=== PATIENT | male | born 1965 | race Caucasian/White ===

== ENCOUNTER → 2016-12-12 | Day surgery (SDC) | payer BC ==
[~2016-12-12] VITALS: Ht 182.9 cm; Wt 91.0 kg
[~2016-12-12] MED LIST: CYAN500T13 PO; FENTANYL CITRATE INJ 50 MCG/1 ML 2 ML VIAL ONE; LIDOCAINE HCL 2% 2 ML VIAL (20MG/ML) ONE; MIDAZOLAM HCL 1 MG/ML 2ML VIAL ONE; PANT40TA PO; PROPOFOL IV EMULSION 10 MG/ML 20 ML VIAL IV ONE; SODIUM CHLORIDE 0.9% 500ML 500 ML IV ONE; WARF5TAB90 PO; WARF7.5T PO
--- NOTE | 2016-12-12 14:27 | Endo History and Physical ---
History & Physical Date of Service: Dec 12, 2016. Chief Complaint: Referring Physician: History of Present Illness Follow up of Kohli's esophagus Past Medical History Pulmonary Emboli, Hypertension, COPD Past Surgical History Hx Cardiac Surgery: No Hx Internal Defibrillator: No Hx Pacemaker: No Hx Abdominal Surgery: Yes ([facility] [place] abdominal surgery- AAA repair) Hx Post-Op Nausea and Vomiting: No Hx Cancer Surgery: No Hx Thoracic Surgery: No Hx Orthopedic: No Hx Urinary Tract Surgery: No Social History Smoking Status: Current Every Day Smoker Hx Substance Use: No Hx Alcohol Use: Yes (BEER- 12 a day) Allergies Coded Allergies: No Known Allergies (Unverified , 04/21/16) Current Medications Reported Home Medications Medications Dose Route/Sig Max Daily Dose Days Date Category Vitamin B12 500MCG (Cyanocobalamin) 500 Mcg Tab 1,000 Mcg PO DAILY 05/29/16 Reported Protonix (Pantoprazole Sodium) 40 Mg Tab 40 Mg PO BID 04/24/16 Rx Physical Exam General Appearance: WD/WN, no apparent distress Respiratory/Chest: Auscultation: breath sounds normal, CTA except as noted Cardiovascular: Apical Impulse: not displaced Heart Auscultation: RRR, normal S1, normal S2 Abdomen: Inspection & Palpation: soft, non-distended Assessment and Plan 50 yo presenting for egd for Kohli's esophagus f/u
[2016-12-12 14:33] VITALS: Ht 182.9 cm; Wt 91.0 kg
--- NOTE | 2016-12-12 15:16 | GI REPORT ---
Procedure Date: 12/12/2016 2:46 PM Procedure: Upper GI endoscopy Indications: Follow-up of Kohli's esophagus Medicines: General Anesthesia Complications: No immediate complications. Estimated blood loss: None. Estimated Blood Loss: Estimated blood loss: none. Procedure: Pre-Anesthesia Assessment: - Pre-Anesthesia Assessment: - Prior to the procedure, a History and Physical was performed, and patient medications, allergies and sensitivities were reviewed. The patient's tolerance of previous anesthesia was reviewed. Please see Ektron for complete details. - The risks and benefits of the procedure and the sedation options and risks were discussed with the patient. All questions were answered and informed consent was obtained. - Patient identification and proposed procedure were verified prior to the procedure by the physician and the nurse. The procedure was verified in the pre-procedure area in the procedure room. After obtaining informed consent, the endoscope was passed carefully and meticuously under direct vision and only advanced when the lumen was clearly identified, C02 insuflation was utilized throughout the entirity of the procedure. Throughout the procedure, the patient's blood pressure, pulse, and oxygen saturations were monitored continuously. After obtaining informed consent, the endoscope was passed under direct vision. Throughout the procedure, the patient's blood pressure, pulse, and oxygen saturations were monitored continuously. The scope was introduced through the mouth, and advanced to the second part of duodenum. The upper GI endoscopy was accomplished without difficulty. The patient tolerated the procedure well. Findings: The esophagus and gastroesophageal junction were examined with white light and narrow band imaging (NBI) from a forward view and retroflexed position. There were esophageal mucosal changes classified as Kohli's stage C3-M3 per Woodbine criteria. These changes involved the mucosa at the upper extent of the gastric folds (40 cm from the incisors) extending to the Z-line (37 cm from the incisors). The maximum longitudinal extent of these esophageal mucosal changes was 3 cm in length. Mucosa was biopsied with a cold forceps for histology in 4 quadrants at intervals of 1 cm at 37, 38, 39 and 40 cm from the incisors. A total of 4 specimen bottles were sent to pathology. A hiatus hernia was present. The entire examined stomach was normal. The examined duodenum was normal. Impression: - Esophageal mucosal changes classified as Kohli's stage C3-M3 per Woodbine criteria. Biopsied. - Normal stomach. - Normal examined duodenum. Recommendation: - Await pathology results. - Discharge patient to home (with escort). - Return to referring physician as previously scheduled. - Continue present medications. Samy Sahu MD 12/12/2016 3:16:21 PM This report has been signed electronically. Note Initiated On: 12/12/2016 2:46 PM
--- NOTE | 2016-12-12 15:33 | Discharge Instructions ---
Endoscopy Patient Instructions Date / Procedure(s) Performed Dec 12, 2016. EGD Allergy Information Coded Allergies: No Known Allergies (Verified , 12/12/16) Discharge Date / Findings Dec 12, 2016. Stable appearing Barretts esophagus Provider Instructions Activity Restrictions - No exercising or heavy lifting for 24 hours. - Do not drink alcohol the day of the procedure. - Do not drive a car or operate machinery until the day after the procedure. - Do not make any important decisions or sign important papers in 24 hours after the procedure. Following Day: - Return to full activity which may include returning to work/school. Diet Start your diet with liquids and light foods (jello, soup, juice, toast). Then eat your usual diet if not nauseated. Treatment For Common After Affects For mild abdominal pain, bloating, or excessive gas: - Rest - Eat lightly - Lie on right side Follow-Up Information Follow-up with DR YUNG GAVIRIA as scheduled Anesthesia Information What You Should Know You have had a procedure that required some medicine to reduce anxiety and discomfort. This treatment is called moderate sedation. After receiving the treatment, you may be sleepy, but you will be able to breathe on your own. The effects of the treatment may last for several hours. Follow these instructions along with Activity/Diet recommendations noted above: * Do NOT do anything where dizziness or clumsiness would be dangerous. * Rest quietly at home today, then you can be up and about tomorrow. * Have a responsible person stay with you the rest of today. * You may have had an I.V. today. If so, you may take the dressing off later today. Recommendations Call your doctor if: * Trouble breathing * Continuous vomiting for more than 24 hours * Temperature above 101 degrees * Severe abdominal pain or bloating * Pain not relieved by pain medicine ordered * There is increased drainage or redness from any incision * A large amount of rectal bleeding greater than 2-3 tablespoons. (If you had a polyp/s removed or have hemorrhoids, a small amount of blood - from the rectum is to be expected.) * You have any unanswered questions or concerns. IN THE EVENT OF A SERIOUS EMERGENCY, GO TO THE NEAREST EMERGENCY ROOM Your discharge instructions were prepared by provider Samy Sahu. Patient Instructions Signature Page Tam Fritz Patient (or Guardian) Signature/Date: I have read and understand the instructions given to me by my caregivers. Caregiver/RN/Doctor Signature/Date: The above-named patient and/or guardian has received patient instructions on this date. + Original Patient Signature Page (only) stays with chart. Please make copy for patient.
--- NOTE | 2016-12-12 15:36 | Anesthesiology Progress Note ---
Anesthesia Post Op Note Date & Time Dec 12, 2016 at 15:36 Vital Signs Pain Intensity: 0 Vital Signs Past 12 Hours Date Time Temp Pulse Resp B/P Pulse Ox O2 Delivery O2 Flow Rate FiO2 12/12/16 15:20 108 16 117/84 95 Room Air 12/12/16 14:32 37.0 88 22 162/98 97 Room Air Notes Mental Status: alert / awake / arousable, participated in evaluation Pt Amnestic to Procedure: Yes Nausea / Vomiting: adequately controlled Pain: adequately controlled Airway Patency, RR, SpO2: stable & adequate BP & HR: stable & adequate Hydration State: stable & adequate Anesthetic Complications: no major complications apparent
[2016-12-12 15:50] VITALS: BP 130/84; PULSE 96; O2SAT 95
== END | disposition home or self-care (01) ==
LOC: C.GI 14:19
PROVIDERS: ATTEND Internal Medicine
DX: K22.70 Barrett's esophagus without dysplasia (principal); K44.9 Diaphragmatic hernia without obstruction or gangrene; I10 Essential (primary) hypertension; J44.9 Chronic obstructive pulmonary disease, unspecified; I26.99 Other pulmonary embolism without acute cor pulmonale; F17.210 Nicotine dependence, cigarettes, uncomplicated; Z98.890 Other specified postprocedural states

== ENCOUNTER → 2018-03-19 | Outpatient (CLI) | payer OTHER ==
[~2018-03-19] MED LIST changes: -FENTANYL CITRATE INJ 50 MCG/1 ML 2 ML VIAL ONE; -LIDOCAINE HCL 2% 2 ML VIAL (20MG/ML) ONE; -MIDAZOLAM HCL 1 MG/ML 2ML VIAL ONE; -PANT40TA PO; -PROPOFOL IV EMULSION 10 MG/ML 20 ML VIAL IV ONE; -SODIUM CHLORIDE 0.9% 500ML 500 ML IV ONE; -WARF7.5T PO
--- NOTE | 2018-03-19 16:49 | DIAGNOSTIC IMAGING REPORT ---
CHEST 2 VIEWS ROUTINE CLINICAL HISTORY: J42, R06.2, Z72.0 CHRONIC BRONCHITIS, WHEEZING, COUGH, SHORTNESS OF BREATH. COMPARISON STUDY: 08/06/2015 FINDINGS: There is radiographic evidence of pulmonary emphysema. The patient is hyperinflated. There are scattered postinflammatory calcifications present. There is no acute parenchymal consolidation. There is no failure. There are no pleural effusions.[ There is an old left-sided rib deformity. IMPRESSION: Emphysema and postinflammatory changes. No acute findings. Electronically signed by: Sammy Kiser M.D. 03/19/2018 4:48 PM Dictated Date/Time: 03/19/2018 4:47 PM
== END | disposition home or self-care (01) ==
LOC: C.RAD1850 16:22
PROVIDERS: ATTEND Physician Assistant
DX: J44.9 Chronic obstructive pulmonary disease, unspecified (principal); Z72.0 Tobacco use

== ENCOUNTER 2019-01-20 22:38 | Inpatient (IN) ==
[2019-01-20] MEDS ORDERED: ALBUT/IPRATROP 3MG/0.5MG NEB 3 ML VIAL ONE (22:44)
[2019-01-20] MEDS ORDERED: ALBUT/IPRATROP 3MG/0.5MG NEB 3 ML VIAL INH STA (23:17)
[2019-01-20] MEDS ORDERED: methylPREDNISolone 125 MG/2 ML VIAL IV STA (23:17)
[2019-01-20 23:43] LABS: Eosinophils # (auto) 0.01 K/uL (0-0.5); Eosinophils % (auto) 0.1 %; Hematocrit (blood only) 41.3 % (42-52); Hemoglobin 13.9 g/dL (14.0-18.0); Immature Granulocytes # (auto) 0.05 K/uL (0.00-0.02); Immature Granulocytes % (auto) 0.7 %; Lymphocytes % (auto) 10.4 %; Mean Corpuscular Hgb Conc 33.7 g/dL (32-36); Mean Corpuscular Volume 92.4 fL (80-100); Mean Platelet Volume 9.2 fL (7.4-10.4); Monocytes # (auto) 0.68 K/uL (0.11-0.59); Monocytes % (auto) 10.1 %; Neutrophils # (auto) 5.27 K/uL (1.4-6.5); Neutrophils % (auto) 78.7 %; Platelet Count 265 K/uL (130-400); RDW Coefficient of Variation 14.7 % (11.5-14.5); Red Blood Count 4.47 M/uL (4.7-6.1); White Blood Count 6.71 K/uL (4.8-10.8)
[2019-01-21 00:12] LABS: Alanine Aminotransferase 44 U/L (12-78); Albumin Level 3.4 gm/dl (3.4-5.0); Aspartate Aminotransferase 33 U/L (15-37); BUN Creatinine Ratio 13.4 (10-20); Blood Urea Nitrogen 8 mg/dl (7-18); Calcium 7.9 mg/dl (8.5-10.1); Carbon Dioxide 31 mmol/L (21-32); Chloride 86 mmol/L (98-107); Creatinine Clr Calc Pharmacy 151.9 ml/min; Est GFR (African American) 131.2; Est GFR (Non-African American) 113.2; Glucose 113 mg/dl (70-99); Potassium 3.1 mmol/L (3.5-5.1); Sodium 125 mmol/L (136-145)
[2019-01-21 00:16] LABS: Alkaline Phosphatase 100 U/L (45-117); Bilirubin,Total 0.6 mg/dl (0.2-1); Globulin 3.3 gm/dl (2.5-4.0); Total Protein 6.7 gm/dl (6.4-8.2); Troponin I < 0.015 ng/ml (0-0.045)
[2019-01-21] MEDS ORDERED: POTASSIUM CHLORIDE / WTR 10 MEQ/100 ML PLCT IV ONE (01:36)
[2019-01-21] MEDS ORDERED: SODIUM CHLORIDE 0.9% 1000ML 1,000 ML IV ONE (01:36)
--- NOTE | 2019-01-21 03:05 | History & Physical Report ---
Date of Service January 21, 2019 Assessment & Plan (1) Acute metabolic encephalopathy: Patient with possible hallucinations reported earlier today. He is unable to provide history at this time. Minimal records from prior visits. Broad differential to include metabolic abnormalities/electrolyte derangement, low Na/K/Ca, intoxication, withdrawal, infectious, hypoxia/CO2 retention. -Admit to PCU -Continuous cardiac monitoring and pulse oximetry -Supplemental O2 as needed to maintain sats of 94% -Avoid sedating medications -Check PO4, Mg, TSH with T4, Utox, Salicylates/Acetaminophen levels, ABG, B12 -Provide high dose Thiamine, banana bag -Frequent orientation -Neuro checks q 4 hours (2) Hyponatremia: Kw=888. Unclear of baseline. No seizures. Patient with multiple electrolyte derangements. Was given NSS in ER. Possible cause of AMS/delirium -Obtain urine Na, serum and urine osmolality -Repeat BMP when patient arrives to the floor -Seizure precautions (3) Hypocalcemia: Ca=7.9, Albumin within normal limits -Check ionized calcium level x 1 -Calcium gluconate 1gm IV -Continue to monitor (4) Hypokalemia: K=3.1. he was given 10mEq in ER. -Will administer Magnesium x 2gm -Check PO4 -K repletion -Continue to monitor (5) COPD with exacerbation: Patient hypoxic on arrival. Presently with no respiratory distress, adequate oxygenation on OxyMask. No wheezing noted on exam. Was given 125mg of Solumedrol in ER. -Check ABG, concern for CO2 retention contributing to patient's AMS -Supplemental O2 as needed, continuous pulse oximetry, goal saturation of 94% -DuoNebs q 4 hours -Albuterol q 2 hours PRN (6) GERD (gastroesophageal reflux disease): Chronic -Continue Protonix PO (7) History of DVT (deep vein thrombosis): Per records, patient with DVT x 3. On Xarelto -Check INR -Check d-dimer, unknown adherence to medication regimen. Moderate risk by Wells (for HR and prior DVT) -Conitnue Xarelto F/E/N- Banana bag x 1. Electrolyte correction as above, continue to monitor BMP, NPO for now. Patient with documented history of EtOH abuse in a 2013 note - reportedly 12 beers/day. He is unable to provide history at this tiime. EtOH level=0. Monitor Ppx - Xarelto. Protonix Code - Full Dispo - PCU History of Present Illness Chief Complaint: Altered mental status Primary Care Provider: Naima Tyson MD History obtained through chart review and discussion with ER attending due to patient's AMS. Mr. Fritz is a 53yo C male with history of GERD, prior DVT on anticoagulation therapy, COPD and EtOH abuse presenting with acute onset confusion and hallucinations. Per report, patient was at work when he began to see dogs and cats on the wall. He was brought in by EMS. Was mildly hypoxic en route. On arrival to the ER he was found to be tachycardic, tachypneic, saturating 89% on room air. He was placed on NC then Oxymask due to mouth breathing with appropriate increase in saturation. Patient is somnolent, arousable to verbal and tactile stimuli. Able to answer some questions and follow some commands. He denies pain. Denies breathing di fficulty. ER Course: Albuterol, Solumedrol 125mg, KCl 10mEq, NSS x 1 L Allergies Allergy/AdvReac Type Severity Reaction Status Date / Time No Known Allergies Allergy Mild Verified 01/21/19 00:05 Home Medications Home Medications Medication Instructions Recorded Confirmed Type Cordysept 1 tab PO QPM 01/15/19 01/21/19 History cyanocobalamin (vitamin B-12) 1,000 mcg PO QPM 01/15/19 01/21/19 History fluticasone-vilanterol [Breo 1 inh INHALATION QPM 01/15/19 01/21/19 History Ellipta] pantoprazole 40 mg PO QPM 01/15/19 01/21/19 History ipratropium-albuterol [Combivent 1 puff INHALATION QID 01/20/19 01/21/19 History Respimat] rivaroxaban [Xarelto] 20 mg PO DAILY 01/20/19 01/21/19 History Past Med/Surg History Medical History Alcohol use Chronic obstructive pulmonary disease DVT (deep venous thrombosis) X 3-PLACED ON THINNER GERD (gastroesophageal reflux disease) On home oxygen therapy PRN SOB (shortness of breath) on exertion Tremor Surgical History H/O vascular surgery X 3-VASCULAR BLOCKAGES LOWER LEGS History of esophagogastroduodenoscopy (EGD) Family History Mother Family history of diabetes mellitus Social History Preferred Language: Occitan Communication Ability: Effective Beliefs That Will Affect Care: None Current Living Situation: Alone Feels Safe at Home: Yes Smoking Status: Current every day smoker Hx Alcohol Use: Yes Hx Substance Use: No Review of Systems Unobtainable due to reduced consciousness Physical Exam Vital Signs (Past 24 Hours): Last Vital Signs Temp 37.0 C 01/20/19 22:48 Pulse 113 H 01/21/19 02:26 Resp 20 01/21/19 02:26 BP 178/96 H 01/21/19 02:26 Pulse Ox 98 01/21/19 02:26 Physical Exam: General: patient somnolent, arousable to verbal and tactile stimuli but then falls back asleep, oriented to self only Skin: warm, dry, intact, no rashes/lesions HEENT: NC/AT, pupils small, reactive bilaterally, anicteric sclera, conjunctiva without injection, external ear normal to inspection, nares patent, MMM, poor dentition, neck supple, trachea midline, no cervical LAD, no thyromegaly, no JVD Heart: +S1/S2, regular, tachycardic, no m/r/g Lungs: equal air entry bilaterally, shallow breaths, no rales/rhonchi/wheezes Abd: +BS, soft, NT/ND, no masses/organomegaly/ascites Ext: warm, 2+ pulses, trace pitting edema of bilateral LEs Neuro: somnolent, minimally arousable, answering some questions and following some commands, protecting airway at present, oriented to self only, moves all extremities spontaneously with equal strength Results & Data Laboratory Results Lab Results 01/20/19 01/20/19 01/20/19 Range/Units 23:30 23:30 23:30 WBC 6.71 (4.8-10.8) K/uL RBC 4.47 L (4.7-6.1) M/uL Hgb 13.9 L (14.0-18.0) g/dL Hct 41.3 L (42-52) % MCV 92.4 (80-100) fL MCH 31.1 (25-34) pg MCHC 33.7 (32-36) g/dL RDW Std Deviation 50.0 H (36.4-46.3) fL RDW Coeff of Aggie 14.7 H (11.5-14.5) % Plt Count 265 (130-400) K/uL MPV 9.2 (7.4-10.4) fL Immature Gran % (Auto) 0.7 % Neut % (Auto) 78.7 % Lymph % (Auto) 10.4 % Dixon % (Auto) 10.1 % Eos % (Auto) 0.1 % Baso % (Auto) 0.0 % Immature Gran # (Auto) 0.05 H (0.00-0.02) K/uL Neut # (Auto) 5.27 (1.4-6.5) K/uL Lymph # (Auto) 0.70 L (1.2-3.4) K/uL Dixon # (Auto) 0.68 H (0.11-0.59) K/uL Eos # (Auto) 0.01 (0-0.5) K/uL Baso # (Auto) 0.00 (0-0.2) K/uL Sodium 125 L (136-145) mmol/L Potassium 3.1 L (3.5-5.1) mmol/L Chloride 86 L (98-107) mmol/L Carbon Dioxide 31 (21-32) mmol/L Anion Gap 8.0 (3-11) BUN 8 (7-18) mg/dl Creatinine 0.61 (0.6-1.4) mg/dl Est Cr Clr Drug Dosing 151.9 ml/min Est GFR ( Amer) 131.2 Est GFR (Non-Af Amer) 113.2 BUN/Creatinine Ratio 13.4 (10-20) Glucose 113 H (70-99) mg/dl Calcium 7.9 L (8.5-10.1) mg/dl Total Bilirubin 0.6 (0.2-1) mg/dl AST 33 (15-37) U/L ALT 44 (12-78) U/L Alkaline Phosphatase 100 (45-117) U/L Troponin I < 0.015 (0-0.045) ng/ml Total Protein 6.7 (6.4-8.2) gm/dl Albumin 3.4 (3.4-5.0) gm/dl Globulin 3.3 (2.5-4.0) gm/dl Albumin/Globulin Ratio 1.0 (0.9-2) Ethyl Alcohol mg/dL < 3.0 (0-3) mg/dl Diagnostic Findings CT head without contrast: No acute findings CXR - appears to be mildly hyperinflated, calcified aortic knob, flattening of diaphragms, no PTX, no PNA ECG Additional Comments: Sinus tachycardia, no acute ischemic changes Code Status & VTE Plan Code Status FULL VTE Prophylaxis Plan VTE Prophylaxis will be ordered: Yes Critical Care Time Critical Care Time: No (1) GERD (gastroesophageal reflux disease) Esophagitis presence: esophagitis presence not specified Qualified Code(s): K21.9 - Gastro-esophageal reflux disease without esophagitis
[2019-01-21] MEDS ORDERED: ALBUTEROL 0.5% NEB SOLN 2.5 MG/0.5 ML VIAL NEB PRN (04:21)
[2019-01-21] MEDS ORDERED: LORazepam 1 MG TAB PO PRN (04:21)
[2019-01-21] MEDS ORDERED: ACETAMINOPHEN 325 MG TAB PO PRN (04:21)
[2019-01-21] MEDS ORDERED: CALCIUM GLUCONATE 10% 1,000 MG in SODIUM CHLORIDE 0.9% 50 ML IV ONE (04:45)
[2019-01-21] MEDS ORDERED: MULTI-VITAMIN INFUSION 10 ML, THIAMINE HCL 100 MG, FOLIC ACID 1 MG in SODIUM CHLORIDE 0... IV SCH ×2 (04:45→22:30)
[2019-01-21 04:51] LABS: Appearance Urine Clear (Clear); Bilirubin Urine Negative (Negative); Blood Urine Negative (Negative); Color Urine Yellow; Glucose Urine UA Negative (Negative); Ketones Urine 1+ (Negative); Leukocyte Esterase Urine Negative (Negative); Nitrite Urine Negative (Negative); Protein Urine Negative (Negative); Specific Gravity Urine 1.009 (1.000-1.030); Urobilinogen Urine Negative (Negative); pH Urine 6.5 (4.5-7.5)
[2019-01-21] MEDS: MAGNESIUM SULFATE / D5W 1 GM/100 ML BAG IV SCH ×2 (04:54→06:02)
[2019-01-21 05:05] LABS: HCO3 ABG 33 mmol/L (19-24); Oxygen Saturation ABG 90.1 % (90-95); PCO2 ABG 76 mmHg (35-46); PO2 ABG 67 mm/Hg (80-95); pH ABG 7.26 (7.35-7.45)
[2019-01-21 05:06] LABS: Allen Test Pos (Pos)
[2019-01-21 05:21] LABS: Acetaminophen < 2 ug/ml (10-30); Salicylate 2.1 mg/dl (2.8-20)
[2019-01-21 05:28] LABS: D Dimer 430 ug/L FEU (0-500); Prothrombin Time 9.8 Seconds (9.0-12.0)
[2019-01-21 05:30] LABS: Amphetamines+Metham, Urine Neg (Neg); Barbiturates, Urine Neg (Neg); Benzodiazepine, Urine Neg (Neg); Cocaine, Urine Neg (Neg); MDMA (Ecstacy), Urine Neg (Neg); Methadone, Urine Neg (Neg); Opiate, Urine Neg (Neg); Phencyclidine, Urine Neg (Neg)
[2019-01-21 05:33] LABS: BUN Creatinine Ratio 9.9 (10-20); Calcium 7.8 mg/dl (8.5-10.1); Creatinine Clr Calc Pharmacy 157.1 ml/min; Est GFR (Non-African American) 114.8
[2019-01-21 05:47] LABS: Phosphorus 4.9 mg/dl (2.5-4.9)
--- NOTE | 2019-01-21 05:57 | Emergency Department Note ---
Entered by Maddy Pennington acting as a scribe for History of Present Illness General Chief complaint: Shortness of Breath/Dyspnea Stated complaint: SOB Time Seen by Provider: 01/20/19 23:00 Source: patient Mode of arrival: ambulatory History of Present Illness Onset (ago): minute(s) ([employer]) Location: chest Pain Consistency: + other (worsening) Quality: + other (SOB) The patient is a 53 year old male who presents to the Emergency Room with complaints of worsening SOB that began [employer]. The patient notes that he has been experiencing intermittent episodes of SOB and a cough for the past 2-3 weeks. 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 Per EMS, the patient had an oxygen saturation in the 80s upon being picked up. The patient complains of two episodes of a sore throat in the past three months. Per EMS, the patient's coworkers reported that the patient was seeing cats and dogs at works that weren't actually there. He complains of mild abdominal pain. The patient states that he has been on oxygen before while in the hospital. He states that he uses an inhaler at home, and he uses steroids to wash his mouth out. The patient notes that he drinks Yuengling Lager daily, and he lives alone. He reports that he smokes daily. The patient notes a history of a DVT and a lower aorta block. He states that he takes a blood thinner daily which was recently changed from Coumadin. Home Medications Home Medications Medication Instructions Recorded Confirmed Type Cordysept 1 tab PO QPM 01/15/19 01/21/19 History cyanocobalamin (vitamin B-12) 1,000 mcg PO QPM 01/15/19 01/21/19 History fluticasone-vilanterol [Breo 1 inh INHALATION QPM 01/15/19 01/21/19 History Ellipta] pantoprazole 40 mg PO QPM 01/15/19 01/21/19 History ipratropium-albuterol [Combivent 1 puff INHALATION QID 01/20/19 01/21/19 History Respimat] rivaroxaban [Xarelto] 20 mg PO DAILY 01/20/19 01/21/19 History Allergies Allergy/AdvReac Type Severity Reaction Status Date / Time No Known Allergies Allergy Mild Verified 01/21/19 00:05 Past Med/Surg History Medical History Alcohol use Chronic obstructive pulmonary disease DVT (deep venous thrombosis) X 3-PLACED ON THINNER GERD (gastroesophageal reflux disease) On home oxygen therapy PRN SOB (shortness of breath) on exertion Tremor Surgical History H/O vascular surgery X 3-VASCULAR BLOCKAGES LOWER LEGS History of esophagogastroduodenoscopy (EGD) Family History Mother Family history of diabetes mellitus Social History Preferred Language: Italian Communication Ability: Impaired Division Field Inspector Required: No Beliefs That Will Affect Care: None Current Living Situation: Alone Other Information That Helps Us Care for You: No Feels Safe at Home: Declines to Answer Smoking Status: Unknown if ever smoked Hx Alcohol Use: Yes Hx Substance Use: No (labs ordered) Review of Systems See HPI for pertinent positives & negatives. and A total of 10 systems reviewed and were otherwise negative Physical Exam Vital Signs Vital Signs - 24 hr 01/20/19 22:48 01/20/19 23:17 01/20/19 23:35 Temperature 37.0 C Temperature Source Oral Sepsis Recent Fever Within 48 Hours No Sepsis Action Taken by Nursing No Action Required Pulse Rate 107 H Pulse Rate [Apical] 107 H Pulse Rhythm [Apical] Pulse Strength [Apical] Respiratory Rate 26 H 24 Respiratory Effort / Characteristics Non-Labored Spontaneous Short of Breath Respiratory Depth Normal Respiratory Pattern Regular Blood Pressure 142/92 H Blood Pressure [Right Arm] Blood Pressure Mean 108 Blood Pressure Mean [Right Arm] Blood Pressure Position Lying Blood Pressure Position [Right Arm] Pulse Oximetry 90 89 L 95 Pulse Oximetry [Right Index Finger] Oxygen Delivery Method Room Air Nasal Cannula Nasal Cannula Oxygen Delivery Method [Right Index Finger] Oxygen Flow Rate 3 3 Oxygen Flow Rate [Right Index Finger] Fraction of Inspired Oxygen SaO2/FiO2 Ratio 01/20/19 23:49 01/20/19 23:50 01/21/19 00:18 Temperature Temperature Source Sepsis Recent Fever Within 48 Hours Sepsis Action Taken by Nursing Pulse Rate 109 H Pulse Rate [Apical] 107 H 107 H Pulse Rhythm [Apical] Regular Regular Pulse Strength [Apical] Normal Normal Respiratory Rate 22 17 16 Respiratory Effort / Characteristics Non-Labored Non-Labored Respiratory Depth Normal Normal Respiratory Pattern Regular Regular Blood Pressure Blood Pressure [Right Arm] 142/92 H 142/92 H Blood Pressure Mean Blood Pressure Mean [Right Arm] 108 108 Blood Pressure Position Blood Pressure Position [Right Arm] Lying Lying Pulse Oximetry 97 98 97 Pulse Oximetry [Right Index Finger] Oxygen Delivery Method Nebulizer Nebulizer Non-rebreather Oxygen Delivery Method [Right Index Finger] Oxygen Flow Rate 6 6 Oxygen Flow Rate [Right Index Finger] Fraction of Inspired Oxygen SaO2/FiO2 Ratio 01/21/19 01:56 01/21/19 02:26 01/21/19 03:20 Temperature Temperature Source Sepsis Recent Fever Within 48 Hours Sepsis Action Taken by Nursing Pulse Rate Pulse Rate [Apical] 105 H 113 H 105 H Pulse Rhythm [Apical] Regular Regular Regular Pulse Strength [Apical] Normal Normal Normal Respiratory Rate 19 20 15 Respiratory Effort / Characteristics Non-Labored Non-Labored Non-Labored Respiratory Depth Normal Normal Normal Respiratory Pattern Regular Regular Regular Blood Pressure Blood Pressure [Right Arm] 148/87 H 178/96 H 150/93 H Blood Pressure Mean Blood Pressure Mean [Right Arm] 107 123 112 Blood Pressure Position Blood Pressure Position [Right Arm] Lying Lying Lying Pulse Oximetry 95 98 100 Pulse Oximetry [Right Index Finger] Oxygen Delivery Method Nasal Cannula Oxymask Oxymask Oxygen Delivery Method [Right Index Finger] Oxygen Flow Rate 4 4 6 Oxygen Flow Rate [Right Index Finger] Fraction of Inspired Oxygen SaO2/FiO2 Ratio 01/21/19 03:59 01/21/19 04:15 01/21/19 04:21 Temperature Temperature Source Sepsis Recent Fever Within 48 Hours Sepsis Action Taken by Nursing Pulse Rate 104 H Pulse Rate [Apical] Pulse Rhythm [Apical] Pulse Strength [Apical] Respiratory Rate 18 Respiratory Effort / Characteristics Spontaneous Short of Breath SOB on Exertion Respiratory Depth Normal Respiratory Pattern Regular Blood Pressure 168/89 H Blood Pressure [Right Arm] Blood Pressure Mean Blood Pressure Mean [Right Arm] Blood Pressure Position Blood Pressure Position [Right Arm] Pulse Oximetry 99 Pulse Oximetry [Right Index Finger] 96 Oxygen Delivery Method Oxymask Oxymask Oxygen Delivery Method [Right Index Finger] Oxymask Oxygen Flow Rate 5 5 Oxygen Flow Rate [Right Index Finger] 7 Fraction of Inspired Oxygen SaO2/FiO2 Ratio 01/21/19 05:14 01/21/19 05:27 01/21/19 05:42 Temperature 36.8 C 36.7 C Temperature Source Oral Oral Sepsis Recent Fever Within 48 Hours Sepsis Action Taken by Nursing Pulse Rate 107 H Pulse Rate [Apical] 112 H 107 H Pulse Rhythm [Apical] Pulse Strength [Apical] Respiratory Rate 28 H 20 Respiratory Effort / Characteristics Accessory Muscle Use Short of Breath SOB on Exertion Non-Labored Spontaneous Respiratory Depth Respiratory Pattern Tachypnea Blood Pressure Blood Pressure [Right Arm] 206/101 H 166/103 H Blood Pressure Mean Blood Pressure Mean [Right Arm] 136 124 Blood Pressure Position Blood Pressure Position [Right Arm] Sitting Pulse Oximetry 97 96 Pulse Oximetry [Right Index Finger] Oxygen Delivery Method Oxymask Oxymask Oxygen Delivery Method [Right Index Finger] Oxygen Flow Rate 10 Oxygen Flow Rate [Right Index Finger] Fraction of Inspired Oxygen 7 SaO2/FiO2 Ratio 1371 General: Tremulous on exam and mumbling. HEENT: Head - normocephalic and atraumatic Pupils are equal, round, and reactive to light. Extraocular eye muscles are intact, and sclera are anicteric. Nose - moist nasal mucosa without discharge. Mouth - moist buccal mucosa. Erythema and thrush in the posterior oropharynx. Neck: Supple; no JVD, nuchal rigidity, cervical lymphadenopathy, or auscultated bruits. Heart: Tachycardic rate and regular rhythm. There is a normal S1 and S2 with no murmurs, clicks, or gallops appreciated. Lungs: Diffuse inspiratory and expiratory wheezing. Rhonchi in all lung nuñez. Abdomen: Soft, completely nontender, nondistended, with good bowel sounds. There are no palpable pulsatile masses or hepatosplenomegaly. There is no guarding, rigidity, or rebound noted. Extremities: No evidence of cyanosis or clubbing. There are easily palpable peripheral pulses. 1+ edema in the lower extremities. Skin: warm and dry with good turgor and no rashes. Neuro:The patient is awake and alert but confused. He thought it was 2015. Muscle strength is 5/5 in all 4 extremities. The patient has equal dowel maker strength and equal pedal push and pull. There are no cerebellar signs. Course 230: Past medical records reviewed. The patient was evaluated in room C05, and a complete history and physical examination were performed. Laboratory studies were drawn as above. An EKG and chest x-ray were obtained. 2333: Duoneb 12 ml INH 2349: Solumedrol 125 mg IV 0147: I spoke with Padma Thacker [facility] hospitalist, about the patient's case. She will further evaluate him. 0156: K Tino/Wtr 10 meq in 100 mls @ 100 mls/hr IV, NSS 1000 ml @ 999 mls/hr IV 0205: I discussed the laboratory findings and plans with the patient at the bedside. Consultations Consultation #1: I spoke with Padma Thacker [facility] hospitalist, about the patient's case. She will further evaluate him. Time: 01:47 Administered Medications Magnesium Sulfate/Dextrose (Magnesium Sulfate / D5w) 1 gm in 100 mls @ 100 mls/hr IV Q1H SURJIT Stop: 01/21/19 06:44 Last Admin: 01/21/19 04:54 Dose: 100 mls/hr Documented by: [id number] Multivitamins 10 ml/ Thiamine HCl 100 mg/ Folic Acid 1 mg/Sodium Chloride 1,011.2 mls @ 500 mls/hr IV .Q2H2M SURJIT Stop: 01/21/19 06:46 Last Admin: 01/21/19 04:51 Dose: 500 mls/hr Documented by: [id number] Discontinued Medications Albuterol (Duoneb) 12 ml INH ONE STA Stop: 01/20/19 23:18 Last Admin: 01/20/19 23:33 Dose: 12 ml Documented by: [id number] Potassium Chloride (K Tino / Wtr) 10 meq in 100 mls @ 100 mls/hr IV ONE ONE Stop: 01/21/19 02:35 Last Infusion: 01/21/19 03:37 Dose: 0 mls/hr Documented by: [id number] Admin: 01/21/19 01:56 Dose: 100 mls/hr Documented by: [id number] Sodium Chloride (Nss 1000ml) 1,000 mls @ 999 mls/hr IV .Q1H1M ONE Stop: 01/21/19 02:36 Last Infusion: 01/21/19 04:47 Dose: 0 mls/hr Documented by: [id number] Admin: 01/21/19 01:56 Dose: 999 mls/hr Documented by: [id number] Calcium Gluconate 1,000 mg/ (Sodium Chloride) 60 mls @ 240 mls/hr IV ONE ONE Stop: 01/21/19 04:59 Last Infusion: 01/21/19 05:15 Dose: 0 mls/hr Documented by: [id number] Admin: 01/21/19 04:52 Dose: 240 mls/hr Documented by: [id number] Methylprednisolone (Solumedrol) 125 mg IV NOW STA Stop: 01/20/19 23:18 Last Admin: 01/20/19 23:49 Dose: 125 mg Documented by: [id number] Medical Decision Making Differential Diagnosis The differential diagnosis includes: pneumonia, bronchitis, COPD exacerbation, electrolyte abnormality, alcoholic encephalopathy, alcohol intoxication, and alcohol withdrawal. Medical Records Attestation: I reviewed the patient's medical records. Home Medications Current Medication List: was personally reviewed by me Laboratory Data Attestation: I reviewed the patient's lab results. Result diagrams: 01/20/19 23:30 01/21/19 04:47 Lab Results 01/20/19 01/20/19 01/20/19 Range/Units 23:30 23:30 23:30 WBC 6.71 (4.8-10.8) K/uL RBC 4.47 L (4.7-6.1) M/uL Hgb 13.9 L (14.0-18.0) g/dL Hct 41.3 L (42-52) % MCV 92.4 (80-100) fL MCH 31.1 (25-34) pg MCHC 33.7 (32-36) g/dL RDW Std Deviation 50.0 H (36.4-46.3) fL RDW Coeff of Aggie 14.7 H (11.5-14.5) % Plt Count 265 (130-400) K/uL MPV 9.2 (7.4-10.4) fL Immature Gran % (Auto) 0.7 % Neut % (Auto) 78.7 % Lymph % (Auto) 10.4 % Mcnairy % (Auto) 10.1 % Eos % (Auto) 0.1 % Baso % (Auto) 0.0 % Immature Gran # (Auto) 0.05 H (0.00-0.02) K/uL Neut # (Auto) 5.27 (1.4-6.5) K/uL Lymph # (Auto) 0.70 L (1.2-3.4) K/uL Mcnairy # (Auto) 0.68 H (0.11-0.59) K/uL Eos # (Auto) 0.01 (0-0.5) K/uL Baso # (Auto) 0.00 (0-0.2) K/uL PT (9.0-12.0) Seconds INR (0.9-1.1) D-Dimer (0-500) ug/L FEU ABG pH (7.35-7.45) ABG pCO2 (35-46) mmHg ABG pO2 (80-95) mm/Hg ABG HCO3 (19-24) mmol/L ABG O2 Saturation (90-95) % ABG Base Excess (-9-1.8) mEq/L Tramaine Test (Pos) Barometric Pressure mm/Hg Oxygen Given Sodium 125 L (136-145) mmol/L Potassium 3.1 L (3.5-5.1) mmol/L Chloride 86 L (98-107) mmol/L Carbon Dioxide 31 (21-32) mmol/L Anion Gap 8.0 (3-11) BUN 8 (7-18) mg/dl Creatinine 0.61 (0.6-1.4) mg/dl Est Cr Clr Drug Dosing 151.9 ml/min Est GFR ( Amer) 131.2 Est GFR (Non-Af Amer) 113.2 BUN/Creatinine Ratio 13.4 (10-20) Glucose 113 H (70-99) mg/dl Calcium 7.9 L (8.5-10.1) mg/dl Ionized Calcium (1.12-1.32) mmol/L Phosphorus (2.5-4.9) mg/dl Magnesium (1.8-2.4) mg/dl Total Bilirubin 0.6 (0.2-1) mg/dl AST 33 (15-37) U/L ALT 44 (12-78) U/L Alkaline Phosphatase 100 (45-117) U/L Total Creatine Kinase (39-308) U/L Troponin I < 0.015 (0-0.045) ng/ml Total Protein 6.7 (6.4-8.2) gm/dl Albumin 3.4 (3.4-5.0) gm/dl Globulin 3.3 (2.5-4.0) gm/dl Albumin/Globulin Ratio 1.0 (0.9-2) TSH (0.300-4.500) uIu/ml Specimen Hemolysis Urine Color Urine Appearance (Clear) Urine pH (4.5-7.5) Ur Specific [place] (1.000-1.030) Urine Protein (Negative) Urine Glucose (UA) (Negative) Urine Ketones (Negative) Urine Blood (Negative) Urine Nitrite (Negative) Urine Bilirubin (Negative) Urine Urobilinogen (Negative) Ur Leukocyte Esterase (Negative) Ur Random Sodium mmol/L Urine Creatinine 2 Salicylates (2.8-20) mg/dl Urine Opiates Screen Ur Opiates Confirm Ur Oxycodone Screen Ur Methadone, Qual Ur Methadone Acetaminophen (10-30) ug/ml Urine Barbiturates Ur Barbiturate Confirm Ur Phencyclidine Scrn Ur Phencyclidine (PCP) (Neg) Urine PCP Confirm Ur Amphetamines Screen U Amphetamines Confirm U Amphetamin/Meth Scrn (Neg) MDMA (Ecstasy) Screen (Neg) U Benzodiazepines Scrn U Benzodiazepine Confm Urine Cocaine Ur Cocaine Metabolite (Neg) U Cocaine Metab Confirm U Marijuana (THC) Screen U Marijuana (THC) Confirm U THC/Creatinine Ratio Ur Drug Screen Comment Ethyl Alcohol mg/dL < 3.0 (0-3) mg/dl 01/21/19 01/21/19 01/21/19 Range/Units 04:39 04:46 04:46 WBC (4.8-10.8) K/uL RBC (4.7-6.1) M/uL Hgb (14.0-18.0) g/dL Hct (42-52) % MCV (80-100) fL MCH (25-34) pg MCHC (32-36) g/dL RDW Std Deviation (36.4-46.3) fL RDW Coeff of Aggie (11.5-14.5) % Plt Count (130-400) K/uL MPV (7.4-10.4) fL Immature Gran % (Auto) % Neut % (Auto) % Lymph % (Auto) % Mcnairy % (Auto) % Eos % (Auto) % Baso % (Auto) % Immature Gran # (Auto) (0.00-0.02) K/uL Neut # (Auto) (1.4-6.5) K/uL Lymph # (Auto) (1.2-3.4) K/uL Mcnairy # (Auto) (0.11-0.59) K/uL Eos # (Auto) (0-0.5) K/uL Baso # (Auto) (0-0.2) K/uL PT (9.0-12.0) Seconds INR (0.9-1.1) D-Dimer (0-500) ug/L FEU ABG pH (7.35-7.45) ABG pCO2 (35-46) mmHg ABG pO2 (80-95) mm/Hg ABG HCO3 (19-24) mmol/L ABG O2 Saturation (90-95) % ABG Base Excess (-9-1.8) mEq/L Tramaine Test (Pos) Barometric Pressure mm/Hg Oxygen Given Sodium (136-145) mmol/L Potassium (3.5-5.1) mmol/L Chloride (98-107) mmol/L Carbon Dioxide (21-32) mmol/L Anion Gap (3-11) BUN (7-18) mg/dl Creatinine (0.6-1.4) mg/dl Est Cr Clr Drug Dosing ml/min Est GFR ( Amer) Est GFR (Non-Af Amer) BUN/Creatinine Ratio (10-20) Glucose (70-99) mg/dl Calcium (8.5-10.1) mg/dl Ionized Calcium (1.12-1.32) mmol/L Phosphorus (2.5-4.9) mg/dl Magnesium (1.8-2.4) mg/dl Total Bilirubin (0.2-1) mg/dl AST (15-37) U/L ALT (12-78) U/L Alkaline Phosphatase (45-117) U/L Total Creatine Kinase (39-308) U/L Troponin I (0-0.045) ng/ml Total Protein (6.4-8.2) gm/dl Albumin (3.4-5.0) gm/dl Globulin (2.5-4.0) gm/dl Albumin/Globulin Ratio (0.9-2) TSH (0.300-4.500) uIu/ml Specimen Hemolysis Urine Color Yellow Urine Appearance Clear (Clear) Urine pH 6.5 (4.5-7.5) Ur Specific Bethel 1.009 (1.000-1.030) Urine Protein Negative (Negative) Urine Glucose (UA) Negative (Negative) Urine Ketones 1+ H (Negative) Urine Blood Negative (Negative) Urine Nitrite Negative (Negative) Urine Bilirubin Negative (Negative) Urine Urobilinogen Negative (Negative) Ur Leukocyte Esterase Negative (Negative) Ur Random Sodium 13 mmol/L Urine Creatinine 2 Cancelled Salicylates (2.8-20) mg/dl Urine Opiates Screen Cancelled Ur Opiates Confirm Cancelled Ur Oxycodone Screen Cancelled Ur Methadone, Qual Cancelled Ur Methadone Cancelled Acetaminophen (10-30) ug/ml Urine Barbiturates Cancelled Ur Barbiturate Confirm Cancelled Ur Phencyclidine Scrn Cancelled Ur Phencyclidine (PCP) (Neg) Urine PCP Confirm Cancelled Ur Amphetamines Screen Cancelled U Amphetamines Confirm Cancelled U Amphetamin/Meth Scrn (Neg) MDMA (Ecstasy) Screen (Neg) U Benzodiazepines Scrn Cancelled U Benzodiazepine Confm Cancelled Urine Cocaine Cancelled Ur Cocaine Metabolite (Neg) U Cocaine Metab Confirm Cancelled U Marijuana (THC) Screen Cancelled U Marijuana (THC) Confirm Cancelled U THC/Creatinine Ratio Cancelled Ur Drug Screen Comment Cancelled Ethyl Alcohol mg/dL (0-3) mg/dl 01/21/19 01/21/19 01/21/19 Range/Units 04:47 04:47 04:47 WBC (4.8-10.8) K/uL RBC (4.7-6.1) M/uL Hgb (14.0-18.0) g/dL Hct (42-52) % MCV (80-100) fL MCH (25-34) pg MCHC (32-36) g/dL RDW Std Deviation (36.4-46.3) fL RDW Coeff of Aggie (11.5-14.5) % Plt Count (130-400) K/uL MPV (7.4-10.4) fL Immature Gran % (Auto) % Neut % (Auto) % Lymph % (Auto) % Mcnairy % (Auto) % Eos % (Auto) % Baso % (Auto) % Immature Gran # (Auto) (0.00-0.02) K/uL Neut # (Auto) (1.4-6.5) K/uL Lymph # (Auto) (1.2-3.4) K/uL Mcnairy # (Auto) (0.11-0.59) K/uL Eos # (Auto) (0-0.5) K/uL Baso # (Auto) (0-0.2) K/uL PT 9.8 (9.0-12.0) Seconds INR 1.0 (0.9-1.1) D-Dimer 430 (0-500) ug/L FEU ABG pH 7.26 L (7.35-7.45) ABG pCO2 76 H (35-46) mmHg ABG pO2 67 L (80-95) mm/Hg ABG HCO3 33 H (19-24) mmol/L ABG O2 Saturation 90.1 (90-95) % ABG Base Excess 3.5 H (-9-1.8) mEq/L Tramaine Test Pos (Pos) Barometric Pressure 737.8 mm/Hg Oxygen Given 10L O2 Sodium (136-145) mmol/L Potassium (3.5-5.1) mmol/L Chloride (98-107) mmol/L Carbon Dioxide (21-32) mmol/L Anion Gap (3-11) BUN (7-18) mg/dl Creatinine (0.6-1.4) mg/dl Est Cr Clr Drug Dosing ml/min Est GFR ( Amer) Est GFR (Non-Af Amer) BUN/Creatinine Ratio (10-20) Glucose (70-99) mg/dl Calcium (8.5-10.1) mg/dl Ionized Calcium 1.04 L (1.12-1.32) mmol/L Phosphorus (2.5-4.9) mg/dl Magnesium (1.8-2.4) mg/dl Total Bilirubin (0.2-1) mg/dl AST (15-37) U/L ALT (12-78) U/L Alkaline Phosphatase (45-117) U/L Total Creatine Kinase (39-308) U/L Troponin I (0-0.045) ng/ml Total Protein (6.4-8.2) gm/dl Albumin (3.4-5.0) gm/dl Globulin (2.5-4.0) gm/dl Albumin/Globulin Ratio (0.9-2) TSH (0.300-4.500) uIu/ml Specimen Hemolysis Urine Color Urine Appearance (Clear) Urine pH (4.5-7.5) Ur Specific Bethel (1.000-1.030) Urine Protein (Negative) Urine Glucose (UA) (Negative) Urine Ketones (Negative) Urine Blood (Negative) Urine Nitrite (Negative) Urine Bilirubin (Negative) Urine Urobilinogen (Negative) Ur Leukocyte Esterase (Negative) Ur Random Sodium mmol/L Urine Creatinine 2 Salicylates (2.8-20) mg/dl Urine Opiates Screen Ur Opiates Confirm Ur Oxycodone Screen Ur Methadone, Qual Ur Methadone Acetaminophen (10-30) ug/ml Urine Barbiturates Ur Barbiturate Confirm Ur Phencyclidine Scrn Ur Phencyclidine (PCP) (Neg) Urine PCP Confirm Ur Amphetamines Screen U Amphetamines Confirm U Amphetamin/Meth Scrn (Neg) MDMA (Ecstasy) Screen (Neg) U Benzodiazepines Scrn U Benzodiazepine Confm Urine Cocaine Ur Cocaine Metabolite (Neg) U Cocaine Metab Confirm U Marijuana (THC) Screen U Marijuana (THC) Confirm U THC/Creatinine Ratio Ur Drug Screen Comment Ethyl Alcohol mg/dL (0-3) mg/dl 01/21/19 01/21/19 01/21/19 Range/Units 04:47 04:47 Unknown WBC (4.8-10.8) K/uL RBC (4.7-6.1) M/uL Hgb (14.0-18.0) g/dL Hct (42-52) % MCV (80-100) fL MCH (25-34) pg MCHC (32-36) g/dL RDW Std Deviation (36.4-46.3) fL RDW Coeff of Aggie (11.5-14.5) % Plt Count (130-400) K/uL MPV (7.4-10.4) fL Immature Gran % (Auto) % Neut % (Auto) % Lymph % (Auto) % Mcnairy % (Auto) % Eos % (Auto) % Baso % (Auto) % Immature Gran # (Auto) (0.00-0.02) K/uL Neut # (Auto) (1.4-6.5) K/uL Lymph # (Auto) (1.2-3.4) K/uL Mcnairy # (Auto) (0.11-0.59) K/uL Eos # (Auto) (0-0.5) K/uL Baso # (Auto) (0-0.2) K/uL PT (9.0-12.0) Seconds INR (0.9-1.1) D-Dimer (0-500) ug/L FEU ABG pH (7.35-7.45) ABG pCO2 (35-46) mmHg ABG pO2 (80-95) mm/Hg ABG HCO3 (19-24) mmol/L ABG O2 Saturation (90-95) % ABG Base Excess (-9-1.8) mEq/L Tramaine Test (Pos) Barometric Pressure mm/Hg Oxygen Given Sodium 128 L (136-145) mmol/L Potassium (3.5-5.1) mmol/L Chloride 90 L (98-107) mmol/L Carbon Dioxide 33 H (21-32) mmol/L Anion Gap 5.0 (3-11) BUN 6 L (7-18) mg/dl Creatinine 0.59 L (0.6-1.4) mg/dl Est Cr Clr Drug Dosing 157.1 ml/min Est GFR ( Amer) 133.0 Est GFR (Non-Af Amer) 114.8 BUN/Creatinine Ratio 9.9 L (10-20) Glucose 115 H (70-99) mg/dl Calcium 7.8 L (8.5-10.1) mg/dl Ionized Calcium (1.12-1.32) mmol/L Phosphorus 4.9 (2.5-4.9) mg/dl Magnesium 2.0 (1.8-2.4) mg/dl Total Bilirubin (0.2-1) mg/dl AST (15-37) U/L ALT (12-78) U/L Alkaline Phosphatase (45-117) U/L Total Creatine Kinase 52 (39-308) U/L Troponin I (0-0.045) ng/ml Total Protein (6.4-8.2) gm/dl Albumin (3.4-5.0) gm/dl Globulin (2.5-4.0) gm/dl Albumin/Globulin Ratio (0.9-2) TSH 0.066 L (0.300-4.500) uIu/ml Specimen Hemolysis Urine Color Urine Appearance (Clear) Urine pH (4.5-7.5) Ur Specific [place] (1.000-1.030) Urine Protein (Negative) Urine Glucose (UA) (Negative) Urine Ketones (Negative) Urine Blood (Negative) Urine Nitrite (Negative) Urine Bilirubin (Negative) Urine Urobilinogen (Negative) Ur Leukocyte Esterase (Negative) Ur Random Sodium mmol/L Urine Creatinine 2 Salicylates 2.1 L (2.8-20) mg/dl Urine Opiates Screen Neg Ur Opiates Confirm Ur Oxycodone Screen Ur Methadone, Qual Neg Ur Methadone Acetaminophen < 2 L (10-30) ug/ml Urine Barbiturates Neg Ur Barbiturate Confirm Ur Phencyclidine Scrn Ur Phencyclidine (PCP) Neg (Neg) Urine PCP Confirm Ur Amphetamines Screen U Amphetamines Confirm U Amphetamin/Meth Scrn Neg (Neg) MDMA (Ecstasy) Screen Neg (Neg) U Benzodiazepines Scrn Neg U Benzodiazepine Confm Urine Cocaine Ur Cocaine Metabolite Neg (Neg) U Cocaine Metab Confirm U Marijuana (THC) Screen Neg U Marijuana (THC) Confirm U THC/Creatinine Ratio Ur Drug Screen Comment Ethyl Alcohol mg/dL (0-3) mg/dl Imaging Data Attestation: I personally reviewed and interpreted this imaging study as follows: My Impression: XR CHEST 2V: Right sided pleural effusion. Multiple tiny nodular densities. Radiologist's Impression: Radiology results as stated below per my review and th e radiologist's interpretation: CT HEAD: No acute findings. Radiologist: Shadi Duarte MD Study ready at 00:41 and initial results transmitted at 00:57. ECG Data Attestation: I personally reviewed and interpreted this ECG as follows: Indication: SOB/dyspnea Rate (beats per minute): 104 Rhythm: sinus tachycardia Findings: + other (no ischemia); no ectopy Blood Pressure Blood Pressure Findings: Elevated blood pressure Blood Pressure Disposition: further management by hospitalist [facility] Narrative The patient is a 53 year old male who presents to the Emergency Room with compl aints of worsening SOB and confusion that began [employer]. 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 The patient admits that he is a smoker and often times has difficulty breathing. He uses inhalers at home. The patient seems to be mumbling. He describes living alone. He has nobody with him. He has no previous visits to our emergency department in the computer system. He is oriented to person and place but not time. He believes that it is 2014. CT scan of the brain was unremarkable. Laboratory studies reveal a sodium level at 125. This certainly could account for the patient's confusion. I believe he is also suffering from an exacerbation of COPD secondary to smoking. I discussed the case with the [facility] Hospitalist and they will evaluate for further management. Impression & Plan Hyponatremia, Hypokalemia, Altered mental status Discharge Plan Visit Data *Final* Discharge Date/Time: 01/21/19 03:59 Chief Complaint: Shortness of Breath/Dyspnea Stated Complaint: SOB ED Provider: Steffi Loya Discharge Problem: Hyponatremia, Hypokalemia, Altered mental status Patient Disposition: Admitted As Inpatient Discharge Instructions Interventions: ED Discharge Assessment Last Done: 01/21/19 03:59 Discharge Problem: Altered mental status Qualifiers: Altered mental status type: unspecified Qualified Code(s): R41.82 - Altered mental status, unspecified The scribe's documentation has been prepared under my direction and personally reviewed by me in its entirety. I confirm that the note above accurately reflects all work, treatment, procedures, and medical decision making performed by me.
[2019-01-21 06:20] LABS: T4 Free Thyroxine 1.29 ng/dl (0.8-1.6)
--- NOTE | 2019-01-21 06:25 | XRay Report ---
XR chest 2V routine CLINICAL HISTORY: Dyspnea COMPARISON STUDY: No previous studies for comparison. FINDINGS: The heart is normal in size. There is radiographic evidence of emphysema. There are scatter ed calcified granulomas present. There is no failure. There is no lobar consolidation. There are no p leural effusions.[ IMPRESSION: Pulmonary emphysema. No acute findings. Electronically signed by: Sammy Kiser M.D. 01/21/2019 6:24 AM
[2019-01-21 06:29] LABS: Potassium 3.9 mmol/L (3.5-5.1)
--- NOTE | 2019-01-21 06:38 | CT Scan Report ---
CT OF THE HEAD WITHOUT CONTRAST CLINICAL HISTORY: Altered mental status. COMPARISON STUDY: Head CT May 16, 2010. CT DOSE: 1031.97 mGy.cm TECHNIQUE: Helical axial images of the head were obtained without IV contrast. Automated exposure con trol was utilized for the study. A dose lowering technique was utilized adhering to the principles o f ALARA. FINDINGS: No acute intracranial hemorrhage, midline shift or mass effect is present. Ventricular syst em is normal. The basilar cisterns are patent. There is a suspected juan cisterna magna. There are no findings to suggest acute dural sinus thrombosis or acute territorial infarct. Exam is mildly compro mised by artifact. There is right maxillary sinus mucosal thickening with secretions. IMPRESSION: 1. No acute intracranial findings. 2. Right maxillary sinus mucosal thickening with secretions. Electronically signed by: Jaren Orr M.D. 01/21/2019 6:36 AM
[2019-01-21 06:57] LABS: HCO3 ABG 34 mmol/L (19-24); Oxygen Saturation ABG 98.7 % (90-95); PCO2 ABG 80 mmHg (35-46); PO2 ABG 147 mm/Hg (80-95); pH ABG 7.25 (7.35-7.45)
[2019-01-21] MEDS: ALBUT/IPRATROP 3MG/0.5MG NEB 3 ML VIAL NEB SCH ×4 (07:00→19:08)
[2019-01-21 07:11] LABS: Allen Test Pos (Pos)
[2019-01-21] MEDS ORDERED: SODIUM CHLORIDE 0.9% 1000ML 1,000 ML IV SCH (07:15)
[2019-01-21] MEDS: RIVAROXABAN 20 MG TAB PO SCH (09:45)
[2019-01-21] MEDS: THIAMINE HCL 500 MG in SODIUM CHLORIDE 0.9% 50 ML IV SCH ×2 (09:57→15:17)
--- NOTE | 2019-01-21 11:48 | Family Medicine Progress Note ---
Date of Service January 21, 2019 Assessment & Plan (1) Acute metabolic encephalopathy: 53 yr old with AMS and hallucinations. Could be due to metabolic abnormalities/electrolyte derangement, low Na/K/Ca, intoxication, withdrawal, infectious, hypoxia/CO2 retention. Metabolic encephalopathy - likely from respiratory failure/possible DT -CT head-unremarkable except for possible sinusitis -Negative Tox screen -cont to avoid sedating meds. -Placed on bipap Acute respiratory failure - Hypercapneic/hypoxic - sec to copd exacerbation -ABG with respiratory acidosis -bipap support. - follow COPD Exacerbation -IV steroids -IV ceftrixone, doxycycline -DuoNebs q 4 hours -Albuterol q 2 hours PRN Concern of DT - in setting of Hx of alcohol abuse -Patient with documented history of EtOH abuse in a 2013 note. -Tox showed no Hx of recent alcohol use -MVI - banana bag given -On AWSS protocol Hyponatremia - sec to alc use -Na 125. FeNa calc pending serum and urine osm -seizure precaution Hypocalcemia -s/p 1gm IV Calc gluc -continue to monitor Hypokalemia -currently resolved -continue to monitor Abnormal thyroid function -TSH decreased but T4 normal: possible subclinical vs. sick thyroid? GERD -continue protonix Hx of DVT -Per records, patient with DVT x 3. On Xarelto. -Continue Xarelto -PT/INR and d-dimer- NORMAL Ppx - Xarelto. Protonix Code - Full Dispo - PCU (2) Hyponatremia: (3) Hypocalcemia: (4) Hypokalemia: (5) COPD with exacerbation: (6) GERD (gastroesophageal reflux disease): (7) History of DVT (deep vein thrombosis): Supervising Physician Co-Signing Physician Notes Resident Physician Supervision Note: I independently interviewed and examined the patient and verified the aviles history and physical, reviewed labs and image studies, discussed the case with the resident Dr. Barth, made edits to above note and agree with the findings and care plan. Patient stayed persistently acidotic on repeat ABG - transferred to ICU for further care. Subjective Pt was attempting to talk but incomprehensible due to mask on face. Was able to follow directions. Drowsy but arousable with verbal stimulation. Review of Systems Unobtainable due to cognitive status Physical Exam Vital Signs (Past 24 Hours): Last Vital Signs Temp 36.7 C 01/21/19 05:42 Pulse 114 H 01/21/19 11:01 Resp 22 01/21/19 11:01 BP 166/99 H 01/21/19 07:51 Pulse Ox 96 01/21/19 11:01 General: Drwosy but easily arousable. HEENT: NC/AT, mask on face. Chest: Nontender to palpation. CV: RRR, Normal s1, s2. No murmurs appreciated Resp: Breath sounds decreased but clear bilaterally with some increased effort of breathing. Abdomen: BS+. Soft, nontender, nondistended. No guarding. No organomegaly appreciated. Extremities: No edema. Results & Data Laboratory Results Laboratory Results - last 24 hr 01/20/19 01/20/19 01/20/19 23:30 23:30 23:30 WBC 6.71 RBC 4.47 L Hgb 13.9 L Hct 41.3 L MCV 92.4 MCH 31.1 MCHC 33.7 RDW Std Deviation 50.0 H RDW Coeff of Aggie 14.7 H Plt Count 265 MPV 9.2 Immature Gran % (Auto) 0.7 Neut % (Auto) 78.7 Lymph % (Auto) 10.4 [place] % (Auto) 10.1 Eos % (Auto) 0.1 Baso % (Auto) 0.0 Immature Gran # (Auto) 0.05 H Neut # (Auto) 5.27 Lymph # (Auto) 0.70 L [place] # (Auto) 0.68 H Eos # (Auto) 0.01 Baso # (Auto) 0.00 PT INR D-Dimer ABG pH ABG pCO2 ABG pO2 ABG HCO3 ABG O2 Saturation ABG Base Excess Tramaine Test Barometric Pressure Oxygen Given Sodium 125 L Potassium 3.1 L Chloride 86 L Carbon Dioxide 31 Anion Gap 8.0 BUN 8 Creatinine 0.61 Est Cr Clr Drug Dosing 151.9 Est GFR ( Amer) 131.2 Est GFR (Non-Af Amer) 113.2 BUN/Creatinine Ratio 13.4 Glucose 113 H Calcium 7.9 L Ionized Calcium Phosphorus Magnesium Total Bilirubin 0.6 AST 33 ALT 44 Alkaline Phosphatase 100 Total Creatine Kinase Troponin I < 0.015 Total Protein 6.7 Albumin 3.4 Globulin 3.3 Albumin/Globulin Ratio 1.0 Vitamin B12 TSH Free T4 Specimen Hemolysis Urine Color Urine Appearance Urine pH Ur Specific [place] Urine Protein Urine Glucose (UA) Urine Ketones Urine Blood Urine Nitrite Urine Bilirubin Urine Urobilinogen Ur Leukocyte Esterase Ur Random Sodium Urine Creatinine 2 Salicylates Urine Opiates Screen Ur Opiates Confirm Ur Oxycodone Screen Ur Methadone, Qual Ur Methadone Acetaminophen Urine Barbiturates Ur Barbiturate Confirm Ur Phencyclidine Scrn Ur Phencyclidine (PCP) Urine PCP Confirm Ur Amphetamines Screen U Amphetamines Confirm U Amphetamin/Meth Scrn MDMA (Ecstasy) Screen U Benzodiazepines Scrn U Benzodiazepine Confm Urine Cocaine Ur Cocaine Metabolite U Cocaine Metab Confirm U Marijuana (THC) Screen U Marijuana (THC) Confirm U THC/Creatinine Ratio Ur Drug Screen Comment Ethyl Alcohol mg/dL < 3.0 Hepatitis C Ab Screen 01/21/19 01/21/19 01/21/19 04:39 04:46 04:46 WBC RBC Hgb Hct MCV MCH MCHC RDW Std Deviation RDW Coeff of Aggie Plt Count MPV Immature Gran % (Auto) Neut % (Auto) Lymph % (Auto) [place] % (Auto) Eos % (Auto) Baso % (Auto) Immature Gran # (Auto) Neut # (Auto) Lymph # (Auto) [place] # (Auto) Eos # (Auto) Baso # (Auto) PT INR D-Dimer ABG pH ABG pCO2 ABG pO2 ABG HCO3 ABG O2 Saturation ABG Base Excess Tramaine Test Barometric Pressure Oxygen Given Sodium Potassium Chloride Carbon Dioxide Anion Gap BUN Creatinine Est Cr Clr Drug Dosing Est GFR ( Amer) Est GFR (Non-Af Amer) BUN/Creatinine Ratio Glucose Calcium Ionized Calcium Phosphorus Magnesium Total Bilirubin AST ALT Alkaline Phosphatase Total Creatine Kinase Troponin I Total Protein Albumin Globulin Albumin/Globulin Ratio Vitamin B12 TSH Free T4 Specimen Hemolysis Urine Color Yellow Urine Appearance Clear Urine pH 6.5 Ur Specific [place] 1.009 Urine Protein Negative Urine Glucose (UA) Negative Urine Ketones 1+ H Urine Blood Negative Urine Nitrite Negative Urine Bilirubin Negative Urine Urobilinogen Negative Ur Leukocyte Esterase Negative Ur Random Sodium 13 Urine Creatinine 2 Cancelled Salicylates Urine Opiates Screen Cancelled Ur Opiates Confirm Cancelled Ur Oxycodone Screen Cancelled Ur Methadone, Qual Cancelled Ur Methadone Cancelled Acetaminophen Urine Barbiturates Cancelled Ur Barbiturate Confirm Cancelled Ur Phencyclidine Scrn Cancelled Ur Phencyclidine (PCP) Urine PCP Confirm Cancelled Ur Amphetamines Screen Cancelled U Amphetamines Confirm Cancelled U Amphetamin/Meth Scrn MDMA (Ecstasy) Screen U Benzodiazepines Scrn Cancelled U Benzodiazepine Confm Cancelled Urine Cocaine Cancelled Ur Cocaine Metabolite U Cocaine Metab Confirm Cancelled U Marijuana (THC) Screen Cancelled U Marijuana (THC) Confirm Cancelled U THC/Creatinine Ratio Cancelled Ur Drug Screen Comment Cancelled Ethyl Alcohol mg/dL Hepatitis C Ab Screen 01/21/19 01/21/19 01/21/19 04:47 04:47 04:47 WBC RBC Hgb Hct MCV MCH MCHC RDW Std Deviation RDW Coeff of Aggie Plt Count MPV Immature Gran % (Auto) Neut % (Auto) Lymph % (Auto) [place] % (Auto) Eos % (Auto) Baso % (Auto) Immature Gran # (Auto) Neut # (Auto) Lymph # (Auto) [place] # (Auto) Eos # (Auto) Baso # (Auto) PT 9.8 INR 1.0 D-Dimer 430 ABG pH 7.26 L ABG pCO2 76 H ABG pO2 67 L ABG HCO3 33 H ABG O2 Saturation 90.1 ABG Base Excess 3.5 H Tramaine Test Pos Barometric Pressure 737.8 Oxygen Given 10L O2 Sodium Potassium Chloride Carbon Dioxide Anion Gap BUN Creatinine Est Cr Clr Drug Dosing Est GFR ( Amer) Est GFR (Non-Af Amer) BUN/Creatinine Ratio Glucose Calcium Ionized Calcium 1.04 L Phosphorus Magnesium Total Bilirubin AST ALT Alkaline Phosphatase Total Creatine Kinase Troponin I Total Protein Albumin Globulin Albumin/Globulin Ratio Vitamin B12 TSH Free T4 Specimen Hemolysis Urine Color Urine Appearance Urine pH Ur Specific [place] Urine Protein Urine Glucose (UA) Urine Ketones Urine Blood Urine Nitrite Urine Bilirubin Urine Urobilinogen Ur Leukocyte Esterase Ur Random Sodium Urine Creatinine 2 Salicylates Urine Opiates Screen Ur Opiates Confirm Ur Oxycodone Screen Ur Methadone, Qual Ur Methadone Acetaminophen Urine Barbiturates Ur Barbiturate Confirm Ur Phencyclidine Scrn Ur Phencyclidine (PCP) Urine PCP Confirm Ur Amphetamines Screen U Amphetamines Confirm U Amphetamin/Meth Scrn MDMA (Ecstasy) Screen U Benzodiazepines Scrn U Benzodiazepine Confm Urine Cocaine Ur Cocaine Metabolite U Cocaine Metab Confirm U Marijuana (THC) Screen U Marijuana (THC) Confirm U THC/Creatinine Ratio Ur Drug Screen Comment Ethyl Alcohol mg/dL Hepatitis C Ab Screen 01/21/19 01/21/19 01/21/19 04:47 04:47 04:47 WBC RBC Hgb Hct MCV MCH MCHC RDW Std Deviation RDW Coeff of Aggie Plt Count MPV Immature Gran % (Auto) Neut % (Auto) Lymph % (Auto) [place] % (Auto) Eos % (Auto) Baso % (Auto) Immature Gran # (Auto) Neut # (Auto) Lymph # (Auto) [place] # (Auto) Eos # (Auto) Baso # (Auto) PT INR D-Dimer ABG pH ABG pCO2 ABG pO2 ABG HCO3 ABG O2 Saturation ABG Base Excess Tramaine Test Barometric Pressure Oxygen Given Sodium 128 L Potassium 3.9 D Chloride 90 L Carbon Dioxide 33 H Anion Gap 5.0 BUN 6 L Creatinine 0.59 L Est Cr Clr Drug Dosing 157.1 Est GFR ( Amer) 133.0 Est GFR (Non-Af Amer) 114.8 BUN/Creatinine Ratio 9.9 L Glucose 115 H Calcium 7.8 L Ionized Calcium Phosphorus 4.9 Magnesium 2.0 Total Bilirubin AST ALT Alkaline Phosphatase Total Creatine Kinase 52 Troponin I Total Protein Albumin Globulin Albumin/Globulin Ratio Vitamin B12 Cancelled TSH 0.066 L Free T4 1.29 Specimen Hemolysis Urine Color Urine Appearance Urine pH Ur Specific [place] Urine Protein Urine Glucose (UA) Urine Ketones Urine Blood Urine Nitrite Urine Bilirubin Urine Urobilinogen Ur Leukocyte Esterase Ur Random Sodium Urine Creatinine 2 Salicylates 2.1 L Urine Opiates Screen Ur Opiates Confirm Ur Oxycodone Screen Ur Methadone, Qual Ur Methadone Acetaminophen < 2 L Urine Barbiturates Ur Barbiturate Confirm Ur Phencyclidine Scrn Ur Phencyclidine (PCP) Urine PCP Confirm Ur Amphetamines Screen U Amphetamines Confirm U Amphetamin/Meth Scrn MDMA (Ecstasy) Screen U Benzodiazepines Scrn U Benzodiazepine Confm Urine Cocaine Ur Cocaine Metabolite U Cocaine Metab Confirm U Marijuana (THC) Screen U Marijuana (THC) Confirm U THC/Creatinine Ratio Ur Drug Screen Comment Ethyl Alcohol mg/dL Hepatitis C Ab Screen 01/21/19 01/21/19 01/21/19 06:40 06:42 08:11 WBC RBC Hgb Hct MCV MCH MCHC RDW Std Deviation RDW Coeff of Aggie Plt Count MPV Immature Gran % (Auto) Neut % (Auto) Lymph % (Auto) [place] % (Auto) Eos % (Auto) Baso % (Auto) Immature Gran # (Auto) Neut # (Auto) Lymph # (Auto) [place] # (Auto) Eos # (Auto) Baso # (Auto) PT INR D-Dimer ABG pH 7.25 L ABG pCO2 80 H ABG pO2 147 H ABG HCO3 34 H ABG O2 Saturation 98.7 H ABG Base Excess 4.2 H Tramaine Test Pos Barometric Pressure 738.2 Oxygen Given 7.5L Sodium Potassium Chloride Carbon Dioxide Anion Gap BUN Creatinine Est Cr Clr Drug Dosing Est GFR ( Amer) Est GFR (Non-Af Amer) BUN/Creatinine Ratio Glucose Calcium Ionized Calcium Phosphorus Magnesium Total Bilirubin AST ALT Alkaline Phosphatase Total Creatine Kinase Troponin I Total Protein Albumin Globulin Albumin/Globulin Ratio Vitamin B12 > 2000 H TSH Free T4 Specimen Hemolysis Urine Color Urine Appearance Urine pH Ur Specific [place] Urine Protein Urine Glucose (UA) Urine Ketones Urine Blood Urine Nitrite Urine Bilirubin Urine Urobilinogen Ur Leukocyte Esterase Ur Random Sodium Urine Creatinine 2 Salicylates Urine Opiates Screen Ur Opiates Confirm Ur Oxycodone Screen Ur Methadone, Qual Ur Methadone Acetaminophen Urine Barbiturates Ur Barbiturate Confirm Ur Phencyclidine Scrn Ur Phencyclidine (PCP) Urine PCP Confirm Ur Amphetamines Screen U Amphetamines Confirm U Amphetamin/Meth Scrn MDMA (Ecstasy) Screen U Benzodiazepines Scrn U Benzodiazepine Confm Urine Cocaine Ur Cocaine Metabolite U Cocaine Metab Confirm U Marijuana (THC) Screen U Marijuana (THC) Confirm U THC/Creatinine Ratio Ur Drug Screen Comment Ethyl Alcohol mg/dL Hepatitis C Ab Screen Neg 01/21/19 Unknown WBC RBC Hgb Hct MCV MCH MCHC RDW Std Deviation RDW Coeff of Aggie Plt Count MPV Immature Gran % (Auto) Neut % (Auto) Lymph % (Auto) [place] % (Auto) Eos % (Auto) Baso % (Auto) Immature Gran # (Auto) Neut # (Auto) Lymph # (Auto) [place] # (Auto) Eos # (Auto) Baso # (Auto) PT INR D-Dimer ABG pH ABG pCO2 ABG pO2 ABG HCO3 ABG O2 Saturation ABG Base Excess Tramaine Test Barometric Pressure Oxygen Given Sodium Potassium Chloride Carbon Dioxide Anion Gap BUN Creatinine Est Cr Clr Drug Dosing Est GFR ( Amer) Est GFR (Non-Af Amer) BUN/Creatinine Ratio Glucose Calcium Ionized Calcium Phosphorus Magnesium Total Bilirubin AST ALT Alkaline Phosphatase Total Creatine Kinase Troponin I Total Protein Albumin Globulin Albumin/Globulin Ratio Vitamin B12 TSH Free T4 Specimen Hemolysis Urine Color Urine Appearance Urine pH Ur Specific [place] Urine Protein Urine Glucose (UA) Urine Ketones Urine Blood Urine Nitrite Urine Bilirubin Urine Urobilinogen Ur Leukocyte Esterase Ur Random Sodium Urine Creatinine 2 Salicylates Urine Opiates Screen Neg Ur Opiates Confirm Ur Oxycodone Screen Ur Methadone, Qual Neg Ur Methadone Acetaminophen Urine Barbiturates Neg Ur Barbiturate Confirm Ur Phencyclidine Scrn Ur Phencyclidine (PCP) Neg Urine PCP Confirm Ur Amphetamines Screen U Amphetamines Confirm U Amphetamin/Meth Scrn Neg MDMA (Ecstasy) Screen Neg U Benzodiazepines Scrn Neg U Benzodiazepine Confm Urine Cocaine Ur Cocaine Metabolite Neg U Cocaine Metab Confirm U Marijuana (THC) Screen Neg U Marijuana (THC) Confirm U THC/Creatinine Ratio Ur Drug Screen Comment Ethyl Alcohol mg/dL Hepatitis C Ab Screen Medications Administered Home Medications [place] 1 tab PO QPM 01/15/19 [History Confirmed 01/21/19] cyanocobalamin (vitamin B-12) 1,000 mcg PO QPM 01/15/19 [History Confirmed 01/21/19] fluticasone-vilanterol [Breo Ellipta] 1 inh INHALATION QPM 01/15/19 [History Confirmed 01/21/19] pantoprazole 40 mg PO QPM 01/15/19 [History Confirmed 01/21/19] ipratropium-albuterol [Combivent Respimat] 1 puff INHALATION QID 01/20/19 [History Confirmed 01/21/19] rivaroxaban [Xarelto] 20 mg PO DAILY 01/20/19 [History Confirmed 01/21/19] Active Medications Acetaminophen (Tylenol) 650 mg PO Q4H PRN PRN Reason: Pain or Fever Stop: 02/20/19 04:20 Albuterol (Duoneb) 3 ml NEB Q4R SURJIT Stop: 02/20/19 07:59 Last Admin: 01/21/19 11:00 Dose: 3 ml Documented by: Albuterol (Ventolin 0.5% 2.5mg/0.5ml) 2.5 mg NEB Q2H PRN PRN Reason: SOB/Wheeze Stop: 02/20/19 04:20 Thiamine HCl 500 mg/ Sodium (Chloride) 55 mls @ 208 mls/hr IV TID SURJIT Stop: 02/20/19 08:59 Last Infusion: 01/21/19 10:37 Dose: Infused Documented by: Sodium Chloride (Nss 1000ml) 1,000 mls @ 80 mls/hr IV .[id number] SURJIT Stop: 01/21/19 19:44 Last Admin: 01/21/19 07:32 Dose: 80 mls/hr Documented by: Lorazepam (Ativan) 1 mg PO ONE PRN; Protocol PRN Reason: EtoH Withdrawal AWSS 6-10 Pantoprazole Sodium (Protonix) 40 mg PO QPM SURJIT Stop: 02/20/19 20:59 Rivaroxaban (Xarelto) 20 mg PO DAILY SURJIT Stop: 02/20/19 08:59 Last Admin: 01/21/19 09:45 Dose: 20 mg Documented by: Resident Activity Tracking Resident Involvement: Resident Care Provided Care Provided: Adult Hospital Medicine (1) GERD (gastroesophageal reflux disease) Esophagitis presence: esophagitis presence not specified Qualified Code(s): K21.9 - Gastro-esophageal reflux disease without esophagitis
[2019-01-21 15:58] LABS: Allen Test Pos (Pos); HCO3 ABG 36 mmol/L (19-24); Oxygen Saturation ABG 93.8 % (90-95); PCO2 ABG 84 mmHg (35-46); PO2 ABG 77 mm/Hg (80-95); pH ABG 7.26 (7.35-7.45)
[2019-01-21 17:31] LABS: Influenza A virus by PCR Neg for Influ A (Neg); Influenza B virus by PCR Neg for Influ B (Neg)
[2019-01-21 19:12] LABS: Basophils # (auto) 0.01 K/uL (0-0.2); Basophils % (auto) 0.1 %; Eosinophils # (auto) 0.01 K/uL (0-0.5); Eosinophils % (auto) 0.1 %; Hematocrit (blood only) 41.5 % (42-52); Hemoglobin 13.3 g/dL (14.0-18.0); Immature Granulocytes # (auto) 0.06 K/uL (0.00-0.02); Immature Granulocytes % (auto) 0.8 %; Lymphocytes # (auto) 1.74 K/uL (1.2-3.4); Lymphocytes % (auto) 22.3 %; Mean Platelet Volume 9.5 fL (7.4-10.4); Monocytes # (auto) 1.01 K/uL (0.11-0.59); Neutrophils # (auto) 4.96 K/uL (1.4-6.5); Neutrophils % (auto) 63.7 %; Platelet Count 243 K/uL (130-400); Red Blood Count 4.28 M/uL (4.7-6.1); White Blood Count 7.79 K/uL (4.8-10.8)
--- NOTE | 2019-01-21 19:52 | Critical Care Consultation ---
Date of Consultation January 21, 2019 Assessment & Plan (1) Admitted to intensive care unit: Reason Critically Ill: 53-year-old male with acute respiratory failure with hypercapnia in the setting of COPD exacerbation and left lower lobe pneumonia. Acute metabolic encephalopathy of uncertain etiology. NEURO - * CAM ICU: POSITIVE * Acute Encephalopathy: * While this is presumed to be related to acute hypercapnia in the setting of respiratory failure, patient is likely with elevated CO2 at baseline with his long-standing smoking history and history of emphysema. Possible contributing infectious sources to be addressed. See ID. * Additionally, we will proceed with MRI of the brain as well as checking ammonia levels. * With history of thromboembolic disease, certainly cannot exclude CVA for underlying ideology. * History of alcohol abuse: * Patient reportedly drinks approximately a 12 pack of beer per night. * CIWA protocol in place. * Patient already receiving high dose Thiamine. * Will add daily Folate and Banana bags. * Vital signs not as consistent with withdrawal s/s at this point. CARDIAC/VASCULAR - * h/o DVT of the lower extremities x3: * Initially on coumadin w/ transition to current Xarelto dosing. * No reported h/o cardiac disease. * Initial trops negative. * EKG: Sinus tach@104 bpm w/o ST/T-wave changes. QTc 483ms. * Monitor on telemetry. RESPIRATORY - * Acute respiratory failure with hypercapnia: * Failed aggressive BiPAP efforts --> requiring endotracheal intubation. * ABG prior to intubation: 7.26/84/77/36 * Settings: AC/20/550/5/40% * Likely 2/2 acute COPD exacerbation w/ superimposed Bronchitis. * Suspect developing pneumonia. * Will cover for CAP. * Agree with CTA if not for evaluation of lung parenchyma alone. * May benefit from therapeutic/diagnostic bronch while intubated pending CT results. * Will add scheduled Steroids/Nebs. * Address smoking cessation when appropriate. GI/NUTRITION - * NPO * OG in place. * Prophylaxis: Protonix * With c/o abdominal pain in the ED, will add CT Abd/Pelvis while obtaining CT PE study to avoid need for excessive IV contrast. RENAL/LYTES - * Hyponatremia: * Sodium 125 on presentation. * Likely related to EtOH abuse. * Monitor closely for rate of rise. * Monitor Lytes - replace appropriately. * IVF: - * Lewis in place - Strict I&Os. ENDO - * No h/o DM or Thyroid Dz. * BSGs per unit protocol. ISS --> gtt per unit policy. HEME - * Stable H&H. * h/o DVT x3 on Xarelto. * Will assess need for anticoagulation/DVT prophylaxis pending CTA results. ID - * Developing LLL PNA: * Presumed CAP * Will add Rocephin/Doxy * Not likely requiring Vanc at this time. MRSA swab pending. * Blood Cultures. * Check ProCal. LINES/IV ACCESS - * PIVs x3 * ET Tube * Lewis * LEFT Rad A-line * LUE Endurance Catheter DVT PROPHYLAXIS - * Previously on Xarelto. Will add pending CTA results. * Hold on SCDs 2/2 DVT Hx. I have personally spent 85 minutes of critical care time in the direct management of this patient. This is a life/limb threatening event. This includes time spent evaluating patient, direct bedside care, chart review, placing orders, interpretation of diagnostic studies, discussion with consultants, patient, and family members, as well as other required patient management activities. This time is exclusive of all separately billable procedures, and teaching time and separate from and in addition to any other critical care service time. Thank you for allowing us to participate in the care of this patient. Please refer to my attending physician's documentation for any further recommendations. (2) Acute respiratory failure with hypercapnia: (3) Pneumonia: (4) Bronchitis: (5) Acute metabolic encephalopathy: (6) Altered mental status: (7) History of DVT (deep vein thrombosis): (8) GERD (gastroesophageal reflux disease): (9) Hypokalemia: (10) Hypocalcemia: (11) Hyponatremia: (12) Alcohol abuse: Supervising Physician Co-Signing Physician Notes I have reviewed Renee Delgado's documentation and agree with the assessment and plan. I discussed the case with Renee Delgado via telephone. History of Present Illness Attending Physician: Yajaira Kimball MD History of present illness is limited secondary to patient's current altered mental status. Patient is a 53-year-old male with a significant past medical history of DVT x3 to the lower extremities status post vascular surgery intervention to the bilateral lower extremities. The patient was previously on Coumadin, however has been transitioned to Xarelto. In addition, patient has history of COPD with recent exacerbation. Apparently, per records, the patient has been short of breath for the last couple of weeks. He was seen in the outpatient setting by his primary care provider's office and placed on steroids and Augmentin. It is uncertain if he took these medications. The patient apparently was having increasing shortness of breath as well as some visual hallucinations last evening while at work. He called an ambulance at work. In the emergency department, he received IV steroids as well as nebulizers with improvement of symptoms. He was admitted to the hospital where he had refused utilization of BiPAP throughout the night. Patient became more somnolent throughout the day. He was placed on BiPAP with minimal improvement. At that point, the patient was transitioned to the ICU for further evaluation and management. On evaluation, the patient is somnolent. He will awake with aggressive stimulation. He can state his name. He is unaware of the year. He is vague on location. He goes immediately back to sleep. Allergies Allergy/AdvReac Type Severity Reaction Status Date / Time No Known Allergies Allergy Mild Verified 01/21/19 00:05 Home Medications Home Medications Medication Instructions Recorded Confirmed Type Cordysept 1 tab PO QPM 01/15/19 01/21/19 History cyanocobalamin (vitamin B-12) 1,000 mcg PO QPM 01/15/19 01/21/19 History fluticasone-vilanterol [Breo 1 inh INHALATION QPM 01/15/19 01/21/19 History Ellipta] pantoprazole 40 mg PO QPM 01/15/19 01/21/19 History ipratropium-albuterol [Combivent 1 puff INHALATION QID 01/20/19 01/21/19 History Respimat] rivaroxaban [Xarelto] 20 mg PO DAILY 01/20/19 01/21/19 History Patient History Medical History Alcohol use Chronic obstructive pulmonary disease DVT (deep venous thrombosis) X 3-PLACED ON THINNER GERD (gastroesophageal reflux disease) On home oxygen therapy PRN SOB (shortness of breath) on exertion Tremor Surgical History H/O vascular surgery X 3-VASCULAR BLOCKAGES LOWER LEGS History of esophagogastroduodenoscopy (EGD) Family History Mother Family history of diabetes mellitus Social History Communication Ability: Unable Beliefs That Will Affect Care: None Current Living Situation: Alone Other Information That Helps Us Care for You: No Feels Safe at Home: Declines to Answer Smoking Status: Unknown if ever smoked Hx Alcohol Use: Yes Hx Substance Use: No (labs ordered) Review of Systems Unable to obtain secondary to patient's current mental status. Physical Exam 2 Vital Signs (Past 24 Hours): Last Vital Signs Temp 36.5 C 01/21/19 16:18 Pulse 86 01/21/19 19:12 Resp 12 01/21/19 19:12 BP 130/73 01/21/19 16:18 Pulse Ox 97 01/21/19 19:12 Physical Exam: VITAL SIGNS - Vital signs and nursing notes were reviewed. GENERAL - 53-year-old male appearing older than his stated age who is in no acute distress. Somnolent. SKIN - Without rashes. HEAD - NC/AT. EYES - PERRL with EOMI bilaterally. Sclera anicteric. Palpebral conjunctiva pink and moist with no injection noted. EARS - No deformities of external structures noted on gross examination bilaterally. No pain elicited with palpation of the tragus bilaterally. External auditory canals without discharge or otorrhea. Tympanic membranes pearly morelos without retraction or bulging. No fluid or purulent material visualized behind the TM. Handle of malleus, umbo, cone of light, pars tensa/flaccid all easily visualized. NOSE - Midline and without cyanosis. No epistaxis or purulent drainage noted. Septum midline without deviation. MOUTH/OROPHARYNX - Without perioral cyanosis. Buccal mucosa pink and moist and without leukoplakia. NECK - Neck with FROM. Supple to palpation. No nuchal rigidity. LUNGS - Chest wall symmetric without accessory muscle use, intercostals retractions, or central cyanosis. Decreased breath sounds on the LEFT. Basilar wheezes noted to the RIGHT. CARDIAC - RRR with S1/S2. No murmur, rubs, or gallops appreciated. ABDOMEN - Abdominal contour protuberant without pulsations or visible masses. BS normoactive all four quadrants. No tenderness, palpable masses, hepatosplenomegaly, or ascites noted. EXTREMITIES - No clubbing or peripheral cyanosis. Scars from previous vascular surgeries noted to the bilateral lower extremities. No pretibial edema present. +3/5 radial and dorsalis pedis pulses palpated throughout. +5/5 strength noted in UE/LE bilaterally. NEUROLOGIC - Cranial nerves II through XII grossly intact. PSYCH - Somnolent. Awakes to aggressive verbal and painful stimuli. Is able to state name. Provides birthdate. Uncertain of year. Uncertain of location. Falls immediately back to sleep. (1) Altered mental status Altered mental status type: unspecified Qualified Code(s): R41.82 - Altered mental status, unspecified (2) GERD (gastroesophageal reflux disease) Esophagitis presence: esophagitis presence not specified Qualified Code(s): K21.9 - Gastro-esophageal reflux disease without esophagitis
[2019-01-21 20:11] LABS: Albumin Level 3.1 gm/dl (3.4-5.0); BUN Creatinine Ratio 9.3 (10-20); Calcium 7.5 mg/dl (8.5-10.1); Creatinine Clr Calc Pharmacy 151.9 ml/min; Est GFR (African American) 131.2; Est GFR (Non-African American) 113.2; Potassium 3.6 mmol/L (3.5-5.1)
[2019-01-21 20:13] LABS: Bilirubin,Total 0.3 mg/dl (0.2-1); Globulin 3.1 gm/dl (2.5-4.0); Total Protein 6.2 gm/dl (6.4-8.2)
[2019-01-21 20:21] LABS: iSTAT Allen Test Pass; iSTAT Arterial Blood Gas HCO3 34 meg/L (19-24); iSTAT Arterial Blood Gas pCO2 70 mmHg (35-46); iSTAT Carbon Dioxide 37 mEq/l (24-31); iSTAT FiO2 30 %; iSTAT Site R Radial
[2019-01-21] MEDS ORDERED: ICU PROTOCOL FOR HYPERGLYCEMIA PRN (20:50)
[2019-01-21] MEDS ORDERED: PANTOprazole 40 MG TAB PO SCH (21:00)
[2019-01-21 21:08] LABS: Procalcitonin < 0.05 ng/ml (0-0.5)
[2019-01-21 21:16] LABS: Lyme Ab IgG w/WB Rflx Negative (Negative); Lyme Ab IgM w/WB Rflx Negative (Negative)
[2019-01-21 21:30] LABS: iSTAT Allen Test Pass; iSTAT Arterial Blood Gas HCO3 35 meg/L (19-24); iSTAT Arterial Blood Gas pCO2 70 mmHg (35-46); iSTAT Carbon Dioxide 37 mEq/l (24-31); iSTAT FiO2 30 %; iSTAT Site R Radial
[2019-01-21] MEDS ORDERED: RAPID SEQUENCE INDUCTION BAG ONE (21:34)
--- NOTE | 2019-01-21 21:58 | Emergency Department Note ---
ED Visit Note Procedural Sedation Indication respiratory distress. Total time: 15 minutes. Written consent was obtained after the risks and benefits were explained to the patient, including, but not limited to aspiration, allergic reaction, breathing difficulties, cardiac complications, vomiting, pain, event recall, bleeding, and/or infection. The patient was very altered because of respiratory distress and CO2 retention. The patient was on 100% oxygen via NRB prior to the procedure. Continous end tidal CO2 monitoring, pulse oximetry, and cardiac monitoring were utilized. Suction, airway equipment, medications, respiratory equipment, and appropriate personnel were prepared prior to the initiation of the procedure. A time out was taken. Sedation was achieved Versed 2.5 mg, fentanyl 50 mcg, etomidate 20 mg, and rocuronium 100 mg, after I observed the patient had reached the appropriate level of sedation the main procedure was performed without complication. The patient was intubated in the ICU. The patient tolerated the procedure well. Chest x-ray still pending. The patient is to be continued on sedation as per the compliance attorney team. . : Altered mental status Qualifiers: Altered mental status type: unspecified Qualified Code(s): R41.82 - Altered mental status, unspecified
[2019-01-21] MEDS ORDERED: NORMOSOL-R 250 ML IV ONE (21:59)
--- NOTE | 2019-01-21 22:00 | Procedure Note ---
Procedure Note Date of Service January 21, 2019 APC: Connor Delgado PA-C. Attending: Dr. Johnston A time-out was completed verifying correct patient, procedure, site, positioning. Patient was evaluated and required intubation for Acute Respiratory Failure with Hypercapnia. Sedative agent used: Fentanyl, Versed, Etomidate Paralysis agent used: Rocuronium Emergent consent was implied given patients rapidly declining clinical status and need for airway protection. The patient was prepared in the appropriate fashion. Sedation was achieved utilizing Fentanyl, Versed, and Etomidate per Dr. Fermin (Emergency Medicine) administration. The patient was easily ventilated using [id number] to achieve adequate oxygenation. A 7.5 Congolese endotracheal tube was placed under Glidescope visualization to 24 cm at the lip. The stylette was removed and balloon was inflated with 10mL of air. Appropriate Colorimetric change was appreciated. Bilateral breath sounds were heard without air sounds in the abdomen. Patient received rocuronium status post intubation. Dr. Fermin was present for the entire procedure. Post Intubation Chest X-ray confirms placement without pneumothorax. Patient tolerated the procedure well and there were no immediate complications.
--- NOTE | 2019-01-21 22:33 | XRay Report ---
XR orbits for MRI CLINICAL HISTORY: 53 years-old Male presenting with h/o possible metallic fb. TECHNIQUE: 3 views of the orbits were obtained. COMPARISON: CT head from 01/21/2019. FINDINGS: No radiopaque intraorbital foreign body. Bony orbits grossly intact. Paranasal sinuses grossly clear. Visualized portion of the calvarium intact. IMPRESSION: No intraorbital metallic foreign body to preclude MRI exam. Electronically signed by: Ervin Callejas M.D. 01/21/2019 10:32 PM
[2019-01-21] MEDS: MIDAZOLAM HCL 125 MG/250 ML BAG IV SCH (22:34)
[2019-01-21] MEDS: methylPREDNISolone 40 MG in SYRINGE 0 ML IV SCH (22:35)
[2019-01-21] MEDS: NORMOSOL-R 1,000 ML IV SCH (22:36)
--- NOTE | 2019-01-21 22:36 | XRay Report ---
XR chest 1V portable CLINICAL HISTORY: 53 years-old Male presenting with s/p intubation. TECHNIQUE: Portable upright AP view of the chest was obtained. COMPARISON: 01/21/2019 at 12:40 AM. FINDINGS: Interval intubation with the endotracheal tube positioned approximate 5 cm from the james. Nasogastr ic tube terminates in the gastric lumen with sidehole also contained within the gastric lumen. Severa l overlying external leads degrade image quality. Atherosclerosis of the aortic arch. Cardiac silhouette normal in size. Numerous bilateral calcified g ranulomata. Lungs are hyperinflated. Heterogeneous radiolucency of the upper lobes. Bronchial wall th ickening is suggested. No focal opacity. No large effusion or pneumothorax. Osseous structures normal . IMPRESSION: 1. Appropriately positioned endotracheal and nasogastric tubes. 2. Findings suggest emphysema. No focal infiltrate to suggest pneumonia. 3. Bronchial wall thickening suggest bronchitis, which may relate to an infectious etiology or more likely inflammation in the setting of smoking related lung injury. Electronically signed by: Ervin Callejas M.D. 01/21/2019 10:35 PM
[2019-01-21] MEDS: fentaNYL citrate 100 MCG/2 ML VIAL IV PRN (23:45)
[2019-01-21 23:58] LABS: Rapid Plasma Reagin Nonreactive (Nonreactive)
[2019-01-22] MEDS ORDERED: OPTIRAY 320 125ml IV PRN (00:28)
[2019-01-22] MEDS: fentaNYL citrate 100 MCG/2 ML VIAL IV PRN (02:34)
[2019-01-22] MEDS: DOXYCYCLINE HYCLATE 100 MG in DEXTROSE 5% 100 ML IV SCH ×2 (02:35→12:01)
[2019-01-22] MEDS: cefTRIAXone SODIUM 1,000 MG in DEXTROSE 5% 50 ML IV SCH ×2 (02:35→23:31)
[2019-01-22] MEDS: ALBUT/IPRATROP 3MG/0.5MG NEB 3 ML VIAL NEB SCH ×7 (03:46→23:24)
--- NOTE | 2019-01-22 04:14 | Procedure Note ---
Procedure Note Date of Service January 22, 2019 Procedure: Arterial Line Placement Attending: Dr. Johnston APC: Connor Delgado PA-C Indication: Monitoring on Pressors Anesthesia: Lidocaine 1% Emergent consent implied given patient's deteriorating status and need for frequent lab draws, ABGs, etc. A time-out was completed verifying correct patient, procedure, site, positioning, and implant(s) or special equipment if applicable. Allens test was performed to ensure adequate perfusion. Patients LEFT wrist was prepped and draped in the usual sterile fashion. Ultrasound guidance was used to aid needle placement. A 20g Arrow arterial line was introduced into the LEFT Radial artery. Catheter was threaded, and the needle was removed with appropriate blood return. Good waveform was observed. The patient tolerated the procedure well. Confirmation of placement with ultrasound. Blood Loss: Minimal Complications: None Procedural Ultrasound Guidance: Procedure Date: 01/22/2019 Indication: ABGs, Labs Attending: Dr. Johnston APC: Connor Delgado PA-C Artery Identified: YES Line confirmed in Artery with ultrasound: YES Complications: NONE Patient tolerated procedure: WELL
--- NOTE | 2019-01-22 04:22 | Procedure Note ---
Procedure Note Date of Service January 22, 2019 Procedure: [employer] Data Analyst Indwelling Peripherally Inserted IV Catheter Placement Attending: Dr. Johnston APC: Connor Delgado PA-C Indication: Need for IV Access, Poor Vascular Access Anesthesia: None A time-out was completed verifying correct patient, procedure, site, positioning, and implant(s) or special equipment if applicable. Utilizing bedside ultrasound, vascularity of the LEFT upper extremity was assessed. Vessel size was noted for appropriate catheter selection and skin was marked with gentle pressure. Patients LEFT upper extremity was prepped and draped in the usual sterile fashion utilizing chlorhexidine. Ultrasound guidance was used to aid needle placement. An 18 g Endurance Catheter was introduced into the LEFT cephalic vein under direct ultrasound guidance. Guide wire was easily deployed without resistance. Catheter was threaded over the guide wire without resistance and the entire apparatus was removed intact. Good venous blood return was noted in the catheter. The IV catheter was easily flushed with sterile saline flush. Sterile clave was attached to the end of the catheter and good blood return was again noted. Tourniquet was released. StatLock device and sterile dressing were applied. The patient tolerated the procedure well. Blood Loss: Minimal Complications: None Procedural Ultrasound Guidance: Procedure Date: 01/22/2019 Indication: Poor Vascular Access Attending: Dr. Johnston APC: Connor Delgado PA-C Artery/Veins Identified: YES Access confirmed in Vein with ultrasound: YES Complications: NONE Patient tolerated procedure: WELL
[2019-01-22 04:23] LABS: Hematocrit (blood only) 37.9 % (42-52); Immature Granulocytes # (auto) 0.01 K/uL (0.00-0.02); Immature Granulocytes % (auto) 0.1 %; Lymphocytes # (auto) 0.63 K/uL (1.2-3.4); Lymphocytes % (auto) 6.9 %; Mean Corpuscular Hgb Conc 31.7 g/dL (32-36); Mean Corpuscular Volume 97.2 fL (80-100); Mean Platelet Volume 8.8 fL (7.4-10.4); Monocytes # (auto) 0.88 K/uL (0.11-0.59); Monocytes % (auto) 9.6 %; Neutrophils # (auto) 7.64 K/uL (1.4-6.5); Neutrophils % (auto) 83.4 %; Platelet Count 224 K/uL (130-400); RDW Coefficient of Variation 14.9 % (11.5-14.5); RDW Standard Deviation 53.1 fL (36.4-46.3); White Blood Count 9.16 K/uL (4.8-10.8)
[2019-01-22] MEDS: THIAMINE HCL 500 MG in SODIUM CHLORIDE 0.9% 50 ML IV SCH ×5 (04:26→20:53)
[2019-01-22 04:41] LABS: Alanine Aminotransferase 44 U/L (12-78); Albumin Level 2.5 gm/dl (3.4-5.0); Aspartate Aminotransferase 32 U/L (15-37); BUN Creatinine Ratio 17.4 (10-20); Bilirubin Direct 0.1 mg/dl (0-0.2); Blood Urea Nitrogen 7 mg/dl (7-18); Carbon Dioxide 34 mmol/L (21-32); Chloride 97 mmol/L (98-107); Creatinine Clr Calc Pharmacy 220.7 ml/min; Est GFR (African American) > 150.0; Glucose 110 mg/dl (70-99); Magnesium 2.3 mg/dl (1.8-2.4); Potassium 3.4 mmol/L (3.5-5.1); Sodium 134 mmol/L (136-145)
[2019-01-22 04:49] LABS: Alkaline Phosphatase 75 U/L (45-117); Bilirubin,Total 0.3 mg/dl (0.2-1); Phosphorus 1.8 mg/dl (2.5-4.9); Total Protein 5.3 gm/dl (6.4-8.2)
[2019-01-22 05:32] LABS: iSTAT Arterial Blood Gas HCO3 32 meg/L (19-24); iSTAT Arterial Blood Gas pCO2 57 mmHg (35-46); iSTAT Arterial Blood Gas pH 7.36 (7.35-7.45); iSTAT Carbon Dioxide 34 mEq/l (24-31); iSTAT FiO2 35 %; iSTAT Site Art Line
[2019-01-22] MEDS: methylPREDNISolone 40 MG in SYRINGE 0 ML IV SCH ×2 (06:25→17:30)
--- NOTE | 2019-01-22 06:35 | Magnetic Resonance Report ---
MRI OF THE BRAIN WITHOUT CONTRAST CLINICAL HISTORY: AMS COMPARISON STUDY: Noncontrast head CT dated 01/21/2019 FINDINGS: Sagittal T1, axial diffusion, proton density and T2 weighted axial, coronal FLAIR, and axial T1-weigh markie images were acquired. No intra or extra-axial mass lesions are visualized Axial diffusion-weighted images reveal no evidence of acute or subacute infarction. There is no evidence of ventricular dilatation. Proton density T2-weighted and FLAIR images reveal minimal foci of increased T2 signal within the whi te matter, likely on a small vessel basis. There are no abnormal flow voids. There is polypoid mucosal thickening within the right maxillary sinus. There is a trace left maxillar y sinus air-fluid level. There is increased T2 signal within the mastoids, likely on an inflammatory basis. The examination is somewhat compromised due to motion artifact IMPRESSION: 1. No acute intracranial findings 2. No evidence of acute or subacute infarction 3. No evidence of intracranial mass 4. Inflammatory changes within the sinuses. Electronically signed by: Sammy Kiser M.D. 01/22/2019 6:32 AM
--- NOTE | 2019-01-22 06:52 | CT Scan Report ---
CT ANGIOGRAPHY OF THE CHEST, PULMONARY EMBOLUS PROTOCOL CLINICAL HISTORY: Intubation. Respiratory failure. Evaluate for pulmonary embolus. COMPARISON STUDY: Chest CT August 09, 2015. Chest radiograph January 21, 2019. TECHNIQUE: Following IV administration of 119 mL of Optiray-320, helical axial images of the chest we re obtained utilizing the pulmonary embolus protocol. Maximal intensity projections and sagittal and coronal reformats were viewed on an independent 3D workstation. IV contrast was administered withou t complication. Automated exposure control was utilized for the study. A dose lowering technique wa s utilized adhering to the principles of ALARA. FINDINGS: Please note that the CT of the abdomen and pelvis will be reported separately. No pulmonar y emboli are identified. Endotracheal and nasogastric tubes are satisfactorily positioned. The heart is mildly enlarged. There is no pericardial effusion. There is severe emphysema. Mild airspace opacit ies within the left lower lobe are noted. There are extensive secretions within the left mainstem bro nchus which fill the left lower lobe bronchi. There is diffuse bronchial wall thickening. There are a lso secretions within the left upper lobe bronchi. There are minimal secretions within the right main stem bronchus and right lower lobe bronchi. There is no pneumothorax. No pneumomediastinum is present . There is trace left pleural effusion. IMPRESSION: 1. No pulmonary emboli identified. 2. Satisfactory positioning of the endotracheal and nasogastric tubes. 3. Severe emphysema. 4. Extensive secretions/debris within the left mainstem bronchus extending into the segmental bronchi of the upper and lower lobes. Aspiration cannot be excluded. Secretions within the right mainstem br onchus as well. Diffuse bronchial wall thickening. 5. Mild left lower lobe airspace opacity which may reflect mild pneumonia or aspiration pneumonitis. Electronically signed by: Jaren Orr M.D. 01/22/2019 6:51 AM
--- NOTE | 2019-01-22 06:58 | CT Scan Report ---
CT OF THE ABDOMEN AND PELVIS WITH CONTRAST CLINICAL HISTORY: Abdominal pain. COMPARISON STUDY: CT of the abdomen and pelvis April 21, 2016. TECHNIQUE: Following IV administration of 119 mL of Optiray-320, axial images of the abdomen and pelv is were obtained from the lung bases to the proximal femurs. Images were reviewed in the axial, sagit jay, and coronal planes. IV contrast was administered without complication. Automated exposure contr ol was utilized for the study. A dose lowering technique was utilized adhering to the principles of ALARA. CT DOSE: 1509.60 mGy.cm FINDINGS: Please note that the chest CT will be reported separately. There are multiple old left rib fractures. Tip of nasogastric tube is at the pylorus. There are calcified granulomas within the splee n. The liver, spleen, adrenal glands and pancreas are unremarkable. There is no peripancreatic or per icholecystic infiltration. There are are several bilateral renal cysts. There is no hydronephrosis. C olon is mildly fluid-filled. The appendix is normal. No bowel wall thickening is noted. There is no p neumatosis, free air or portal venous gas. No suspicious osseous lesion is noted. There is no lymphad enopathy. Lewis balloon and gas are present within the bladder. Bladder wall thickening is likely chr onic. A few fluid-filled small bowel loops are noted. IMPRESSION: 1. Normal appendix. No evidence for a bowel obstruction. No bowel wall thickening. 2. Fluid filled colon which may reflect a diarrheal state. Fluid-filled small bowel which may reflect enteritis. Electronically signed by: Jaren Orr M.D. 01/22/2019 6:56 AM
[2019-01-22] MEDS ORDERED: PERFLUTREN LIPID MICROSPHERE (DEFINITY) IV ONE (07:01)
--- NOTE | 2019-01-22 07:10 | XRay Report ---
XR chest 1V portable CLINICAL HISTORY: Respiratory failure COMPARISON STUDY: 01/21/2019 FINDINGS: There is a nasogastric tube present. The tip is difficult to visualize. There is an endotra cheal tube present which is positioned approximately 3.5 cm above the james. The cardiac and mediast inal contours remain stable. There are scattered granulomas. There is no failure. There is no focal p ulmonary consolidation.[ IMPRESSION: Emphysema. No evidence of focal pulmonary consolidation. Electronically signed by: Sammy Kiser M.D. 01/22/2019 7:08 AM
--- NOTE | 2019-01-22 07:19 | CT Scan Report ---
SINUS CT CT DOSE: 705.32 mGy.cm HISTORY: Altered mental status. Follow-up sinusitis. TECHNIQUE: Multiaxial CT images of the paranasal sinuses were performed and reformatted in the quintanilla l plane without the use of contrast. A dose lowering technique was utilized adhering to the principl es of ADAM. COMPARISON: Head CT 01/21/2019. FINDINGS: Mild mucosal thickening within the frontal sinuses with trace fluid levels. Partial opacifi cation of the ethmoid air cells with trace fluid levels. There is mild mucosal thickening within the frontal sinuses. Small fluid level and a small retention cyst within the left maxillary sinus. Near-c omplete opacification of the right maxillary sinus with mucosal thickening, a retention cyst, and a s mall fluid level. Overall, this has progressed compared to the prior study. Trace bilateral mastoid e ffusions. An endotracheal tube and nasogastric tube are partially visualized. The visualized brain pa renchyma is unremarkable. There are secretions within the posterior nasal cavity likely due to the in tubation. The orbits are unremarkable. IMPRESSION: Progressive acute on chronic paranasal sinusitis as described above. There are also secretions within the posterior nasal cavity which is likely due to the intubation. Electronically signed by: Jin Berumen M.D. 01/22/2019 7:17 AM
[2019-01-22] MEDS: NORMOSOL-R 1,000 ML IV SCH ×2 (07:45→21:10)
[2019-01-22] MEDS ORDERED: POTASSIUM PHOS 3 MMOL/1 ML INFUSION IV STA (07:48)
--- NOTE | 2019-01-22 07:56 | Critical Care Progress Note ---
Date of Service January 22, 2019 Assessment & Plan (1) Admitted to intensive care unit: Reason Critically Ill: 53-year-old male with acute respiratory failure with hypercapnia in the setting of COPD exacerbation and left lower lobe pneumonia requiring intubation. Acute metabolic encephalopathy of uncertain etiology. NEURO - * CAM ICU: Unable to assess * Acute Encephalopathy: * Likely secondary to hypercapnia due to severe emphysema versus EtOH withdrawal versus infectious process versus elevated ammonia. Likely mixed * MRI head negative for acute process. * History of alcohol abuse: * Patient reportedly drinks approximately a 12 pack of beer per night. * CIWA protocol in place. * Continue thiamine and folate * Continue Versed drip. CARDIAC/VASCULAR - * h/o DVT of the lower extremities x3: * Initially on coumadin w/ transition to current Xarelto dosing. * No reported h/o cardiac disease. * Initial trops negative. * EKG: Sinus tach@104 bpm w/o ST/T-wave changes. QTc 483ms. Repeat normal sinus rhythm, TC still prolonged will monitor * Monitor on telemetry. RESPIRATORY - * Acute respiratory failure with hypercapnia: * Failed aggressive BiPAP efforts --> requiring endotracheal intubation. * ABG prior to intubation: 7.26/84/77/36 * Settings: AC/20/550/5/40% * Likely 2/2 acute COPD exacerbation w/ superimposed Bronchitis. * CT chest: Evidence of left lower lobe pneumonia * bronched, BAL wash and cultures pending * Will cover for CAP.\ * Continue steroids/Nebs. * Address smoking cessation when appropriate. GI/NUTRITION - Elevated ammonia ammonia of 64, started on lactulose, LFTs within normal limits -Trend * NPO * OG in place. * Prophylaxis: Protonix * With c/o abdominal pain in the ED, will add CT Abd/Pelvis while obtaining CT PE study to avoid need for excessive IV contrast. RENAL/LYTES - * Hyponatremia: * Sodium 125 on presentation. * Likely related to EtOH abuse. * Monitor closely for rate of rise. * Monitor Lytes - replace appropriately. * IVF: Normosol at 80 mL/h - * Lewis in place - Strict I&Os. ENDO - * No h/o DM or Thyroid Dz. * BSGs per unit protocol. ISS --> gtt per unit policy. HEME - * Stable H&H. * h/o DVT x3 on Xarelto. * CTA negative for PE ID - * Developing LLL PNA: * Presumed CAP * Continue Rocephin/Doxy * MRSA negative * Blood Cultures pending. * Pro-calcitonin negative * Brnch wash and culture pending LINES/IV ACCESS - * PIVs x3 * ET Tube * Lewis * LEFT Rad A-line * LUE Endurance Catheter DVT PROPHYLAXIS - * Previously on Xarelto. * Hold on SCDs 2/2 DVT Hx. (2) Acute respiratory failure with hypercapnia: (3) Pneumonia: (4) Bronchitis: (5) Acute metabolic encephalopathy: (6) Altered mental status: (7) History of DVT (deep vein thrombosis): (8) GERD (gastroesophageal reflux disease): (9) Hypokalemia: (10) Hypocalcemia: (11) Hyponatremia: (12) Alcohol abuse: Supervising Physician Co-Signing Physician Notes I have personally evaluated and examined this patient. I agree with assessment and plan of Bailee TOM. I had a long discussion with the patient's sister, she reports the patient is rather reclusive he is never been and has no children. She is unaware if he has ever designated someone is a power of estate planning attorney, his work appears to be unaware of any sort of medical power of estate planning attorney. She reports that he has had previous episodes of alcohol withdrawal with hospital admissions. She knows he has had several incidents of blood clots. He has had long-standing beliefs that in event of cardiac arrest he would not want to undergo heroic measures therefore he will be made DO NOT RESUSCITATE in event of cardiac arrest. Patient has known long-standing history of tobacco use and abuse. We will treat the patient for a sinusitis and the antibiotic coverage will also cover pulmonary pathogens. Patient was discussed in multidisciplinary rounds. He underwent a bronchoscopy today for mucoid impaction. I have personally spent 45 minutes of critical care time in the direct management of this patient. This is a life/limb threatening event. This includes time spent evaluating patient, direct bedside care, chart review, placing orders, interpretation of diagnostic studies, discussion with consultants, patient, and/or family members regarding treatment decisions, as well as other required patient management activities. This time is exclusive of all separately billable procedures, and teaching time and separate from and in addition to any other critical care service time. Subjective Patient is a 53-year-old male with a significant past medical history of DVT x3 to the lower extremities status post vascular surgery intervention to the bilateral lower extremities. The patient was previously on Coumadin, however has been transitioned to Xarelto. In addition, patient has history of COPD with recent exacerbation. Apparently, per records, the patient has been short of breath for the last couple of weeks. He was seen in the outpatient setting by his primary care provider's office and placed on steroids and Augmentin. It is uncertain if he took these medications. The patient apparently was having increasing shortness of breath as well as some visual hallucinations last evening while at work. He called an ambulance at work. In the emergency department, he received IV steroids as well as nebulizers with improvement of symptoms. He was admitted to the hospital where he had refused utilization of BiPAP throughout the night. Patient became more somnolent throughout the day. He was placed on BiPAP with minimal improvement. At that point, the patient was transitioned to the ICU for further evaluation and management. Attempts at aggressive BiPAP failed and patient was intubated overnight. This morning patient is intubated and sedated on Versed drip. MRI negative for acute process. Ammonia elevated but LFTs within normal limits, started on lactulose. CTA negative for PE. CT did show left lower lobe infiltrate bronchoscopy performed. Cultures pending. Hemodynamically stable with ventilator support, will remain in ICU for ventilator management and weaning. Review of Systems Unobtainable due to endotracheal tube and Unobtainable due to reduced consciousness Physical Exam Vital Signs (Past 24 Hours): Last Vital Signs Temp 36.5 C 01/22/19 04:00 Pulse 78 01/22/19 06:30 Resp 20 01/22/19 05:43 BP 95/58 L 01/22/19 06:00 Pulse Ox 97 01/22/19 06:30 Constitutional: + altered mental status and + mechanically ventilated Sedated Eyes: PERRL, conjunctivae normal, anicteric sclerae Neck: trachea midline, no thyromegaly Respiratory: normal respiratory effort, lungs clear to auscultation symmetric chest movement Cardiovascular: RRR, no murmur, no edema Heart Sounds: normal S1 and normal S2 Gastrointestinal (Abdomen): normal bowel sounds, soft, nontender, no hepatosplenomegaly Neurologic: Intubated and sedated Genitourinary: Lewis, adequate urine output (1) Altered mental status Altered mental status type: unspecified Qualified Code(s): R41.82 - Altered mental status, unspecified (2) GERD (gastroesophageal reflux disease) Esophagitis presence: esophagitis presence not specified Qualified Code(s): K21.9 - Gastro-esophageal reflux disease without esophagitis
[2019-01-22] MEDS: FOLIC ACID 1 MG in SYRINGE 9.8 ML IV SCH (08:05)
[2019-01-22] MEDS: LACTULOSE SYRUP 30 GM/45 ML UDP PO PRN ×2 (08:06→21:26)
[2019-01-22] MEDS ORDERED: POTASSIUM PHOSPHATE 15 MMOL in SODIUM CHLORIDE 0.9% 250 ML IV ONE (08:15)
[2019-01-22] MEDS: RIVAROXABAN 20 MG TAB PO SCH (08:19)
[2019-01-22] MEDS: POTASSIUM CHLORIDE / WTR 10 MEQ/100 ML PLCT IV SCH ×3 (08:21→10:46)
[2019-01-22] MEDS: PANTOprazole 40 MG in SYRINGE 0 ML IV SCH (10:46)
[2019-01-22] MEDS ORDERED: IMPACT LIQD 1.0 CAL 1,000 ML BAG OG SCH (11:30)
[2019-01-22] MEDS: MIDAZOLAM HCL 125 MG/250 ML BAG IV SCH (12:17)
--- NOTE | 2019-01-22 13:33 | Procedure Note ---
Procedure Note: Bronchoscopy Procedure Procedure date: January 22, 2018 Procedure: fiberoptic bronchoscopy Pre-procedure indication: Mucoid impaction of left bronchus Post-procedure Diagnosis: same as above Prior to Procedure: Informed Consent: The risks, benefits, indications, potential complications, and alternatives were explained to the the patient's sister and informed consent obtained. Attending Staff: Asad Johnston DO Resident/APC: Bailee TOM Skin Prep: Not applicable Anesthesia: Continuous infusion Versed The identity of the patient was confirmed and a bedside time out was performed. Description of Procedure: Fiberoptic bronchoscopy was performed via endotracheal tube. Bronchioalveolar lavage of the left lower lobe was performed. Findings included: Small amount of mucoid impaction in the left lower lobes Complications: None Specimens: Bronchial washings sent for culture and Gram stain, cytology, fungal elements, and AFB stain and culture. Estimated blood loss: Zero
--- NOTE | 2019-01-22 13:37 | Family Medicine Progress Note ---
Date of Service January 22, 2019 Assessment & Plan (1) Acute metabolic encephalopathy: 53 yr old with AMS and hallucinations. Could be due to metabolic abnormalities/electrolyte derangement, low Na/K/Ca, intoxication, withdrawal, infectious, hypoxia/CO2 retention. Acute respiratory failure - Hypercapneic/hypoxic - sec to copd exacerbation/aspiration -Placed on bipap initially but required intubation. -ABG with respiratory acidosis -currently intubated with close monitoring in the ICU after being on bipap. -Thought currently is likely due to COPD exacerbation with superimposed bronchitis/developing pneumonia. -Being treated with Doxy and Rocephin for possible CAP. -Ruling out PE with CTA -Will continue to follow COPD Exacerbation/developing pneumonia -IV steroids -IV ceftrixone, doxycycline -DuoNebs q 4 hours -Albuterol q 2 hours PRN Metabolic encephalopathy - likely from respiratory failure/possible DT -Transferred to ICU for further workup and respiratory support (see below) -CT head-unremarkable except for possible sinusitis -Negative Tox screen -cont to avoid sedating meds. -In ICU and further workup includes MRI of the brain and ammonia levels (elevated). CVA also on differential. Concern of DT - in setting of Hx of alcohol abuse -Patient with documented history of EtOH abuse in a 2013 note. -Tox showed no Hx of recent alcohol use, however recent notes/chart history showed pt states alcohol use as recent as early December. -MVI - banana bag given, thaimine -On AWSS protocol -Not showing signs of withdrawal currently. Hyponatremia - sec to alc use -Na 134 up from 125. -seizure precaution Hypocalcemia -s/p 1gm IV Calc gluc -Corrected calcium currently 8.2 -continue to monitor Hypokalemia -currently resolved -continue to monitor Abnormal thyroid function -TSH decreased but T4 normal -Will continue to monitor GERD -continue protonix -currently NPO Hx of DVT -Per records, patient with DVT x 3. On Xarelto. -Continue Xarelto -PT/INR and d-dimer- NORMAL Ppx - Xarelto. Protonix Code - Full Dispo - ICU Supervising Physician Co-Signing Physician Notes Resident Physician Supervision Note: I independently interviewed and examined the patient and verified the aviles history and physical, reviewed labs and image studies, discussed the case with the resident Dr. Barth and agree with the findings and care plan. Subjective Pt was laying in bed intubated, nonresponsive to verbal stimuli. Review of Systems Unobtainable due to cognitive status and Unobtainable due to endotracheal tube Physical Exam Vital Signs (Past 24 Hours): Last Vital Signs Temp 36.5 C 01/22/19 04:00 Pulse 87 01/22/19 11:58 Resp 20 01/22/19 11:01 BP 131/78 01/22/19 11:58 Pulse Ox 100 01/22/19 11:58 General: Intubated laying in bed with eyes closed. HEENT: NC/AT CV: RRR, Normal s1, s2. No murmurs appreciated Resp: Breath sounds decreased bilaterally on front. Abdomen: Soft, nontender, nondistended. No guarding. No organomegaly appreciated. Extremities: No edema. Results & Data Laboratory Results Laboratory Results - last 24 hr 01/21/19 01/21/19 01/21/19 04:46 04:47 15:48 WBC RBC Hgb Hct MCV MCH MCHC RDW Std Deviation RDW Coeff of Aggie Plt Count MPV Immature Gran % (Auto) Neut % (Auto) Lymph % (Auto) [place] % (Auto) Eos % (Auto) Baso % (Auto) Immature Gran # (Auto) Neut # (Auto) Lymph # (Auto) [place] # (Auto) Eos # (Auto) Baso # (Auto) Sample Site POC pH POC pCO2 POC pO2 POC HCO3 POC Total CO2 POC Base Excess ABG pH 7.26 L ABG pCO2 84 H ABG pO2 77 L ABG HCO3 36 H POC ABG O2 Sat ABG O2 Saturation 93.8 ABG Base Excess 6.3 H Tramaine Test Pos Barometric Pressure 734.8 Oxygen Given O2 Delivery Device POC O2 Rate Minute Ventilation POC FiO2 Tidal Volume PEEP Sodium Potassium Chloride Carbon Dioxide Anion Gap BUN Creatinine Est Cr Clr Drug Dosing Est GFR ( Amer) Est GFR (Non-Af Amer) BUN/Creatinine Ratio Glucose Osmolality Calcium Phosphorus Magnesium Total Bilirubin Direct Bilirubin AST ALT Alkaline Phosphatase Ammonia Total Protein Albumin Globulin Albumin/Globulin Ratio Procalcitonin PTH Intact Urine Osmolality Nasal Screen MRSA (PCR) RPR Lyme Disease IgG Ab Lyme Disease IgM Ab HIV 1&2 Ab/P24 Ag 4thGn Influenza Type A (PCR) Influenza Type B (PCR) 01/21/19 01/21/19 01/21/19 18:37 19:26 19:26 WBC 7.79 RBC 4.28 L Hgb 13.3 L Hct 41.5 L MCV 97.0 MCH 31.1 MCHC 32.0 RDW Std Deviation 53.0 H RDW Coeff of Aggie 15.0 H Plt Count 243 MPV 9.5 Immature Gran % (Auto) 0.8 Neut % (Auto) 63.7 Lymph % (Auto) 22.3 [place] % (Auto) 13.0 Eos % (Auto) 0.1 Baso % (Auto) 0.1 Immature Gran # (Auto) 0.06 H Neut # (Auto) 4.96 Lymph # (Auto) 1.74 [place] # (Auto) 1.01 H Eos # (Auto) 0.01 Baso # (Auto) 0.01 Sample Site POC pH POC pCO2 POC pO2 POC HCO3 POC Total CO2 POC Base Excess ABG pH ABG pCO2 ABG pO2 ABG HCO3 POC ABG O2 Sat ABG O2 Saturation ABG Base Excess Tramaine Test Barometric Pressure Oxygen Given O2 Delivery Device POC O2 Rate Minute Ventilation POC FiO2 Tidal Volume PEEP Sodium Potassium Chloride Carbon Dioxide Anion Gap BUN Creatinine Est Cr Clr Drug Dosing Est GFR ( Amer) Est GFR (Non-Af Amer) BUN/Creatinine Ratio Glucose Osmolality Calcium Phosphorus Magnesium Total Bilirubin Direct Bilirubin AST ALT Alkaline Phosphatase Ammonia Total Protein Albumin Globulin Albumin/Globulin Ratio Procalcitonin < 0.05 PTH Intact Urine Osmolality Nasal Screen MRSA (PCR) RPR Nonreactive Lyme Disease IgG Ab Negative Lyme Disease IgM Ab Negative HIV 1&2 Ab/P24 Ag 4thGn Neg Influenza Type A (PCR) Influenza Type B (PCR) 01/21/19 01/21/19 01/21/19 19:26 19:26 20:08 WBC RBC Hgb Hct MCV MCH MCHC RDW Std Deviation RDW Coeff of Aggie Plt Count MPV Immature Gran % (Auto) Neut % (Auto) Lymph % (Auto) [place] % (Auto) Eos % (Auto) Baso % (Auto) Immature Gran # (Auto) Neut # (Auto) Lymph # (Auto) [place] # (Auto) Eos # (Auto) Baso # (Auto) Sample Site R Radial POC pH 7.30 L POC pCO2 70 H POC pO2 72 L POC HCO3 34 H POC Total CO2 37 H POC Base Excess 8.0 H ABG pH ABG pCO2 ABG pO2 ABG HCO3 POC ABG O2 Sat 92.0 ABG O2 Saturation ABG Base Excess Tramaine Test Pass Barometric Pressure Oxygen Given O2 Delivery Device Other POC O2 Rate Minute Ventilation POC FiO2 30 Tidal Volume PEEP Sodium 133 L Potassium 3.6 Chloride 94 L Carbon Dioxide 37 H Anion Gap 2.0 L BUN 6 L Creatinine 0.61 Est Cr Clr Drug Dosing 151.9 Est GFR ( Amer) 131.2 Est GFR (Non-Af Amer) 113.2 BUN/Creatinine Ratio 9.3 L Glucose 86 Osmolality Calcium 7.5 L Phosphorus Magnesium Total Bilirubin 0.3 Direct Bilirubin AST 30 ALT 43 Alkaline Phosphatase 90 Ammonia Total Protein 6.2 L Albumin 3.1 L Globulin 3.1 Albumin/Globulin Ratio 1.0 Procalcitonin PTH Intact 95.4 H Urine Osmolality Nasal Screen MRSA (PCR) RPR Lyme Disease IgG Ab Lyme Disease IgM Ab HIV 1&2 Ab/P24 Ag 4thGn Influenza Type A (PCR) Influenza Type B (PCR) 01/21/19 01/21/19 01/22/19 21:17 Unknown 01:40 WBC RBC Hgb Hct MCV MCH MCHC RDW Std Deviation RDW Coeff of Aggie Plt Count MPV Immature Gran % (Auto) Neut % (Auto) Lymph % (Auto) [place] % (Auto) Eos % (Auto) Baso % (Auto) Immature Gran # (Auto) Neut # (Auto) Lymph # (Auto) [place] # (Auto) Eos # (Auto) Baso # (Auto) Sample Site R Radial POC pH 7.30 L POC pCO2 70 H POC pO2 74 L POC HCO3 35 H POC Total CO2 37 H POC Base Excess 8.0 H ABG pH ABG pCO2 ABG pO2 ABG HCO3 POC ABG O2 Sat 93.0 ABG O2 Saturation ABG Base Excess Tramaine Test Pass Barometric Pressure Oxygen Given O2 Delivery Device Other POC O2 Rate Minute Ventilation POC FiO2 30 Tidal Volume PEEP Sodium Potassium Chloride Carbon Dioxide Anion Gap BUN Creatinine Est Cr Clr Drug Dosing Est GFR ( Amer) Est GFR (Non-Af Amer) BUN/Creatinine Ratio Glucose Osmolality Calcium Phosphorus Magnesium Total Bilirubin Direct Bilirubin AST ALT Alkaline Phosphatase Ammonia Total Protein Albumin Globulin Albumin/Globulin Ratio Procalcitonin PTH Intact Urine Osmolality Nasal Screen MRSA (PCR) Negative RPR Lyme Disease IgG Ab Lyme Disease IgM Ab HIV 1&2 Ab/P24 Ag 4thGn Influenza Type A (PCR) Neg for Influ A Influenza Type B (PCR) Neg for Influ B 01/22/19 01/22/19 01/22/19 04:09 04:09 04:09 WBC 9.16 RBC 3.90 L Hgb 12.0 L Hct 37.9 L MCV 97.2 MCH 30.8 MCHC 31.7 L RDW Std Deviation 53.1 H RDW Coeff of Aggie 14.9 H Plt Count 224 MPV 8.8 Immature Gran % (Auto) 0.1 Neut % (Auto) 83.4 Lymph % (Auto) 6.9 [place] % (Auto) 9.6 Eos % (Auto) 0.0 Baso % (Auto) 0.0 Immature Gran # (Auto) 0.01 Neut # (Auto) 7.64 H Lymph # (Auto) 0.63 L [place] # (Auto) 0.88 H Eos # (Auto) 0.00 Baso # (Auto) 0.00 Sample Site POC pH POC pCO2 POC pO2 POC HCO3 POC Total CO2 POC Base Excess ABG pH ABG pCO2 ABG pO2 ABG HCO3 POC ABG O2 Sat ABG O2 Saturation ABG Base Excess Tramaine Test Barometric Pressure Oxygen Given O2 Delivery Device POC O2 Rate Minute Ventilation POC FiO2 Tidal Volume PEEP Sodium 134 L Potassium 3.4 L Chloride 97 L Carbon Dioxide 34 H Anion Gap 3.0 BUN 7 Creatinine 0.42 L Est Cr Clr Drug Dosing 220.7 Est GFR ( Amer) > 150.0 Est GFR (Non-Af Amer) 132.0 BUN/Creatinine Ratio 17.4 Glucose 110 H Osmolality Calcium 7.0 L Phosphorus 1.8 L D Magnesium 2.3 Total Bilirubin 0.3 Direct Bilirubin 0.1 AST 32 ALT 44 Alkaline Phosphatase 75 Ammonia 64.0 H Total Protein 5.3 L Albumin 2.5 L Globulin Albumin/Globulin Ratio Procalcitonin PTH Intact Urine Osmolality Nasal Screen MRSA (PCR) RPR Lyme Disease IgG Ab Lyme Disease IgM Ab HIV 1&2 Ab/P24 Ag 4thGn Influenza Type A (PCR) Influenza Type B (PCR) 01/22/19 01/22/19 04:09 05:17 WBC RBC Hgb Hct MCV MCH MCHC RDW Std Deviation RDW Coeff of Aggie Plt Count MPV Immature Gran % (Auto) Neut % (Auto) Lymph % (Auto) [place] % (Auto) Eos % (Auto) Baso % (Auto) Immature Gran # (Auto) Neut # (Auto) Lymph # (Auto) [place] # (Auto) Eos # (Auto) Baso # (Auto) Sample Site Art Line POC pH 7.36 POC pCO2 57 H POC pO2 75 L POC HCO3 32 H POC Total CO2 34 H POC Base Excess 6.0 H ABG pH ABG pCO2 ABG pO2 ABG HCO3 POC ABG O2 Sat 94.0 ABG O2 Saturation ABG Base Excess Tramaine Test NA Barometric Pressure Oxygen Given O2 Delivery Device Ventilator POC O2 Rate 20 Minute Ventilation 9.7 POC FiO2 35 Tidal Volume 550 PEEP 5 Sodium Potassium Chloride Carbon Dioxide Anion Gap BUN Creatinine Est Cr Clr Drug Dosing Est GFR ( Amer) Est GFR (Non-Af Amer) BUN/Creatinine Ratio Glucose Osmolality Calcium Phosphorus Magnesium Total Bilirubin Direct Bilirubin AST ALT Alkaline Phosphatase Ammonia Total Protein Albumin Globulin Albumin/Globulin Ratio Procalcitonin < 0.05 PTH Intact Urine Osmolality Nasal Screen MRSA (PCR) RPR Lyme Disease IgG Ab Lyme Disease IgM Ab HIV 1&2 Ab/P24 Ag 4thGn Influenza Type A (PCR) Influenza Type B (PCR) Medications Administered Home Medications Cordysept 1 tab PO QPM 01/15/19 [History Confirmed 01/21/19] cyanocobalamin (vitamin B-12) 1,000 mcg PO QPM 01/15/19 [History Confirmed 01/21/19] fluticasone-vilanterol [Breo Ellipta] 1 inh INHALATION QPM 01/15/19 [History Confirmed 01/21/19] pantoprazole 40 mg PO QPM 01/15/19 [History Confirmed 01/21/19] ipratropium-albuterol [Combivent Respimat] 1 puff INHALATION QID 01/20/19 [History Confirmed 01/21/19] rivaroxaban [Xarelto] 20 mg PO DAILY 01/20/19 [History Confirmed 01/21/19] Active Medications Acetaminophen (Tylenol) 650 mg PO Q4H PRN PRN Reason: Pain or Fever Stop: 02/20/19 04:20 Albuterol (Duoneb) 3 ml NEB Q4R SURJIT Stop: 02/20/19 07:59 Last Admin: 01/22/19 11:03 Dose: 3 ml Documented by: Albuterol (Ventolin 0.5% 2.5mg/0.5ml) 2.5 mg NEB Q2H PRN PRN Reason: SOB/Wheeze Stop: 02/20/19 04:20 Enteral Nutritional Formula (Impact 1.0 Jason) 1,000 ml OG UD [facility]; Protocol Stop: 02/21/19 11:29 Last Admin: 01/22/19 12:49 Dose: 1,000 ml Documented by: Fentanyl Citrate (Fentanyl Citrate) 50 mcg IV Q2H PRN PRN Reason: Moderate Pain (4,5,6) Stop: 02/04/19 21:29 Last Admin: 01/22/19 02:34 Dose: 50 mcg Documented by: Thiamine HCl 500 mg/ Sodium (Chloride) 55 mls @ 208 mls/hr IV TID [facility] Stop: 01/23/19 08:59 Last Admin: 01/22/19 13:51 Dose: 208 mls/hr Documented by: Folic Acid 1 mg/ Syringe 10 mls @ 5 mls/min IV QAM [facility] Stop: 02/21/19 08:59 Last Admin: 01/22/19 08:05 Dose: 5 mls/min Documented by: Parenteral Electrolytes (Normosol-R) 1,000 mls @ 80 mls/hr IV .[id number] [facility] Stop: 02/20/19 22:14 Last Admin: 01/22/19 07:45 Dose: 80 mls/hr Documented by: Pantoprazole Sodium 40 mg/ (Syringe) 10 mls @ 5 mls/min IV DAILY@1100 [facility] Stop: 02/21/19 10:59 Last Admin: 01/22/19 10:46 Dose: 5 mls/min Documented by: Midazolam HCl (Versed) 125 mg in 250 mls @ 18 mls/hr IV .[id number] [facility]; Protocol Stop: 02/20/19 21:29 Last Admin: 01/22/19 12:17 Dose: 9 mg/hr, 18 mls/hr Documented by: Doxycycline Hyclate 100 mg/ (Dextrose) 110 mls @ 50 mls/hr IV Q12H [facility] Stop: 01/28/19 22:59 Last Admin: 01/22/19 12:01 Dose: 50 mls/hr Documented by: Ceftriaxone Sodium 1,000 mg/ (Dextrose) 50 mls @ 100 mls/hr IV Q24H [facility] Stop: 02/03/19 23:29 Last Infusion: 01/22/19 03:10 Dose: Infused Documented by: Methylprednisolone 40 mg/ (Syringe) 0.64 mls @ 1.5 mls/min IV Q12H [facility] Stop: 02/21/19 17:59 Ioversol (Optiray 320 125ml) 125 ml IV ONCE PRN PRN Reason: Interaction Checking Stop: 01/26/19 00:27 Last Admin: 01/22/19 00:28 Dose: 119 ml Documented by: Lactulose (Chronulac) 30 gm PO BID PRN PRN Reason: AMS Stop: 02/21/19 07:59 Last Admin: 01/22/19 08:06 Dose: 30 gm Documented by: Lorazepam (Ativan) 1 mg PO ONE PRN; Protocol PRN Reason: EtoH Withdrawal AWSS 6-10 Miscellaneous (Icu Protocol For Hyperglycemia) 1 ea N/A PRN PRN; Protocol PRN Reason: Hyperglycemia Protocol Stop: 01/23/19 20:49 Rivaroxaban (Xarelto) 20 mg PO DAILY SURJIT Stop: 02/20/19 08:59 Last Admin: 01/22/19 08:19 Dose: 20 mg Documented by: Thiamine HCl (Vitamin B-1) 100 mg PO QAM [facility] Stop: 02/22/19 08:59 Resident Activity Tracking Resident Involvement: Resident Care Provided Care Provided: Adult Hospital Medicine
[2019-01-22] MEDS ORDERED: ROCURONIUM BROMIDE 10 MG/ML 5 ML VIAL IV ONE (15:14)
[2019-01-22] MEDS ORDERED: fentaNYL citrate 100 MCG/2 ML CARP IV ONE (15:14)
[2019-01-22] MEDS ORDERED: MIDAZOLAM HCL 5 MG/ML VIAL IV ONE (15:14)
[2019-01-22] MEDS ORDERED: ETOMIDATE 2 MG/ML 20 ML VIAL IV ONE (15:14)
[2019-01-23] MEDS: DOXYCYCLINE HYCLATE 100 MG in DEXTROSE 5% 100 ML IV SCH (00:59)
[2019-01-23] MEDS: ALBUT/IPRATROP 3MG/0.5MG NEB 3 ML VIAL NEB SCH ×5 (03:15→23:05)
[2019-01-23] MEDS: MIDAZOLAM HCL 125 MG/250 ML BAG IV SCH (03:23)
[2019-01-23 04:59] LABS: Hematocrit (blood only) 40.7 % (42-52); Hemoglobin 12.9 g/dL (14.0-18.0); Immature Granulocytes # (auto) 0.04 K/uL (0.00-0.02); Immature Granulocytes % (auto) 0.4 %; Lymphocytes # (auto) 1.12 K/uL (1.2-3.4); Lymphocytes % (auto) 11.3 %; Mean Corpuscular Hgb Conc 31.7 g/dL (32-36); Mean Corpuscular Volume 96.9 fL (80-100); Monocytes % (auto) 9.1 %; Neutrophils # (auto) 7.83 K/uL (1.4-6.5); Neutrophils % (auto) 79.2 %; Platelet Count 261 K/uL (130-400); RDW Coefficient of Variation 14.9 % (11.5-14.5); White Blood Count 9.89 K/uL (4.8-10.8)
[2019-01-23 05:17] LABS: BUN Creatinine Ratio 16.8 (10-20); Blood Urea Nitrogen 7 mg/dl (7-18); Calcium 7.5 mg/dl (8.5-10.1); Carbon Dioxide 35 mmol/L (21-32); Chloride 97 mmol/L (98-107); Creatinine Clr Calc Pharmacy 215.6 ml/min; Est GFR (African American) > 150.0; Est GFR (Non-African American) 130.7; Glucose 151 mg/dl (70-99); Magnesium 2.5 mg/dl (1.8-2.4); Phosphorus 1.8 mg/dl (2.5-4.9); Potassium 3.7 mmol/L (3.5-5.1); Sodium 133 mmol/L (136-145)
[2019-01-23 05:42] LABS: HCO3 ABG 35 mmol/L (19-24); Oxygen Saturation ABG 95.7 % (90-95); PCO2 ABG 58 mmHg (35-46); PO2 ABG 80 mm/Hg (80-95)
[2019-01-23 05:47] LABS: Allen Test Pos (Pos)
[2019-01-23] MEDS: methylPREDNISolone 40 MG in SYRINGE 0 ML IV SCH (05:58)
--- NOTE | 2019-01-23 06:50 | Critical Care Progress Note ---
Date of Service January 23, 2019 Assessment & Plan (1) Admitted to intensive care unit: Reason Critically Ill: 53-year-old male with acute respiratory failure with hypercapnia in the setting of COPD exacerbation and left lower lobe pneumonia requiring intubation. Acute metabolic encephalopathy of uncertain etiology. NEURO - * CAM ICU: Unable to assess * Acute Encephalopathy: * Likely secondary to hypercapnia due to severe emphysema versus EtOH withdrawal versus infectious process versus elevated ammonia. Likely mixed * MRI head negative for acute process. * History of alcohol abuse: * We will start empiric phenobarbital protocol * 360 mg phenobarbital IV x1 followed by 270 mg IV every 3 hours x2 doses * 3/16 will be 64.8 twice daily followed by 32.4 every 12 hours for 3 doses CARDIAC/VASCULAR - * h/o DVT of the lower extremities x3: * Initially on coumadin w/ transition to current Xarelto dosing. * No reported h/o cardiac disease. * Initial trops negative. RESPIRATORY - * Acute respiratory failure with hypercapnia:Resolved * Long-standing history of tobacco abuse most likely COPD * Empiric treatment for sinusitis which will cover respiratory pathogens * Transition to oral steroids with rapid wean * Address smoking cessation when appropriate. GI/NUTRITION - * Restart regular diet Elevated ammonia ammonia of 64, Now 56started on lactulose, LFTs within normal limits -Trend * Continue lactulose * OG in place. RENAL/LYTES - * Hyponatremia:Improved * * Hypophosphatemia 18 mmol K-Phos * IVF: discontinued - * Lewis: Discontinued ENDO - * No h/o DM or Thyroid Dz. * BSGs per unit protocol. ISS --> gtt per unit policy. HEME - * Stable H&H. * h/o DVT x3 on Xarelto. * CTA negative for PE ID - Acute on chronic sinusitis: Frontal and ethmoid * empiric treatment with 7 days doxycycline for atypical pulmonary pathogens and 14-day treatment of Augmentin 875 twice daily * Afrin x2 today LINES/IV ACCESS - * PIVs x3 * LUE Endurance Catheter DVT PROPHYLAXIS - * Previously on Xarelto. * Hold on SCDs 2/2 DVT Hx. Liberated from ventilator this morning Patient was discussed in multidisciplinary rounds I have personally spent 35 minutes of critical care time in the direct management of this patient. This is a life/limb threatening event. This includes time spent evaluating patient, direct bedside care, chart review, placing orders, interpretation of diagnostic studies, discussion with consultants, patient, and/or family members regarding treatment decisions, as we ll as other required patient management activities. This time is exclusive of all separately billable procedures, and teaching time and separate from and in addition to any other critical care service time. (2) Acute respiratory failure with hypercapnia: (3) Pneumonia: (4) Bronchitis: (5) Acute metabolic encephalopathy: (6) Altered mental status: (7) History of DVT (deep vein thrombosis): (8) GERD (gastroesophageal reflux disease): (9) Hypokalemia: (10) Hypocalcemia: (11) Hyponatremia: (12) Alcohol abuse: Subjective Patient is a 53-year-old male with a significant past medical history of DVT x3 to the lower extremities status post vascular surgery intervention to the bilateral lower extremities. The patient was previously on Coumadin, however has been transitioned to Xarelto. In addition, patient has history of COPD with recent exacerbation. Apparently, per records, the patient has been short of breath for the last couple of weeks. He was seen in the outpatient setting by his primary care provider's office and placed on steroids and Augmentin. It is uncertain if he took these medications. The patient apparently was having increasing shortness of breath as well as some visual hallucinations while at work. He called an ambulance at work. In the emergency department, he received IV steroids as well as nebulizers with improvement of symptoms. He was admitted to the hospital where he had refused utilization of BiPAP throughout the night. Patient became more somnolent throughout the day. He was placed on BiPAP with minimal improvement. At that point, the patient was transitioned to the ICU for further evaluation and management. Attempts at aggressive BiPAP failed and patient was intubated. This morning patient is extubated to nasal cannula. He was bronched yesterday, cultures pending. Transitioning Versed drip to phenobarbital protocol for withdrawal. DC'd Lewis and A-line, regular diet ordered. We will continue to monitor for today in ICU for observation of first dose phenobarbital administration given patient's recent encephalopathy and respiratory failure. Review of Systems All systems reviewed & are unremarkable except as noted in HPI & below Physical Exam Vital Signs (Past 24 Hours): Last Vital Signs Temp 36.8 C 03/14/19 16:00 Pulse 65 01/23/19 05:29 Resp 20 01/23/19 05:29 BP 111/67 01/22/19 18:00 Pulse Ox 100 01/23/19 05:29 Constitutional: WD/WN, vitals as above comfortable Eyes: PERRL, conjunctivae normal, anicteric sclerae Neck: trachea midline, no thyromegaly Respiratory: normal respiratory effort, lungs clear to auscultation symmetric chest movement Cardiovascular: RRR, no murmur, no edema Heart Sounds: normal S1 and normal S2 Gastrointestinal (Abdomen): normal bowel sounds, soft, nontender, no hepatosplenomegaly Neurologic: PERRL, EOMI, accommodation nl, no face palsy, no dysarthria Psychiatric: Orientation: oriented to person and oriented to place (1) Altered mental status Altered mental status type: unspecified Qualified Code(s): R41.82 - Altered mental status, unspecified (2) GERD (gastroesophageal reflux disease) Esophagitis presence: esophagitis presence not specified Qualified Code(s): K21.9 - Gastro-esophageal reflux disease without esophagitis
[2019-01-23] MEDS: THIAMINE HCL 100 MG TAB PO SCH (07:10)
[2019-01-23] MEDS: RIVAROXABAN 20 MG TAB PO SCH (07:10)
[2019-01-23] MEDS: NORMOSOL-R 1,000 ML IV SCH ×2 (08:17→19:29)
[2019-01-23] MEDS: FOLIC ACID 1 MG in SYRINGE 9.8 ML IV SCH (08:17)
[2019-01-23] MEDS ORDERED: PHENOBARBITAL SODIUM IV SCH ×6 (10:00→16:00)
[2019-01-23] MEDS ORDERED: POTASSIUM PHOSPHATE 18 MMOL in SODIUM CHLORIDE 0.9% 500 ML IV ONE (10:00)
[2019-01-23] MEDS: PANTOprazole 40 MG in SYRINGE 0 ML IV SCH (10:15)
[2019-01-23] MEDS: AMOXICILLIN/CLAVULANATE 875 MG TAB PO SCH ×2 (10:30→16:36)
[2019-01-23] MEDS: predniSONE 20 MG TAB PO SCH (10:30)
[2019-01-23] MEDS: OXYMETAZOLINE 0.05% 30 ML BTL NAE SCH ×2 (10:30→20:57)
[2019-01-23] MEDS: DOXYCYCLINE HYCLATE 100 MG CAP PO SCH ×2 (11:13→20:56)
--- NOTE | 2019-01-23 18:12 | Family Medicine Progress Note ---
Date of Service January 23, 2019 Assessment & Plan (1) Acute metabolic encephalopathy: 53 yr old with AMS and hallucinations. Could be due to metabolic abnormalities/electrolyte derangement, low Na/K/Ca, intoxication, withdrawal, infectious, hypoxia/CO2 retention. Acute respiratory failure - Hypercapneic/hypoxic - sec to copd exacerbation/aspiration needing intubation for mechanical ventillation. - Now extubated. -Ruled out PE with CTA Possible CAP -Was treated with Doxy and Rocephin for possible CAP. -Now on Augmentin for sinusitis as well seen on imaging. COPD Exacerbation -IV steroids -DuoNebs q 4 hours -Albuterol q 2 hours PRN Metabolic encephalopathy - likely from respiratory failure/possible DT -CT head-unremarkable except for possible sinusitis -Negative Tox screen -Neg MRI and normal ammonia level. Concern of DT - in setting of Hx of alcohol abuse -Placed on phenobarbital protocol. -Patient with documented history of EtOH abuse in a 2013 note. -Tox showed no Hx of recent alcohol use. -MVI - banana bag given, thaimine Hyponatremia - sec to alc use -Na 133 up from 125. -seizure precaution Hypocalcemia -s/p 1gm IV Calc gluc -continue to monitor Hypokalemia -currently resolved -continue to monitor Abnormal thyroid function -TSH decreased but T4 normal -Will continue to monitor GERD -continue protonix -currently NPO Hx of DVT -Per records, patient with DVT x 3. On Xarelto. -Continue Xarelto -PT/INR and d-dimer- NORMAL Ppx - Xarelto. Protonix Code - Full Dispo - ICU Supervising Physician Co-Signing Physician Notes Resident Physician Supervision Note: I independently interviewed and examined the patient and verified the aviles history and physical, reviewed labs and image studies, discussed the case with the resident Dr. Barth and agree with the findings and care plan. Subjective Pt was extubated and alert and oriented to self this morning, knew he was in a bed in the hospital but did not know which hospital or the year. States he has no recollection of how he got there or what happened. Review of Systems Unobtainable due to cognitive status Physical Exam Vital Signs (Past 24 Hours): Last Vital Signs Temp 36.7 C 01/23/19 16:00 Pulse 139 H 01/23/19 17:00 Resp 18 01/23/19 17:00 BP 129/79 01/23/19 17:00 Pulse Ox 93 01/23/19 17:00 General: Extubated, sitting up in bed trying to wipe his nose. HEENT: NC/AT CV: RRR, Normal s1, s2. Resp: Breath sounds decreased bilaterally on front, coarse on back. Abdomen: Soft, nontender, nondistended. No guarding. No organomegaly appreciated. Extremities: No edema. Results & Data Laboratory Results Laboratory Results - last 24 hr 01/23/19 01/23/19 01/23/19 04:47 04:47 04:47 WBC 9.89 RBC 4.20 L Hgb 12.9 L Hct 40.7 L MCV 96.9 MCH 30.7 MCHC 31.7 L RDW Std Deviation 53.0 H RDW Coeff of Aggie 14.9 H Plt Count 261 MPV 9.0 Immature Gran % (Auto) 0.4 Neut % (Auto) 79.2 Lymph % (Auto) 11.3 Gray % (Auto) 9.1 Eos % (Auto) 0.0 Baso % (Auto) 0.0 Immature Gran # (Auto) 0.04 H Neut # (Auto) 7.83 H Lymph # (Auto) 1.12 L Gray # (Auto) 0.90 H Eos # (Auto) 0.00 Baso # (Auto) 0.00 ABG pH ABG pCO2 ABG pO2 ABG HCO3 ABG O2 Saturation ABG Base Excess Tramaine Test Barometric Pressure Oxygen Given Sodium 133 L Potassium 3.7 Chloride 97 L Carbon Dioxide 35 H Anion Gap 1.0 L BUN 7 Creatinine 0.43 L Est Cr Clr Drug Dosing 215.6 Est GFR ( Amer) > 150.0 Est GFR (Non-Af Amer) 130.7 BUN/Creatinine Ratio 16.8 Glucose 151 H POC Glucose Calcium 7.5 L Phosphorus 1.8 L Magnesium 2.5 H Ammonia 56.0 H 01/23/19 01/23/19 01/23/19 04:47 11:16 16:14 WBC RBC Hgb Hct MCV MCH MCHC RDW Std Deviation RDW Coeff of Aggie Plt Count MPV Immature Gran % (Auto) Neut % (Auto) Lymph % (Auto) Gray % (Auto) Eos % (Auto) Baso % (Auto) Immature Gran # (Auto) Neut # (Auto) Lymph # (Auto) Gray # (Auto) Eos # (Auto) Baso # (Auto) ABG pH 7.40 ABG pCO2 58 H ABG pO2 80 ABG HCO3 35 H ABG O2 Saturation 95.7 H ABG Base Excess 8.1 H Tramaine Test Pos Barometric Pressure 724.5 Oxygen Given 7L Sodium Potassium Chloride Carbon Dioxide Anion Gap BUN Creatinine Est Cr Clr Drug Dosing Est GFR ( Amer) Est GFR (Non-Af Amer) BUN/Creatinine Ratio Glucose POC Glucose 140 H 128 H Calcium Phosphorus Magnesium Ammonia Medications Administered Home Medications Cordysept 1 tab PO QPM 01/15/19 [History Confirmed 01/21/19] cyanocobalamin (vitamin B-12) 1,000 mcg PO QPM 01/15/19 [History Confirmed 01/21/19] fluticasone-vilanterol [Breo Ellipta] 1 inh INHALATION QPM 01/15/19 [History Confirmed 01/21/19] pantoprazole 40 mg PO QPM 01/15/19 [History Confirmed 01/21/19] ipratropium-albuterol [Combivent Respimat] 1 puff INHALATION QID 01/20/19 [History Confirmed 01/21/19] rivaroxaban [Xarelto] 20 mg PO DAILY 01/20/19 [History Confirmed 01/21/19] Active Medications Acetaminophen (Tylenol) 650 mg PO Q4H PRN PRN Reason: Pain or Fever Stop: 02/20/19 04:20 Albuterol (Duoneb) 3 ml NEB Q4R [facility] Stop: 02/20/19 07:59 Last Admin: 01/23/19 15:49 Dose: 3 ml Documented by: Albuterol (Ventolin 0.5% 2.5mg/0.5ml) 2.5 mg NEB Q2H PRN PRN Reason: SOB/Wheeze Stop: 02/20/19 04:20 Amoxicillin/Clavulanate Potassium (Augmentin 875mg) 1 tab PO BIDM [facility] Stop: 02/04/19 10:01 Last Admin: 01/23/19 16:36 Dose: 1 tab Documented by: Doxycycline Hyclate (Vibramycin) 100 mg PO BID [facility] Stop: 01/28/19 09:01 Last Admin: 01/23/19 11:13 Dose: 100 mg Documented by: Folic Acid (Folvite) 1 mg PO QAM [facility] Stop: 02/23/19 08:59 Parenteral Electrolytes (Normosol-R) 1,000 mls @ 80 mls/hr IV .[id number] [facility] Stop: 02/20/19 22:14 Last Admin: 01/23/19 08:17 Dose: 80 mls/hr Documented by: Ioversol (Optiray 320 125ml) 125 ml IV ONCE PRN PRN Reason: Interaction Checking Stop: 01/26/19 00:27 Last Admin: 01/22/19 00:28 Dose: 119 ml Documented by: Lactulose (Chronulac) 30 gm PO BID PRN PRN Reason: AMS Stop: 02/21/19 07:59 Last Admin: 01/22/19 21:26 Dose: 30 gm Documented by: Miscellaneous (Icu Protocol For Hyperglycemia) 1 ea N/A PRN PRN; Protocol PRN Reason: Hyperglycemia Protocol Stop: 01/23/19 20:49 Multivitamins (Multivitamin Tab) 1 tab PO [facility] Stop: 02/23/19 08:59 Oxymetazoline HCl (Afrin 0.05%) 1 sprays [place] BID [facility] Stop: 01/23/19 21:01 Last Admin: 01/23/19 10:30 Dose: 1 sprays Documented by: Pantoprazole Sodium (Protonix) 40 mg PO QAM [facility] Stop: 02/23/19 08:59 Phenobarbital (Phenobarbital) 64.8 mg PO BID [facility] Stop: 01/24/19 21:01 Phenobarbital (Phenobarbital) 32.4 mg PO Q12 [facility] Stop: 01/26/19 09:01 Prednisone (Prednisone) 40 mg PO DAILY [facility] Stop: 01/27/19 09:01 Last Admin: 01/23/19 10:30 Dose: 40 mg Documented by: Rivaroxaban (Xarelto) 20 mg PO DAILY [facility] Stop: 02/20/19 08:59 Last Admin: 01/23/19 07:10 Dose: 20 mg Documented by: Thiamine HCl (Vitamin B-1) 100 mg PO QAM [facility] Stop: 02/22/19 08:59 Last Admin: 01/23/19 07:10 Dose: 100 mg Documented by:
--- NOTE | 2019-01-24 00:03 | Critical Care Progress Note ---
Date of Service January 24, 2019 Assessment & Plan (1) Admitted to intensive care unit: Reason Critically Ill: 53-year-old male with acute respiratory failure with hypercapnia in the setting of COPD exacerbation and left lower lobe pneumonia requiring intubation. Acute metabolic encephalopathy of uncertain etiology. NEURO - * CAM ICU: Unable to assess * Acute Encephalopathy: * Likely secondary to hypercapnia due to severe emphysema versus EtOH withdrawal versus infectious process versus elevated ammonia. Likely mixed * MRI head negative for acute process. * History of alcohol abuse: * We will start empiric phenobarbital protocol * 01/24 will be 64.8 twice daily followed by 32.4 every 12 hours for 3 doses * Adding 10 mg propranolol 3 times daily CARDIAC/VASCULAR - * h/o DVT of the lower extremities x3: * Initially on coumadin w/ transition to current Xarelto dosing. * No reported h/o cardiac disease. * Initial trops negative. * Tachycardia * Propranolol 10 mg 3 times daily RESPIRATORY - * Acute respiratory failure with hypercapnia:Resolved * Long-standing history of tobacco abuse most likely COPD * Empiric treatment for sinusitis which will cover respiratory pathogens * Transition to oral steroids with rapid wean * Address smoking cessation when appropriate. GI/NUTRITION - * Regular diet Elevated ammoniaresolved within normal limits RENAL/LYTES - * Hyponatremia:Improved * Likely nutritional * Hypophosphatemia: Improved 18 mmol K-Phos * IVF: discontinued - * Lewis: Discontinued ENDO - * No h/o DM or Thyroid Dz. * BSGs per unit protocol. ISS --> gtt per unit policy. HEME - * Stable H&H. * h/o DVT x3 on Xarelto. * CTA negative for PE ID - Acute on chronic sinusitis: Frontal and ethmoid * empiric treatment with 7 days doxycycline for atypical pulmonary pathogens and 14-day treatment of Augmentin 875 twice daily LINES/IV ACCESS - * PIVs x3 * LUE Endurance Catheter DVT PROPHYLAXIS - * Previously on Xarelto. * Hold on SCDs 2/2 DVT Hx. Patient is stable for downgrade out of the ICU. I will continue with the phenobarbital treatment however adding alcohol withdrawal severity scale scoring (2) Acute respiratory failure with hypercapnia: (3) Pneumonia: (4) Bronchitis: (5) Acute metabolic encephalopathy: (6) Altered mental status: (7) History of DVT (deep vein thrombosis): (8) GERD (gastroesophageal reflux disease): (9) Hypokalemia: (10) Hypocalcemia: (11) Hyponatremia: (12) Alcohol abuse: Subjective No overnight events feels improved Physical Exam Vital Signs (Past 24 Hours): Last Vital Signs Temp 36.7 C 01/23/19 16:00 Pulse 118 H 01/23/19 23:08 Resp 24 01/23/19 23:08 BP 150/99 H 01/23/19 22:00 Pulse Ox 94 01/23/19 23:08 General: Alert. nontoxic. Skin: Warm, dry, Head: Atraumatic Ears, nose, mouth and throat: airway patent Cardiovascular: Normal peripheral perfusion Respiratory: no respiratory distress Gastrointestinal: Non distended Musculoskeletal: No deformity Results & Data Laboratory Results 01/24/19 01/24/19 01/24/19 Range/Units 05:03 05:03 05:03 WBC 10.78 (4.8-10.8) K/uL RBC 4.03 L (4.7-6.1) M/uL Hgb 12.2 L (14.0-18.0) g/dL Hct 39.9 L (42-52) % MCV 99.0 (80-100) fL MCH 30.3 (25-34) pg MCHC 30.6 L (32-36) g/dL RDW Std Deviation 54.7 H (36.4-46.3) fL RDW Coeff of Aggie 15.0 H (11.5-14.5) % Plt Count 249 (130-400) K/uL MPV 8.6 (7.4-10.4) fL Immature Gran % (Auto) 0.6 % Neut % (Auto) 72.6 % Lymph % (Auto) 13.5 % [place] % (Auto) 13.3 % Eos % (Auto) 0.0 % Baso % (Auto) 0.0 % Immature Gran # (Auto) 0.06 H (0.00-0.02) K/uL Neut # (Auto) 7.83 H (1.4-6.5) K/uL Lymph # (Auto) 1.46 (1.2-3.4) K/uL [place] # (Auto) 1.43 H (0.11-0.59) K/uL Eos # (Auto) 0.00 (0-0.5) K/uL Baso # (Auto) 0.00 (0-0.2) K/uL Sodium 135 L (136-145) mmol/L Potassium 3.9 (3.5-5.1) mmol/L Chloride 96 L (98-107) mmol/L Carbon Dioxide 38 H (21-32) mmol/L Anion Gap 1.0 L (3-11) BUN 9 (7-18) mg/dl Creatinine 0.51 L (0.6-1.4) mg/dl Est Cr Clr Drug Dosing 181.7 ml/min Est GFR ( Amer) 141.2 Est GFR (Non-Af Amer) 121.9 BUN/Creatinine Ratio 16.8 (10-20) Glucose 94 (70-99) mg/dl POC Glucose (70-99) Calcium 7.3 L (8.5-10.1) mg/dl Phosphorus 2.0 L (2.5-4.9) mg/dl Magnesium 2.3 (1.8-2.4) mg/dl Ammonia 14.0 (11-32) umol/L 01/23/19 01/23/19 Range/Units 21:01 16:14 WBC (4.8-10.8) K/uL RBC (4.7-6.1) M/uL Hgb (14.0-18.0) g/dL Hct (42-52) % MCV (80-100) fL MCH (25-34) pg MCHC (32-36) g/dL RDW Std Deviation (36.4-46.3) fL RDW Coeff of Aggie (11.5-14.5) % Plt Count (130-400) K/uL MPV (7.4-10.4) fL Immature Gran % (Auto) % Neut % (Auto) % Lymph % (Auto) % [place] % (Auto) % Eos % (Auto) % Baso % (Auto) % Immature Gran # (Auto) (0.00-0.02) K/uL Neut # (Auto) (1.4-6.5) K/uL Lymph # (Auto) (1.2-3.4) K/uL [place] # (Auto) (0.11-0.59) K/uL Eos # (Auto) (0-0.5) K/uL Baso # (Auto) (0-0.2) K/uL Sodium (136-145) mmol/L Potassium (3.5-5.1) mmol/L Chloride (98-107) mmol/L Carbon Dioxide (21-32) mmol/L Anion Gap (3-11) BUN (7-18) mg/dl Creatinine (0.6-1.4) mg/dl Est Cr Clr Drug Dosing ml/min Est GFR ( Amer) Est GFR (Non-Af Amer) BUN/Creatinine Ratio (10-20) Glucose (70-99) mg/dl POC Glucose 139 H 128 H (70-99) Calcium (8.5-10.1) mg/dl Phosphorus (2.5-4.9) mg/dl Magnesium (1.8-2.4) mg/dl Ammonia (11-32) umol/L (1) Altered mental status Altered mental status type: unspecified Qualified Code(s): R41.82 - Altered mental status, unspecified (2) GERD (gastroesophageal reflux disease) Esophagitis presence: esophagitis presence not specified Qualified Code(s): K21.9 - Gastro-esophageal reflux disease without esophagitis
[2019-01-24] MEDS: ALBUT/IPRATROP 3MG/0.5MG NEB 3 ML VIAL NEB SCH ×6 (03:11→23:06)
[2019-01-24 05:12] LABS: Hematocrit (blood only) 39.9 % (42-52); Hemoglobin 12.2 g/dL (14.0-18.0); Immature Granulocytes # (auto) 0.06 K/uL (0.00-0.02); Immature Granulocytes % (auto) 0.6 %; Lymphocytes # (auto) 1.46 K/uL (1.2-3.4); Lymphocytes % (auto) 13.5 %; Mean Corpuscular Hgb Conc 30.6 g/dL (32-36); Mean Platelet Volume 8.6 fL (7.4-10.4); Monocytes # (auto) 1.43 K/uL (0.11-0.59); Monocytes % (auto) 13.3 %; Neutrophils # (auto) 7.83 K/uL (1.4-6.5); Neutrophils % (auto) 72.6 %; Platelet Count 249 K/uL (130-400); RDW Standard Deviation 54.7 fL (36.4-46.3); Red Blood Count 4.03 M/uL (4.7-6.1); White Blood Count 10.78 K/uL (4.8-10.8)
[2019-01-24 05:29] LABS: BUN Creatinine Ratio 16.8 (10-20); Calcium 7.3 mg/dl (8.5-10.1); Creatinine Clr Calc Pharmacy 181.7 ml/min; Est GFR (African American) 141.2; Est GFR (Non-African American) 121.9; Magnesium 2.3 mg/dl (1.8-2.4); Potassium 3.9 mmol/L (3.5-5.1)
[2019-01-24] MEDS: PHENobarbital 32.4 MG TAB PO SCH ×2 (08:10→20:14)
[2019-01-24] MEDS: MULTIVITAMIN TAB PO SCH (08:10)
[2019-01-24] MEDS: THIAMINE HCL 100 MG TAB PO SCH (08:10)
[2019-01-24] MEDS: RIVAROXABAN 20 MG TAB PO SCH (08:10)
[2019-01-24] MEDS: FOLIC ACID 1 MG TAB PO SCH (08:10)
[2019-01-24] MEDS: predniSONE 20 MG TAB PO SCH (08:10)
[2019-01-24] MEDS: PANTOprazole 40 MG TAB PO SCH (08:10)
[2019-01-24] MEDS: DOXYCYCLINE HYCLATE 100 MG CAP PO SCH ×2 (08:10→20:09)
[2019-01-24] MEDS: NORMOSOL-R 1,000 ML IV SCH ×2 (08:11→21:32)
[2019-01-24] MEDS: AMOXICILLIN/CLAVULANATE 875 MG TAB PO SCH ×3 (08:11→20:09)
[2019-01-24] MEDS: PROPRANOLOL HCL 10 MG TAB PO SCH ×2 (13:55→20:12)
--- NOTE | 2019-01-24 16:33 | Family Medicine Progress Note ---
Date of Service January 24, 2019 Assessment & Plan (1) Acute metabolic encephalopathy: 53 yr old with Hx of alcoholism, COPD who was admitted with altered mental status and significant respiratory failure requiring intubation and placement in the ICU. Improved and downgraded today. Acute respiratory failure - Hypercapneic/hypoxic - sec to copd exacerbation/aspiration needing intubation for mechanical ventillation. - extubated 01/23. -Ruled out PE with CTA Possible CAP -empiric treatment previously with Augmentin and Doxycycline -Broncheolar lavage washing of the left lower lobe grew H. FLU BETA LACTAMASE NEGATIVE bacteria but likely concern of aspiration - continue augmentin and dox y. Fungal culture and Acid-fast results still PENDING.. -Blood Cultures no growth to date. COPD Exacerbation -Prednisone 40mgs daily -Albuterol q 2 hours PRN Metabolic encephalopathy - likely from respiratory failure/possible DT--MUCH IMPROVED -CT head-unremarkable except for possible sinusitis -Negative Tox screen -Neg MRI and normal ammonia level. Concern of DT - in setting of Hx of alcohol abuse -Placed on phenobarbital protocol. -Patient with documented history of EtOH abuse in a 2013 note. -Tox showed no Hx of recent alcohol use. -MVI, thaimine Hyponatremia - sec to alc use -Na 135 up from 125. -seizure precaution Hypocalcemia -s/p 1gm IV Calc gluc -continue to monitor Hypokalemia -currently resolved -continue to monitor Abnormal thyroid function -TSH decreased but T4 normal -Will continue to monitor GERD -continue protonix -currently NPO Hx of DVT -Per records, patient with DVT x 3. On Xarelto. -Continue Xarelto -PT/INR and d-dimer- NORMAL Ppx - Xarelto. Protonix Code - Full Supervising Physician Co-Signing Physician Notes Resident Physician Supervision Note: I independently interviewed and examined the patient and verified the aviles history and physical, reviewed labs and image studies, discussed the case with the resident Dr. Barth and agree with the findings and care plan. Subjective Pt was oriented to person and place. Denied headaches, SOB, N/V, chest pain, abd pain,diarrhea/constipation and leg pain. Review of Systems All systems reviewed & are unremarkable except as noted in HPI & below Physical Exam Vital Signs (Past 24 Hours): Last Vital Signs Temp 37.3 C 01/24/19 12:02 Pulse 84 01/24/19 15:43 Resp 18 01/24/19 15:43 BP 119/71 01/24/19 14:00 Pulse Ox 92 01/24/19 15:43 General: Sitting in bed with mask on face HEENT: NC/AT CV: RRR, Normal s1, s2. Resp: Breath sounds decreased bilaterally on front, coarse on back. Abdomen: Soft, nontender, nondistended. No guarding. No organomegaly appreciated. Extremities: No edema. Results & Data Laboratory Results Laboratory Results - last 24 hr 01/23/19 01/24/19 01/24/19 21:01 05:03 05:03 WBC 10.78 RBC 4.03 L Hgb 12.2 L Hct 39.9 L MCV 99.0 MCH 30.3 MCHC 30.6 L RDW Std Deviation 54.7 H RDW Coeff of Aggie 15.0 H Plt Count 249 MPV 8.6 Immature Gran % (Auto) 0.6 Neut % (Auto) 72.6 Lymph % (Auto) 13.5 [place] % (Auto) 13.3 Eos % (Auto) 0.0 Baso % (Auto) 0.0 Immature Gran # (Auto) 0.06 H Neut # (Auto) 7.83 H Lymph # (Auto) 1.46 [place] # (Auto) 1.43 H Eos # (Auto) 0.00 Baso # (Auto) 0.00 Sodium Potassium Chloride Carbon Dioxide Anion Gap BUN Creatinine Est Cr Clr Drug Dosing Est GFR ( Amer) Est GFR (Non-Af Amer) BUN/Creatinine Ratio Glucose POC Glucose 139 H Calcium Phosphorus Magnesium Ammonia 14.0 01/24/19 05:03 WBC RBC Hgb Hct MCV MCH MCHC RDW Std Deviation RDW Coeff of Aggie Plt Count MPV Immature Gran % (Auto) Neut % (Auto) Lymph % (Auto) [place] % (Auto) Eos % (Auto) Baso % (Auto) Immature Gran # (Auto) Neut # (Auto) Lymph # (Auto) [place] # (Auto) Eos # (Auto) Baso # (Auto) Sodium 135 L Potassium 3.9 Chloride 96 L Carbon Dioxide 38 H Anion Gap 1.0 L BUN 9 Creatinine 0.51 L Est Cr Clr Drug Dosing 181.7 Est GFR ( Amer) 141.2 Est GFR (Non-Af Amer) 121.9 BUN/Creatinine Ratio 16.8 Glucose 94 POC Glucose Calcium 7.3 L Phosphorus 2.0 L Magnesium 2.3 Ammonia Medications Administered Home Medications Cordysept 1 tab PO QPM 01/15/19 [History Confirmed 01/21/19] cyanocobalamin (vitamin B-12) 1,000 mcg PO QPM 01/15/19 [History Confirmed 01/21/19] fluticasone-vilanterol [Breo Ellipta] 1 inh INHALATION QPM 01/15/19 [History Confirmed 01/21/19] pantoprazole 40 mg PO QPM 01/15/19 [History Confirmed 01/21/19] ipratropium-albuterol [Combivent Respimat] 1 puff INHALATION QID 01/20/19 [History Confirmed 01/21/19] rivaroxaban [Xarelto] 20 mg PO DAILY 01/20/19 [History Confirmed 01/21/19] Active Medications Acetaminophen (Tylenol) 650 mg PO Q4H PRN PRN Reason: Pain or Fever Stop: 02/20/19 04:20 Albuterol (Duoneb) 3 ml NEB Q4R [facility] Stop: 02/20/19 07:59 Last Admin: 01/24/19 15:43 Dose: 3 ml Documented by: Albuterol (Ventolin 0.5% 2.5mg/0.5ml) 2.5 mg NEB Q2H PRN PRN Reason: SOB/Wheeze Stop: 02/20/19 04:20 Amoxicillin/Clavulanate Potassium (Augmentin 875mg) 1 tab PO BIDM [facility] Stop: 02/04/19 10:01 Last Admin: 01/24/19 16:32 Dose: 1 tab Documented by: Doxycycline Hyclate (Vibramycin) 100 mg PO BID [facility] Stop: 01/28/19 09:01 Last Admin: 01/24/19 08:10 Dose: 100 mg Documented by: Folic Acid (Folvite) 1 mg PO QAM [facility] Stop: 02/23/19 08:59 Last Admin: 01/24/19 08:10 Dose: 1 mg Documented by: Parenteral Electrolytes (Normosol-R) 1,000 mls @ 80 mls/hr IV .[id number] [facility] Stop: 02/20/19 22:14 Last Admin: 01/24/19 08:11 Dose: 80 mls/hr Documented by: Ceftriaxone Sodium 1,000 mg/ (Dextrose) 60 mls @ 100 mls/hr IV DAILY [facility] Stop: 01/31/19 17:59 Ioversol (Optiray 320 125ml) 125 ml IV ONCE PRN PRN Reason: Interaction Checking Stop: 01/26/19 00:27 Last Admin: 01/22/19 00:28 Dose: 119 ml Documented by: Lactobacillus Acidophilus (Floranex Granules/Powder Packet) 1 gm PO TIDM [facility] Stop: 02/24/19 07:59 Lactulose (Chronulac) 30 gm PO BID PRN PRN Reason: AMS Stop: 02/21/19 07:59 Last Admin: 01/22/19 21:26 Dose: 30 gm Documented by: Multivitamins (Multivitamin Tab) 1 tab PO QAM [facility] Stop: 02/23/19 08:59 Last Admin: 01/24/19 08:10 Dose: 1 tab Documented by: Pantoprazole Sodium (Protonix) 40 mg PO QAM [facility] Stop: 02/23/19 08:59 Last Admin: 01/24/19 08:10 Dose: 40 mg Documented by: Phenobarbital (Phenobarbital) 64.8 mg PO BID [facility] Stop: 01/24/19 21:01 Last Admin: 01/24/19 08:10 Dose: 64.8 mg Documented by: Phenobarbital (Phenobarbital) 32.4 mg PO Q12 [facility] Stop: 01/26/19 09:01 Prednisone (Prednisone) 40 mg PO DAILY [facility] Stop: 01/27/19 09:01 Last Admin: 01/24/19 08:10 Dose: 40 mg Documented by: Propranolol HCl (Inderal) 10 mg PO TID [facility] Stop: 02/23/19 13:59 Last Admin: 01/24/19 13:55 Dose: 10 mg Documented by: Rivaroxaban (Xarelto) 20 mg PO DAILY [facility] Stop: 02/20/19 08:59 Last Admin: 01/24/19 08:10 Dose: 20 mg Documented by: Thiamine HCl (Vitamin B-1) 100 mg PO QAM [facility] Stop: 02/22/19 08:59 Last Admin: 01/24/19 08:10 Dose: 100 mg Documented by: Resident Activity Tracking Resident Involvement: Resident Care Provided Care Provided: Adult [facility] Medicine
[2019-01-24] MEDS ORDERED: cefTRIAXone SODIUM 1,000 MG in DEXTROSE 5% 50 ML IV SCH ×2 (18:00→19:00)
[2019-01-25] MEDS: ALBUT/IPRATROP 3MG/0.5MG NEB 3 ML VIAL NEB SCH ×6 (03:12→23:18)
[2019-01-25 05:27] LABS: Eosinophils # (auto) 0.02 K/uL (0-0.5); Eosinophils % (auto) 0.2 %; Hematocrit (blood only) 40.6 % (42-52); Hemoglobin 12.5 g/dL (14.0-18.0); Immature Granulocytes # (auto) 0.03 K/uL (0.00-0.02); Immature Granulocytes % (auto) 0.3 %; Lymphocytes # (auto) 2.16 K/uL (1.2-3.4); Lymphocytes % (auto) 20.1 %; Mean Corpuscular Hgb Conc 30.8 g/dL (32-36); Mean Platelet Volume 8.7 fL (7.4-10.4); Monocytes # (auto) 1.31 K/uL (0.11-0.59); Monocytes % (auto) 12.2 %; Neutrophils # (auto) 7.21 K/uL (1.4-6.5); Neutrophils % (auto) 67.2 %; Platelet Count 241 K/uL (130-400); RDW Standard Deviation 55.3 fL (36.4-46.3); Red Blood Count 4.06 M/uL (4.7-6.1); White Blood Count 10.73 K/uL (4.8-10.8)
[2019-01-25 05:52] LABS: Magnesium 2.2 mg/dl (1.8-2.4); Phosphorus 2.1 mg/dl (2.5-4.9)
[2019-01-25 09:46] LABS: BUN Creatinine Ratio 13.4 (10-20); Calcium 7.6 mg/dl (8.5-10.1); Creatinine Clr Calc Pharmacy 142.6 ml/min; Est GFR (African American) 127.8; Est GFR (Non-African American) 110.3; Potassium 3.6 mmol/L (3.5-5.1)
[2019-01-25] MEDS: FOLIC ACID 1 MG TAB PO SCH (09:58)
[2019-01-25] MEDS: MULTIVITAMIN TAB PO SCH (09:58)
[2019-01-25] MEDS: LACTOBACILLUS ACIDOPHILUS 1 GM PACK PO SCH ×3 (09:58→16:25)
[2019-01-25] MEDS: PHENobarbital 32.4 MG TAB PO SCH ×2 (09:58→20:21)
[2019-01-25] MEDS: THIAMINE HCL 100 MG TAB PO SCH (09:58)
[2019-01-25] MEDS: PROPRANOLOL HCL 10 MG TAB PO SCH ×3 (09:58→20:22)
[2019-01-25] MEDS: DOXYCYCLINE HYCLATE 100 MG CAP PO SCH ×2 (09:58→20:18)
[2019-01-25] MEDS: RIVAROXABAN 20 MG TAB PO SCH (09:58)
[2019-01-25] MEDS: predniSONE 20 MG TAB PO SCH (09:59)
[2019-01-25] MEDS: PANTOprazole 40 MG TAB PO SCH (09:59)
[2019-01-25] MEDS: AMOXICILLIN/CLAVULANATE 875 MG TAB PO SCH ×2 (10:57→20:21)
--- NOTE | 2019-01-25 11:19 | Family Medicine Progress Note ---
Date of Service January 25, 2019 Assessment & Plan (1) Acute metabolic encephalopathy: 53 yr old with Hx of alcoholism, COPD who was admitted with altered mental status and significant respiratory failure requiring intubation and placement in the ICU. Continued improvement. Acute respiratory failure - Hypercapneic/hypoxic - sec to copd exacerbation/aspiration needing intubation for mechanical ventillation. - extubated 01/23. -Ruled out PE with CTA -Currently on nasal cannula 3L. -PT/OT- appreciate recs Possible CAP -empiric treatment previously with Augmentin and Doxycycline -Broncheolar lavage washing of the left lower lobe grew H. FLU BETA LACTAMASE NEGATIVE bacteria but likely concern of aspiration - continue augmentin and doxy. -Fungal and Acid fast bacilli SMEAR--NEGATIVE -Fungal and Acid fast bacilli CULTURE--PENDING. -Blood Cultures no growth to date. -PT/OT- appreciate recs COPD Exacerbation -Prednisone 40mgs daily -Albuterol q 2 hours PRN -PT/OT- appreciate recs Metabolic encephalopathy - likely from respiratory failure/possible DT--MUCH IMPROVED -CT head-unremarkable except for possible sinusitis -Negative Tox screen -Neg MRI and normal ammonia level. Concern of DT - in setting of Hx of alcohol abuse -Placed on phenobarbital protocol. -Patient with documented history of EtOH abuse in a 2013 note. -Tox showed no Hx of recent alcohol use. -MVI, thaimine Hyponatremia - sec to alc use-RESOLVED -Na normal levels currently. -seizure precaution Hypocalcemia -s/p 1gm IV Calc gluc -continue to monitor Hypokalemia -currently resolved -continue to monitor Abnormal thyroid function -TSH decreased but T4 normal -Will continue to monitor GERD -continue protonix -currently NPO Hx of DVT -Per records, patient with DVT x 3. On Xarelto. -Continue Xarelto -PT/INR and d-dimer- NORMAL Ppx - Xarelto. Protonix Code - Full Supervising Physician Co-Signing Physician Notes Resident Physician Supervision Note: I independently interviewed and examined the patient and verified the aviles history and physical, reviewed labs and image studies, discussed the case with the resident Dr. Barth and agree with the findings and care plan. Subjective Pt was AAOx3 this morning. Denies headaches, chest pain, SOB, N/V, abdominal pain, diarrhea, constipation, leg pain. Review of Systems All systems reviewed & are unremarkable except as noted in HPI & below Physical Exam Vital Signs (Past 24 Hours): Last Vital Signs Temp 37.1 C 01/25/19 02:50 Pulse 98 H 01/25/19 07:02 Resp 18 01/25/19 07:02 BP 152/101 H 01/25/19 02:50 Pulse Ox 88 L 01/25/19 07:02 General: Sitting in bed, with NC in nares. HEENT: NC/AT, sclerae anicteric CV: RRR, Normal s1, s2. Resp: Breath sounds decreased bilaterally on front, decreased with faint coarseness on back. Abdomen: Soft, nontender, nondistended. No guarding. No organomegaly appreciated. Extremities: No edema. Results & Data Laboratory Results Laboratory Results - last 24 hr 01/25/19 01/25/19 01/25/19 05:14 05:14 08:53 WBC 10.73 RBC 4.06 L Hgb 12.5 L Hct 40.6 L MCV 100.0 MCH 30.8 MCHC 30.8 L RDW Std Deviation 55.3 H RDW Coeff of Aggie 15.0 H Plt Count 241 MPV 8.7 Immature Gran % (Auto) 0.3 Neut % (Auto) 67.2 Lymph % (Auto) 20.1 [place] % (Auto) 12.2 Eos % (Auto) 0.2 Baso % (Auto) 0.0 Immature Gran # (Auto) 0.03 H Neut # (Auto) 7.21 H Lymph # (Auto) 2.16 [place] # (Auto) 1.31 H Eos # (Auto) 0.02 Baso # (Auto) 0.00 Sodium 138 Potassium 3.6 Chloride 94 L Carbon Dioxide 40 H Anion Gap 3.0 BUN 9 Creatinine 0.65 Est Cr Clr Drug Dosing 142.6 Est GFR ( Amer) 127.8 Est GFR (Non-Af Amer) 110.3 BUN/Creatinine Ratio 13.4 Glucose 124 H Calcium 7.6 L Phosphorus 2.1 L Magnesium 2.2 Medications Administered Home Medications Cordysept 1 tab PO QPM 01/15/19 [History Confirmed 01/21/19] cyanocobalamin (vitamin B-12) 1,000 mcg PO QPM 01/15/19 [History Confirmed 01/21/19] fluticasone-vilanterol [Breo Ellipta] 1 inh INHALATION QPM 01/15/19 [History Confirmed 01/21/19] pantoprazole 40 mg PO QPM 01/15/19 [History Confirmed 01/21/19] ipratropium-albuterol [Combivent Respimat] 1 puff INHALATION QID 01/20/19 [History Confirmed 01/21/19] rivaroxaban [Xarelto] 20 mg PO DAILY 01/20/19 [History Confirmed 01/21/19] Active Medications Acetaminophen (Tylenol) 650 mg PO Q4H PRN PRN Reason: Pain or Fever Stop: 02/20/19 04:20 Albuterol (Duoneb) 3 ml NEB Q4R [facility] Stop: 02/20/19 07:59 Last Admin: 01/25/19 11:07 Dose: 3 ml Documented by: Albuterol (Ventolin 0.5% 2.5mg/0.5ml) 2.5 mg NEB Q2H PRN PRN Reason: SOB/Wheeze Stop: 02/20/19 04:20 Amoxicillin/Clavulanate Potassium (Augmentin 875mg) 1 tab PO BID [facility] Stop: 01/31/19 20:59 Last Admin: 01/25/19 10:57 Dose: 1 tab Documented by: Doxycycline Hyclate (Vibramycin) 100 mg PO BID [facility] Stop: 01/28/19 09:01 Last Admin: 01/25/19 09:58 Dose: 100 mg Documented by: Folic Acid (Folvite) 1 mg PO QAM [facility] Stop: 02/23/19 08:59 Last Admin: 01/25/19 09:58 Dose: 1 mg Documented by: Parenteral Electrolytes (Normosol-R) 1,000 mls @ 80 mls/hr IV .[id number] [facility] Stop: 02/20/19 22:14 Last Infusion: 01/25/19 10:16 Dose: Infused Documented by: Lactobacillus Acidophilus (Floranex Granules/Powder Packet) 1 gm PO TIDM [facility] Stop: 02/24/19 07:59 Last Admin: 01/25/19 09:58 Dose: 1 gm Documented by: Lactulose (Chronulac) 30 gm PO BID PRN PRN Reason: AMS Stop: 02/21/19 07:59 Last Admin: 01/22/19 21:26 Dose: 30 gm Documented by: Multivitamins (Multivitamin Tab) 1 tab PO QAM [facility] Stop: 02/23/19 08:59 Last Admin: 01/25/19 09:58 Dose: 1 tab Documented by: Pantoprazole Sodium (Protonix) 40 mg PO QAM [facility] Stop: 02/23/19 08:59 Last Admin: 01/25/19 09:59 Dose: 40 mg Documented by: Phenobarbital (Phenobarbital) 32.4 mg PO Q12 [facility] Stop: 01/26/19 09:01 Last Admin: 01/25/19 09:58 Dose: 32.4 mg Documented by: Prednisone (Prednisone) 40 mg PO DAILY [facility] Stop: 01/27/19 09:01 Last Admin: 01/25/19 09:59 Dose: 40 mg Documented by: Propranolol HCl (Inderal) 10 mg PO TID [facility] Stop: 02/23/19 13:59 Last Admin: 01/25/19 09:58 Dose: 10 mg Documented by: Rivaroxaban (Xarelto) 20 mg PO DAILY [facility] Stop: 02/20/19 08:59 Last Admin: 01/25/19 09:58 Dose: 20 mg Documented by: Thiamine HCl (Vitamin B-1) 100 mg PO QAM [facility] Stop: 02/22/19 08:59 Last Admin: 01/25/19 09:58 Dose: 100 mg Documented by: Resident Activity Tracking Resident Involvement: Resident Care Provided Care Provided: Adult Hospital Medicine
[2019-01-26] MEDS: ALBUT/IPRATROP 3MG/0.5MG NEB 3 ML VIAL NEB SCH ×6 (03:39→23:26)
[2019-01-26 05:15] LABS: Basophils # (auto) 0.01 K/uL (0-0.2); Basophils % (auto) 0.1 %; Eosinophils # (auto) 0.05 K/uL (0-0.5); Eosinophils % (auto) 0.5 %; Hematocrit (blood only) 41.4 % (42-52); Hemoglobin 12.9 g/dL (14.0-18.0); Immature Granulocytes # (auto) 0.03 K/uL (0.00-0.02); Immature Granulocytes % (auto) 0.3 %; Lymphocytes # (auto) 2.07 K/uL (1.2-3.4); Mean Corpuscular Hgb Conc 31.2 g/dL (32-36); Mean Corpuscular Volume 98.1 fL (80-100); Mean Platelet Volume 8.9 fL (7.4-10.4); Monocytes # (auto) 1.19 K/uL (0.11-0.59); Monocytes % (auto) 10.9 %; Neutrophils # (auto) 7.55 K/uL (1.4-6.5); Neutrophils % (auto) 69.2 %; Platelet Count 252 K/uL (130-400); RDW Coefficient of Variation 14.9 % (11.5-14.5); RDW Standard Deviation 53.4 fL (36.4-46.3); Red Blood Count 4.22 M/uL (4.7-6.1)
[2019-01-26 05:38] LABS: Alanine Aminotransferase 40 U/L (12-78); Albumin Level 2.7 gm/dl (3.4-5.0); Aspartate Aminotransferase 20 U/L (15-37); BUN Creatinine Ratio 17.1 (10-20); Blood Urea Nitrogen 7 mg/dl (7-18); Calcium 7.8 mg/dl (8.5-10.1); Carbon Dioxide 39 mmol/L (21-32); Chloride 93 mmol/L (98-107); Creatinine Clr Calc Pharmacy 210.7 ml/min; Est GFR (African American) > 150.0; Est GFR (Non-African American) 129.5; Glucose 84 mg/dl (70-99); Sodium 135 mmol/L (136-145)
[2019-01-26 05:40] LABS: Albumin Globulin Ratio 0.9 (0.9-2); Alkaline Phosphatase 69 U/L (45-117); Bilirubin,Total 0.4 mg/dl (0.2-1); Total Protein 5.7 gm/dl (6.4-8.2)
[2019-01-26] MEDS: predniSONE 20 MG TAB PO SCH (08:49)
[2019-01-26] MEDS: DOXYCYCLINE HYCLATE 100 MG CAP PO SCH ×2 (08:49→21:00)
[2019-01-26] MEDS: THIAMINE HCL 100 MG TAB PO SCH (08:49)
[2019-01-26] MEDS: PANTOprazole 40 MG TAB PO SCH (08:49)
[2019-01-26] MEDS: MULTIVITAMIN TAB PO SCH (08:49)
[2019-01-26] MEDS: LACTOBACILLUS ACIDOPHILUS 1 GM PACK PO SCH ×3 (08:50→15:56)
[2019-01-26] MEDS: RIVAROXABAN 20 MG TAB PO SCH (08:50)
[2019-01-26] MEDS: AMOXICILLIN/CLAVULANATE 875 MG TAB PO SCH ×2 (08:50→20:59)
[2019-01-26] MEDS: FOLIC ACID 1 MG TAB PO SCH (08:50)
[2019-01-26] MEDS: PROPRANOLOL HCL 10 MG TAB PO SCH ×3 (08:50→20:59)
[2019-01-26] MEDS: PHENobarbital 32.4 MG TAB PO SCH (08:51)
--- NOTE | 2019-01-26 11:28 | Family Medicine Progress Note ---
Date of Service January 26, 2019 Assessment & Plan (1) Acute metabolic encephalopathy: 53 yr old with Hx of alcoholism, COPD who was admitted with altered mental status and significant respiratory failure requiring intubation and placement in the ICU. Continued improvement. Metabolic encephalopathy - likely from respiratory failure/possible DT--MUCH IMPROVED -CT head-unremarkable except for possible sinusitis -Negative Tox screen -Neg MRI and normal ammonia level. -On 01/26/2019 is alert oriented x3 Ppx - Xarelto. Protonix Code - Full (2) Acute respiratory failure with hypercapnia: Acute respiratory failure - Hypercapneic/hypoxic - sec to copd exacerbation/aspiration needing intubation for mechanical ventillation. - extubated 01/23. -Ruled out PE with CTA -Currently on nasal cannula 3L. -PT/OT- appreciate recs Possible CAP -empiric treatment previously with Augmentin and Doxycycline -Broncheolar lavage washing of the left lower lobe grew H. FLU BETA LACTAMASE NEGATIVE bacteria but likely concern of aspiration - continue augmentin and doxy. -Fungal and Acid fast bacilli SMEAR--NEGATIVE -Fungal and Acid fast bacilli CULTURE--PENDING. -Blood Cultures no growth to date. -PT/OT- appreciate recs (3) Alcohol abuse: Concern of DT - in setting of Hx of alcohol abuse -Placed on phenobarbital protocol with completion -Patient with documented history of EtOH abuse in a 2013 note, although he denies abuse stating only drinking 2 beers per night after work. -Tox showed no Hx of recent alcohol use. -MVI, thaimine (4) COPD with exacerbation: -Prednisone 40mgs daily -Albuterol q 2 hours PRN -PT/OT- appreciate recs (5) Hyponatremia: Hyponatremia - sec to alc use-RESOLVED -Na normal levels currently - although slightly decreased on 01/26/2019 to 135 -seizure precautions were placed during hyponatremia on admit (6) Hypocalcemia: Hypocalcemia -s/p 1gm IV Calc gluc -continue to monitor (7) Hypokalemia: Hypokalemia -currently resolved -continue to monitor (8) GERD (gastroesophageal reflux disease): GERD -continue protonix -currently NPO (9) History of DVT (deep vein thrombosis): Hx of DVT -Per records, patient with DVT x 3. On Xarelto. -Continue Xarelto -PT/INR and d-dimer- NORMAL (10) Abnormal thyroid stimulating hormone (TSH) level: -TSH decreased but T4 normal -Will continue to monitor Supervising Physician Co-Signing Physician Notes I personally examined the patient and verified all aviles points of history and exam, discussed case, and agree with decision making with Dr Pearl Feeling better, breathing better. When discussing home oxygen, he notes that he does not want to wear it at first, then as we discussed that it is really more based on physiologic parameters than opinion, he notes that he has home oxygen that he only uses when he feels like he needs it. He also initially expresses concern about how it may impact his work, but the notes he does not really exert much at work anyway. Vitals noted, in general he is awake alert oriented x3 pleasant no acute distress, HEENT normocephalic atraumatic mucous membranes are moist. Breathing is markedly diminished no rales rhonchi or wheezes but barely audible air entry even with amplification. Acute on chronic respiratory failure, likely mixed, with acute exacerbation of COPDcontinue steroids, antibiotics, inhalers, supportive care. Suspect he needs chronic oxygen based on his appearance of baseline, as well as his statement that he has home oxygen that he uses when he "feels like it"follow for ambulatory requirements, will likely need two step to better delineate this. Stable for transfer out of ICU. Hopefully home in the next 1-2 days. Alcohol abuse/withdrawalappears to be doing surprisingly well in this regard. DVT prophylaxisXarelto Subjective Mr. Fritz reports he feels his breathing is closer back to his baseline. He is vague about his home oxygen requirements at home stating that he only uses it PRN. He denies worsening dyspnea, fever, chills, chest pain, nausea, vomiting, diarrhea. Physical Exam Vital Signs (Past 24 Hours): Last Vital Signs Temp 37.2 C 01/26/19 11:13 Pulse 84 01/26/19 11:13 Resp 18 01/26/19 11:13 BP 118/76 01/26/19 11:13 Pulse Ox 92 01/26/19 11:13 Constitutional: WD/WN, vitals as above comfortable Eyes: + anicteric sclerae and EOM intact bilaterally Neck: normal visual inspection and trachea midline Respiratory: no respiratory distress and does not use accessory muscles Auscultation: + diminished lung sounds and + wheezes (mild diffuse expiratory) Cardiovascular: Rate/Rhythm: regular rate and regular rhythm Extremities: no pedal edema diminished heart sounds Gastrointestinal (Abdomen): Inspection/Auscultation: normal bowel sounds Percussion/Palpation: abdomen soft; abdomen nontender, no guarding and abdomen not rigid Musculoskeletal: Head/Neck/Chest: normocephalic and head atraumatic Skin: no rashes, warm and dry Neurologic: moves all extremities and awake Psychiatric: Orientation: alert and oriented x 3 Results & Data Laboratory Results Laboratory Results - last 24 hr 01/26/19 01/26/19 01/26/19 04:45 04:45 04:45 WBC 10.90 H RBC 4.22 L Hgb 12.9 L Hct 41.4 L MCV 98.1 MCH 30.6 MCHC 31.2 L RDW Std Deviation 53.4 H RDW Coeff of Aggie 14.9 H Plt Count 252 MPV 8.9 Immature Gran % (Auto) 0.3 Neut % (Auto) 69.2 Lymph % (Auto) 19.0 [place] % (Auto) 10.9 Eos % (Auto) 0.5 Baso % (Auto) 0.1 Immature Gran # (Auto) 0.03 H Neut # (Auto) 7.55 H Lymph # (Auto) 2.07 [place] # (Auto) 1.19 H Eos # (Auto) 0.05 Baso # (Auto) 0.01 Sodium 135 L Potassium 4.0 Chloride 93 L Carbon Dioxide 39 H Anion Gap 3.0 BUN 7 Creatinine 0.44 L Est Cr Clr Drug Dosing 210.7 Est GFR ( Amer) > 150.0 Est GFR (Non-Af Amer) 129.5 BUN/Creatinine Ratio 17.1 Glucose 84 Calcium 7.8 L Phosphorus 2.7 Total Bilirubin 0.4 AST 20 ALT 40 Alkaline Phosphatase 69 Total Protein 5.7 L Albumin 2.7 L Globulin 3.0 Albumin/Globulin Ratio 0.9 Medications Administered Albuterol (Duoneb) 3 ml NEB Q4R [facility] Stop: 02/20/19 07:59 Last Admin: 01/26/19 11:13 Dose: 3 ml Documented by: [id number] Admin: 01/26/19 07:11 Dose: 3 ml Documented by: [id number] Admin: 01/26/19 03:39 Dose: 3 ml Documented by: [id number] Admin: 01/25/19 23:18 Dose: 3 ml Documented by: [id number] Admin: 01/25/19 19:20 Dose: 3 ml Documented by: [id number] Admin: 01/25/19 15:32 Dose: 3 ml Documented by: [id number] Admin: 01/25/19 11:07 Dose: 3 ml Documented by: [id number] Admin: 01/25/19 07:02 Dose: 3 ml Documented by: [id number] Admin: 01/25/19 03:12 Dose: 3 ml Documented by: [id number] Admin: 01/24/19 23:06 Dose: 3 ml Documented by: [id number] Admin: 01/24/19 19:28 Dose: 3 ml Documented by: [id number] Admin: 01/24/19 15:43 Dose: 3 ml Documented by: [id number] Admin: 01/24/19 11:24 Dose: 3 ml Documented by: [id number] Admin: 01/24/19 07:01 Dose: 3 ml Documented by: [id number] Admin: 01/24/19 03:11 Dose: 3 ml Documented by: [id number] Admin: 01/23/19 23:05 Dose: 3 ml Documented by: [id number] Admin: 01/23/19 19:41 Dose: Not Given Documented by: [id number] Admin: 01/23/19 15:49 Dose: 3 ml Documented by: [id number] Admin: 01/23/19 15:49 Dose: 3 ml Documented by: [id number] Admin: 01/23/19 07:37 Dose: 3 ml Documented by: [id number] Admin: 01/23/19 03:15 Dose: 3 ml Documented by: [id number] Admin: 01/22/19 23:24 Dose: 3 ml Documented by: [id number] Admin: 01/22/19 20:16 Dose: 3 ml Documented by: [id number] Admin: 01/22/19 16:49 Dose: 3 ml Documented by: [id number] Admin: 01/22/19 11:03 Dose: 3 ml Documented by: [id number] Admin: 01/22/19 07:35 Dose: 3 ml Documented by: [id number] Admin: 01/22/19 04:11 Dose: 3 ml Documented by: [id number] Admin: 01/22/19 03:46 Dose: Not Given Documented by: [id number] Admin: 01/21/19 19:08 Dose: 3 ml Documented by: [id number] Admin: 01/21/19 15:18 Dose: 3 ml Documented by: [id number] Admin: 01/21/19 11:00 Dose: 3 ml Documented by: [id number] Admin: 01/21/19 07:00 Dose: 3 ml Documented by: [id number] Amoxicillin/Clavulanate Potassium (Augmentin 875mg) 1 tab PO BID SURJIT Stop: 01/31/19 20:59 Last Admin: 01/26/19 08:50 Dose: 1 tab Documented by: [id number] Admin: 01/25/19 20:21 Dose: 1 tab Documented by: [id number] Admin: 01/25/19 10:57 Dose: 1 tab Documented by: [id number] Admin: 01/24/19 20:09 Dose: 1 tab Documented by: [id number] Doxycycline Hyclate (Vibramycin) 100 mg PO BID [facility] Stop: 01/28/19 09:01 Last Admin: 01/26/19 08:49 Dose: 100 mg Documented by: [id number] Admin: 01/25/19 20:18 Dose: 100 mg Documented by: [id number] Admin: 01/25/19 09:58 Dose: 100 mg Documented by: [id number] Admin: 01/24/19 20:09 Dose: 100 mg Documented by: [id number] Folic Acid (Folvite) 1 mg PO QAM [facility] Stop: 02/23/19 08:59 Last Admin: 01/26/19 08:50 Dose: 1 mg Documented by: [id number] Admin: 01/25/19 09:58 Dose: 1 mg Documented by: [id number] Admin: 01/24/19 08:10 Dose: 1 mg Documented by: [id number] Lactobacillus Acidophilus (Floranex Granules/Powder Packet) 1 gm PO TIDM [facility] Stop: 02/24/19 07:59 Last Admin: 01/26/19 08:50 Dose: 1 gm Documented by: [id number] Admin: 01/25/19 16:25 Dose: 1 gm Documented by: [id number] Admin: 01/25/19 12:30 Dose: 1 gm Documented by: [id number] Admin: 01/25/19 09:58 Dose: 1 gm Documented by: [id number] Lactulose (Chronulac) 30 gm PO BID PRN PRN Reason: AMS Stop: 02/21/19 07:59 Last Admin: 01/22/19 21:26 Dose: 30 gm Documented by: [id number] Admin: 01/22/19 08:06 Dose: 30 gm Documented by: [id number] Multivitamins (Multivitamin Tab) 1 tab PO QAM [facility] Stop: 02/23/19 08:59 Last Admin: 01/26/19 08:49 Dose: 1 tab Documented by: [id number] Admin: 01/25/19 09:58 Dose: 1 tab Documented by: [id number] Admin: 01/24/19 08:10 Dose: 1 tab Documented by: [id number] Pantoprazole Sodium (Protonix) 40 mg PO QAM [facility] Stop: 02/23/19 08:59 Last Admin: 01/26/19 08:49 Dose: 40 mg Documented by: [id number] Admin: 01/25/19 09:59 Dose: 40 mg Documented by: [id number] Admin: 01/24/19 08:10 Dose: 40 mg Documented by: [id number] Prednisone (Prednisone) 40 mg PO DAILY [facility] Stop: 01/27/19 09:01 Last Admin: 01/26/19 08:49 Dose: 40 mg Documented by: [id number] Admin: 01/25/19 09:59 Dose: 40 mg Documented by: [id number] Admin: 01/24/19 08:10 Dose: 40 mg Documented by: [id number] Admin: 01/23/19 10:30 Dose: 40 mg Documented by: [id number] Propranolol HCl (Inderal) 10 mg PO TID [facility] Stop: 02/23/19 13:59 Last Admin: 01/26/19 08:50 Dose: 10 mg Documented by: [id number] Admin: 01/25/19 20:22 Dose: 10 mg Documented by: [id number] Admin: 01/25/19 14:19 Dose: 10 mg Documented by: [id number] Admin: 01/25/19 09:58 Dose: 10 mg Documented by: [id number] Admin: 01/24/19 20:12 Dose: 10 mg Documented by: [id number] Admin: 01/24/19 13:55 Dose: 10 mg Documented by: [id number] Rivaroxaban (Xarelto) 20 mg PO DAILY [facility] Stop: 02/20/19 08:59 Last Admin: 01/26/19 08:50 Dose: 20 mg Documented by: [id number] Admin: 01/25/19 09:58 Dose: 20 mg Documented by: [id number] Admin: 01/24/19 08:10 Dose: 20 mg Documented by: [id number] Admin: 01/23/19 07:10 Dose: 20 mg Documented by: [id number] Admin: 01/22/19 08:19 Dose: 20 mg Documented by: [id number] Admin: 01/21/19 09:45 Dose: 20 mg Documented by: [id number] Thiamine HCl (Vitamin B-1) [facility] Stop: 02/22/19 08:59 Last Admin: 01/26/19 08:49 Dose: 100 mg Documented by: [id number] Admin: 01/25/19 09:58 Dose: 100 mg Documented by: [id number] Admin: 01/24/19 08:10 Dose: 100 mg Documented by: [id number] Admin: 01/23/19 07:10 Dose: 100 mg Documented by: [id number] (1) GERD (gastroesophageal reflux disease) Esophagitis presence: esophagitis presence not specified Qualified Code(s): K21.9 - Gastro-esophageal reflux disease without esophagitis
[2019-01-27] MEDS: ALBUT/IPRATROP 3MG/0.5MG NEB 3 ML VIAL NEB SCH ×6 (03:32→23:30)
[2019-01-27 06:55] LABS: Basophils # (auto) 0.01 K/uL (0-0.2); Basophils % (auto) 0.1 %; Eosinophils # (auto) 0.03 K/uL (0-0.5); Eosinophils % (auto) 0.3 %; Hematocrit (blood only) 42.7 % (42-52); Hemoglobin 13.6 g/dL (14.0-18.0); Immature Granulocytes # (auto) 0.03 K/uL (0.00-0.02); Immature Granulocytes % (auto) 0.3 %; Lymphocytes # (auto) 1.81 K/uL (1.2-3.4); Lymphocytes % (auto) 17.9 %; Mean Corpuscular Hgb Conc 31.9 g/dL (32-36); Mean Corpuscular Volume 96.8 fL (80-100); Monocytes # (auto) 1.06 K/uL (0.11-0.59); Monocytes % (auto) 10.5 %; Neutrophils # (auto) 7.18 K/uL (1.4-6.5); Neutrophils % (auto) 70.9 %; Platelet Count 281 K/uL (130-400); RDW Coefficient of Variation 14.8 % (11.5-14.5); RDW Standard Deviation 52.6 fL (36.4-46.3); Red Blood Count 4.41 M/uL (4.7-6.1); White Blood Count 10.12 K/uL (4.8-10.8)
[2019-01-27 07:27] LABS: Albumin Level 2.8 gm/dl (3.4-5.0); BUN Creatinine Ratio 17.6 (10-20); Calcium 7.9 mg/dl (8.5-10.1); Creatinine Clr Calc Pharmacy 162.6 ml/min; Est GFR (African American) 134.9; Est GFR (Non-African American) 116.4; Potassium 3.7 mmol/L (3.5-5.1)
[2019-01-27 07:30] LABS: Albumin Globulin Ratio 0.8 (0.9-2); Bilirubin,Total 0.3 mg/dl (0.2-1); Globulin 3.3 gm/dl (2.5-4.0); Phosphorus 2.4 mg/dl (2.5-4.9); Total Protein 6.1 gm/dl (6.4-8.2)
[2019-01-27] MEDS: LACTOBACILLUS ACIDOPHILUS 1 GM PACK PO SCH ×3 (07:30→16:19)
[2019-01-27] MEDS: THIAMINE HCL 100 MG TAB PO SCH (07:30)
[2019-01-27] MEDS: RIVAROXABAN 20 MG TAB PO SCH (07:30)
[2019-01-27] MEDS: DOXYCYCLINE HYCLATE 100 MG CAP PO SCH ×2 (07:30→20:52)
[2019-01-27] MEDS: MULTIVITAMIN TAB PO SCH (07:30)
[2019-01-27] MEDS: FOLIC ACID 1 MG TAB PO SCH (07:31)
[2019-01-27] MEDS: PROPRANOLOL HCL 10 MG TAB PO SCH ×3 (07:31→20:52)
[2019-01-27] MEDS: PANTOprazole 40 MG TAB PO SCH (07:31)
[2019-01-27] MEDS: AMOXICILLIN/CLAVULANATE 875 MG TAB PO SCH ×2 (07:31→20:52)
[2019-01-27] MEDS: predniSONE 20 MG TAB PO SCH ×2 (07:31→15:38)
--- NOTE | 2019-01-27 11:04 | Discharge Summary ---
Date of Service January 27, 2019 Admission HPI Per Admitting Provider History obtained through chart review and discussion with ER attending due to patient's AMS. Mr. Fritz is a 53yo C male with history of GERD, prior DVT on anticoagulation therapy, COPD and EtOH abuse presenting with acute onset confusion and hallucinations. Per report, patient was at work when he began to see dogs and cats on the wall. He was brought in by EMS. Was mildly hypoxic en route. On arrival to the ER he was found to be tachycardic, tachypneic, saturating 89% on room air. He was placed on NC then Oxymask due to mouth breathing with appropriate increase in saturation. Patient is somnolent, arousable to verbal and tactile stimuli. Able to answer some questions and follow some commands. He denies pain. Denies breathing difficulty. ER Course: Albuterol, Solumedrol 125mg, KCl 10mEq, NSS x 1 L Admission Exam Per Admitting Provider General: patient somnolent, arousable to verbal and tactile stimuli but then falls back asleep, oriented to self only Skin: warm, dry, intact, no rashes/lesions HEENT: NC/AT, pupils small, reactive bilaterally, anicteric sclera, conjunctiva without injection, external ear normal to inspection, nares patent, MMM, poor dentition, neck supple, trachea midline, no cervical LAD, no thyromegaly, no JVD Heart: +S1/S2, regular, tachycardic, no m/r/g Lungs: equal air entry bilaterally, shallow breaths, no rales/rhonchi/wheezes Abd: +BS, soft, NT/ND, no masses/organomegaly/ascites Ext: warm, 2+ pulses, trace pitting edema of bilateral LEs Neuro: somnolent, minimally arousable, answering some questions and following some commands, protecting airway at present, oriented to self only, moves all extremities spontaneously with equal strength Principal Diagnosis Acute metabolic encephalopathy Discharge Exam Constitutional WD/WN, vitals as above comfortable Eyes + anicteric sclerae and EOM intact bilaterally Neck normal visual inspection and trachea midline Respiratory no respiratory distress and does not use accessory muscles Auscultation: + diminished lung sounds and + wheezes (mild diffuse expiratory) Cardiovascular Rate/Rhythm: regular rate and regular rhythm Extremities: no pedal edema Gastrointestinal (Abdomen) Inspection/Auscultation: normal bowel sounds Percussion/Palpation: abdomen soft; abdomen nontender, no guarding and abdomen not rigid Musculoskeletal Head/Neck/Chest: normocephalic and head atraumatic Skin no rashes, warm and dry Neurologic moves all extremities and awake Psychiatric Orientation: alert and oriented x 3 Discharge Data Allergies Allergy/AdvReac Type Severity Reaction Status Date / Time No Known Allergies Allergy Mild Verified 01/21/19 00:05 Consultations 01/21/19 01:48 ED Decision to Admit Stat 01/21/19 19:12 Consult Sample Color Maker Routine 01/21/19 20:50 Consult Case Management - Discharge Planning Routine Ordered Studies 01/20/19 23:46 CT head/brain wo con Urgent 01/21/19 17:59 CT angio chest PE protocol Urgent 01/21/19 22:55 CT abd pelvis IV con only Urgent 01/21/19 23:37 CT sinus wo con Urgent 01/22/19 00:04 MR brain wo con Routine Hospital Course (1) Acute metabolic encephalopathy: 53 yr old with Hx of alcoholism, COPD who was admitted with altered mental status and significant respiratory failure requiring intubation and placement in the ICU. Continued improvement. Metabolic encephalopathy - likely from respiratory failure/possible DT--MUCH IMPROVED -CT head-unremarkable except for possible sinusitis with current plan treatment of Doxycycline 100mg BID for 7 days and Augmentin 875mg BID for 14 days. Which will also cover atypical pneumonia. -Negative Tox screen -Neg MRI and ammonia level elevated on admission 01/22 of 64; 01/23 = 56; 01/24 = 14 WNL. -On 01/26/2019 and 01/27/2019 is alert oriented x3 Ppx - Xarelto. Protonix Code - Full (2) Acute respiratory failure with hypercapnia: Acute respiratory failure - Hypercapneic/hypoxic - sec to copd exacerbation/aspiration needing intubation for mechanical ventillation. - extubated 01/23. -Ruled out PE with CTA -Currently on nasal cannula 3L. -PT/OT- appreciate recs Possible CAP -empiric treatment previously with Augmentin and Doxycycline -Broncheolar lavage washing of the left lower lobe grew H. FLU BETA LACTAMASE NEGATIVE bacteria but likely concern of aspiration - continue augmentin and doxy. -Fungal and Acid fast bacilli SMEAR--NEGATIVE -Fungal and Acid fast bacilli CULTURE--with mariela albicans few noted on 01/26/2019. -Blood Cultures no growth to date. -PT/OT- appreciate recs (3) Alcohol abuse: Concern of DT - in setting of Hx of alcohol abuse -Placed on phenobarbital protocol with completion of treatment -Patient with documented history of EtOH abuse in a 2013 note, although he denies abuse stating only drinking 2 beers per night after work. Does live above a bar. -Tox showed no Hx of recent alcohol use. -MVI, thaimine (4) COPD with exacerbation: -Prednisone 40mg daily for 5 days -Albuterol q 2 hours PRN -PT/OT- appreciate recs (5) Hyponatremia: Hyponatremia - sec to alc use-RESOLVED -Na normal levels currently - although slightly decreased on 01/26/2019 to 135; 134 on 01/27/2019 -seizure precautions were placed during hyponatremia on admit (6) Hypocalcemia: Hypocalcemia -s/p 1gm IV Calc gluc -continue to monitor (7) Hypokalemia: Hypokalemia -currently resolved -continue to monitor (8) GERD (gastroesophageal reflux disease): GERD -continue protonix -tolerating meals without complications (9) History of DVT (deep vein thrombosis): Hx of DVT -Per records, patient with DVT x 3. On Xarelto. -Continue Xarelto -PT/INR and d-dimer- NORMAL (10) Abnormal thyroid stimulating hormone (TSH) level: -TSH decreased but T4 normal -Will continue to monitor Total Time Total Time Spent Total Time Spent (In Minutes): 30 Total Time Includes: Examination of the Patient, Discharge Planning, Medication Reconciliation and Communication With Other Providers Discharge Plan Discharge Items Patient Disposition: Home - Self-Care Reason For Visit: AMS, DELIRIUM Discharge Diagnosis: Acute metabolic encephalopathy Discharge Goals: Improve disease control and Therapeutic intervention Activity: Per 'Additional Instructions' section Non-emergency contact: Primary Care Provider Call non-emergency contact if: you have any medication questions, your symptoms worsen, your pain is concerning for you and you have a fever Follow-up/Referrals: Naima Tyson MD [Primary Care Provider] - Diet: Regular Addtl Provider Instructions: You were admitted for altered mental status. This was thought to be caused by your lung disease causing inability to provide proper levels of oxygenation to your brain and also inability to get rid of CO2 (carbon dioxide). Also, you were found to have a questionable pneumonia and also sinusitis that was treated with Antibiotics. You will need to continue antibiotics at home. You will continue to take Doxycycline 100mg, one pill, two times per day/every 12 hours. You will need to take 4 more days of Doxycycline to complete recommended 7 days of treatment with that antibiotic. You will also continue to take Augmentin 875mg, one pill take twice per day/every 12 hours. You will take 11 more days of this medication (Augmentin) for a total course of treatment of 14 days. Also, we recommend that you take Folic Acid 1mg daily and Thiamine 100mg daily. These daily medications are essential for providing adequate levels of folate and thiamine in your blood which can help prevent disease. Please refrain from drinking. You had elevated ammonia levels in your blood that can be caused by liver dysfunction from long history of drinking alcohol. These elevated ammonia levels can also contribute to your altered mental status. Please refrain from smoking. Stopping smoking will greatly benefit your health. Continuing to smoke will worsen your lung function and your lungs abilities to provide oxygen to your body and also worsens your lungs ability to get ride of CO2 (carbon dioxide). Please seek assistance from your Primary Medical Doctor to help with quiting smoking. Please call your Primary Care Provider for next available appointment for hospital follow up. Medications were sent electronically to your pharmacy. Please make sure your complete the entire course of antibiotics even if feeling well. Please follow oxygen supplement requirements at home as directed. Prescriptions: New doxycycline hyclate 100 mg Capsule 100 mg PO BID Qty: 8 RF: 0 thiamine HCl (vitamin B1) [Vitamin B-1] 100 mg Tablet 100 mg PO QAM Qty: 30 RF: 0 folic acid 1 mg Tablet 1 mg PO QAM Qty: 30 RF: 0 amoxicillin-pot clavulanate 875-125 mg Tablet 1 tab PO BID Qty: 22 RF: 0 Continued cyanocobalamin (vitamin B-12) 1,000 mcg Capsule 1,000 mcg PO QPM RF: 0 pantoprazole 40 mg Tablet,Delayed Release (Dr/Ec) 40 mg PO QPM RF: 0 Breo Ellipta 200-25 mcg/dose Blister With Device 1 inh INHALATION QPM RF: 0 Cordysept 1 tab PO QPM RF: 0 Xarelto 20 mg tablet 20 mg PO DAILY RF: 0 Combivent Respimat 20-100 mcg/actuation mist 1 puff Inhalation QID RF: 0 Stand-Alone Forms: [facility] Admission Data Admit Date/Time: 01/21/19 02:57 Attending Provider: Hai Fregoso Admit Provider: Regina Thacker Primary Care Provider: Naima Tyson Other Providers: Yajaira Kimball ; Regina Thacker ; Charles Johnston Service: Medical
--- NOTE | 2019-01-27 12:06 | Family Medicine Progress Note ---
Date of Service January 27, 2019 Assessment & Plan (1) Acute metabolic encephalopathy: 53 yr old with Hx of alcoholism, COPD who was admitted with altered mental status and significant respiratory failure requiring intubation and placement in the ICU. Continued improvement. Metabolic encephalopathy - likely from respiratory failure/possible DT--MUCH IMPROVED -CT head-unremarkable except for possible sinusitis with current plan treatment of Doxycycline 100mg BID for 7 days and Augmentin 875mg BID for 14 days. Which will also cover atypical pneumonia. -Negative Tox screen -Neg MRI and ammonia level elevated on admission 01/22 of 64; 01/23 = 56; 01/24 = 14 WNL. -On 01/26/2019 and 01/27/2019 is alert oriented x3 Ppx - Xarelto. Protonix Code - Full (2) Acute respiratory failure with hypercapnia: Acute respiratory failure - Hypercapneic/hypoxic - sec to copd exacerbation/aspiration needing intubation for mechanical ventillation. - extubated 01/23. -Ruled out PE with CTA -Currently on nasal cannula 3L. -PT/OT- appreciate recs -was anticipating discharge on 01/27, but after 2-step patient became hypoxic in the 80s on 5L on ambulation and is not safe for discharge home. -Will continue with Prednisone 40mg PO daily. Will also add respiratory toilet with percussion respiratory order placed. Possible CAP -empiric treatment previously with Augmentin and Doxycycline -Broncheolar lavage washing of the left lower lobe grew H. FLU BETA LACTAMASE NEGATIVE bacteria but likely concern of aspiration - continue augmentin and doxy. -Fungal and Acid fast bacilli SMEAR--NEGATIVE -Fungal and Acid fast bacilli CULTURE--with mariela albicans few noted on 01/26/2019. Per review of multiple resources, no need for treatment. -Blood Cultures no growth to date. -PT/OT- appreciate recs (3) Alcohol abuse: Concern of DT - in setting of Hx of alcohol abuse -Placed on phenobarbital protocol with completion of treatment -Patient with documented history of EtOH abuse in a 2013 note, although he denies abuse stating only drinking 2 beers per night after work. Does live above a bar. -Tox showed no Hx of recent alcohol use. -MVI, thaimine (4) COPD with exacerbation: -Prednisone 40mg daily for 5 days -Albuterol q 2 hours PRN -PT/OT- appreciate recs -smoking cessation provided and does not wish to quit. States heavy tobacco use, starting at age of 11 and smoked 1.5-2 packs per day. (5) Hyponatremia: Hyponatremia - sec to alc use-RESOLVED -Na normal levels currently - although slightly decreased on 01/26/2019 to 135; 134 on 01/27/2019 -seizure precautions were placed during hyponatremia on admit (6) Hypocalcemia: Hypocalcemia -s/p 1gm IV Calc gluc -continue to monitor (7) Hypokalemia: Hypokalemia -currently resolved -continue to monitor (8) GERD (gastroesophageal reflux disease): GERD -continue protonix -tolerating meals without complications (9) History of DVT (deep vein thrombosis): Hx of DVT -Per records, patient with DVT x 3. On Xarelto. -Continue Xarelto -PT/INR and d-dimer- NORMAL (10) Abnormal thyroid stimulating hormone (TSH) level: -TSH decreased but T4 normal -Will continue to monitor Supervising Physician Co-Signing Physician Notes I personally examined the patient and verified all aviles points of history and exam, discussed case, and agree with decision making with Dr Pearl Feeling better, breathing better. Seen walking the [place] with physical therapy. He desaturated to 89% on 3 L but was not very dyspneic for this. Earlier he was unable to maintain greater than 88% on 5 L with respiratory therapy. Vitals noted, in general he is awake and alert pleasant no distress. Walking the hallway with good steady gait. Breathing is unlabored. Skin shows no rashes no pallor or icterus. Acute on chronic respiratory failure, likely mixed, with acute exacerbation of COPDseems to be improving, his hypoxia is still a little bit tenuous to get him home, but does seem to be showing progress. Continue steroids, escalate nebulizers, incentive spirometry, flutter valve. Alcohol abuse/withdrawalappears to be doing surprisingly well in this regard. DVT prophylaxisXarelto Subjective Mr. Fritz reports he feels his breathing is closer back to his baseline. He is vague about his home oxygen requirements at home stating that he only uses it PRN. He denies worsening dyspnea, fever, chills, chest pain, nausea, vomiting, diarrhea. Physical Exam Vital Signs (Past 24 Hours): Last Vital Signs Temp 37 C 01/27/19 07:11 Pulse 80 01/27/19 11:00 Resp 16 01/27/19 11:00 BP 125/72 01/27/19 07:11 Pulse Ox 93 01/27/19 11:00 Constitutional: WD/WN, vitals as above comfortable Eyes: + anicteric sclerae and EOM intact bilaterally Neck: normal visual inspection and trachea midline Respiratory: no respiratory distress and does not use accessory muscles Auscultation: + diminished lung sounds and + wheezes (mild diffuse expiratory) Cardiovascular: Rate/Rhythm: regular rate and regular rhythm Extremities: no pedal edema Gastrointestinal (Abdomen): Inspection/Auscultation: normal bowel sounds Percussion/Palpation: abdomen soft; abdomen nontender, no guarding and abdomen not rigid Musculoskeletal: Head/Neck/Chest: normocephalic and head atraumatic Skin: no rashes, warm and dry Neurologic: moves all extremities and awake Psychiatric: Orientation: alert and oriented x 3 Results & Data Laboratory Results Laboratory Results - last 24 hr 01/27/19 01/27/19 06:21 06:21 WBC 10.12 RBC 4.41 L Hgb 13.6 L Hct 42.7 MCV 96.8 MCH 30.8 MCHC 31.9 L RDW Std Deviation 52.6 H RDW Coeff of Aggie 14.8 H Plt Count 281 MPV 9.0 Immature Gran % (Auto) 0.3 Neut % (Auto) 70.9 Lymph % (Auto) 17.9 Roberts % (Auto) 10.5 Eos % (Auto) 0.3 Baso % (Auto) 0.1 Immature Gran # (Auto) 0.03 H Neut # (Auto) 7.18 H Lymph # (Auto) 1.81 Roberts # (Auto) 1.06 H Eos # (Auto) 0.03 Baso # (Auto) 0.01 Sodium 134 L Potassium 3.7 Chloride 92 L Carbon Dioxide 40 H Anion Gap 2.0 L BUN 10 Creatinine 0.57 L Est Cr Clr Drug Dosing 162.6 Est GFR ( Amer) 134.9 Est GFR (Non-Af Amer) 116.4 BUN/Creatinine Ratio 17.6 Glucose 93 Calcium 7.9 L Phosphorus 2.4 L Total Bilirubin 0.3 AST 18 ALT 41 Alkaline Phosphatase 76 Total Protein 6.1 L Albumin 2.8 L Globulin 3.3 Albumin/Globulin Ratio 0.8 L Medications Administered Albuterol (Duoneb) 3 ml NEB Q4R SURJIT Stop: 02/20/19 07:59 Last Admin: 01/27/19 15:19 Dose: 3 ml Documented by: [id number] Admin: 01/27/19 10:59 Dose: 3 ml Documented by: [id number] Admin: 01/27/19 07:09 Dose: 3 ml Documented by: [id number] Admin: 01/27/19 03:32 Dose: 3 ml Documented by: [id number] Admin: 01/26/19 23:26 Dose: 3 ml Documented by: [id number] Admin: 01/26/19 19:12 Dose: 3 ml Documented by: [id number] Admin: 01/26/19 15:22 Dose: 3 ml Documented by: [id number] Admin: 01/26/19 11:13 Dose: 3 ml Documented by: [id number] Admin: 01/26/19 07:11 Dose: 3 ml Documented by: [id number] Admin: 01/26/19 03:39 Dose: 3 ml Documented by: [id number] Admin: 01/25/19 23:18 Dose: 3 ml Documented by: [id number] Admin: 01/25/19 19:20 Dose: 3 ml Documented by: [id number] Admin: 01/25/19 15:32 Dose: 3 ml Documented by: [id number] Admin: 01/25/19 11:07 Dose: 3 ml Documented by: [id number] Admin: 01/25/19 07:02 Dose: 3 ml Documented by: [id number] Admin: 01/25/19 03:12 Dose: 3 ml Documented by: [id number] Admin: 01/24/19 23:06 Dose: 3 ml Documented by: [id number] Admin: 01/24/19 19:28 Dose: 3 ml Documented by: [id number] Admin: 01/24/19 15:43 Dose: 3 ml Documented by: [id number] Admin: 01/24/19 11:24 Dose: 3 ml Documented by: [id number] Admin: 01/24/19 07:01 Dose: 3 ml Documented by: [id number] Admin: 01/24/19 03:11 Dose: 3 ml Documented by: [id number] Admin: 01/23/19 23:05 Dose: 3 ml Documented by: [id number] Admin: 01/23/19 19:41 Dose: Not Given Documented by: [id number] Admin: 01/23/19 15:49 Dose: 3 ml Documented by: [id number] Admin: 01/23/19 15:49 Dose: 3 ml Documented by: [id number] Admin: 01/23/19 07:37 Dose: 3 ml Documented by: [id number] Admin: 01/23/19 03:15 Dose: 3 ml Documented by: [id number] Admin: 01/22/19 23:24 Dose: 3 ml Documented by: [id number] Admin: 01/22/19 20:16 Dose: 3 ml Documented by: [id number] Admin: 01/22/19 16:49 Dose: 3 ml Documented by: [id number] Admin: 01/22/19 11:03 Dose: 3 ml Documented by: [id number] Admin: 01/22/19 07:35 Dose: 3 ml Documented by: [id number] Admin: 01/22/19 04:11 Dose: 3 ml Documented by: [id number] Admin: 01/22/19 03:46 Dose: Not Given Documented by: [id number] Admin: 01/21/19 19:08 Dose: 3 ml Documented by: [id number] Admin: 01/21/19 15:18 Dose: 3 ml Documented by: [id number] Admin: 01/21/19 11:00 Dose: 3 ml Documented by: [id number] Admin: 01/21/19 07:00 Dose: 3 ml Documented by: [id number] Amoxicillin/Clavulanate Potassium (Augmentin 875mg) 1 tab PO BID SURJIT Stop: 01/31/19 20:59 Last Admin: 01/27/19 07:31 Dose: 1 tab Documented by: [id number] Admin: 01/26/19 20:59 Dose: 1 tab Documented by: [id number] Admin: 01/26/19 08:50 Dose: 1 tab Documented by: [id number] Admin: 01/25/19 20:21 Dose: 1 tab Documented by: [id number] Admin: 01/25/19 10:57 Dose: 1 tab Documented by: [id number] Admin: 01/24/19 20:09 Dose: 1 tab Documented by: [id number] Doxycycline Hyclate (Vibramycin) 100 mg PO BID SURJIT Stop: 01/28/19 09:01 Last Admin: 01/27/19 07:30 Dose: 100 mg Documented by: [id number] Admin: 01/26/19 21:00 Dose: 100 mg Documented by: [id number] Admin: 01/26/19 08:49 Dose: 100 mg Documented by: [id number] Admin: 01/25/19 20:18 Dose: 100 mg Documented by: [id number] Admin: 01/25/19 09:58 Dose: 100 mg Documented by: [id number] Admin: 01/24/19 20:09 Dose: 100 mg Documented by: [id number] Folic Acid (Folvite) 1 mg PO QAM SURJIT Stop: 02/23/19 08:59 Last Admin: 01/27/19 07:31 Dose: 1 mg Documented by: [id number] Admin: 01/26/19 08:50 Dose: 1 mg Documented by: [id number] Admin: 01/25/19 09:58 Dose: 1 mg Documented by: [id number] Admin: 01/24/19 08:10 Dose: 1 mg Documented by: [id number] Lactobacillus Acidophilus (Floranex Granules/Powder Packet) 1 gm PO TIDM SURJIT Stop: 02/24/19 07:59 Last Admin: 01/27/19 11:55 Dose: 1 gm Documented by: [id number] Admin: 01/27/19 07:30 Dose: 1 gm Documented by: [id number] Admin: 01/26/19 15:56 Dose: 1 gm Documented by: [id number] Admin: 01/26/19 12:33 Dose: 1 gm Documented by: [id number] Admin: 01/26/19 08:50 Dose: 1 gm Documented by: [id number] Admin: 01/25/19 16:25 Dose: 1 gm Documented by: [id number] Admin: 01/25/19 12:30 Dose: 1 gm Documented by: [id number] Admin: 01/25/19 09:58 Dose: 1 gm Documented by: [id number] Lactulose (Chronulac) 30 gm PO BID PRN PRN Reason: AMS Stop: 02/21/19 07:59 Last Admin: 01/22/19 21:26 Dose: 30 gm Documented by: [id number] Admin: 01/22/19 08:06 Dose: 30 gm Documented by: [id number] Multivitamins (Multivitamin Tab) 1 tab PO QAM SURJIT Stop: 02/23/19 08:59 Last Admin: 01/27/19 07:30 Dose: 1 tab Documented by: [id number] Admin: 01/26/19 08:49 Dose: 1 tab Documented by: [id number] Admin: 01/25/19 09:58 Dose: 1 tab Documented by: [id number] Admin: 01/24/19 08:10 Dose: 1 tab Documented by: [id number] Pantoprazole Sodium (Protonix) 40 mg PO QAM SURJIT Stop: 02/23/19 08:59 Last Admin: 01/27/19 07:31 Dose: 40 mg Documented by: [id number] Admin: 01/26/19 08:49 Dose: 40 mg Documented by: [id number] Admin: 01/25/19 09:59 Dose: 40 mg Documented by: [id number] Admin: 01/24/19 08:10 Dose: 40 mg Documented by: [id number] Prednisone (Prednisone) [address] [facility] Stop: 02/26/19 13:59 Last Admin: 01/27/19 15:38 Dose: 40 mg Documented by: [id number] Propranolol HCl (Inderal) [address] [facility] Stop: 02/23/19 13:59 Last Admin: 01/27/19 15:38 Dose: 10 mg Documented by: [id number] Admin: 01/27/19 07:31 Dose: 10 mg Documented by: [id number] Admin: 01/26/19 20:59 Dose: 10 mg Documented by: [id number] Admin: 01/26/19 12:33 Dose: 10 mg Documented by: [id number] Admin: 01/26/19 08:50 Dose: 10 mg Documented by: [id number] Admin: 01/25/19 20:22 Dose: 10 mg Documented by: [id number] Admin: 01/25/19 14:19 Dose: 10 mg Documented by: [id number] Admin: 01/25/19 09:58 Dose: 10 mg Documented by: [id number] Admin: 01/24/19 20:12 Dose: 10 mg Documented by: [id number] Admin: 01/24/19 13:55 Dose: 10 mg Documented by: [id number] Rivaroxaban (Xarelto) [address] [facility] Stop: 02/20/19 08:59 Last Admin: 01/27/19 07:30 Dose: 20 mg Documented by: [id number] Admin: 01/26/19 08:50 Dose: 20 mg Documented by: [id number] Admin: 01/25/19 09:58 Dose: 20 mg Documented by: [id number] Admin: 01/24/19 08:10 Dose: 20 mg Documented by: [id number] Admin: 01/23/19 07:10 Dose: 20 mg Documented by: [id number] Admin: 01/22/19 08:19 Dose: 20 mg Documented by: [id number] Admin: 01/21/19 09:45 Dose: 20 mg Documented by: [id number] Thiamine HCl (Vitamin B-1) [facility] Stop: 02/22/19 08:59 Last Admin: 01/27/19 07:30 Dose: 100 mg Documented by: [id number] Admin: 01/26/19 08:49 Dose: 100 mg Documented by: [id number] Admin: 01/25/19 09:58 Dose: 100 mg Documented by: [id number] Admin: 01/24/19 08:10 Dose: 100 mg Documented by: [id number] Admin: 01/23/19 07:10 Dose: 100 mg Documented by: [id number] (1) GERD (gastroesophageal reflux disease) Esophagitis presence: esophagitis presence not specified Qualified Code(s): K21.9 - Gastro-esophageal reflux disease without esophagitis
[2019-01-27] MEDS: BUDESONIDE 0.25 MG/2 ML VIAL (PULMICORT) NEB SCH (19:16)
[2019-01-28] MEDS: ALBUT/IPRATROP 3MG/0.5MG NEB 3 ML VIAL NEB SCH ×3 (03:55→11:19)
[2019-01-28 05:56] LABS: Basophils # (auto) 0.01 K/uL (0-0.2); Basophils % (auto) 0.1 %; Hematocrit (blood only) 41.4 % (42-52); Hemoglobin 13.3 g/dL (14.0-18.0); Immature Granulocytes # (auto) 0.04 K/uL (0.00-0.02); Immature Granulocytes % (auto) 0.4 %; Lymphocytes # (auto) 1.66 K/uL (1.2-3.4); Lymphocytes % (auto) 15.8 %; Mean Corpuscular Hgb Conc 32.1 g/dL (32-36); Mean Corpuscular Volume 95.8 fL (80-100); Mean Platelet Volume 8.9 fL (7.4-10.4); Monocytes # (auto) 1.32 K/uL (0.11-0.59); Monocytes % (auto) 12.6 %; Neutrophils # (auto) 7.47 K/uL (1.4-6.5); Neutrophils % (auto) 71.1 %; Platelet Count 284 K/uL (130-400); RDW Coefficient of Variation 14.7 % (11.5-14.5); RDW Standard Deviation 52.1 fL (36.4-46.3); Red Blood Count 4.32 M/uL (4.7-6.1)
[2019-01-28 06:31] LABS: Albumin Level 2.8 gm/dl (3.4-5.0); Calcium 8.1 mg/dl (8.5-10.1); Creatinine Clr Calc Pharmacy 189.2 ml/min; Est GFR (African American) 143.6; Est GFR (Non-African American) 123.9
[2019-01-28 06:33] LABS: Albumin Globulin Ratio 0.9 (0.9-2); Bilirubin,Total 0.4 mg/dl (0.2-1); Globulin 3.1 gm/dl (2.5-4.0); Phosphorus 2.5 mg/dl (2.5-4.9); Total Protein 5.9 gm/dl (6.4-8.2)
[2019-01-28] MEDS: BUDESONIDE 0.25 MG/2 ML VIAL (PULMICORT) NEB SCH (07:13)
[2019-01-28] MEDS: FOLIC ACID 1 MG TAB PO SCH (08:14)
[2019-01-28] MEDS: predniSONE 20 MG TAB PO SCH (08:15)
[2019-01-28] MEDS: DOXYCYCLINE HYCLATE 100 MG CAP PO SCH (08:15)
[2019-01-28] MEDS: PROPRANOLOL HCL 10 MG TAB PO SCH ×2 (08:15→13:19)
[2019-01-28] MEDS: RIVAROXABAN 20 MG TAB PO SCH (08:16)
[2019-01-28] MEDS: THIAMINE HCL 100 MG TAB PO SCH (08:16)
[2019-01-28] MEDS: LACTOBACILLUS ACIDOPHILUS 1 GM PACK PO SCH ×2 (08:16→11:25)
[2019-01-28] MEDS: AMOXICILLIN/CLAVULANATE 875 MG TAB PO SCH (08:16)
[2019-01-28] MEDS: MULTIVITAMIN TAB PO SCH (08:16)
[2019-01-28] MEDS: PANTOprazole 40 MG TAB PO SCH (08:17)
[2019-01-28 11:17] VITALS: BP 132/81; TEMP 99
[2019-01-28 14:46] VITALS: PULSE 87; O2SAT 96
== END 2019-01-28 15:15 | disposition home or self-care (01) | DRG 208 ==
LOC: ED 22:38 → SUATTDRO 01-21 02:57 → 2S 01-21 02:57 → 1E 01-21 18:04 → 2N 01-26 11:05

== ENCOUNTER 2019-11-04 00:55 | Inpatient (IN) ==
[2019-11-04] MEDS ORDERED: KETOROLAC TROMETHAMINE 60 MG/2 ML VIAL IM STA (01:18)
[2019-11-04] MEDS ORDERED: OXYCODONE/ACETAMINOPHEN 5mg/325mg TAB PO STA (01:18)
[2019-11-04 03:13] LABS: Basophils # (auto) 0.01 K/uL (0-0.2); Basophils % (auto) 0.1 %; Eosinophils # (auto) 0.01 K/uL (0-0.5); Eosinophils % (auto) 0.1 %; Hematocrit (blood only) 39.3 % (42-52); Hemoglobin 13.1 g/dL (14.0-18.0); Immature Granulocytes # (auto) 0.03 K/uL (0.00-0.02); Immature Granulocytes % (auto) 0.3 %; Lymphocytes # (auto) 0.63 K/uL (1.2-3.4); Lymphocytes % (auto) 5.3 %; Mean Corpuscular Hgb Conc 33.3 g/dL (32-36); Mean Corpuscular Volume 96.1 fL (80-100); Mean Platelet Volume 8.4 fL (7.4-10.4); Monocytes # (auto) 1.12 K/uL (0.11-0.59); Monocytes % (auto) 9.5 %; Neutrophils # (auto) 10.03 K/uL (1.4-6.5); Neutrophils % (auto) 84.7 %; Platelet Count 309 K/uL (130-400); RDW Coefficient of Variation 14.6 % (11.5-14.5); RDW Standard Deviation 51.6 fL (36.4-46.3); Red Blood Count 4.09 M/uL (4.7-6.1); White Blood Count 11.83 K/uL (4.8-10.8)
[2019-11-04 03:29] LABS: Albumin Level 3.1 gm/dl (3.4-5.0); BUN Creatinine Ratio 7.4 (10-20); Calcium 8.4 mg/dl (8.5-10.1); Creatinine Clr Calc Pharmacy 145.8 ml/min; Est GFR (African American) 124.7; Est GFR (Non-African American) 107.6
--- NOTE | 2019-11-04 03:29 | Emergency Department Note ---
Entered by Temi Carrington acting as a scribe for Steffi Loya DO History of Present Illness General Chief complaint: Back Injury/Pain Stated complaint: FALL Time Seen by Provider: 11/04/19 01:02 Source: patient History of Present Illness Onset (ago): day(s) 1 Location: back (low) Radiation: extremity (right lower) Pain Consistency: + other (persistent) Maximum Pain Intensity: 10 Relieved By: not by medication (Advil) Exacerbated By: + movement (right leg ) Associated symptoms: + other (positive right leg numbness; positive right leg weakness; negative loss of consciousness; negative neck pain; negative abdominal pain) Treatments prior to arrival: NSAID (advil) The patient is a 53 year old male who presents to the Emergency Room with complaints of persistent low back pain that began 1 day prior to arrival. The patient states that he got up in the middle of the night to go to the bathroom when he tripped on his oxygen tubing and fell. The patient reports that he has had lower back pain since this time. He states that 4 hours ago his pain began radiating down his right leg. The patient reports right leg numbness and right leg weakness. He states that his pain is exacerbated by movement of his right leg. The patient denies hitting his head, loss of consciousness, neck pain, and abdominal pain. The patient reports that he took Advil several hours ago, but states that this did not relieve his symptoms. The patient denies any chronic back problems. He states that he is on oxygen all of the time for COPD. Home Medications Home Medications Medication Instructions Recorded Confirmed Type Breo Ellipta 1 inh INHALATION QPM 01/15/19 11/04/19 History pantoprazole 40 mg PO QPM 01/15/19 11/04/19 History Combivent Respimat 1 puff INHALATION QID 01/20/19 11/04/19 History Xarelto 20 mg PO DAILY 01/20/19 11/04/19 History albuterol sulfate 90 mcg/actuation 1 puffs INH Q4H PRN #18 gm 08/17/19 11/04/19 Rx aerosol inhaler tiotropium bromide 18 mcg capsule 1 cap INHALATION DAILY #1 puffs 09/09/19 11/04/19 Rx with inhalation device nystatin 100,000 unit/mL oral 5 ml PO QID 7 Days #480 ml 10/02/19 11/04/19 Rx suspension ipratropium-albuterol 0.5 mg-3 3 ml INHALATION .COMPLEX PRN #180 10/13/19 11/04/19 Rx mg(2.5 mg base)/3 mL nebulization ml soln Allergies Allergy/AdvReac Type Severity Reaction Status Date / Time No Known Allergies Allergy Mild Verified 11/04/19 01:52 Past Med/Surg History Medical History Alcohol use Chronic obstructive pulmonary disease DVT (deep venous thrombosis) X 3-PLACED ON THINNER GERD (gastroesophageal reflux disease) On home oxygen therapy PRN SOB (shortness of breath) on exertion Tremor Surgical History H/O vascular surgery X 3-VASCULAR BLOCKAGES LOWER LEGS History of esophagogastroduodenoscopy (EGD) Family History Mother Family history of diabetes mellitus Social History Preferred Language: [place] Communication Ability: Unable Criminal Legal Assistant Required: No Beliefs That Will Affect Care: None Current Living Situation: Alone Feels Safe at Home: Yes Smoking Status: Current every day smoker Tobacco Type: cigarettes ; Cigarettes Per Day: 1 1 1/2 PPD ; Second Hand Exposure: No ; Hx Alcohol Use: Yes Alcohol type: beer Hx Substance Use: No (labs ordered) Review of Systems See HPI for pertinent positives & negatives. and A total of 10 systems reviewed and were otherwise negative Physical Exam Vital Signs Vital Signs - 24 hr 11/04/19 00:55 11/04/19 02:35 Temperature 37.5 C Temperature Source Oral Pulse Rate 105 H Pulse Rate [Apical] 98 H Respiratory Rate 26 H 16 Blood Pressure 171/105 H Blood Pressure [Right Arm] 148/93 H Blood Pressure Mean 127 Blood Pressure Mean [Right Arm] 111 Pulse Oximetry 99 96 Pulse Oximetry [Exercises] 86 L Pulse Oximetry [Recovery] 90 Pulse Oximetry [Resting] 99 Oxygen Delivery Method Nasal Cannula Nasal Cannula Oxygen Flow Rate 5 5 Sepsis Recent Fever Within 48 Hours No Sepsis New/Unexplained Change in Mental Status No Sepsis Action Taken by Nursing No Action Required HEENT: Head - normocephalic and atraumatic Pupils are equal, round, and reactive to light. Extraocular eye muscles are intact, and sclera are anicteric. Nose - moist nasal mucosa without discharge. Mouth - moist buccal mucosa. Oropharynx is nonerythematous and there is no tonsillar exudate or edema noted. Neck: Supple; no pain to palpation over the posterior cervical spine Heart: Regular rate and rhythm. There is a normal S1 and S2 with no murmurs, clicks, or gallops appreciated. Lungs: Clear to auscultation bilaterally with no wheezes, rales, or rhonchi. Abdomen: Soft, completely nontender, nondistended, with good bowel sounds. There are no palpable pulsatile masses or hepatosplenomegaly. There is no guarding, rigidity, or rebound noted. Back: Pain over the right PSIS and mid lumbar spine Extremities: Decreased range of motion of the right lower extremity secondary to pain. No evidence of cyanosis, clubbing, or edema. There are easily palpable peripheral pulses. Skin: warm and dry with good turgor and no rashes. Course Course 0109: Past medical records reviewed. The patient was evaluated in room A2. A complete history and physical exam was performed. 0121: Ordered Toradol 60 mg IM and Percocet 5mg/325mg 2 tab PO. The patient will go for CT scan of the lumbar spine. 0227: Upon reevaluation, the patient states that he is feeling better. The nurses will perform an ambulatory trial to see how the patient does with walking. 0246: The patient could not safely walk around and almost fell twice according to nursing staff. The patient and I had a long discussion about the results and treatment plan. The patient is in agreement for further evaluation in the hosptial. 0249: Dr. Sh[facility] Hospitalist was paged and made aware of the patient. He will further evaluate the patient. Administered Medications Discontinued Medications Ketorolac Tromethamine (Toradol) 60 mg IM NOW STA Stop: 11/04/19 01:19 Last Admin: 11/04/19 01:21 Dose: 60 mg Documented by: [id number] Oxycodone/Acetaminophen (Percocet 5mg/325mg) 2 tab PO NOW STA Stop: 11/04/19 01:19 Last Admin: 11/04/19 01:21 Dose: 2 tab Documented by: [id number] Medical Decision Making Differential Diagnosis Differential diagnoses include L spine fracture, sciatica, pelvis fracture, and others were considered. Medical Records Attestation: I reviewed the patient's medical records. Home Medications Current Medication List: was personally reviewed by me Laboratory Data Attestation: I reviewed the patient's lab results. Result diagrams: 11/04/19 03:06 11/04/19 03:06 Lab Results 11/04/19 11/04/19 Range/Units 03:06 03:06 WBC 11.83 H (4.8-10.8) K/uL RBC 4.09 L (4.7-6.1) M/uL Hgb 13.1 L (14.0-18.0) g/dL Hct 39.3 L (42-52) % MCV 96.1 (80-100) fL MCH 32.0 (25-34) pg MCHC 33.3 (32-36) g/dL RDW Std Deviation 51.6 H (36.4-46.3) fL RDW Coeff of Aggie 14.6 H (11.5-14.5) % Plt Count 309 (130-400) K/uL MPV 8.4 (7.4-10.4) fL Immature Gran % (Auto) 0.3 % Neut % (Auto) 84.7 % Lymph % (Auto) 5.3 % [place] % (Auto) 9.5 % Eos % (Auto) 0.1 % Baso % (Auto) 0.1 % Immature Gran # (Auto) 0.03 H (0.00-0.02) K/uL Neut # (Auto) 10.03 H (1.4-6.5) K/uL Lymph # (Auto) 0.63 L (1.2-3.4) K/uL [place] # (Auto) 1.12 H (0.11-0.59) K/uL Eos # (Auto) 0.01 (0-0.5) K/uL Baso # (Auto) 0.01 (0-0.2) K/uL Sodium 135 L (136-145) mmol/L Potassium 4.0 (3.5-5.1) mmol/L Chloride 100 (98-107) mmol/L Carbon Dioxide 32 (21-32) mmol/L Anion Gap 3.0 (3-11) BUN 5 L (7-18) mg/dl Creatinine 0.69 (0.6-1.4) mg/dl Est Cr Clr Drug Dosing 145.8 ml/min Est GFR ( Amer) 124.7 Est GFR (Non-Af Amer) 107.6 BUN/Creatinine Ratio 7.4 L (10-20) Glucose 124 H (70-99) mg/dl Calcium 8.4 L (8.5-10.1) mg/dl Total Bilirubin 0.6 (0.2-1) mg/dl AST 34 (15-37) U/L ALT 30 (12-78) U/L Alkaline Phosphatase 148 H (45-117) U/L Total Protein 6.8 (6.4-8.2) gm/dl Albumin 3.1 L (3.4-5.0) gm/dl Globulin 3.7 (2.5-4.0) gm/dl Albumin/Globulin Ratio 0.8 L (0.9-2) Imaging Data Radiologist's Impression: Radiology results as stated below per my review and the radiologist's interpretation: CT L SPINE: Findings: Acute L3 compression fracture with 66%central loss of L3 vertebral body height relative to its posterior cortical margin pedicles are seen to be intact. Negative for any significant retropulsion of the posterior cortical margin. Mild underlying congenital spinal canal stenosis due to short pedicles seen. There is atherosclerotic calcification of the abdominal aorta. Small hiatal hernia is noted. Right posterior upper back subcutaneous 2.3 cm sebaceous cyst. Impression: 1. Acute L3 compression fracture with 66%loss of vertebral body height. 2. Posterior cortical margin appears preserved. Fracture may extend to its right posterior inferior margin. Radiologist: Opal Kimball MD Study ready at 01:52 and initial results transmitted at 01:57 Blood Pressure Blood Pressure Findings: Elevated blood pressure Blood Pressure Disposition: further management by hospitalist MARY Narrative The patient is a 53 year old male who presents to the Emergency Room with compla ints of persistent low back pain that began 1 day prior to arrival. The patient suffered a fall 2020 4 hours ago landing on his back. Since that time, he has had some increasing low back pain that now radiates into the right lower extremity consistent with lumbar radiculopathy. Strength of the extremity seems normal although his range of motion is decreased secondary to pain. CT scan of the lumbar spine shows evidence of a compression fracture of L3. Sensation in both lower extremities is normal. The ambulatory trial did not go well and the patient cannot be safely discharged. Laboratory studies were drawn and are currently pending. The patient is on 4-5 L of O2 in order to maintain his oxygen saturation in the mid 90s. I discussed the case with the [facility] Hospitalist and they will evaluate for further management. Impression & Plan Compression fracture of L3 vertebra, Gait instability Discharge Plan Visit Data Chief Complaint: Back Injury/Pain Stated Complaint: FALL ED Provider: Steffi Loya Discharge Problem: Compression fracture of L3 vertebra, Gait instability Patient Disposition: Being Evaluated by Hospitalist Forms Stand Alone Forms: My [facility] Prescriptions Prescriptions: No Action albuterol sulfate [ProAir HFA] 90 mcg/actuation HFA aerosol inhaler 1 puffs INH Q4H PRN (Reason: shortness of breath or wheezing) Qty: 18 RF: 5 tiotropium bromide 18 mcg capsule, w/inhalation device 1 cap inhalation DAILY Qty: 1 RF: 5 nystatin 100,000 unit/mL suspension 5 ml PO QID 7 Days Qty: 480 RF: 1 ipratropium-albuterol 0.5 mg-3 mg(2.5 mg base)/3 mL solution for nebulization 3 ml inhalation .COMPLEX PRN (Reason: shortness of breath or wheezing) Qty: 180 RF: 5 pantoprazole 40 mg Tablet,Delayed Release (Dr/Ec) 40 mg PO QPM RF: 0 Breo Ellipta 200-25 mcg/dose Blister With Device 1 inh INHALATION QPM RF: 0 Xarelto 20 mg tablet 20 mg PO DAILY RF: 0 Combivent Respimat 20-100 mcg/actuation mist 1 puff Inhalation QID RF: 0 Referrals Referrals: Naima Tyson MD [Primary Care Provider] - Discharge Problem: Compression fracture of L3 vertebra Qualifiers: Encounter type: initial encounter Qualified Code(s): S32.030A - Wedge compression fracture of third lumbar vertebra, initial encounter for closed fracture The scribe's documentation has been prepared under my direction and personally reviewed by me in its entirety. I confirm that the note above accurately reflects all work, treatment, procedures, and medical decision making performed by me.
[2019-11-04 03:32] LABS: Albumin Globulin Ratio 0.8 (0.9-2); Bilirubin,Total 0.6 mg/dl (0.2-1); Globulin 3.7 gm/dl (2.5-4.0); Total Protein 6.8 gm/dl (6.4-8.2)
--- NOTE | 2019-11-04 04:28 | History & Physical Report ---
Date of Service November 04, 2019 Assessment & Plan (1) Compression fracture of L3 vertebra: 53-year-old male was admitted on 04 November 2019 for a L3 compression fracture s/p fall. Fall, L3 compression fracture, right leg radiculopathy: S/p mechanical fall on Saturday 23Dec. Complains of entire right leg pain and paresthesias, though no overt neuromuscular deficits on ED exam. - In ED, afebrile, borderline tachycardic, hypertensive, SpO2 around 96% on 3.5 L nasal cannula. WBC 11. Electrolytes okay. CT lumbar spine (overnight read) notes an acute L3 compression fracture with 66% loss of vertebral height. - In ED, pain was treated with Toradol and Percocet. - Will consult ortho. Pain management via Tylenol and oxycodone (both as needed) as well as a local Lidoderm patch. His radicular symptoms do not quite match an L3 distribution, so he may need further local imaging. Will defer to ortho on that. Alcohol abuse, tremor: Patient states he drinks 12 beers per day, last drink over 24 hours ago. Denies history of alcohol withdrawal. Regarding his current bilateral arm tremors, he says he has had this for years including when he drinks alcohol. Says he stopped taking prior Vitamin B12 supplement. - Checking an EtOH and Vit B12 level. Will place on AWSS as a precaution to include Valium. Initial dosing of 20 mg q8h then 10 mg q6h. [UTD suggests 10 mg BID then 10 mg q PM to follow this.] Ongoing medical issues: - Hypertension: No listed home medications for this. Would benefit from continued outpatient management. - COPD, hypoxia, nicotine dependence: Is on 3 L nasal cannula oxygen 03/06. Continue home Brio Ellipta, tiotropium, Combivent, scheduled DuoNeb. Is also on nystatin (will continue), though not sure if this is prophylactic. - GERD: Continue home pantoprazole. - Previous DVT and PE: Held home xarelto acutely in case of surgical procedure. Code status: Full code. Diet: Regular diet for now. DVT prophy: Held home xarelto acutely in case of surgical procedure. SCDs for now. PT/OT: Deferred on admit. Disbo: Admit to med surg telemetry (due to concerns for EtOH withdrawal). (2) Radicular pain of right lower extremity: (3) Alcohol abuse: (4) Resting tremor: (5) Hypertension: (6) Chronic obstructive pulmonary disease: (7) Hypoxia: (8) Nicotine dependence: (9) GERD (gastroesophageal reflux disease): (10) History of DVT (deep vein thrombosis): History of Present Illness Primary Care Provider: Naima Tyson MD 53-year-old male states that he accidentally tripped over his oxygen tubing on Saturday, November 02. He landed on his back and denied any head trauma or LOC. The following day he noticed increased low back pain as well as his entire right leg feeling sore. He describes occasional stabbing pains or "[id number]" pain throughout his entire leg down into his toes. For this, he presents now for further evaluation. Denies any previous history of similar leg pains or paresthesias. No similar symptoms in his left leg. Denies any difficulty or changes in bowel or bladder function, numbness around his bottom, recent fevers or illness, or other acute concerns. Of note, patient has severe COPD, continues to smoke, but says that his breathing remains at his baseline. He also notes that he drinks about 12 beers per day. Regarding his current bilateral upper extremity tremors, worse with movement, he says that it has been going on "for years". He says at one point he was advised to take vitamin B12. He did take that for a time but says that it stopped working so he stopped dennisin g it. He says he has these tremors even when he is drinking alcohol. - Past medical history includes hypertension, GERD, Kohli's esophagus dysphagia, acute metabolic encephalopathy, acute respiratory failure with hypercapnia, COPD, pneumonia, hyponatremia, hypercalcemia, history of PE, alcohol abuse. - Past surgical history includes lower leg vascular procedures. - Social history includes having smoked upwards of 2 packs/day for perhaps 40 years. Drinks upwards of 12 beers per day. Lives at home alone. Allergies Allergy/AdvReac Type Severity Reaction Status Date / Time No Known Allergies Allergy Mild Verified 11/04/19 01:52 Home Medications Home Medications Medication Instructions Recorded Confirmed Type Breo Ellipta 1 inh INHALATION QPM 01/15/19 11/04/19 History pantoprazole 40 mg PO QPM 01/15/19 11/04/19 History Combivent Respimat 1 puff INHALATION QID 01/20/19 11/04/19 History Xarelto 20 mg PO DAILY 01/20/19 11/04/19 History albuterol sulfate 90 mcg/actuation 1 puffs INH Q4H PRN #18 gm 08/17/19 11/04/19 Rx aerosol inhaler tiotropium bromide 18 mcg capsule 1 cap INHALATION DAILY #1 puffs 09/09/19 11/04/19 Rx with inhalation device nystatin 100,000 unit/mL oral 5 ml PO QID 7 Days #480 ml 10/02/19 11/04/19 Rx suspension ipratropium-albuterol 0.5 mg-3 3 ml INHALATION .COMPLEX PRN #180 10/13/19 11/04/19 Rx mg(2.5 mg base)/3 mL nebulization ml soln Past Med/Surg History Medical History (Updated 11/05/19 @ 14:16 by Diana Gar DO) Alcohol use Chronic obstructive pulmonary disease DVT (deep venous thrombosis) X 3-PLACED ON THINNER Essential tremor GERD (gastroesophageal reflux disease) On home oxygen therapy PRN SOB (shortness of breath) on exertion Tremor Surgical History H/O vascular surgery X 3-VASCULAR BLOCKAGES LOWER LEGS History of esophagogastroduodenoscopy (EGD) Family History Mother Family history of diabetes mellitus Social History Preferred Language: Italian Communication Ability: Effective Support Representative Required: No Beliefs That Will Affect Care: None Current Living Situation: Alone Other Information That Helps Us Care for You: No Feels Safe at Home: Yes Safety Concerns: Feels Safe At This Time Smoking Status: Unknown if ever smoked Hx Alcohol Use: Yes Alcohol type: beer Hx Substance Use: No Review of Systems Review of Systems: Constitutional: Denies fevers, chills, focal weakness Eyes: Denies any visual loss or diplopia ENT: Denies any ear/nose/throat pain or difficulty speaking or swallowing Respiratory: Denies any dyspnea, cough, hemoptysis Cardiovascular: Denies any chest pain or feeling of edema Gastrointestinal: Denies any abdominal pain, nausea/vomiting/diarrhea Musculoskeletal: Positive right leg symptoms. Skin: Denies any known acute rashes or lesions Neuro: Denies any headache, acute focal weakness, or difficulties with speech or swallow. Positive bilateral extremity tremor. Positive paresthesias into the entire right leg. Physical Exam Physical Exam: GENERAL: Awake, alert, appears older than stated age, does not appear in acute distress. HENT: Normocephalic, atraumatic. Oropharynx unremarkable. EYES: Normal conjunctiva. Sclera non-icteric. NECK: Inspection normal. Supple and full ROM. No nuchal rigidity. CARDIAC: +S1S2 borderline but regular tachycardia, no murmurs. RESPIRATORY: Clear to auscultation. No wheezes or rales. Normal respiratory effort. GI: +BS, soft, non-distended. No tenderness to palpation. No rebound or guarding. EXTREMITIES: No pedal edema or calf tenderness. Positive tenderness to palpation along the midline lumbar spine. Normal bilateral dorsi and plantar flexion strength in bilateral feet. Patient can raise both legs off the table but says it is painful to do so on the right. Distal sensation equal and intact through L4-S1 distributions bilaterally. He has a mild resting tremor in his bilateral upper extremities, worse with purposeful reaching movements. NEURO: No gross neuro deficits. Results & Data Vital Signs (Past 12 Hours) Vital Signs Temp Pulse Pulse Resp BP BP Pulse Ox 11/04/19 03:00 97 H 20 150/82 H 94 11/04/19 02:35 98 H 16 148/93 H 96 11/04/19 00:55 37.5 C 105 H 26 H 171/105 H 99 Pulse Ox Pulse Ox Pulse Ox 11/04/19 03:00 11/04/19 02:35 86 L 90 99 11/04/19 00:55 Laboratory Results 11/04/19 11/04/19 Range/Units 03:06 03:06 WBC 11.83 H (4.8-10.8) K/uL RBC 4.09 L (4.7-6.1) M/uL Hgb 13.1 L (14.0-18.0) g/dL Hct 39.3 L (42-52) % MCV 96.1 (80-100) fL MCH 32.0 (25-34) pg MCHC 33.3 (32-36) g/dL RDW Std Deviation 51.6 H (36.4-46.3) fL RDW Coeff of Aggie 14.6 H (11.5-14.5) % Plt Count 309 (130-400) K/uL MPV 8.4 (7.4-10.4) fL Immature Gran % (Auto) 0.3 % Neut % (Auto) 84.7 % Lymph % (Auto) 5.3 % [place] % (Auto) 9.5 % Eos % (Auto) 0.1 % Baso % (Auto) 0.1 % Immature Gran # (Auto) 0.03 H (0.00-0.02) K/uL Neut # (Auto) 10.03 H (1.4-6.5) K/uL Lymph # (Auto) 0.63 L (1.2-3.4) K/uL [place] # (Auto) 1.12 H (0.11-0.59) K/uL Eos # (Auto) 0.01 (0-0.5) K/uL Baso # (Auto) 0.01 (0-0.2) K/uL Sodium 135 L (136-145) mmol/L Potassium 4.0 (3.5-5.1) mmol/L Chloride 100 (98-107) mmol/L Carbon Dioxide 32 (21-32) mmol/L Anion Gap 3.0 (3-11) BUN 5 L (7-18) mg/dl Creatinine 0.69 (0.6-1.4) mg/dl Est Cr Clr Drug Dosing 145.8 ml/min Est GFR ( Amer) 124.7 Est GFR (Non-Af Amer) 107.6 BUN/Creatinine Ratio 7.4 L (10-20) Glucose 124 H (70-99) mg/dl Calcium 8.4 L (8.5-10.1) mg/dl Total Bilirubin 0.6 (0.2-1) mg/dl AST 34 (15-37) U/L ALT 30 (12-78) U/L Alkaline Phosphatase 148 H (45-117) U/L Total Protein 6.8 (6.4-8.2) gm/dl Albumin 3.1 L (3.4-5.0) gm/dl Globulin 3.7 (2.5-4.0) gm/dl Albumin/Globulin Ratio 0.8 L (0.9-2) Medications Administered Discontinued Medications Ketorolac Tromethamine (Toradol) 60 mg IM NOW STA Stop: 11/04/19 01:19 Last Admin: 11/04/19 01:21 Dose: 60 mg Documented by: [id number] Oxycodone/Acetaminophen (Percocet 5mg/325mg) 2 tab PO NOW STA Stop: 11/04/19 01:19 Last Admin: 11/04/19 01:21 Dose: 2 tab Documented by: [id number] Code Status & VTE Plan Code Status Full code VTE Prophylaxis Plan VTE Prophylaxis will be ordered: Yes Supervising Physician Co-Signing Physician Notes Attending addendum: I have physically seen this patient, have supervised the medical residents activ ities, and agree with the H&P unless as otherwise noted. Assessment and Plan: Acute L3 compression fracture/right lower extremity radiculopathy- Status post mechanical fall By tripping over oxygen cord. 66% loss of vertebral body height. Consult orthopedic spine surgery. Acetaminophen 650 mg p.o. every 6 hours as needed mild pain or temperature. Oxycodone 5 mg p.o. every 6 hours PRN moderate pain. Alcohol abuse/tremor- Placed on AWSS plus oral Valium. Remainder of orders and notations as noted. Resident Activity Tracking Resident Involvement: Resident Care Provided Care Provided: Adult Hospital Medicine (1) Compression fracture of L3 vertebra Encounter type: initial encounter Qualified Code(s): S32.030A - Wedge compression fracture of third lumbar vertebra, initial encounter for closed fracture (2) GERD (gastroesophageal reflux disease) Esophagitis presence: esophagitis presence not specified Qualified Code(s): K21.9 - Gastro-esophageal reflux disease without esophagitis
[2019-11-04] MEDS ORDERED: LORazepam 1 MG TAB PO PRN (05:16)
[2019-11-04] MEDS: ALBUT/IPRATROP 3MG/0.5MG NEB 3 ML VIAL INH SCH ×3 (05:37→19:11)
[2019-11-04] MEDS: diazePAM 5 MG TABLET PO SCH ×3 (05:49→21:49)
--- NOTE | 2019-11-04 06:37 | CT Scan Report ---
CT lumbar spine wo con CLINICAL HISTORY: eval for fracture - fall COMPARISON STUDY: CT of the abdomen and pelvis January 22, 2019. TECHNIQUE: Axial images of the lumbar spine were obtained without IV contrast. Sagittal and coronal r econstructions were reviewed. Automated exposure control was utilized for the study. A dose lowering technique was utilized adhering to the principles of ALARA. FINDINGS: For purposes of numbering on this exam, the L5-S1 disc space is assigned to axial image 269 of 303. There is an acute L3 compression fracture with 70% loss of vertebral body height centrally. There is minimal retropulsion. No additional the lumbar spine fractures are noted. There are no osseo us lesions. Central canal is suboptimally assessed by CT. Sacroiliac joints and intact. Multilevel fa cet arthrosis and degenerative disc disease is noted. IMPRESSION: Acute L3 compression fracture with 70% loss of vertebral body height and minimal retropu lsion. ACT 112: Negative or not required by law. Electronically signed by: Jaren Orr M.D. 11/04/2019 6:35 AM
[2019-11-04] MEDS: IPRATROPIUM BROMIDE/ALBUTEROL respimat INH INH SCH ×4 (07:55→20:11)
[2019-11-04] MEDS: THIAMINE HCL 100 MG TAB PO SCH (07:55)
[2019-11-04] MEDS: TIOTROPIUM BROMIDE 5 PUFF/90 MCG INH INH SCH (07:56)
[2019-11-04] MEDS: LIDOCAINE 5% 1 PATCH TD SCH (07:57)
[2019-11-04] MEDS: NYSTATIN SUSP 500,000 U/5 ML UDC PO SCH ×4 (07:57→20:11)
[2019-11-04] MEDS: OXYCODONE HCL IR 5 MG TAB (IMMEDIATE RELEASE) PO PRN ×3 (08:03→21:48)
--- NOTE | 2019-11-04 09:37 | Consultation Report ---
DATE OF CONSULTATION: 11/04/2019 CHIEF COMPLAINT: Back pain. HISTORY OF PRESENT ILLNESS: Tam is delightful. He suffered a fall injury couple days ago. Tripped on an oxygen cord, presented to the Emergency Room via ambulance transport. He is relatively stable today, minimal complaints of pain, some radicular complaints but minimal. Medical history is significant and listed so as the surgical history. REVIEW OF SYSTEMS: Negative for fevers, sweats, chills, no bowel and bladder issues. No pain, cough, sneeze. OBJECTIVE: Examination benign. 5/5 strength, good sensation, motor ability, reflex ability. Decreased range of motion, flexion, extension, some pain with percussion. Images demonstrates an old versus new compression fracture L3. IMPRESSION: L3 compression fracture. PLAN: I have ordered him some physical therapy and a back brace. The back brace may get in the way of his breathing, so that is somewhat optional. He can be discharged home at any time and I will see him back in the office in about 3-4 weeks.
[2019-11-04] MEDS: RIVAROXABAN 20 MG TAB PO SCH (11:25)
[2019-11-04] MEDS: CALCITONIN SALMON NA 200 IU/AC 3.7 ML BTL SCH (11:25)
--- NOTE | 2019-11-04 13:52 | Hospitalist Progress Note ---
Date of Service November 04, 2019 Assessment & Plan (1) Compression fracture of L3 vertebra: s/p mechanical fall CT L-spine noted Ortho plans for brace and f/u outpt in 3-4 weeks Will resume xarelto given no plans for OR Continue with lidoderm, oxy Calcitonin started 11/04 to minimize need for oxy PT recs for rehab on d/c, CM aware OT recs for ongoing care (2) Radicular pain of right lower extremity: Related to above, monitor (3) Essential tremor: Hx of improvement with alcohol is c/w essential tremor Denies hx of medications for this Start propranolol 40mg BID and can be titrated as needed with PCP (4) Hypertension: continue home meds BP has been uncontrolled during admission Monitor with propranolol use as noted below (5) Gait instability: PT/OT as above (6) Dependence on supplemental oxygen: At baseline (7) Nicotine dependence: Nicotine patch (8) Chronic obstructive pulmonary disease: At baseline O2 use (9) Alcohol abuse: Not an every day alcohol user Monitor Valium for prophylaxis, continue (10) History of DVT (deep vein thrombosis): Xarelto held on admission in case of need for OR Resume 11/04 given pt hx of multiple DVTs and no plans for OR (11) GERD (gastroesophageal reflux disease): continue home meds (12) DVT prophylaxis: xarelto as at home Subjective Pt states he is feeling better. States he has not been OOB yet, but the pain to his back and R LE are mostly resolved. He has a slight throbbing in his back. Still with some n/t in the R LE, but improved. Pt denies fever, SOB, chest pain, abd pain, n/v/c/d, LE swelling. He is at his baseline respiratory status. Pt states he always has a tremor at baseline, since at least his 20s. He states that it generally improves after a few drinks. He has never been on medication for this issue that he is aware. When asked about propranolol/imdur, he states that is not familiar to him. He states he drinks up to around 12 beers a day, but not every day. He states that he has days where he drinks much less or even nothing at all. No hx of withdrawal seizures. Denies worsening tremor. Denies anxiety. States that last alcohol was Saturday evening. States he fell over his O2 tubing after getting his feet tangled. Review of Systems Review of Systems: Pertinent positives and negatives reviewed in HPI--all others negative Physical Exam Constitutional: WD/WN, vitals as above Eyes: normal visual nuñez by confrontation and + anicteric sclerae Neck: normal visual inspection and trachea midline Respiratory: normal respiratory effort, lungs clear to auscultation Cardiovascular: Rate/Rhythm: regular rate and regular rhythm Gastrointestinal (Abdomen): Inspection/Auscultation: abdomen not distended Percussion/Palpation: abdomen soft; abdomen nontender Musculoskeletal: Head/Neck/Chest: normocephalic and head atraumatic negative for edema, peripheral pulses intact Skin: no rashes, warm and dry Neurologic: awake; not confused Speech / Cognition: normal speech Psychiatric: A+Ox3, euthymic affect Results & Data Vital Signs (Past 12 Hours) Vital Signs Temp Pulse Pulse Resp BP BP Pulse Ox 11/04/19 13:18 108 H 18 97 11/04/19 11:07 11/04/19 11:00 36.6 C 109 H 20 143/96 H 95 11/04/19 07:17 102 H 11/04/19 07:00 36.5 C 96 H 18 138/89 95 11/04/19 05:54 103 H 11/04/19 05:37 101 H 16 97 11/04/19 05:18 37.3 C 106 H 24 165/90 H 98 11/04/19 04:23 100 H 20 146/83 H 97 11/04/19 03:00 97 H 20 150/82 H 94 11/04/19 02:35 98 H 16 148/93 H 96 Pulse Ox Pulse Ox Pulse Ox Pulse Ox Pulse Ox 11/04/19 13:18 11/04/19 11:07 90 90 11/04/19 11:00 11/04/19 07:17 11/04/19 07:00 11/04/19 05:54 11/04/19 05:37 11/04/19 05:18 11/04/19 04:23 11/04/19 03:00 11/04/19 02:35 86 L 90 99 PG Care Time/CCT Total # of Minutes Spent Total Time Spent with Patient: Total time spent is greater than 50% in coordination of care (as documented) at patient's floor/unit and/or counseling patient: (1) Compression fracture of L3 vertebra Encounter type: initial encounter Qualified Code(s): S32.030A - Wedge compression fracture of third lumbar vertebra, initial encounter for closed fracture (2) GERD (gastroesophageal reflux disease) Esophagitis presence: esophagitis presence not specified Qualified Code(s): K21.9 - Gastro-esophageal reflux disease without esophagitis
[2019-11-04] MEDS: PROPRANOLOL HCL 20 MG TAB PO SCH (20:11)
[2019-11-04] MEDS: PANTOprazole 40 MG TAB PO SCH (20:11)
[2019-11-04] MEDS ORDERED: ONDANSETRON INJ 2 MG/ML 2 ML VIAL IV PRN (21:20)
[2019-11-04] MEDS: ALBUTEROL HFA 8 GM INHALER INH PRN (22:04)
--- NOTE | 2019-11-04 22:47 | XRay Report ---
XR chest 1V portable CLINICAL HISTORY: Shortness of breath. COMPARISON STUDY: Chest CT January 22, 2019. Chest radiograph February 04, 2019. FINDINGS: There is severe emphysema. No pneumothorax or pleural effusion is noted. Cardiomediastinal silhouette is stable. There are innumerable calcified granulomas within the lungs. The appearance of the chest is unchanged. Old bilateral rib fractures are noted. IMPRESSION: 1. No acute findings. 2. Severe emphysema. ACT 112: Negative or not required by law. Electronically signed by: Jaren Orr M.D. 11/04/2019 10:46 PM
[2019-11-05] MEDS: ALBUT/IPRATROP 3MG/0.5MG NEB 3 ML VIAL INH SCH ×4 (00:10→19:14)
[2019-11-05] MEDS: ALBUTEROL HFA 8 GM INHALER INH PRN ×3 (01:40→12:37)
[2019-11-05] MEDS: diazePAM 5 MG TABLET PO SCH ×4 (05:20→23:26)
[2019-11-05] MEDS: LIDOCAINE 5% 1 PATCH TD SCH (07:38)
[2019-11-05] MEDS: FOLIC ACID 1 MG TAB PO SCH (07:41)
[2019-11-05] MEDS: NYSTATIN SUSP 500,000 U/5 ML UDC PO SCH ×4 (07:41→20:27)
[2019-11-05] MEDS: IPRATROPIUM BROMIDE/ALBUTEROL respimat INH INH SCH ×4 (07:41→20:24)
[2019-11-05] MEDS: CALCITONIN SALMON NA 200 IU/AC 3.7 ML BTL SCH (07:42)
[2019-11-05] MEDS: TIOTROPIUM BROMIDE 5 PUFF/90 MCG INH INH SCH (07:43)
[2019-11-05] MEDS: THIAMINE HCL 100 MG TAB PO SCH (07:44)
[2019-11-05] MEDS: PROPRANOLOL HCL 20 MG TAB PO SCH ×2 (07:44→20:26)
[2019-11-05] MEDS: RIVAROXABAN 20 MG TAB PO SCH (07:45)
[2019-11-05 08:17] LABS: Folate (Folic Acid) 11.42 ng/ml (>5.38)
[2019-11-05] MEDS: MAGNESIUM HYDROXIDE SUSP 30 ML UDC PO SCH (12:37)
[2019-11-05] MEDS: SENNA 8.6 MG TAB PO SCH (14:00)
--- NOTE | 2019-11-05 14:17 | Hospitalist Progress Note ---
Date of Service November 05, 2019 Assessment & Plan (1) Compression fracture of L3 vertebra: s/p mechanical fall CT L-spine noted Ortho plans for brace and f/u outpt in 3-4 weeks Will resume xarelto given no plans for OR Continue with lidoderm, oxy Calcitonin started 11/04 to minimize need for oxy PT recs for rehab on d/c, CM aware OT recs for ongoing care Awaiting rehab auth (2) Radicular pain of right lower extremity: Related to above, monitor (3) Essential tremor: Hx of improvement with alcohol is c/w essential tremor Denies hx of medications for this Started propranolol 40mg BID on 11/04 and can be titrated as needed with PCP (4) Constipation: Likely related to new opioid use and decreased activity MOM/senna Hopefully decrease opioid use as well (5) Hypertension: continue home meds BP has been uncontrolled during admission Monitor with propranolol use as noted below (6) Gait instability: PT/OT as above (7) Dependence on supplemental oxygen: At baseline (8) Nicotine dependence: Nicotine patch (9) Chronic obstructive pulmonary disease: At baseline O2 use (10) Alcohol abuse: Not an every day alcohol user Monitor Valium for prophylaxis, continue (11) History of DVT (deep vein thrombosis): Xarelto held on admission in case of need for OR Resume 11/04 given pt hx of multiple DVTs and no plans for OR (12) GERD (gastroesophageal reflux disease): continue home meds (13) DVT prophylaxis: xarelto as at home Subjective Pt states he is feeling better. Pain was better yesterday but had not been OOB yet. Once he was OOB with PT he was noted to have pain that was limiting to ambulation. He notes more improved today, but still limited. No bowel movement since [employer]. Still with some n/t in the R LE, but improved. Pt denies fever, SOB, chest pain, abd pain, n/v, LE swelling. He is at his baseline respiratory status. Tolerating PO without issue. No change in tremor noted. Review of Systems Review of Systems: Pertinent positives and negatives reviewed in HPI--all others negative Physical Exam Constitutional: WD/WN, vitals as above Eyes: normal visual nuñez by confrontation and + anicteric sclerae Neck: normal visual inspection and trachea midline Respiratory: normal respiratory effort, lungs clear to auscultation Cardiovascular: Rate/Rhythm: regular rate and regular rhythm Gastrointestinal (Abdomen): Inspection/Auscultation: + abdomen distended Percussion/Palpation: abdomen soft; abdomen nontender Musculoskeletal: Head/Neck/Chest: normocephalic and head atraumatic Skin: no rashes, warm and dry Neurologic: awake; not confused Speech / Cognition: normal speech Psychiatric: A+Ox3, euthymic affect Results & Data Vital Signs (Past 12 Hours) Vital Signs Temp Pulse Pulse Resp BP Pulse Ox 11/05/19 13:29 89 20 96 11/05/19 11:54 36.7 C 99 H 25 H 119/70 91 11/05/19 07:24 98 H 18 94 11/05/19 07:21 92 H 11/05/19 07:17 36.8 C 98 H 22 119/82 92 11/05/19 03:02 37.6 C H 88 18 139/87 95 PG Care Time/CCT Total # of Minutes Spent Total Time Spent with Patient: Total time spent is greater than 50% in coordination of care (as documented) at patient's floor/unit and/or counseling patient: (1) Compression fracture of L3 vertebra Encounter type: initial encounter Qualified Code(s): S32.030A - Wedge compression fracture of third lumbar vertebra, initial encounter for closed fracture (2) GERD (gastroesophageal reflux disease) Esophagitis presence: esophagitis presence not specified Qualified Code(s): K21.9 - Gastro-esophageal reflux disease without esophagitis
[2019-11-05] MEDS: OXYCODONE HCL IR 5 MG TAB (IMMEDIATE RELEASE) PO PRN (20:26)
[2019-11-05] MEDS: PANTOprazole 40 MG TAB PO SCH (20:27)
[2019-11-06] MEDS: ALBUTEROL HFA 8 GM INHALER INH PRN ×4 (00:10→15:33)
--- NOTE | 2019-11-06 00:42 | Progress Note ---
Date of Service November 06, 2019 For two overnights now I have been notified by the patient's nurse that he has had some relative increased work of breathing along with an increase in his oxygen requirements. Patient has severe COPD but his most recent chest x-ray appears relatively unchanged. On exam last night, patient was not complaining of any particular increased work of breathing. He said that it was mostly postnasal drip. He continues to have okay SpO2 on increasing oxygen requirements. Will defer to the day team if he may benefit from steroids, though he does have his L3 compression fracture. Alex Andrade, PGY3 Overnight call Results & Data Vital Signs (Past 12 Hours) Vital Signs Temp Pulse Pulse Resp BP Pulse Ox 11/06/19 00:27 36.9 C 108 H 20 93 11/06/19 00:15 36.8 C 97 H 20 106/74 91 11/05/19 23:00 91 H 11/05/19 19:52 36.6 C 97 H 20 114/77 90 11/05/19 19:14 96 H 18 98 11/05/19 16:19 102 H 109/73 91 11/05/19 16:10 97 H 11/05/19 14:55 36.8 C 92 H 20 89 L 11/05/19 13:29 89 20 96
[2019-11-06] MEDS: ALBUT/IPRATROP 3MG/0.5MG NEB 3 ML VIAL INH SCH ×4 (01:29→19:50)
--- NOTE | 2019-11-06 06:51 | Billing Data ---
Date of Service November 06, 2019 Coding Level of Care Code 72769 Initial Inpt Care Lvl 3
[2019-11-06] MEDS: RIVAROXABAN 20 MG TAB PO SCH (08:38)
[2019-11-06] MEDS: CALCITONIN SALMON NA 200 IU/AC 3.7 ML BTL SCH (08:38)
[2019-11-06] MEDS: SENNA 8.6 MG TAB PO SCH (08:39)
[2019-11-06] MEDS: THIAMINE HCL 100 MG TAB PO SCH (08:39)
[2019-11-06] MEDS: LIDOCAINE 5% 1 PATCH TD SCH (08:39)
[2019-11-06] MEDS: PROPRANOLOL HCL 20 MG TAB PO SCH ×2 (08:40→20:30)
[2019-11-06] MEDS: IPRATROPIUM BROMIDE/ALBUTEROL respimat INH INH SCH ×4 (08:40→20:30)
[2019-11-06] MEDS: FOLIC ACID 1 MG TAB PO SCH (08:40)
[2019-11-06] MEDS: NYSTATIN SUSP 500,000 U/5 ML UDC PO SCH ×4 (08:40→20:30)
[2019-11-06] MEDS: TIOTROPIUM BROMIDE 5 PUFF/90 MCG INH INH SCH (08:41)
[2019-11-06] MEDS: OXYCODONE HCL IR 5 MG TAB (IMMEDIATE RELEASE) PO PRN ×2 (08:43→18:55)
[2019-11-06] MEDS: MAGNESIUM HYDROXIDE SUSP 30 ML UDC PO SCH (08:43)
--- NOTE | 2019-11-06 15:23 | Hospitalist Progress Note ---
Date of Service November 06, 2019 Assessment & Plan (1) Compression fracture of L3 vertebra: s/p mechanical fall CT L-spine noted Ortho plans for brace and f/u outpt in 3-4 weeks Will resume xarelto given no plans for OR Continue with lidoderm, oxy Calcitonin started 11/04 to minimize need for oxy PT recs for rehab on d/c, CM aware OT recs for ongoing care Awaiting rehab auth Denied for [facility], awaiting open bed with [facility] (2) Radicular pain of right lower extremity: Related to above, monitor (3) Alcohol abuse: Not an every day alcohol user Monitor Valium for prophylaxis, continue (4) Resting tremor: Added propranolol on 11/04 for sx c/w essential tremor (5) Hypertension: continue home meds BP had been uncontrolled initially during admission, much better s/p addition of propranolol (6) Chronic obstructive pulmonary disease: At baseline O2 use (7) Hypoxia: (8) Nicotine dependence: Nicotine patch (9) GERD (gastroesophageal reflux disease): continue home meds (10) History of DVT (deep vein thrombosis): Xarelto held on admission in case of need for OR Resume 11/04 given pt hx of multiple DVTs and no plans for OR Subjective Pt with more improved pain today, but still limited with ambulation. Small bowel movement, still feels constipated. Still with some n/t in the R LE, but impro ving. Pt denies fever, SOB, chest pain, abd pain, n/v, LE swelling. He is at his baseline respiratory status. Tolerating PO without issue. Review of Systems Review of Systems: Pertinent positives and negatives reviewed in HPI--all others negative Physical Exam Constitutional: WD/WN, vitals as above Eyes: normal visual nuñez by confrontation and + anicteric sclerae Neck: normal visual inspection and trachea midline Respiratory: normal respiratory effort, lungs clear to auscultation Cardiovascular: Rate/Rhythm: regular rate and regular rhythm Gastrointestinal (Abdomen): Inspection/Auscultation: + abdomen distended Percussion/Palpation: abdomen soft; abdomen nontender Musculoskeletal: Head/Neck/Chest: normocephalic and head atraumatic neg LE edema Skin: no rashes, warm and dry Neurologic: awake; not confused Speech / Cognition: normal speech Psychiatric: A+Ox3, euthymic affect Results & Data Vital Signs (Past 12 Hours) Vital Signs Temp Pulse Pulse Resp BP BP Pulse Ox 11/06/19 15:16 98 H 11/06/19 11:47 36.7 C 106 H 22 115/75 98 11/06/19 07:14 108 H 11/06/19 07:11 37.1 C 104 H 22 114/69 92 11/06/19 07:00 104 H 18 96 11/06/19 05:46 90 11/06/19 04:10 36.8 C 98 H 20 119/78 91 11/06/19 03:59 90 PG Care Time/CCT Total # of Minutes Spent Total Time Spent with Patient: Total time spent is greater than 50% in coordination of care (as documented) at patient's floor/unit and/or counseling patient: (1) Compression fracture of L3 vertebra Encounter type: initial encounter Qualified Code(s): S32.030A - Wedge compression fracture of third lumbar vertebra, initial encounter for closed fracture (2) GERD (gastroesophageal reflux disease) Esophagitis presence: esophagitis presence not specified Qualified Code(s): K21.9 - Gastro-esophageal reflux disease without esophagitis
[2019-11-06] MEDS: PANTOprazole 40 MG TAB PO SCH (20:31)
[2019-11-07] MEDS: ALBUT/IPRATROP 3MG/0.5MG NEB 3 ML VIAL INH SCH ×3 (00:46→13:51)
[2019-11-07 06:41] LABS: Creatinine Clr Calc Pharmacy 101.4 ml/min; Est GFR (African American) 97.3; Est GFR (Non-African American) 83.9
[2019-11-07] MEDS: FOLIC ACID 1 MG TAB PO SCH (08:31)
[2019-11-07] MEDS: IPRATROPIUM BROMIDE/ALBUTEROL respimat INH INH SCH ×4 (08:31→20:18)
[2019-11-07] MEDS: THIAMINE HCL 100 MG TAB PO SCH (08:32)
[2019-11-07] MEDS: PROPRANOLOL HCL 20 MG TAB PO SCH ×2 (08:32→20:18)
[2019-11-07] MEDS: SENNA 8.6 MG TAB PO SCH (08:32)
[2019-11-07] MEDS: TIOTROPIUM BROMIDE 5 PUFF/90 MCG INH INH SCH (08:33)
[2019-11-07] MEDS: LIDOCAINE 5% 1 PATCH TD SCH (08:33)
[2019-11-07] MEDS: CALCITONIN SALMON NA 200 IU/AC 3.7 ML BTL SCH (08:33)
[2019-11-07] MEDS: NYSTATIN SUSP 500,000 U/5 ML UDC PO SCH ×4 (08:33→20:18)
[2019-11-07] MEDS: RIVAROXABAN 20 MG TAB PO SCH (08:38)
[2019-11-07] MEDS: OXYCODONE HCL IR 5 MG TAB (IMMEDIATE RELEASE) PO PRN (08:40)
[2019-11-07] MEDS: MAGNESIUM HYDROXIDE SUSP 30 ML UDC PO SCH (08:40)
[2019-11-07] MEDS: POLYETHYLENE (MIRALAX) 17 GM PACK PO SCH (15:39)
--- NOTE | 2019-11-07 16:57 | Hospitalist Progress Note ---
Date of Service November 07, 2019 Assessment & Plan (1) Compression fracture of L3 vertebra: s/p mechanical fall CT L-spine noted Ortho plans for brace and f/u outpt in 3-4 weeks Continue with lidoderm, oxy, pain is minimized Calcitonin started 11/04 to minimize need for oxy PT recs for rehab on d/c, CM aware OT recs for ongoing care bed may be available on Saturday at [facility], patient medically ready for discharge (2) Radicular pain of right lower extremity: Related to above resolved today (3) Alcohol abuse: Not an every day alcohol user Valium for prophylaxis, continue no signs of withdrawal (4) Resting tremor: Added propranolol on 11/04 for sx c/w essential tremor working well (5) Hypertension: continue home meds BP had been uncontrolled initially during admission, much better s/p addition of propranolol (6) Chronic obstructive pulmonary disease: At baseline O2 use (7) Hypoxia: (8) Nicotine dependence: Nicotine patch (9) GERD (gastroesophageal reflux disease): continue home meds (10) History of DVT (deep vein thrombosis): Xarelto held on admission in case of need for OR Resume 11/04 given pt hx of multiple DVTs and no plans for OR (11) Constipation: start on Miralax daily today abdomen slightly distended Subjective patient reports pain is controlled when sitting and sleeping has some pain with movement, standing but it is tolerable eating well, no BM for a few days, abdomen feels a little distended, no nausea/vomiting no chest pain, no dyspnea discussed plans for discharge to [facility] [place] on Saturday, he agrees to the plan Review of Systems Review of Systems: All systems reviewed & are unremarkable except as noted in HPI & below Respiratory: no cough, no dyspnea and no wheezing Cardiovascular: no chest pain and no edema Gastrointestinal: + bloating and + constipation; no abdominal pain, no nausea, no vomiting and no diarrhea/loose stools Musculoskeletal: + back pain (low back pain) Physical Exam Constitutional: WD/WN, vitals as above Eyes: PERRL, conjunctivae normal, anicteric sclerae ENMT: external ear and nose normal, oropharynx normal Neck: trachea midline, no thyromegaly Respiratory: normal respiratory effort, lungs clear to auscultation Cardiovascular: RRR, no murmur, no edema Gastrointestinal (Abdomen): Inspection/Auscultation: + abdomen distended and + hypoactive bowel sounds Percussion/Palpation: abdomen soft; abdomen nontender, no guarding and abdomen not rigid Musculoskeletal: no cyanosis or clubbing, extremities motor strength 5/5 Spine: + pain with thoraco-lumbar ROM and + lumbar spinal tenderness Skin: no rashes, warm and dry Neurologic: patellar DTR's 2+ bilat, sensation intact and PERRL, EOMI, accommodation nl, no face palsy, no dysarthria Psychiatric: A+Ox3, euthymic affect Lymphatic: no cervical or axillary lymphadenopathy Results & Data Vital Signs (Past 12 Hours) Vital Signs Temp Pulse Pulse Pulse Resp BP BP 11/07/19 15:10 86 11/07/19 15:00 36.9 C 88 20 128/79 11/07/19 13:51 94 H 18 11/07/19 11:37 36.6 C 87 18 105/73 11/07/19 08:12 36.7 C 87 16 118/91 11/07/19 07:26 91 H 11/07/19 07:15 93 H 16 Pulse Ox 11/07/19 15:10 11/07/19 15:00 90 11/07/19 13:51 94 11/07/19 11:37 99 11/07/19 08:12 96 11/07/19 07:26 11/07/19 07:15 96 Laboratory Results Laboratory Results - last 24 hr 11/07/19 05:27 Creatinine 1.01 Est Cr Clr Drug Dosing 101.4 Est GFR ( Amer) 97.3 Est GFR (Non-Af Amer) 83.9 Medications Administered Current Inpatient Medications Acetaminophen (Tylenol) 650 mg PO Q4H PRN PRN Reason: Pain or Fever Stop: 12/04/19 05:15 Albuterol (Ventolin Hfa) 1 puffs INH Q4H PRN PRN Reason: Shortness Of Breath Or Wheezing Stop: 12/04/19 05:23 Last Admin: 11/06/19 15:33 Dose: 1 puffs Documented by: Albuterol (Combivent Respimat) 1 puffs INH QID [facility] Stop: 12/04/19 08:59 Last Admin: 11/07/19 20:18 Dose: 1 puffs Documented by: Calcitonin [place] (Fortical) 1 sprays NA DAILY [facility] Stop: 12/04/19 10:14 Last Admin: 11/07/19 08:33 Dose: 1 sprays Documented by: Folic Acid (Folvite) 1 mg PO QAM [facility] Stop: 12/05/19 08:59 Last Admin: 11/07/19 08:31 Dose: 1 mg Documented by: Lidocaine (Lidoderm 5%) 1 patch TD QAM [facility] Stop: 12/04/19 08:59 Last Admin: 11/07/19 08:33 Dose: 1 patch Documented by: Lorazepam (Ativan) 1 mg PO ONE PRN; Protocol PRN Reason: EtoH Withdrawal AWSS 6-10 Magnesium Hydroxide (Milk Of Magnesia) 30 ml PO DAILY [facility] Stop: 12/05/19 12:14 Last Admin: 11/07/19 08:40 Dose: 30 ml Documented by: Miscellaneous (Order Awaiting Action) 1 ea N/A QS [facility] Stop: 12/04/19 07:59 Last Admin: 11/07/19 15:33 Dose: Not Given Documented by: Miscellaneous (Remove Lidoderm Patch) 1 ea N/A DAILY@2100 [facility] Stop: 12/04/19 20:59 Last Admin: 11/07/19 20:18 Dose: 1 ea Documented by: Nystatin (Mycostatin) 5 ml PO QID [facility] Stop: 11/14/19 08:59 Last Admin: 11/07/19 20:18 Dose: 5 ml Documented by: Ondansetron HCl (Zofran) 4 mg IV Q4H PRN PRN Reason: Nausea Stop: 12/04/19 21:19 Last Admin: 11/04/19 21:29 Dose: 4 mg Documented by: Oxycodone HCl (Roxicodone Immediate Rel) 5 mg PO Q6H PRN PRN Reason: Moderate Pain Stop: 11/18/19 05:15 Last Admin: 11/07/19 08:40 Dose: 5 mg Documented by: Pantoprazole Sodium (Protonix) 40 mg PO QPM [facility] Stop: 12/04/19 20:59 Last Admin: 11/07/19 20:18 Dose: 40 mg Documented by: Polyethylene Glycol (Miralax Powder Packet) 17 gm PO DAILY [facility] Stop: 12/07/19 14:44 Last Admin: 11/07/19 15:39 Dose: 17 gm Documented by: Propranolol HCl (Inderal) 40 mg PO BID [facility] Stop: 12/04/19 20:59 Last Admin: 11/07/19 20:18 Dose: 40 mg Documented by: Rivaroxaban (Xarelto) 20 mg PO DAILY [facility] Stop: 12/04/19 10:14 Last Admin: 11/07/19 08:38 Dose: 20 mg Documented by: Sennosides (Senokot) 8.6 mg PO QAM [facility] Stop: 12/05/19 12:14 Last Admin: 11/07/19 08:32 Dose: 8.6 mg Documented by: Thiamine HCl (Vitamin B-1) 100 mg PO QAM [facility] Stop: 12/04/19 08:59 Last Admin: 11/07/19 08:32 Dose: 100 mg Documented by: Tiotropium [place] (Spiriva) 1 puffs INH DAILY [facility] Stop: 12/04/19 08:59 Last Admin: 11/07/19 08:33 Dose: 1 puffs Documented by: PG Care Time/CCT Total # of Minutes Spent Total Time Spent with Patient: Total time spent is greater than 50% in coordination of care (as documented) at patient's floor/unit and/or counseling patient: (1) Compression fracture of L3 vertebra Encounter type: initial encounter Qualified Code(s): S32.030A - Wedge compression fracture of third lumbar vertebra, initial encounter for closed fracture (2) GERD (gastroesophageal reflux disease) Esophagitis presence: esophagitis presence not specified Qualified Code(s): K21.9 - Gastro-esophageal reflux disease without esophagitis
[2019-11-07] MEDS: PANTOprazole 40 MG TAB PO SCH (20:18)
[2019-11-08] MEDS: OXYCODONE HCL IR 5 MG TAB (IMMEDIATE RELEASE) PO PRN (07:45)
[2019-11-08] MEDS: IPRATROPIUM BROMIDE/ALBUTEROL respimat INH INH SCH ×4 (08:36→20:40)
[2019-11-08] MEDS: TIOTROPIUM BROMIDE 5 PUFF/90 MCG INH INH SCH (08:37)
[2019-11-08] MEDS: CALCITONIN SALMON NA 200 IU/AC 3.7 ML BTL SCH (08:37)
[2019-11-08] MEDS: PROPRANOLOL HCL 20 MG TAB PO SCH ×2 (08:37→20:40)
[2019-11-08] MEDS: POLYETHYLENE (MIRALAX) 17 GM PACK PO SCH (08:39)
[2019-11-08] MEDS: RIVAROXABAN 20 MG TAB PO SCH (08:39)
[2019-11-08] MEDS: NYSTATIN SUSP 500,000 U/5 ML UDC PO SCH ×4 (08:39→20:40)
[2019-11-08] MEDS: FOLIC ACID 1 MG TAB PO SCH (08:39)
[2019-11-08] MEDS: SENNA 8.6 MG TAB PO SCH (08:39)
[2019-11-08] MEDS: LIDOCAINE 5% 1 PATCH TD SCH (08:40)
[2019-11-08] MEDS: THIAMINE HCL 100 MG TAB PO SCH (08:40)
[2019-11-08] MEDS: MAGNESIUM HYDROXIDE SUSP 30 ML UDC PO SCH (08:45)
--- NOTE | 2019-11-08 12:07 | Hospitalist Progress Note ---
Date of Service November 08, 2019 Assessment & Plan (1) Compression fracture of L3 vertebra: s/p mechanical fall CT L-spine noted Ortho plans for brace and f/u outpt in 3-4 weeks Continue with lidoderm, oxy, pain is minimized Calcitonin started 11/04 to minimize need for oxy, doing well PT recs for rehab on d/c, CM aware OT recs for ongoing care bed may be available on Saturday at [facility], patient medically ready for discharge if bed available (2) Radicular pain of right lower extremity: Related to above resolved for two days (3) Alcohol abuse: Not an every day alcohol user Valium for prophylaxis, continue no signs of withdrawal today (4) Resting tremor: Added propranolol on 11/04 for sx c/w essential tremor working well continue on discharge (5) Hypertension: continue home meds BP had been uncontrolled initially during admission, much better s/p addition of propranolol 138/80 this evening (6) Chronic obstructive pulmonary disease: At baseline O2 use (7) Hypoxia: Chronic hypoxic respiratory failure, on oxygen 24 hours a day (8) Nicotine dependence: Nicotine patch (9) GERD (gastroesophageal reflux disease): continue home meds (10) History of DVT (deep vein thrombosis): Xarelto held on admission in case of need for OR Resume 11/04 given pt hx of multiple DVTs and no plans for OR (11) Constipation: start on Miralax daily 11/07 abdomen slightly distended still today look for BM tomorrow Subjective no issues today eating okay sleeping well, ambulating to the restroom with assistance pain well controlled with oral pain medications still no BM today breathing is stable Review of Systems Review of Systems: All systems reviewed & are unremarkable except as noted in HPI & below Gastrointestinal: + constipation; no abdominal pain, no nausea, no vomiting and no diarrhea/loose stools Musculoskeletal: + back pain (low back pain from fracture) Physical Exam Constitutional: WD/WN, vitals as above Eyes: PERRL, conjunctivae normal, anicteric sclerae ENMT: external ear and nose normal, oropharynx normal Neck: trachea midline, no thyromegaly Respiratory: normal respiratory effort, lungs clear to auscultation Cardiovascular: RRR, no murmur, no edema Gastrointestinal (Abdomen): Inspection/Auscultation: + abdomen distended and + hypoactive bowel sounds Percussion/Palpation: abdomen soft; abdomen nontender, no guarding and abdomen not rigid Musculoskeletal: no cyanosis or clubbing, extremities motor strength 5/5 Spine: + pain with thoraco-lumbar ROM and + lumbar spinal tenderness Skin: no rashes, warm and dry Neurologic: patellar DTR's 2+ bilat, sensation intact and PERRL, EOMI, accommodation nl, no face palsy, no dysarthria Psychiatric: A+Ox3, euthymic affect Lymphatic: no cervical or axillary lymphadenopathy Results & Data Vital Signs (Past 12 Hours) Vital Signs Temp Pulse Pulse Resp BP Pulse Ox 11/08/19 11:00 36.9 C 89 18 148/93 H 100 11/08/19 08:02 93 H 11/08/19 07:00 36.6 C 93 H 18 144/88 H 97 11/08/19 06:32 92 11/08/19 03:39 36.5 C 91 H 18 114/66 94 Medications Administered Current Inpatient Medications Acetaminophen (Tylenol) 650 mg PO Q4H PRN PRN Reason: Pain or Fever Stop: 12/04/19 05:15 Albuterol (Ventolin Hfa) 1 puffs INH Q4H PRN PRN Reason: Shortness Of Breath Or Wheezing Stop: 12/04/19 05:23 Last Admin: 11/06/19 15:33 Dose: 1 puffs Documented by: Albuterol (Combivent Respimat) 1 puffs INH QID [facility] Stop: 12/04/19 08:59 Last Admin: 11/08/19 20:40 Dose: 1 puffs Documented by: Calcitonin [place] (Fortical) 1 sprays NA DAILY [facility] Stop: 12/04/19 10:14 Last Admin: 11/08/19 08:37 Dose: 1 sprays Documented by: Folic Acid (Folvite) 1 mg PO QAM [facility] Stop: 12/05/19 08:59 Last Admin: 11/08/19 08:39 Dose: 1 mg Documented by: Lidocaine (Lidoderm 5%) 1 patch TD QAM [facility] Stop: 12/04/19 08:59 Last Admin: 11/08/19 08:40 Dose: 1 patch Documented by: Lorazepam (Ativan) 1 mg PO ONE PRN; Protocol PRN Reason: EtoH Withdrawal AWSS 6-10 Magnesium Hydroxide (Milk Of Magnesia) 30 ml PO DAILY [facility] Stop: 12/05/19 12:14 Last Admin: 11/08/19 08:45 Dose: 30 ml Documented by: Miscellaneous (Order Awaiting Action) 1 ea N/A QS [facility] Stop: 12/04/19 07:59 Last Admin: 11/08/19 15:41 Dose: Not Given Documented by: Miscellaneous (Remove Lidoderm Patch) 1 ea N/A DAILY@2100 [facility] Stop: 12/04/19 20:59 Last Admin: 11/08/19 20:41 Dose: 1 ea Documented by: Nystatin (Mycostatin) 5 ml PO QID [facility] Stop: 11/14/19 08:59 Last Admin: 11/08/19 20:40 Dose: 5 ml Documented by: Ondansetron HCl (Zofran) 4 mg IV Q4H PRN PRN Reason: Nausea Stop: 12/04/19 21:19 Last Admin: 11/04/19 21:29 Dose: 4 mg Documented by: Oxycodone HCl (Roxicodone Immediate Rel) 5 mg PO Q6H PRN PRN Reason: Moderate Pain Stop: 11/18/19 05:15 Last Admin: 11/08/19 07:45 Dose: 5 mg Documented by: Pantoprazole Sodium (Protonix) 40 mg PO QPM [facility] Stop: 12/04/19 20:59 Last Admin: 11/08/19 20:41 Dose: 40 mg Documented by: Polyethylene Glycol (Miralax Powder Packet) 17 gm PO DAILY [facility] Stop: 12/07/19 14:44 Last Admin: 11/08/19 08:39 Dose: 17 gm Documented by: Propranolol HCl (Inderal) 40 mg PO BID [facility] Stop: 12/04/19 20:59 Last Admin: 11/08/19 20:40 Dose: 40 mg Documented by: Rivaroxaban (Xarelto) 20 mg PO DAILY [facility] Stop: 12/04/19 10:14 Last Admin: 11/08/19 08:39 Dose: 20 mg Documented by: Sennosides (Senokot) 8.6 mg PO QAM [facility] Stop: 12/05/19 12:14 Last Admin: 11/08/19 08:39 Dose: 8.6 mg Documented by: Thiamine HCl (Vitamin B-1) 100 mg PO QAM [facility] Stop: 12/04/19 08:59 Last Admin: 11/08/19 08:40 Dose: 100 mg Documented by: Tiotropium [place] (Spiriva) 1 puffs INH DAILY [facility] Stop: 12/04/19 08:59 Last Admin: 11/08/19 08:37 Dose: 1 puffs Documented by: PG Care Time/CCT Total # of Minutes Spent Total Time Spent with Patient: Total time spent is greater than 50% in coordination of care (as documented) at patient's floor/unit and/or counseling patient: (1) Compression fracture of L3 vertebra Encounter type: initial encounter Qualified Code(s): S32.030A - Wedge com pression fracture of third lumbar vertebra, initial encounter for closed fracture (2) GERD (gastroesophageal reflux disease) Esophagitis presence: esophagitis presence not specified Qualified Code(s): K21.9 - Gastro-esophageal reflux disease without esophagitis
[2019-11-08] MEDS: PANTOprazole 40 MG TAB PO SCH (20:41)
[2019-11-09] MEDS: OXYCODONE HCL IR 5 MG TAB (IMMEDIATE RELEASE) PO PRN ×2 (02:44→17:38)
[2019-11-09] MEDS: FOLIC ACID 1 MG TAB PO SCH (08:20)
[2019-11-09] MEDS: NYSTATIN SUSP 500,000 U/5 ML UDC PO SCH ×4 (08:20→20:24)
[2019-11-09] MEDS: IPRATROPIUM BROMIDE/ALBUTEROL respimat INH INH SCH ×4 (08:20→20:24)
[2019-11-09] MEDS: RIVAROXABAN 20 MG TAB PO SCH (08:20)
[2019-11-09] MEDS: CALCITONIN SALMON NA 200 IU/AC 3.7 ML BTL SCH (08:20)
[2019-11-09] MEDS: SENNA 8.6 MG TAB PO SCH (08:20)
[2019-11-09] MEDS: PROPRANOLOL HCL 20 MG TAB PO SCH ×2 (08:20→20:25)
[2019-11-09] MEDS: THIAMINE HCL 100 MG TAB PO SCH (08:20)
[2019-11-09] MEDS: LIDOCAINE 5% 1 PATCH TD SCH (08:21)
[2019-11-09] MEDS: POLYETHYLENE (MIRALAX) 17 GM PACK PO SCH (08:21)
[2019-11-09] MEDS: MAGNESIUM HYDROXIDE SUSP 30 ML UDC PO SCH (08:22)
[2019-11-09] MEDS ORDERED: LACTULOSE SYRUP 20 GM/30 ML UDC PO PRN (08:29)
[2019-11-09] MEDS: TIOTROPIUM BROMIDE 5 PUFF/90 MCG INH INH SCH (09:03)
[2019-11-09] MEDS: PANTOprazole 40 MG TAB PO SCH (20:25)
--- NOTE | 2019-11-09 20:28 | XRay Report ---
KUB CLINICAL HISTORY: Abdominal distention. COMPARISON STUDY: CT of the abdomen and pelvis January 22, 2019. FINDINGS: Marked colonic distention is noted. Cecum measures up to 11.1 cm in caliber. There is moder ate small bowel dilatation. Small bowel measure up to 4.7 cm in caliber. Sensitivity for detection of free air is diminished on this supine exam but there is no convincing evidence for free air. Old juan pablo ateral lower rib fractures are noted. IMPRESSION: Moderate to marked gaseous distention of small and large bowel. The findings may reflect an ileus however a distal colonic obstruction such as volvulus cannot be excluded. CT of the abdomen and pelvis could be obtained for further evaluation as indicated. Findings will be called/faxed to e ordering provider at time of dictation. ACT 112: Negative or not required by law. Electronically signed by: Jaren Orr M.D. 11/09/2019 8:26 PM
--- NOTE | 2019-11-09 21:11 | Communication Note ---
Date of Service: November 09, 2019 KUB resulted - shows ileus vs obstruction - CT abd/pelv recommended. I have ordered this and made pt NPO with sips. IVF at maintenance ordered (no h/o CHF). Pt finished dinner with no emesis, will hold off on placing NGT. Lo Aguilera MD PGY3
[2019-11-09] MEDS ORDERED: IOVERSOL 100ml IV PRN (21:30)
--- NOTE | 2019-11-09 22:14 | CT Scan Report ---
CT OF THE ABDOMEN AND PELVIS WITH CONTRAST CLINICAL HISTORY: ileus COMPARISON STUDY: CT of the abdomen and pelvis January 22, 2019. KUB performed earlier today. TECHNIQUE: Following IV administration of 94 mL of Optiray-320, axial images of the abdomen and pelvi s were obtained from the lung bases to the proximal femurs. Images were reviewed in the axial, sagitt al, and coronal planes. IV contrast was administered without complication. Automated exposure contro l was utilized for the study. A dose lowering technique was utilized adhering to the principles of A KATHY. CT DOSE: 935.60 mGy.cm FINDINGS: A few left lower lobe nodular opacities measure up to 1 cm. These are probably benign and f avor a minimal infectious process. There is emphysema. Minimal lingular opacity is partially imaged. A small hiatal hernia is noted. There calcified granulomas within the spleen. There is probable fatty infiltration of the liver. Adrenal glands, kidneys and pancreas are normal. There is no biliary or p ancreatic ductal dilatation. There is no hydronephrosis. Left renal cyst is noted. No pneumatosis, fr ee air or portal venous gas is present. There is marked distention of the cecum which measures up to 12.4 cm in caliber. There is moderate distention of the remainder of the colon. Small bowel is mildly dilated. No definite transition point is identified. There is no evidence for a volvulus. There is t race mesenteric infiltration and ascites. A severe L3 compression fracture is again noted. Vertebral body height loss has increased since CT of November 04, 2019. The appendix is normal. IMPRESSION: 1. Marked distention of the cecum, measuring up to 12.4 cm in caliber. Moderate distention of the rem ainder of the colon with mild small bowel dilatation. The findings favor an ileus. No transition poin t identified. Trace associated ascites and mesenteric infiltration. No pneumatosis, free air or juju l venous gas. 3. Severe L3 compression fracture with interval loss of vertebral body height since CT of October. ACT 112: Negative or not required by law. Electronically signed by: Jaren Orr M.D. 11/09/2019 10:13 PM
[2019-11-09] MEDS: D5W AND 1/2NSS + 20MEQ KCL 20 MEQ/1,000 ML BAG IV SCH (22:43)
--- NOTE | 2019-11-09 22:49 | Hospitalist Progress Note ---
Date of Service November 09, 2019 Assessment & Plan (1) Compression fracture of L3 vertebra: s/p mechanical fall CT L-spine noted Ortho plans for brace and f/u outpt in 3-4 weeks Continue with lidoderm, oxy, pain is minimized Calcitonin started 11/04 to minimize need for oxy, doing well PT recs for rehab on d/c, CM aware OT recs for ongoing care bed not available as need repeat OT/PT notes (2) Radicular pain of right lower extremity: Related to above resolved for two days (3) Alcohol abuse: Not an every day alcohol user Valium for prophylaxis, continue no signs of withdrawal today (4) Resting tremor: Added propranolol on 11/04 for sx c/w essential tremor working well continue on discharge (5) Hypertension: continue home meds BP had been uncontrolled initially during admission, much better s/p addition of propranolol (6) Chronic obstructive pulmonary disease: At baseline O2 use (7) Hypoxia: Chronic hypoxic respiratory failure, on oxygen 24 hours a day (8) Nicotine dependence: Nicotine patch (9) GERD (gastroesophageal reflux disease): continue home meds (10) History of DVT (deep vein thrombosis): Xarelto held on admission in case of need for OR Resume 11/04 given pt hx of multiple DVTs and no plans for OR (11) Constipation: start on Miralax daily 11/07 abdomen continues to be very distended. will place on lactulose and order KUB. Subjective Patient reports having pain but it is better controlled. Patient denies any new complaints. He reports having a bowel movement yesterday. Review of Systems Review of Systems: All systems reviewed & are unremarkable except as noted in HPI & below Physical Exam Physical Exam: Constitutional: WD/WN, vitals as above Eyes: PERRL, conjunctivae normal, anicteric sclerae ENMT: external ear and nose normal, oropharynx normal Neck: trachea midline, no thyromegaly Respiratory: normal respiratory effort, lungs clear to auscultation Cardiovascular: RRR, no murmur, no edema Gastrointestinal (Abdomen): Inspection/Auscultation: + abdomen distended and + hypoactive bowel sounds Percussion/Palpation: abdomen soft but distended, abdomen nontender, no guarding and abdomen not rigid Musculoskeletal: no cyanosis or clubbing, extremities motor strength 5/5 Spine: + pain with thoraco-lumbar ROM and + lumbar spinal tenderness Skin: no rashes, warm and dry Neurologic: patellar DTR's 2+ bilat, sensation intact and PERRL, EOMI, accommodation nl, no face palsy, no dysarthria Psychiatric: A+Ox3, euthymic affect Lymphatic: no cervical or axillary lymphadenopathy Results & Data Vital Signs (Past 12 Hours) Vital Signs Temp Pulse Pulse Resp BP Pulse Ox 11/09/19 19:53 36.2 C L 76 20 142/90 H 93 11/09/19 16:19 72 11/09/19 14:49 36.8 C 70 18 145/94 H 97 11/09/19 13:22 90 11/09/19 10:55 36.7 C 85 18 148/88 H 97 PG Care Time/CCT Total # of Minutes Spent Total Time Spent with Patient: Total time spent is greater than 50% in coordination of care (as documented) at patient's floor/unit and/or counseling patient: (1) Compression fracture of L3 vertebra Encounter type: initial encounter Qualified Code(s): S32.030A - Wedge compression fracture of third lumbar vertebra, initial encounter for closed fracture (2) GERD (gastroesophageal reflux disease) Esophagitis presence: esophagitis presence not specified Qualified Code(s): K21.9 - Gastro-esophageal reflux disease without esophagitis
[2019-11-10] MEDS: ALBUTEROL HFA 8 GM INHALER INH PRN ×3 (00:19→18:00)
[2019-11-10] MEDS ORDERED: ALBUT/IPRATROP 3MG/0.5MG NEB 3 ML VIAL NEB STA ×2 (01:43→13:16)
[2019-11-10] MEDS: D5W AND 1/2NSS + 20MEQ KCL 20 MEQ/1,000 ML BAG IV SCH ×2 (05:20→13:04)
[2019-11-10] MEDS: OXYCODONE HCL IR 5 MG TAB (IMMEDIATE RELEASE) PO PRN ×2 (05:20→12:09)
[2019-11-10 07:52] LABS: Creatinine Clr Calc Pharmacy 186.6 ml/min; Est GFR (African American) 136.9; Est GFR (Non-African American) 118.1
[2019-11-10] MEDS: LIDOCAINE 5% 1 PATCH TD SCH (08:56)
[2019-11-10] MEDS: PROPRANOLOL HCL 20 MG TAB PO SCH ×2 (08:56→20:08)
[2019-11-10] MEDS: TIOTROPIUM BROMIDE 5 PUFF/90 MCG INH INH SCH (08:57)
[2019-11-10] MEDS: THIAMINE HCL 100 MG TAB PO SCH (08:57)
[2019-11-10] MEDS: SENNA 8.6 MG TAB PO SCH (08:58)
[2019-11-10] MEDS: IPRATROPIUM BROMIDE/ALBUTEROL respimat INH INH SCH ×4 (08:58→20:08)
[2019-11-10] MEDS: NYSTATIN SUSP 500,000 U/5 ML UDC PO SCH ×4 (08:58→20:08)
[2019-11-10] MEDS: RIVAROXABAN 20 MG TAB PO SCH (08:59)
[2019-11-10] MEDS: POLYETHYLENE (MIRALAX) 17 GM PACK PO SCH (08:59)
[2019-11-10] MEDS: CALCITONIN SALMON NA 200 IU/AC 3.7 ML BTL SCH (08:59)
[2019-11-10] MEDS: FOLIC ACID 1 MG TAB PO SCH (08:59)
[2019-11-10] MEDS: MAGNESIUM HYDROXIDE SUSP 30 ML UDC PO SCH (09:02)
--- NOTE | 2019-11-10 10:00 | Surgery Consultation ---
Date of Consultation November 10, 2019 Assessment & Plan (1) Ileus: This is a 53y M who was admitted to the hospital with an L3 fracture who developed abdominal distention and pain over the past couple days. Imaging revealed marked distention of the cecum, measuring up to 12.4 cm in caliber, moderate distention of the remainder of the colon with mild small bowel dilatation, favoring an ileus. Before being made NPO patient has been tolerating a diet without nausea/vomiting, but abdominal distention has increased and he's been having issues with constipation. At this time would first recommend an evaluation by Gastroenterology Service. It does not appear that the patient has used excessive narcotics. We will continue to monitor the patient, but no indication for acute surgical intervention at this time. as above. no pain or nausea currently but is distended. will follow KUB to ensure cecum doesn't get over 15 cm would keep npo and try and limit narcotics will follow along History of Present Illness Attending Physician: Luis Carlos Person History of Present Illness This is a 53y M who presents to the [facility] ED on 11/03 after he experienced a fall at home as he tripped over his oxygen tubing. Workup revealed patient had an L3 fracture of which ortho has been following for. During patient's admission he endorsed developing abdominal distention and pain about 3-4 days ago associated with constipation. Patient's abdominal distention continued to worsen prompting abdominal imaging. KUB revealed moderate to marked gaseous distention of small and large bowel. The findings may reflect an ileus however a distal colonic obstruction such as volvulus cannot be excluded. CT scan thereafter revealed marked distention of the cecum, measuring up to 12.4 cm in caliber, moderate distention of the remainder of the colon with mild small bowel dilatation which findings favor an ileus. Patient was made NPO with IVF and surgery was consulted. Patient reports that his last BM was last evening, but he denies passing flatus. He said at baseline he averages 1 BM a day and he typically does not use stool softeners. On chart review he does not appear to have taken excessive narcotic this admission, yusra over the past 2 days. Prior to being made NPO yesterday he was tolerating a diet without nausea/vomiting. He denies any past abdominal surgeries. Surgery was consulted given KUB and CT findings. Allergies Allergy/AdvReac Type Severity Reaction Status Date / Time No Known Allergies Allergy Mild Verified 11/04/19 01:52 Home Medications Home Medications Medication Instructions Recorded Confirmed Type Breo Ellipta 1 inh INHALATION QPM 01/15/19 11/04/19 History pantoprazole 40 mg PO QPM 01/15/19 11/04/19 History Combivent Respimat 1 puff INHALATION QID 01/20/19 11/04/19 History Xarelto 20 mg PO DAILY 01/20/19 11/04/19 History albuterol sulfate 90 mcg/actuation 1 puffs INH Q4H PRN #18 gm 08/17/19 11/04/19 Rx aerosol inhaler tiotropium bromide 18 mcg capsule 1 cap INHALATION DAILY #1 puffs 09/09/19 11/04/19 Rx with inhalation device nystatin 100,000 unit/mL oral 5 ml PO QID 7 Days #480 ml 10/02/19 11/04/19 Rx suspension ipratropium-albuterol 0.5 mg-3 3 ml INHALATION .COMPLEX PRN #180 10/13/19 11/04/19 Rx mg(2.5 mg base)/3 mL nebulization ml soln folic acid 1 mg PO QAM #30 tab 11/09/19 Rx lidocaine 1 patch TRANSDERMAL QAM #21 ea 11/09/19 Rx magnesium hydroxide [Milk of 30 ml PO DAILY #30 ml 11/09/19 Rx Magnesia] oxycodone 5 mg PO Q8H PRN #14 tab 11/09/19 Rx propranolol 40 mg PO BID #120 tab 11/09/19 Rx sennosides [Senokot] 8.6 mg PO QAM #30 tab 11/09/19 Rx thiamine HCl (vitamin B1) [Vitamin 100 mg PO QAM #30 tab 11/09/19 Rx B-1] Patient History Medical History Alcohol use Chronic obstructive pulmonary disease DVT (deep venous thrombosis) X 3-PLACED ON THINNER Essential tremor GERD (gastroesophageal reflux disease) On home oxygen therapy PRN SOB (shortness of breath) on exertion Tremor Surgical History H/O vascular surgery X 3-VASCULAR BLOCKAGES LOWER LEGS History of esophagogastroduodenoscopy (EGD) Family History Mother Family history of diabetes mellitus Social History Preferred Language: Belarusian Communication Ability: Effective Paper Products Supervisor Required: No Beliefs That Will Affect Care: None Current Living Situation: Alone Other Information That Helps Us Care for You: No Feels Safe at Home: Yes Safety Concerns: Feels Safe At This Time Smoking Status: Unknown if ever smoked Hx Alcohol Use: Yes Alcohol type: beer Hx Substance Use: No Review of Systems Constitutional: no fever and no chills Gastrointestinal: + abdominal pain and + bloating; no nausea and no vomiting no flatus Physical Exam Physical Exam: awake/alert Respiratory: wearing supplemental O2 Gastrointestinal (Abdomen): Inspection/Auscultation: + abdomen distended Percussion/Palpation: + abdomen tender (generalized ttp) Results & Data Vital Signs (Past 12 Hours) Vital Signs Temp Pulse Pulse Resp BP BP Pulse Ox 11/10/19 07:52 81 11/10/19 07:00 36.7 C 83 20 148/93 H 94 11/10/19 04:09 36.6 C 79 20 143/92 H 99 11/10/19 02:59 69 11/10/19 02:57 81 20 98 11/09/19 23:49 36.4 C L 75 20 146/[address] OF THE ABDOMEN AND PELVIS WITH CONTRAST CLINICAL HISTORY: ileus COMPARISON STUDY: CT of the abdomen and pelvis January 22, 2019. KUB performed earlier today. TECHNIQUE: Following IV administration of 94 mL of Optiray-320, axial images of the abdomen and pelvis were obtained from the lung bases to the proximal femurs. Images were reviewed in the axial, sagittal, and coronal planes. IV contrast was administered without complication. Automated exposure control was utilized for the study. A dose lowering technique was utilized adhering to the principles of ALARA. CT DOSE: 935.60 mGy.cm FINDINGS: A few left lower lobe nodular opacities measure up to 1 cm. These are probably benign and favor a minimal infectious process. There is emphysema. Minimal lingular opacity is partially imaged. A small hiatal hernia is noted. There calcified granulomas within the spleen. There is probable fatty infiltration of the liver. Adrenal glands, kidneys and pancreas are normal. There is no biliary or pancreatic ductal dilatation. There is no hydronephrosis. Left renal cyst is noted. No pneumatosis, free air or portal venous gas is present. There is marked distention of the cecum which measures up to 12.4 cm in caliber. There is moderate distention of the remainder of the colon. Small bowel is mildly dilated. No definite transition point is identified. There is no evidence for a volvulus. There is trace mesenteric infiltration and ascites. A severe L3 compression fracture is again noted. Vertebral body height loss has increased since CT of November 04, 2019. The appendix is normal. IMPRESSION: 1. Marked distention of the cecum, measuring up to 12.4 cm in caliber. Moderate distention of the remainder of the colon with mild small bowel dilatation. The findings favor an ileus. No transition point identified. Trace associated ascites and mesenteric infiltration. No pneumatosis, free air or portal venous gas. 3. Severe L3 compression fracture with interval loss of vertebral body height since CT of November 04, 2019. ACT 112: Negative or not required by law. Electronically signed by: Jaren Orr M.D. 11/09/2019 10:13 PM KUB CLINICAL HISTORY: Abdominal distention. COMPARISON STUDY: CT of the abdomen and pelvis January 22, 2019. FINDINGS: Marked colonic distention is noted. Cecum measures up to 11.1 cm in caliber. There is moderate small bowel dilatation. Small bowel measure up to 4.7 cm in caliber. Sensitivity for detection of free air is diminished on this supine exam but there is no convincing evidence for free air. Old bilateral lower rib fractures are noted. IMPRESSION: Moderate to marked gaseous distention of small and large bowel. The findings may reflect an ileus however a distal colonic obstruction such as volvulus cannot be excluded. CT of the abdomen and pelvis could be obtained for further evaluation as indicated. Findings will be called/faxed to the ordering provider at time of dictation. ACT 112: Negative or not required by law. Electronically signed by: Jaren Orr M.D. 11/09/2019 8:26 PM Dictated: 11/09/192021 Transcribed: 11/09/192021 PG Care Time/CCT Total # of Minutes Spent Total Time Spent with Patient: Total time spent is greater than 50% in coordination of care (as documented) at patient's floor/unit and/or counseling patient:
[2019-11-10 13:25] LABS: Basophils # (auto) 0.03 K/uL (0-0.2); Basophils % (auto) 0.3 %; Eosinophils # (auto) 0.17 K/uL (0-0.5); Eosinophils % (auto) 1.5 %; Hematocrit (blood only) 39.9 % (42-52); Hemoglobin 12.6 g/dL (14.0-18.0); Immature Granulocytes # (auto) 0.08 K/uL (0.00-0.02); Immature Granulocytes % (auto) 0.7 %; Lymphocytes % (auto) 12.2 %; Mean Corpuscular Hemoglobin 32.1 pg (25-34); Mean Corpuscular Hgb Conc 31.6 g/dL (32-36); Mean Corpuscular Volume 101.5 fL (80-100); Mean Platelet Volume 9.6 fL (7.4-10.4); Monocytes # (auto) 1.59 K/uL (0.11-0.59); Monocytes % (auto) 13.9 %; Neutrophils # (auto) 8.16 K/uL (1.4-6.5); Neutrophils % (auto) 71.4 %; Platelet Count 265 K/uL (130-400); RDW Standard Deviation 52.7 fL (36.4-46.3); Red Blood Count 3.93 M/uL (4.7-6.1); White Blood Count 11.43 K/uL (4.8-10.8)
[2019-11-10 13:37] LABS: BUN Creatinine Ratio 16.8 (10-20); Calcium 8.8 mg/dl (8.5-10.1); Creatinine Clr Calc Pharmacy 186.6 ml/min; Est GFR (African American) 136.9; Est GFR (Non-African American) 118.1; Potassium 4.1 mmol/L (3.5-5.1)
--- NOTE | 2019-11-10 13:48 | Progress Note ---
DATE: 11/10/2019 REASON FOR CONSULTATION: Colonic distention. HISTORY OF PRESENT ILLNESS: The patient is a 53-year-old admitted on 11/04/2019 two days following a fall. He suffered an L3 compression fracture with right leg radiculopathy with some pain and paresthesias. The patient has significant underlying health problems and was admitted for further evaluation. The patient has been receiving pain medication and he has been mobilized in bed and developed colonic distention. He has been treated with milk of magnesia, MiraLax and recently lactulose. Unfortunately, the lactulose has a tendency to add to the gas produced in the colon and today his colon cecal diameter is 12.4 cm. This is compromising his breathing, which is bad at baseline, he has severe COPD and is on 3.5 liters of nasal oxygen around the clock at home. In the hospital, he is on 4.5 and his oxygen saturations are currently quite variable, is low at 77% and he is in some respiratory difficulty. GI consultation has been requested for recommendations for his colonic distention. PAST MEDICAL HISTORY: Remarkable for hypertension, COPD, alcohol use, gastroesophageal reflux, history of DVT and Kohli's esophagus. MEDICATIONS: Per list. ALLERGIES: None. FAMILY HISTORY: Positive for diabetes in his mother. SOCIAL HISTORY: The patient lives alone. Smoker, drinks beer. REVIEW OF SYSTEMS: Positive for right leg discomfort, abdominal distention and difficulty breathing. PHYSICAL EXAMINATION: GENERAL: The patient appears chronically ill and mild respiratory distress. VITAL SIGNS: O2 saturations ranged from 77-87% on 4.5 liter nasal cannula. ABDOMEN: Significantly distended and tympanitic, but nontender. IMPRESSION: The patient has colonic distention from ileus. His cecum is significantly distended and is at risk for spontaneous perforation. Unfortunately, the patient is in respiratory distress and has some significant underlying lung disease and can be sedated, he can take a bowel prep and I am concerned about his oxygenation currently and this would mitigate against doing a colonic decompression at this point. I would recommend instead to try conservatively placing a rectal tube to hopefully see if that will help decompress his colon and begin Reglan 10 mg IV q.6 hours to see if this offers any benefit. We will repeat his x-ray tomorrow morning and see if it is improved at all. If his overall condition improves and stabilizes, then we may consider an unprepped colonic decompression provided his oxygenation and breathing improves.
[2019-11-10] MEDS: METOCLOPRAMIDE HCL INJ 5 MG/ML 2 ML VIAL IV SCH ×2 (14:12→20:07)
[2019-11-10] MEDS: ALBUT/IPRATROP 3MG/0.5MG NEB 3 ML VIAL NEB SCH ×3 (16:06→23:06)
[2019-11-10] MEDS: FLUTICASONE/SALMETEROL (ADVAIR) 500/50 INH 14 PUFF INH SCH (20:07)
[2019-11-10] MEDS: PANTOprazole 40 MG TAB PO SCH (20:09)
--- NOTE | 2019-11-10 23:06 | Hospitalist Progress Note ---
Date of Service November 10, 2019 Assessment & Plan (1) Ileus: Likely secondary to being mainly in bed and opiates from his back pain. Dilated cecum and colon on imaging. awaiting input from GI. (2) Compression fracture of L3 vertebra: s/p mechanical fall CT L-spine noted Ortho plans for brace and f/u outpt in 3-4 weeks Continue with lidoderm, oxy, pain is minimized Calcitonin started 11/04 to minimize need for oxy, doing well PT recs for rehab on d/c, CM aware OT recs for ongoing care bed not available as need repeat OT/PT notes (3) Radicular pain of right lower extremity: Related to above resolved for two days (4) Alcohol abuse: Not an every day alcohol user Valium for prophylaxis, continue no signs of withdrawal today (5) Resting tremor: Added propranolol on 11/04 for sx c/w essential tremor working well continue on discharge (6) Hypertension: continue home meds BP had been uncontrolled initially during admission, much better s/p addition of propranolol (7) Chronic obstructive pulmonary disease: At baseline O2 use (8) Hypoxia: Chronic hypoxic respiratory failure, on oxygen 24 hours a day (9) Nicotine dependence: Nicotine patch (10) GERD (gastroesophageal reflux disease): continue home meds (11) History of DVT (deep vein thrombosis): Xarelto held on admission in case of need for OR Resume 11/04 given pt hx of multiple DVTs and no plans for OR (12) Constipation: start on Miralax daily 11/07 abdomen continues to be very distended. will place on lactulose on 11/09 and order KUB. Showed dilated cecum ad colon, will consult GI. Overnight resident consulted gen surgery Subjective 53 yo male reports no new symptoms. He had a BM yesterday evening after the lactulose. Review of Systems Review of Systems: All systems reviewed & are unremarkable except as noted in HPI & below Physical Exam Physical Exam: Constitutional: WD/WN, vitals as above Eyes: PERRL, conjunctivae normal, anicteric sclerae ENMT: external ear and nose normal, oropharynx normal Neck: trachea midline, no thyromegaly Respiratory: normal respiratory effort, lungs clear to auscultation Cardiovascular: RRR, no murmur, no edema Gastrointestinal (Abdomen): Inspection/Auscultation: + abdomen distended and + hypoactive bowel sounds Percussion/Palpation: abdomen soft but distended, abdomen nontender, no guarding and abdomen not rigid Musculoskeletal: no cyanosis or clubbing, extremities motor strength 5/5 S pine: + pain with thoraco-lumbar ROM and + lumbar spinal tenderness Skin: no rashes, warm and dry Neurologic: patellar DTR's 2+ bilat, sensation intact and PERRL, EOMI, accommodation nl, no face palsy, no dysarthria Psychiatric: A+Ox3, euthymic affect Lymphatic: no cervical or axillary lymphadenopathy Results & Data Vital Signs (Past 12 Hours) Vital Signs Temp Pulse Pulse Resp BP BP Pulse Ox 11/10/19 19:38 95 H 16 92 11/10/19 19:31 37.0 C 97 H 20 138/93 95 11/10/19 16:10 80 20 90 11/10/19 16:00 36.6 C 82 18 146/93 H 94 11/10/19 15:09 70 11/10/19 13:19 82 22 98 11/10/19 11:10 36.6 C 72 20 146/92 H 96 PG Care Time/CCT Total # of Minutes Spent Total Time Spent with Patient: Total time spent is greater than 50% in cook helper dessert rdination of care (as documented) at patient's floor/unit and/or counseling patient: (1) Compression fracture of L3 vertebra Encounter type: initial encounter Qualified Code(s): S32.030A - Wedge compression fracture of third lumbar vertebra, initial encounter for closed f racture (2) GERD (gastroesophageal reflux disease) Esophagitis presence: esophagitis presence not specified Qualified Code(s): K21.9 - Gastro-esophageal reflux disease without esophagitis
[2019-11-11] MEDS: METOCLOPRAMIDE HCL INJ 5 MG/ML 2 ML VIAL IV SCH ×4 (01:55→20:18)
[2019-11-11] MEDS: ALBUT/IPRATROP 3MG/0.5MG NEB 3 ML VIAL NEB SCH ×6 (02:59→22:21)
[2019-11-11 06:18] LABS: Hemoglobin 12.3 g/dL (14.0-18.0); Mean Corpuscular Hemoglobin 31.6 pg (25-34); Mean Corpuscular Hgb Conc 31.5 g/dL (32-36); Mean Corpuscular Volume 100.3 fL (80-100); Mean Platelet Volume 9.2 fL (7.4-10.4); Platelet Count 237 K/uL (130-400); RDW Coefficient of Variation 14.3 % (11.5-14.5); RDW Standard Deviation 52.7 fL (36.4-46.3); Red Blood Count 3.89 M/uL (4.7-6.1); White Blood Count 10.96 K/uL (4.8-10.8)
[2019-11-11] MEDS: FLUTICASONE/SALMETEROL (ADVAIR) 500/50 INH 14 PUFF INH SCH ×2 (08:52→20:17)
[2019-11-11] MEDS: IPRATROPIUM BROMIDE/ALBUTEROL respimat INH INH SCH ×4 (08:52→20:19)
[2019-11-11] MEDS: TIOTROPIUM BROMIDE 5 PUFF/90 MCG INH INH SCH (08:53)
[2019-11-11] MEDS: SENNA 8.6 MG TAB PO SCH (08:54)
[2019-11-11] MEDS: THIAMINE HCL 100 MG TAB PO SCH (08:54)
[2019-11-11] MEDS: NYSTATIN SUSP 500,000 U/5 ML UDC PO SCH ×4 (08:54→20:16)
[2019-11-11] MEDS: PROPRANOLOL HCL 20 MG TAB PO SCH ×2 (08:54→20:17)
[2019-11-11] MEDS: POLYETHYLENE (MIRALAX) 17 GM PACK PO SCH (08:54)
[2019-11-11] MEDS: FOLIC ACID 1 MG TAB PO SCH (08:54)
[2019-11-11] MEDS: CALCITONIN SALMON NA 200 IU/AC 3.7 ML BTL SCH (08:55)
[2019-11-11] MEDS: MAGNESIUM HYDROXIDE SUSP 30 ML UDC PO SCH (08:57)
[2019-11-11] MEDS: LIDOCAINE 5% 1 PATCH TD SCH (08:58)
--- NOTE | 2019-11-11 09:06 | Surgery Progress Note ---
Date of Service November 11, 2019 Assessment & Plan (1) Ileus: Clinically about the same possibly a little bit improved. The x-ray today is not read yet but to me looks about the same with perhaps slightly decreased size of the cecum. Would continue n.p.o. and continue to try and minimize na rcotics. Increase activity. No indication for surgical intervention at this time but I will continue to follow. Subjective Patient feeling about the same perhaps a little bit better. He did have a small bowel movement with some gas earlier today. Denies nausea although he does have a little bit of abdominal cramping. Physical Exam Physical Exam: Alert no acute distress Abdomen is distended. About the same as yesterday. Nontender. Positive bowel sounds. Results & Data Vital Signs (Past 12 Hours) Vital Signs Temp Pulse Pulse Resp BP Pulse Ox 11/11/19 08:00 36.8 C 98 H 20 159/88 H 90 11/11/19 07:29 67 22 88 L 11/11/19 07:12 91 H 11/11/19 03:34 36.9 C 93 H 23 155/95 H 92 11/11/19 02:59 86 16 95 11/10/19 23:14 36.6 C 84 19 122/77 91 11/10/19 23:06 87 16 91 11/10/19 23:00 83 PG Care Time/CCT Total # of Minutes Spent Total Time Spent with Patient: Total time spent is greater than 50% in coordination of care (as documented) at patient's floor/unit and/or counseling patient:
--- NOTE | 2019-11-11 09:42 | XRay Report ---
KUB CLINICAL HISTORY: Ileus. FINDINGS: 3 AP, portable, supine abdominal radiographs are compared to abdominal radiograph and CT . Gaseous distention of the small bowel and colon is similar in appearance to yesterday. The cecum measures at least 8 cm in diameter. No evidence of intraperitoneal free air is seen on these pelaez pine views. There are no abnormal abdominal calcifications. The bony structures appear intact. IMPRESSION: Gaseous distention of the small bowel and colon is similar in appearance to yesterday. Fi ndings favor ileus. Electronically signed by: Galo Delgado M.D. 11/11/2019 9:41 AM
--- NOTE | 2019-11-11 10:52 | History & Physical Report ---
Date of Service November 11, 2019 History of Present Illness Chief Complaint: colon distension Primary Care Provider: Naima Tyson MD For colonoscopy Allergies Allergy/AdvReac Type Severity Reaction Status Date / Time No Known Allergies Allergy Mild Verified 11/04/19 01:52 Home Medications Home Medications Medication Instructions Recorded Confirmed Type Breo Ellipta 1 inh INHALATION QPM 01/15/19 11/04/19 History pantoprazole 40 mg PO QPM 01/15/19 11/04/19 History Combivent Respimat 1 puff INHALATION QID 01/20/19 11/04/19 History Xarelto 20 mg PO DAILY 01/20/19 11/04/19 History albuterol sulfate 90 mcg/actuation 1 puffs INH Q4H PRN #18 gm 08/17/19 11/04/19 Rx aerosol inhaler tiotropium bromide 18 mcg capsule 1 cap INHALATION DAILY #1 puffs 09/09/19 11/04/19 Rx with inhalation device nystatin 100,000 unit/mL oral 5 ml PO QID 7 Days #480 ml 10/02/19 11/04/19 Rx suspension ipratropium-albuterol 0.5 mg-3 3 ml INHALATION .COMPLEX PRN #180 10/13/19 11/04/19 Rx mg(2.5 mg base)/3 mL nebulization ml soln folic acid 1 mg PO QAM #30 tab 11/09/19 Rx lidocaine 1 patch TRANSDERMAL QAM #21 ea 11/09/19 Rx magnesium hydroxide [Milk of 30 ml PO DAILY #30 ml 11/09/19 Rx Magnesia] oxycodone 5 mg PO Q8H PRN #14 tab 11/09/19 Rx propranolol 40 mg PO BID #120 tab 11/09/19 Rx sennosides [Senokot] 8.6 mg PO QAM #30 tab 11/09/19 Rx thiamine HCl (vitamin B1) [Vitamin 100 mg PO QAM #30 tab 11/09/19 Rx B-1] Past Med/Surg History Medical History Alcohol use Chronic obstructive pulmonary disease DVT (deep venous thrombosis) X 3-PLACED ON THINNER Essential tremor GERD (gastroesophageal reflux disease) On home oxygen therapy PRN SOB (shortness of breath) on exertion Tremor Surgical History H/O vascular surgery X 3-VASCULAR BLOCKAGES LOWER LEGS History of esophagogastroduodenoscopy (EGD) Family History Mother Family history of diabetes mellitus Social History Preferred Language: Italian Communication Ability: Effective Basket Hand Weaver Required: No Beliefs That Will Affect Care: None Current Living Situation: Alone Other Information That Helps Us Care for You: No Feels Safe at Home: Yes Safety Concerns: Feels Safe At This Time Smoking Status: Unknown if ever smoked Hx Alcohol Use: Yes Alcohol type: beer Hx Substance Use: No Physical Exam Constitutional: + obese Respiratory: + uses accessory muscles Cardiovascular: Rate/Rhythm: regular rate Gastrointestinal (Abdomen): Inspection/Auscultation: + abdomen distended Results & Data Vital Signs (Past 12 Hours) Vital Signs Temp Pulse Pulse Resp BP Pulse Ox 11/11/19 08:00 36.8 C 98 H 20 159/88 H 90 11/11/19 07:29 67 22 88 L 11/11/19 07:12 91 H 11/11/19 03:34 36.9 C 93 H 23 155/95 H 92 11/11/19 02:59 86 16 95 11/10/19 23:14 36.6 C 84 19 122/77 91 11/10/19 23:06 87 16 91 11/10/19 23:00 83 Code Status & VTE Plan VTE Prophylaxis Plan VTE Prophylaxis will be ordered: Yes
[2019-11-11] MEDS ORDERED: SODIUM CHLORIDE 0.9% 1000ML 1,000 ML IV SCH (11:00)
--- NOTE | 2019-11-11 11:30 | Anesthesiology Consultation ---
Date of Service November 11, 2019 History Surgery Operation Date: 11/11/19 11:15 Proposed Procedures p Colonic Decompression - Scott Benjamin Height/Weight Height: 6 ft Weight: 98.8 kg Allergies Allergy/AdvReac Type Severity Reaction Status Date / Time No Known Allergies Allergy Mild Verified 11/04/19 01:52 Medications Home Medications Medication Instructions Recorded Confirmed Last Taken Breo Ellipta 1 inh INHALATION QPM 01/15/19 11/04/19 Unknown pantoprazole 40 mg PO QPM 01/15/19 11/04/19 Unknown Combivent Respimat 1 puff INHALATION QID 01/20/19 11/04/19 Unknown Xarelto 20 mg PO DAILY 01/20/19 11/04/19 Unknown albuterol sulfate 90 mcg/actuation 1 puffs INH Q4H PRN #18 gm 08/17/19 11/04/19 Unknown aerosol inhaler tiotropium bromide 18 mcg capsule 1 cap INHALATION DAILY #1 puffs 09/09/19 11/04/19 Unknown with inhalation device nystatin 100,000 unit/mL oral 5 ml PO QID 7 Days #480 ml 10/02/19 11/04/19 Unkn own suspension ipratropium-albuterol 0.5 mg-3 3 ml INHALATION .COMPLEX PRN #180 10/13/1910/12 Unknown mg(2.5 mg base)/3 mL nebulization ml soln folic acid 1 mg PO QAM #30 tab 11/09/19 Unknown lidocaine 1 patch TRANSDERMAL QAM #21 ea 11/09/19 Unknown magnesium hydroxide [Milk of 30 ml PO DAILY #30 ml 11/09/19 Unknown Magnesia] oxycodone 5 mg PO Q8H PRN #14 tab 11/09/19 Unknown propranolol 40 mg PO BID #120 tab 11/09/19 Unknown sennosides [Senokot] 8.6 mg PO QAM #30 tab 11/09/19 Unknown thiamine HCl (vitamin B1) [Vitamin 100 mg PO QAM #30 tab 11/09/19 Unknown B-1] Active Medications Generic Name Dose Route Start Last Admin Trade Name Freq PRN Reason Stop Dose Admin Albuterol 1 puffs 11/04/19 05:24 11/10/19 18:00 Ventolin Hfa INH 12/04/19 05:23 1 puffs Q4H PRN Administration Shortness Of Breath Or Wheezing Albuterol 1 puffs 11/04/19 09:00 11/11/19 08:52 Combivent Respimat INH 12/04/19 08:59 1 puffs QID SURJIT Administration Albuterol 3 ml 11/10/19 15:00 11/11/19 11:02 Duoneb NEB 12/10/19 14:59 3 ml Q4R SURJIT Administration Calcitonin Ethel 1 sprays 11/04/19 10:15 11/11/19 08:55 Fortical NA 12/04/19 10:14 1 sprays DAILY SURJIT Administration Folic Acid 1 mg 11/05/19 09:00 11/11/19 08:54 Folvite PO 12/05/19 08:59 1 mg QAM SURJIT Administration Ioversol 94 ml 11/09/19 21:30 11/09/19 21:31 Optiray 320 100ml IV 11/13/19 21:29 94 ml ONCE PRN Administration Interaction Checking Lidocaine 1 patch 11/04/19 09:00 11/11/19 08:58 Lidoderm 5% TD 12/04/19 08:59 1 patch QAM SURJIT Administration Magnesium Hydroxide 30 ml 11/05/19 12:15 11/11/19 08:57 Milk Of Magnesia PO 12/05/19 12:14 30 ml DAILY SURJIT Administration Metoclopramide HCl 10 mg 11/10/19 14:00 11/11/19 08:52 Reglan IV 12/10/19 13:59 10 mg Q6H SURJIT Administration Miscellaneous 1 ea 11/04/19 21:00 11/10/19 20:09 Remove Lidoderm Patch N/A 12/04/19 20:59 1 ea DAILY@2100 SURJIT Administration Nystatin 5 ml 11/04/19 09:00 11/11/19 08:54 Mycostatin PO 11/14/19 08:59 5 ml QID SURJIT Administration Ondansetron HCl 4 mg 11/04/19 21:20 11/04/19 21:29 Zofran IV 12/04/19 21:19 4 mg Q4H PRN Administration Nausea Oxycodone HCl 5 mg 11/04/19 05:16 11/10/19 12:09 Roxicodone Immediate Rel PO 11/18/19 05:15 5 mg Q6H PRN Administration Moderate Pain Pantoprazole Sodium 40 mg 11/04/19 21:00 11/10/19 20:09 Protonix PO 12/04/19 20:59 40 mg QPM SURJIT Administration Polyethylene Glycol 17 gm 11/07/19 14:45 11/11/19 08:54 Miralax Powder Packet PO 12/07/19 14:44 17 gm DAILY SURJIT Administration Propranolol HCl 40 mg 11/04/19 21:00 11/11/19 08:54 Inderal PO 12/04/19 20:59 40 mg BID SURJIT Administration Rivaroxaban 20 mg 11/04/19 10:15 11/10/19 08:59 Xarelto PO 12/04/19 10:14 20 mg DAILY SRUJIT Administration Fluticasone/Salmeterol 1 puffs 11/10/19 21:00 11/11/19 08:52 Advair Diskus 500/50 INH 12/10/19 20:59 1 puffs BID SURJIT Administration Sennosides 8.6 mg 11/05/19 12:15 11/11/19 08:54 Senokot PO 12/05/19 12:14 8.6 mg QAM SURJIT Administration Thiamine HCl 100 mg 11/04/19 09:00 11/11/19 08:54 Vitamin B-1 PO 12/04/19 08:59 100 mg QAM SURJIT Administration Tiotropium [place] 1 puffs 11/04/19 09:00 11/11/19 08:53 Spiriva INH 12/04/19 08:59 1 puffs DAILY SURJIT Administration NPO Date Last Intake of Fluids: 11/10/19 Time Last Intake of Fluids: 21:00 Last Intake of Fluids Comment: sips with evening meds Date Last Intake of Solids: 11/10/19 Past Medical History Medical History Alcohol use Chronic obstructive pulmonary disease DVT (deep venous thrombosis) X 3-PLACED ON THINNER Essential tremor GERD (gastroesophageal reflux disease) On home oxygen therapy PRN SOB (shortness of breath) on exertion Tremor Past Family History Family History Mother Family history of diabetes mellitus Past Surgical History Surgical History H/O vascular surgery X 3-VASCULAR BLOCKAGES LOWER LEGS History of esophagogastroduodenoscopy (EGD) Social History Smoking Status: Unknown if ever smoked tobacco type: cigarettes Smoking cigarettes per day: 1 11/12 PPD Hx Alcohol Use: Yes Alcohol type: beer alcohol intake frequency: other Alcohol Intake Frequency Comment: 12 beers a day Hx Substance Use: No Physical Exam Vital Signs Last Vital Signs Temp 36.9 C 11/11/19 11:00 Pulse 87 11/11/19 11:03 Resp 20 11/11/19 11:03 BP 135/88 11/11/19 11:00 Pulse Ox 95 11/11/19 11:03 Testing Laboratory Results 11/11/19 05:57 11/10/19 06:56 Electrocardiogram Date: 01/22/19 Normal sinus rhythm Normal ECG When compared with ECG of 22-JAN-2019 15:33, (unconfirmed) No significant change was found Confirmed by JAILYN SAMSON ([id number]) on 01/23/2019 3:42:16 PM Chest X-Ray Date: 12/05/19 1. No acute findings. 2. Severe emphysema. Echocardiogram Date: 01/22/19 LV Function: normal
[2019-11-11] MEDS ORDERED: MINERAL OIL 30 ML UDC ONE (12:04)
[2019-11-11] MEDS ORDERED: ePHEDrine sulfate 50 MG/ML AMP IV PRN (12:11)
[2019-11-11] MEDS ORDERED: ATROPINE SULFATE 0.1 MG/ML 10ML SYR IV PRN (12:11)
--- NOTE | 2019-11-11 12:45 | GI REPORT ---
Patient Name: Tam Fritz Procedure Date: 11/11/2019 12:17 PM Date of : 1965 Admit Type: Inpatient Age: 53 Gender: Male Attending MD: Sctot Benjamin MD Procedure: Colonoscopy Providers: Scott Benjamin MD Referring MD: Referred Self Indications: Therapeutic procedure Medicines: None Complications: No immediate complications. Estimated Blood Loss: Estimated blood loss: none. Procedure: Pre-Anesthesia Assessment: - Prior to the procedure, a History and Physical was performed, and patient medications, allergies and sensitivities were reviewed. The patient's tolerance of previous anesthesia was reviewed. - The risks and benefits of the procedure and the sedation options and risks were discussed with the patient. All questions were answered and informed consent was obtained. After I obtained informed consent, the scope was passed under direct vision. Throughout the procedure, the patient's blood pressure, pulse, and oxygen saturations were monitored continuously. The scope was introduced through the anus and advanced to the ascending colon. The colonoscopy was somewhat difficult due to poor bowel prep. The patient tolerated the procedure fairly well. The quality of the bowel preparation was poor. Findings: The lumen of the colon (entire examined portion) was significantly dilated. Impression: - Preparation of the colon was poor. - Dilated in the entire examined colon. - No specimens collected. Recommendation: - Return patient to hospital [facility] for ongoing care. Scott Benjamin M.D. Scott Benjamin MD 11/11/2019 12:44:57 PM This report has been signed electronically. Note Initiated On: 11/11/2019 12:17 PM Number of Addenda: 0 I attest to the content of the Intraoperative Record and orders documented therein, exceptions below {[id number]}
[2019-11-11] MEDS ORDERED: SOD PHOSPHATE/SOD BIPHOSPHATE ENEMA 132 ML BTL PR STA ×2 (12:53→12:55)
--- NOTE | 2019-11-11 13:06 | Anesthesiology Progress Note ---
Date of Service November 11, 2019 Anesthesia Post Procedure Vital Signs Vital Signs: Temp Pulse Pulse Pulse Resp BP BP 11/11/19 13:05 36.4 C L 85 18 120/87 11/11/19 12:55 83 18 127/88 11/11/19 12:49 36.3 C L 84 20 138/83 11/11/19 11:03 87 20 11/11/19 11:00 36.9 C 85 20 135/88 11/11/19 08:00 36.8 C 98 H 20 159/88 H 11/11/19 07:29 67 22 11/11/19 07:12 91 H 11/11/19 03:34 36.9 C 93 H 23 155/95 H 11/11/19 02:59 86 16 11/10/19 23:14 36.6 C 84 19 122/77 11/10/19 23:06 87 16 11/10/19 23:00 83 11/10/19 19:38 95 H 16 11/10/19 19:31 37.0 C 97 H 20 138/93 11/10/19 16:10 80 20 11/10/19 16:00 36.6 C 82 18 146/93 H 11/10/19 15:09 70 11/10/19 13:19 82 22 Pulse Ox 11/11/19 13:05 93 11/11/19 12:55 93 11/11/19 12:49 94 11/11/19 11:03 95 11/11/19 11:00 100 11/11/19 08:00 90 11/11/19 07:29 88 L 11/11/19 07:12 11/11/19 03:34 92 11/11/19 02:59 95 11/10/19 23:14 91 11/10/19 23:06 91 11/10/19 23:00 11/10/19 19:38 92 11/10/19 19:31 95 11/10/19 16:10 90 11/10/19 16:00 94 11/10/19 15:09 11/10/19 13:19 98 Pain Intensity Back: Pain Intensity: 5 Transfer of Care Handoff Completed per policy Notes Mental Status: alert / awake / arousable and participated in evaluation Patient Amnestic to Procedure: Yes Nausea / Vomiting: adequately controlled Pain: adequately controlled Airway Patency, RR, SpO2: stable & adequate BP & HR: stable & adequate Hydration State: stable & adequate Anesthetic Complications: no major complications apparent and Pt Satisfied with anesthetic care
--- NOTE | 2019-11-11 13:20 | Progress Note ---
DATE: 11/11/2019 The patient continues to have a distended abdomen today on abdominal film despite IV Reglan. As a result, he was taken to the operating room and under no sedation due to his poor lung disease, he underwent a unsedated colonoscopy for decompression. The scope was advanced through the colon into the proximal ascending colon. The cecum was full of stool and could not be entered. Upon withdrawal of the scope, 1350 mL of fluid as well as a lot of air was removed and the patient's abdomen was less distended at the end of the procedure and he was more comfortable. IMPRESSION: The patient underwent a colonic decompression, which was successful. I ordered a Fleet Enema when he arrives back at the floor to help get his bowels moving and continue to express the air and stool that is remaining.
[2019-11-11] MEDS: RIVAROXABAN 20 MG TAB PO SCH (13:38)
[2019-11-11] MEDS: OXYCODONE HCL IR 5 MG TAB (IMMEDIATE RELEASE) PO PRN (14:18)
--- NOTE | 2019-11-11 14:40 | Hospitalist Progress Note ---
Date of Service November 11, 2019 Assessment & Plan (1) Ileus: Likely secondary to being mainly in bed and opiates from his back pain. Dilated cecum and colon on imaging. colonoscopy on 11/11/19 with poor prep, just showed dilated colon still with poor bowel sounds start on liquid diet, encourage activity reviewing meds, only using Oxycodone twice a day however, will stop and use Toradol for now as his renal function is good (2) Compression fracture of L3 vertebra: s/p mechanical fall CT L-spine noted Ortho plans for brace and f/u outpt in 3-4 weeks Continue with lidoderm stop Oxycodone due to ileus, constipation, only taking twice a day replace with Toradol for pain control until ileus improved/resolved Calcitonin started 11/04 to minimize need for oxy, doing well PT recs for rehab on d/c, CM aware OT recs for ongoing care bed not available as need repeat OT/PT notes (3) Radicular pain of right lower extremity: Related to above resolved for four days (4) Alcohol abuse: Not an every day alcohol user Valium for prophylaxis, continue no signs of withdrawal for several days (5) Resting tremor: Added propranolol on 11/04 for sx c/w essential tremor working well continue on discharge (6) Hypertension: continue home meds BP had been uncontrolled initially during admission, much better s/p addition of propranolol (7) Chronic obstructive pulmonary disease: At baseline O2 use (8) Hypoxia: Chronic hypoxic respiratory failure, on oxygen 24 hours a day (9) Nicotine dependence: Nicotine patch (10) GERD (gastroesophageal reflux disease): continue home meds (11) History of DVT (deep vein thrombosis): Xarelto held on admission in case of need for OR Resume 11/04 given pt hx of multiple DVTs and no plans for OR (12) Constipation: start on Miralax daily 11/07 abdomen continues to be very distended. colonoscopy with dilated colon to the cecum, poor prep continue Miralax, Remeron clear liquid diet stop Oxycodone, use Toradol Subjective patient had colonoscopy today just showed dilated colon the whole way to the cecum, poor bowel prep patient says that he did not move his bowels with the prep? abdomen still feels distended, not much of an appetite no chest pain, no difficulty breathing back pain is well controlled CBC is stable today Review of Systems Review of Systems: All systems reviewed & are unremarkable except as noted in HPI & below Respiratory: no cough and no dyspnea Cardiovascular: no chest pain and no edema Gastrointestinal: + bloating and + constipation; no abdominal pain, no nausea, no vomiting and no diarrhea/loose stools Musculoskeletal: + back pain (better) Physical Exam Constitutional: WD/WN, vitals as above Eyes: PERRL, conjunctivae normal, anicteric sclerae ENMT: external ear and nose normal, oropharynx normal Neck: trachea midline, no thyromegaly Respiratory: normal respiratory effort, lungs clear to auscultation Cardiovascular: RRR, no murmur, no edema Gastrointestinal (Abdomen): Inspection/Auscultation: + abdomen distended (slightly tense) and + hypoactive bowel sounds Percussion/Palpation: abdomen nontender, no guarding and abdomen not rigid Musculoskeletal: no cyanosis or clubbing, extremities motor strength 5/5 Spine: + pain with thoraco-lumbar ROM and + lumbar spinal tenderness Skin: no rashes, warm and dry Neurologic: patellar DTR's 2+ bilat, sensation intact and PERRL, EOMI, accommodation nl, no face palsy, no dysarthria Psychiatric: A+Ox3, euthymic affect Lymphatic: no cervical or axillary lymphadenopathy Results & Data Vital Signs (Past 12 Hours) Vital Signs Temp Pulse Pulse Pulse Resp BP BP 11/11/19 13:05 36.4 C L 85 18 120/87 11/11/19 12:55 83 18 127/88 11/11/19 12:49 36.3 C L 84 20 138/83 11/11/19 11:03 87 20 11/11/19 11:00 36.9 C 85 20 135/88 11/11/19 08:00 36.8 C 98 H 20 159/88 H 11/11/19 07:29 67 22 11/11/19 07:12 91 H 11/11/19 03:34 36.9 C 93 H 23 155/95 H 11/11/19 02:59 86 16 Pulse Ox 11/11/19 13:05 93 11/11/19 12:55 93 11/11/19 12:49 94 11/11/19 11:03 95 11/11/19 11:00 100 11/11/19 08:00 90 11/11/19 07:29 88 L 11/11/19 07:12 11/11/19 03:34 92 11/11/19 02:59 95 Laboratory Results Laboratory Results - last 24 hr 11/11/19 05:57 WBC 10.96 H RBC 3.89 L Hgb 12.3 L Hct 39.0 L MCV 100.3 H MCH 31.6 MCHC 31.5 L RDW Std Deviation 52.7 H RDW Coeff of Aggie 14.3 Plt Count 237 MPV 9.2 Medications Administered Current Inpatient Medications Acetaminophen (Tylenol) 650 mg PO Q4H PRN PRN Reason: Pain or Fever Stop: 12/04/19 05:15 Albuterol (Ventolin Hfa) 1 puffs INH Q4H PRN PRN Reason: Shortness Of Breath Or Wheezing Stop: 12/04/19 05:23 Last Admin: 11/10/19 18:00 Dose: 1 puffs Documented by: Albuterol (Combivent Respimat) 1 puffs INH QID [facility] Stop: 12/04/19 08:59 Last Admin: 11/11/19 13:39 Dose: 1 puffs Documented by: Albuterol (Duoneb) 3 ml NEB Q4R [facility] Stop: 12/10/19 14:59 Last Admin: 11/11/19 11:02 Dose: 3 ml Documented by: Atropine Sulfate (Atropine Sulfate) 0.5 mg IV Q1M PRN PRN Reason: PACU Use-HR<40 &/or Bradycardi Stop: 11/11/19 17:11 Calcitonin [place] (Fortical) 1 sprays NA DAILY [facility] Stop: 12/04/19 10:14 Last Admin: 11/11/19 08:55 Dose: 1 sprays Documented by: Ephedrine Sulfate (Ephedrine Sulfate) 5 mg IV Q5M PRN PRN Reason: PACU Use Only-SBP<90 mmHg Stop: 11/11/19 17:11 Folic Acid (Folvite) 1 mg PO QAM [facility] Stop: 12/05/19 08:59 Last Admin: 11/11/19 08:54 Dose: 1 mg Documented by: Sodium Chloride (Nss 1000ml) 1,000 mls @ 15 mls/hr IV .Q24H [facility] Stop: 11/12/19 10:59 Ioversol (Optiray 320 100ml) 94 ml IV ONCE PRN PRN Reason: Interaction Checking Stop: 11/13/19 21:29 Last Admin: 11/09/19 21:31 Dose: 94 ml Documented by: Lidocaine (Lidoderm 5%) 1 patch TD QAM [facility] Stop: 12/04/19 08:59 Last Admin: 11/11/19 08:58 Dose: 1 patch Documented by: Lorazepam (Ativan) 1 mg PO ONE PRN; Protocol PRN Reason: EtoH Withdrawal AWSS 6-10 Magnesium Hydroxide (Milk Of Magnesia) 30 ml PO DAILY [facility] Stop: 12/05/19 12:14 Last Admin: 11/11/19 08:57 Dose: 30 ml Documented by: Metoclopramide HCl (Reglan) 10 mg IV Q6H [facility] Stop: 12/10/19 13:59 Last Admin: 11/11/19 13:39 Dose: 10 mg Documented by: Miscellaneous (Remove Lidoderm Patch) 1 ea N/A DAILY@2100 [facility] Stop: 12/04/19 20:59 Last Admin: 11/10/19 20:09 Dose: 1 ea Documented by: Nystatin (Mycostatin) 5 ml PO QID [facility] Stop: 11/14/19 08:59 Last Admin: 11/11/19 13:39 Dose: 5 ml Documented by: Ondansetron HCl (Zofran) 4 mg IV Q4H PRN PRN Reason: Nausea Stop: 12/04/19 21:19 Last Admin: 11/04/19 21:29 Dose: 4 mg Documented by: Oxycodone HCl (Roxicodone Immediate Rel) 5 mg PO Q6H PRN PRN Reason: Moderate Pain Stop: 11/18/19 05:15 Last Admin: 11/11/19 14:18 Dose: 5 mg Documented by: Pantoprazole Sodium (Protonix) 40 mg PO QPM [facility] Stop: 12/04/19 20:59 Last Admin: 11/10/19 20:09 Dose: 40 mg Documented by: Polyethylene Glycol (Miralax Powder Packet) 17 gm PO DAILY [facility] Stop: 12/07/19 14:44 Last Admin: 11/11/19 08:54 Dose: 17 gm Documented by: Propranolol HCl (Inderal) 40 mg PO BID [facility] Stop: 12/04/19 20:59 Last Admin: 11/11/19 08:54 Dose: 40 mg Documented by: Rivaroxaban (Xarelto) 20 mg PO DAILY [facility] Stop: 12/04/19 10:14 Last Admin: 11/11/19 13:38 Dose: 20 mg Documented by: Fluticasone/Salmeterol (Advair Diskus 500/50) 1 puffs INH BID [facility] Stop: 12/10/19 20:59 Last Admin: 11/11/19 08:52 Dose: 1 puffs Documented by: Sennosides (Senokot) 8.6 mg PO QAM [facility] Stop: 12/05/19 12:14 Last Admin: 11/11/19 08:54 Dose: 8.6 mg Documented by: Thiamine HCl (Vitamin B-1) 100 mg PO QAM [facility] Stop: 12/04/19 08:59 Last Admin: 11/11/19 08:54 Dose: 100 mg Documented by: Tiotropium [place] (Spiriva) 1 puffs INH DAILY [facility] Stop: 12/04/19 08:59 Last Admin: 11/11/19 08:53 Dose: 1 puffs Documented by: PG Care Time/CCT Total # of Minutes Spent Total Time Spent with Patient: Total time spent is greater than 50% in coordination of care (as documented) at patient's floor/unit and/or counseling patient: (1) Compression fracture of L3 vertebra Encounter type: initial encounter Qualified Code(s): S32.030A - Wedge compression fracture of third lumbar vertebra, initial encounter for closed fracture (2) GERD (gastroesophageal reflux disease) Esophagitis presence: esophagitis presence not specified Qualified Code(s): K21.9 - Gastro-esophageal reflux disease without esophagitis
[2019-11-11] MEDS: PANTOprazole 40 MG TAB PO SCH (20:16)
[2019-11-11] MEDS: KETOROLAC TROMETHAMINE 15 MG/ML VIAL IV PRN (22:48)
[2019-11-12] MEDS: METOCLOPRAMIDE HCL INJ 5 MG/ML 2 ML VIAL IV SCH ×3 (01:04→13:19)
[2019-11-12] MEDS: ALBUT/IPRATROP 3MG/0.5MG NEB 3 ML VIAL NEB SCH ×6 (02:07→22:03)
[2019-11-12] MEDS: ALBUTEROL HFA 8 GM INHALER INH PRN (04:52)
--- NOTE | 2019-11-12 07:35 | Surgery Progress Note ---
Date of Service November 12, 2019 Assessment & Plan (1) Ileus: s/p colonoscopy decompression yesterday patient symptomatically feels better and is passing BM's and some gas abdominal exam somewhat the same will order KUB this AM encourage activity as tolerates and will order PT/OT hopefully patient will continue to have ongoing bowel function and continue to improve appreciate GI input we will continue to follow as above. feeling better. will recheck kub. continue to increase activity/l imit narcotic use Subjective Patient states that he is feeling better after colonoscopy yesterday. He is passing BM's as well as some gas. Denies nausea/vomiting. Physical Exam Physical Exam: awake/alert Gastrointestinal (Abdomen): Inspection/Auscultation: + abdomen distended (somewhat the same) Results & Data Vital Signs (Past 12 Hours) Vital Signs Temp Pulse Resp BP Pulse Ox 11/12/19 07:16 91 H 20 97 11/11/19 22:55 36.4 C L 80 20 142/89 H 98 11/11/19 20:08 93 H 20 91 PG Care Time/CCT Total # of Minutes Spent Total Time Spent with Patient: Total time spent is greater than 50% in coordination of care (as documented) at patient's floor/unit and/or counseling patient:
[2019-11-12] MEDS: IPRATROPIUM BROMIDE/ALBUTEROL respimat INH INH SCH ×4 (07:54→21:00)
[2019-11-12] MEDS: FLUTICASONE/SALMETEROL (ADVAIR) 500/50 INH 14 PUFF INH SCH ×2 (07:54→21:00)
[2019-11-12] MEDS: TIOTROPIUM BROMIDE 5 PUFF/90 MCG INH INH SCH (07:55)
[2019-11-12] MEDS: SENNA 8.6 MG TAB PO SCH (07:55)
[2019-11-12] MEDS: FOLIC ACID 1 MG TAB PO SCH (07:55)
[2019-11-12] MEDS: RIVAROXABAN 20 MG TAB PO SCH (07:55)
[2019-11-12] MEDS: CALCITONIN SALMON NA 200 IU/AC 3.7 ML BTL SCH (07:56)
[2019-11-12] MEDS: PROPRANOLOL HCL 20 MG TAB PO SCH ×2 (07:56→21:01)
[2019-11-12] MEDS: NYSTATIN SUSP 500,000 U/5 ML UDC PO SCH ×4 (07:56→21:02)
[2019-11-12] MEDS: LIDOCAINE 5% 1 PATCH TD SCH (07:57)
[2019-11-12] MEDS: POLYETHYLENE (MIRALAX) 17 GM PACK PO SCH (08:01)
[2019-11-12] MEDS: THIAMINE HCL 100 MG TAB PO SCH (08:02)
[2019-11-12] MEDS: MAGNESIUM HYDROXIDE SUSP 30 ML UDC PO SCH (08:09)
--- NOTE | 2019-11-12 08:38 | XRay Report ---
KUB CLINICAL HISTORY: Colonic distention. COMPARISON STUDY: CT of the abdomen and pelvis November 09, 2019. KUB November 11, 2019. FINDINGS: Cecal distention has mildly increased since exam of November 11, 2019. Cecum measures 9.4 cm in caliber. Distention of the transverse colon, descending colon and sigmoid colon has improved. Ther e is persistent moderate small bowel dilatation. IMPRESSION: Increase in cecal distention with interval decrease in distention of the remainder of the colon. Pers istent small bowel dilatation. The findings suggest a persistent ileus. ACT 112: Negative or not required by law. Electronically signed by: Jaren Orr M.D. 11/12/2019 8:37 AM
[2019-11-12] MEDS: ACETAMINOPHEN 325 MG TAB PO PRN (14:34)
[2019-11-12] MEDS ORDERED: MAGNESIUM CITRATE 296 ML/BTL PO STA (14:34)
[2019-11-12] MEDS ORDERED: SOD PHOSPHATE/SOD BIPHOSPHATE ENEMA 132 ML BTL PR STA (14:34)
[2019-11-12] MEDS: METHYLNALTREXONE BROMIDE 12 MG/0.6 ML VIAL SQ SCH (15:38)
--- NOTE | 2019-11-12 16:53 | Progress Note ---
DATE: 11/12/2019 The patient underwent a colonic decompression yesterday, but overnight has reaccumulated a lot of gas in his colon after the procedure yesterday. We removed 1350 mL of liquid and a lot of air and his abdomen was visibly less distended and he was more comfortable, but today he is back to being very distended and his plain film of the abdomen shows a significant amount of air reaccumulating in his colon. PHYSICAL EXAMINATION: VITAL SIGNS: His blood pressure is 109/74, pulse 70, O2 saturation on 4 liters is 95%. ABDOMEN: Markedly distended and tympanitic, but nontender. The patient reports he is not passing much gas or stool. IMPRESSION: The patient has recurrent colonic distention. I spoke to the hospitalist and we are going to try giving him a bottle of magnesium citrate, Fleet Enema and some Relistor. He did stop his narcotic pain medication yesterday. Hopefully, this will initiate some progress and get his bowels moving. If this does not work, then it may be necessary to consider a dose of neostigmine IV to see if that will help initiate some bowel contractility. This would need to be done while being monitored cardiac ford and always runs the risk of causing a bowel perforation, especially when it is distended to the degree that it is. We will follow the patient.
[2019-11-12] MEDS ORDERED: METOCLOPRAMIDE HCL 10 MG TABLET PO SCH (20:00)
[2019-11-12] MEDS: PANTOprazole 40 MG TAB PO SCH (21:02)
[2019-11-12] MEDS: KETOROLAC TROMETHAMINE 15 MG/ML VIAL IV PRN (21:05)
--- NOTE | 2019-11-12 22:56 | Hospitalist Progress Note ---
Date of Service November 12, 2019 Assessment & Plan (1) Ileus: Likely secondary to being mainly in bed and opiates from his back pain. Dilated cecum and colon on imaging. colonoscopy on 11/11/19 with poor prep, patient had colonic decompression. still with poor bowel sounds, and very distended on 11/12/19 Repeat KUB is worse after colonic decompression. will continue fleet enemas, mag citrate and will place on relistor. appreciate input from GI. Stopped narcotics. use Toradol for now as his renal function is good (2) Compression fracture of L3 vertebra: s/p mechanical fall CT L-spine noted Ortho plans for brace and f/u outpt in 3-4 weeks Continue with lidoderm stop Oxycodone due to ileus, constipation, only taking twice a day replace with Toradol for pain control until ileus improved/resolved Calcitonin started 11/04 to minimize need for oxy, doing well PT recs for rehab on d/c, CM aware OT recs for ongoing care bed not available as need repeat OT/PT notes (3) Radicular pain of right lower extremity: Related to above resolved for four days (4) Alcohol abuse: Not an every day alcohol user Valium for prophylaxis, continue no signs of withdrawal for several days (5) Resting tremor: Added propranolol on 11/04 for sx c/w essential tremor working well continue on discharge (6) Hypertension: continue home meds BP had been uncontrolled initially during admission, much better s/p addition of propranolol (7) Chronic obstructive pulmonary disease: At baseline O2 use (8) Hypoxia: Chronic hypoxic respiratory failure, on oxygen 24 hours a day (9) Nicotine dependence: Nicotine patch (10) GERD (gastroesophageal reflux disease): continue home meds (11) History of DVT (deep vein thrombosis): Xarelto held on admission in case of need for OR Resume 11/04 given pt hx of multiple DVTs and no plans for OR (12) Constipation: start on Miralax daily 11/07 abdomen continues to be very distended. colonoscopy with dilated colon to the cecum, poor prep continue Miralax, Remeron clear liquid diet stop Oxycodone, use Toradol Subjective 53 yo male reports having a BM this morning, however nursing staff was not made aware of this (as patient has bedroom priviledges) to confirm. Review of Systems Review of Systems: All systems reviewed & are unremarkable except as noted in HPI & below Physical Exam Physical Exam: Constitutional: WD/WN, vitals as above Eyes: PERRL, conjunctivae normal, anicteric sclerae ENMT: external ear and nose normal, oropharynx normal Neck: trachea midline, no thyromegaly Respiratory: normal respiratory effort, lungs clear to auscultation Cardiovascular: RRR, no murmur, no edema Gastrointestinal (Abdomen): Inspection/Auscultation: + abdomen distended and tense, no signs of peritonitis and + hypoactive bowel sounds; Percussion/Palpation: abdomen nontender, no guarding Musculoskeletal: no cyanosis or clubbing, extremities motor strength 5/5 Spine: + pain with thoraco-lumbar ROM and + lumbar spinal tenderness Skin: no rashes, warm and dry Neurologic: patellar DTR's 2+ bilat, sensation intact and PERRL, EOMI, accommodation nl, no face palsy, no dysarthria Psychiatric: A+Ox3, euthymic affect Lymphatic: no cervical or axillary lymphadenopathy Results & Data Vital Signs (Past 12 Hours) Vital Signs Temp Pulse Pulse Resp BP Pulse Ox 11/12/19 22:04 68 20 92 11/12/19 19:49 77 20 93 11/12/19 16:07 37.1 C 70 20 109/74 95 11/12/19 15:03 71 16 95 11/12/19 11:03 67 19 93 PG Care Time/CCT Total # of Minutes Spent Total Time Spent with Patient: Total time spent is greater than 50% in coordination of care (as documented) at patient's floor/unit and/or counseling patient: (1) Compression fracture of L3 vertebra Encounter type: initial encounter Qualified Code(s): S32.030A - Wedge compression fracture of third lumbar vertebra, initial encounter for closed fracture (2) GERD (gastroesophageal reflux disease) Esophagitis presence: esophagitis presence not specified Qualified Code(s): K21.9 - Gastro-esophageal reflux disease without esophagitis
[2019-11-13] MEDS ORDERED: METOCLOPRAMIDE HCL INJ 5 MG/ML 2 ML VIAL IV PRN (01:33)
[2019-11-13] MEDS: ALBUT/IPRATROP 3MG/0.5MG NEB 3 ML VIAL NEB SCH ×6 (02:31→23:07)
[2019-11-13 07:29] LABS: Creatinine Clr Calc Pharmacy 135.3 ml/min; Est GFR (African American) 119.9; Est GFR (Non-African American) 103.4
[2019-11-13] MEDS: FLUTICASONE/SALMETEROL (ADVAIR) 500/50 INH 14 PUFF INH SCH ×2 (08:06→20:43)
[2019-11-13] MEDS: CALCITONIN SALMON NA 200 IU/AC 3.7 ML BTL SCH (08:06)
[2019-11-13] MEDS: IPRATROPIUM BROMIDE/ALBUTEROL respimat INH INH SCH (08:06)
[2019-11-13] MEDS: LIDOCAINE 5% 1 PATCH TD SCH (08:07)
[2019-11-13] MEDS: TIOTROPIUM BROMIDE 5 PUFF/90 MCG INH INH SCH (08:08)
--- NOTE | 2019-11-13 08:56 | Surgery Progress Note ---
Date of Service November 13, 2019 Assessment & Plan (1) Ileus: limited progress exam benign is NPO pending GI eval as above. pt in bathroom during my visit. per his RN he had a large BM this am slowly seems to be improving. ok with me if he tries liquids soon. [facility] covering for weekend. Subjective some flatus, 2 BMs today Physical Exam Gastrointestinal (Abdomen): Inspection/Auscultation: + abdomen distended Percussion/Palpation: abdomen soft; abdomen nontender Results & Data Vital Signs (Past 12 Hours) Vital Signs Temp Pulse Resp BP Pulse Ox 11/13/19 07:44 37.1 C 73 22 127/78 95 11/13/19 07:03 66 16 90 11/13/19 02:32 74 18 96 11/12/19 23:21 37.1 C 76 18 105/66 97 11/12/19 22:04 68 20 92 PG Care Time/CCT Total # of Minutes Spent Total Time Spent with Patient: Total time spent is greater than 50% in coordination of care (as documented) at patient's floor/unit and/or counseling patient:
[2019-11-13] MEDS: PROPRANOLOL HCL 20 MG TAB PO SCH ×2 (09:32→20:43)
[2019-11-13] MEDS: FOLIC ACID 1 MG TAB PO SCH (09:32)
[2019-11-13] MEDS: SENNA 8.6 MG TAB PO SCH (09:33)
[2019-11-13] MEDS: THIAMINE HCL 100 MG TAB PO SCH (09:33)
[2019-11-13] MEDS: NYSTATIN SUSP 500,000 U/5 ML UDC PO SCH ×4 (09:33→20:43)
[2019-11-13] MEDS: RIVAROXABAN 20 MG TAB PO SCH (09:33)
[2019-11-13] MEDS: POLYETHYLENE (MIRALAX) 17 GM PACK PO SCH (09:36)
[2019-11-13] MEDS: MAGNESIUM HYDROXIDE SUSP 30 ML UDC PO SCH (09:36)
--- NOTE | 2019-11-13 13:06 | XRay Report ---
KUB HISTORY: Follow up study in a patient with colonic ileus cecal distention COMPARISON: KUB 11/12/2019, CT abdomen and pelvis 11/09/2019 FINDINGS: Gaseous distention of the large bowel is redemonstrated, cecum measuring approximately 10.0 cm transversely, previously 9.57 m. Persistent mild small bowel distention of the central abdomen. T here is no significant change from comparison study. No renal calculi. No ureteral calculi. No pneum operitoneum or pneumatosis. No fracture. IMPRESSION: Persistent ileus pattern without pneumatosis or pneumoperitoneum. Continued follow-up recommended. ACT 112: Negative or not required by law. The above report was generated using voice recognition software. It may contain grammatical, syntax o r spelling errors. Electronically signed by: Darrick Benjamin M.D. 11/13/2019 1:05 PM
[2019-11-13] MEDS: ALBUTEROL HFA 8 GM INHALER INH PRN (13:16)
--- NOTE | 2019-11-13 14:44 | Gastroenterology Progress Note ---
Date of Service November 13, 2019 Assessment & Plan (1) Ileus: Ileus vs pseudoobstruction with contribution from narcotics. Off narcotics. Improvement on Relistor which should continue. Supportive care. Check electrolytes, Mg and Po4 in am which can affect gut motility if out of the normal range. Clear liquid diet. Subjective cc abd distension HPI Per patient report 3 good bms today. KUB report this am at 0908 colon and sb distension the same. Pt denies abd pain. He feels abdomen less distended and is hungry. Review of Systems Respiratory: no dyspnea Cardiovascular: no chest pain Physical Exam Respiratory: normal respiratory effort, lungs clear to auscultation Gastrointestinal (Abdomen): pos bs, abdomen distended but not tense, no guarding nor rebound, tympanitic Results & Data Vital Signs (Past 12 Hours) Vital Signs Temp Pulse Resp BP Pulse Ox 11/13/19 11:04 72 16 94 11/13/19 07:44 37.1 C 73 22 127/78 95 11/13/19 07:03 66 16 90
[2019-11-13] MEDS: PANTOprazole 40 MG TAB PO SCH (20:44)
[2019-11-13] MEDS ORDERED: TRAZODONE HCL 100 MG TAB PO PRN (21:37)
--- NOTE | 2019-11-13 21:43 | Communication Note ---
Date of Service: November 13, 2019 #Insomnia Was paged at approximately 930 pm as the patient was requesting medication to help her sleep. Given her history of chronic alcohol use will refrain from benzo diazepam's or hypnotics. Trazodone is reasonable in this situation -Started on trazodone 100 mg nightly as needed Resident Activity Tracking Resident Involvement: Resident Care Provided Care Provided: Adult Hospital Medicine
--- NOTE | 2019-11-13 22:51 | Hospitalist Progress Note ---
Date of Service November 13, 2019 Assessment & Plan (1) Ileus: Likely secondary to being mainly in bed and opiates from his back pain. Dilated cecum and colon on imaging. colonoscopy on 11/11/19 with poor prep, patient had colonic decompression. Appears to have improved with relistor, fleet enema, and mag citrate. will continue to monitor. Abdomen is softer, but not at baseline. (2) Compression fracture of L3 vertebra: s/p mechanical fall CT L-spine noted Ortho plans for brace and f/u outpt in 3-4 weeks Continue with lidoderm stop Oxycodone due to ileus, constipation, only taking twice a day replace with Toradol for pain control until ileus improved/resolved Calcitonin started 11/04 to minimize need for oxy, doing well PT recs for rehab on d/c, CM aware OT recs for ongoing care bed not available as need repeat OT/PT notes (3) Radicular pain of right lower extremity: Related to above resolved for four days (4) Alcohol abuse: Not an every day alcohol user Valium for prophylaxis, continue no signs of withdrawal for several days (5) Resting tremor: Added propranolol on 11/04 for sx c/w essential tremor working well continue on discharge (6) Hypertension: continue home meds BP had been uncontrolled initially during admission, much better s/p addition of propranolol (7) Chronic obstructive pulmonary disease: At baseline O2 use (8) Hypoxia: Chronic hypoxic respiratory failure, on oxygen 24 hours a day (9) Nicotine dependence: Nicotine patch (10) GERD (gastroesophageal reflux disease): continue home meds (11) History of DVT (deep vein thrombosis): Xarelto held on admission in case of need for OR Resume 11/04 given pt hx of multiple DVTs and no plans for OR (12) Constipation: start on Miralax daily 11/07 abdomen continues to be very distended. colonoscopy with dilated colon to the cecum, poor prep continue Miralax, Remeron clear liquid diet stop Oxycodone, use Toradol Subjective Patient reports he had a BM today. He also reports passing gas. He states his abdominal distention has also improved. Review of Systems Review of Systems: All systems reviewed & are unremarkable except as noted in HPI & below Physical Exam Physical Exam: Constitutional: WD/WN, vitals as above Eyes: PERRL, conjunctivae normal, anicteric sclerae ENMT: external ear and nose normal, oropharynx normal Neck: trachea midline, no thyromegaly Respiratory: normal respiratory effort, lungs clear to auscultation Cardiovascular: RRR, no murmur, no edema Gastrointestinal (Abdomen): Inspection/Auscultation: + abdomen less distended and less tense, no signs of peritonitis and + hypoactive bowel sounds; Percussion/Palpation: abdomen nontender, no guarding Musculoskeletal: no cyanosis or clubbing, extremities motor strength 5/5 Spine: + pain with thoraco-lumbar ROM and + lumbar spinal tenderness Skin: no rashes, warm and dry Neurologic: patellar DTR's 2+ bilat, sensation intact and PERRL, EOMI, accommodation nl, no face palsy, no dysarthria Psychiatric: A+Ox3, euthymic affect Lymphatic: no cervical or axillary lymphadenopathy Results & Data Vital Signs (Past 12 Hours) Vital Signs Temp Pulse Resp BP BP Pulse Ox 11/13/19 20:41 36.3 C L 71 18 142/91 H 11/13/19 19:11 75 16 97 11/13/19 15:27 73 18 92 11/13/19 14:57 36.4 C L 78 19 130/80 99 11/13/19 11:04 72 16 94 PG Care Time/CCT Total # of Minutes Spent Total Time Spent with Patient: Total time spent is greater than 50% in coordination of care (as documented) at patient's floor/unit and/or counseling patient: (1) Compression fracture of L3 vertebra Encounter type: initial encounter Qualified Code(s): S32.030A - Wedge compression fracture of third lumbar vertebra, initial encounter for closed fracture (2) GERD (gastroesophageal reflux disease) Esophagitis presence: esophagitis presence not specified Qualified Code(s): K21.9 - Gastro-esophageal reflux disease without esophagitis
[2019-11-14] MEDS: KETOROLAC TROMETHAMINE 15 MG/ML VIAL IV PRN ×2 (00:20→19:32)
[2019-11-14] MEDS: ALBUT/IPRATROP 3MG/0.5MG NEB 3 ML VIAL NEB SCH ×6 (02:25→22:26)
[2019-11-14 06:15] LABS: Basophils # (auto) 0.02 K/uL (0-0.2); Basophils % (auto) 0.3 %; Eosinophils # (auto) 0.11 K/uL (0-0.5); Eosinophils % (auto) 1.8 %; Hematocrit (blood only) 35.8 % (42-52); Hemoglobin 11.7 g/dL (14.0-18.0); Immature Granulocytes # (auto) 0.01 K/uL (0.00-0.02); Immature Granulocytes % (auto) 0.2 %; Lymphocytes # (auto) 1.23 K/uL (1.2-3.4); Mean Corpuscular Hemoglobin 32.8 pg (25-34); Mean Corpuscular Hgb Conc 32.7 g/dL (32-36); Mean Corpuscular Volume 100.3 fL (80-100); Mean Platelet Volume 9.1 fL (7.4-10.4); Monocytes # (auto) 0.86 K/uL (0.11-0.59); Neutrophils # (auto) 3.91 K/uL (1.4-6.5); Neutrophils % (auto) 63.7 %; Platelet Count 264 K/uL (130-400); RDW Coefficient of Variation 14.1 % (11.5-14.5); RDW Standard Deviation 52.2 fL (36.4-46.3); Red Blood Count 3.57 M/uL (4.7-6.1); White Blood Count 6.14 K/uL (4.8-10.8)
[2019-11-14 06:52] LABS: Albumin Level 2.5 gm/dl (3.4-5.0); BUN Creatinine Ratio 8.5 (10-20); Calcium 8.5 mg/dl (8.5-10.1); Creatinine Clr Calc Pharmacy 171.4 ml/min; Est GFR (African American) 132.1; Magnesium 2.1 mg/dl (1.8-2.4); Potassium 3.6 mmol/L (3.5-5.1)
[2019-11-14 06:55] LABS: Albumin Globulin Ratio 0.7 (0.9-2); Bilirubin,Total 0.4 mg/dl (0.2-1); Globulin 3.5 gm/dl (2.5-4.0); Phosphorus 3.3 mg/dl (2.5-4.9)
[2019-11-14] MEDS: FLUTICASONE/SALMETEROL (ADVAIR) 500/50 INH 14 PUFF INH SCH ×2 (09:46→20:33)
[2019-11-14] MEDS: CALCITONIN SALMON NA 200 IU/AC 3.7 ML BTL SCH (09:48)
[2019-11-14] MEDS: PROPRANOLOL HCL 20 MG TAB PO SCH ×2 (09:48→20:38)
[2019-11-14] MEDS: FOLIC ACID 1 MG TAB PO SCH (09:48)
[2019-11-14] MEDS: LIDOCAINE 5% 1 PATCH TD SCH (09:49)
[2019-11-14] MEDS: POLYETHYLENE (MIRALAX) 17 GM PACK PO SCH ×2 (09:50→21:04)
[2019-11-14] MEDS: METHYLNALTREXONE BROMIDE 12 MG/0.6 ML VIAL SQ SCH (09:51)
[2019-11-14] MEDS: SENNA 8.6 MG TAB PO SCH (09:51)
[2019-11-14] MEDS: THIAMINE HCL 100 MG TAB PO SCH (09:52)
[2019-11-14] MEDS: RIVAROXABAN 20 MG TAB PO SCH (09:52)
[2019-11-14] MEDS: MAGNESIUM HYDROXIDE SUSP 30 ML UDC PO SCH (10:07)
[2019-11-14] MEDS: TIOTROPIUM BROMIDE 5 PUFF/90 MCG INH INH SCH (10:30)
[2019-11-14] MEDS ORDERED: bisacodyL 10 MG SUPP PR STA (11:37)
--- NOTE | 2019-11-14 11:41 | Surgery Progress Note ---
Date of Service pt is doing better, passed some gas, no BM yet, pt denies nausea, no vomiting, he tolerated clear diet, November 14, 2019 Assessment & Plan (1) Ileus: f/U Ileus doing better, passed some gas, dulcolax 10 mg DE continue treatment, keep clear diet will F/U Supervising Physician Co-Signing Physician Notes Attending addendum: I have physically seen this patient, have supervised the medical residents activities, and agree with the H&P unless as otherwise noted. Assessment and Plan: Acute L3 compression fracture/right lower extremity radiculopathy- Status post mechanical fall By tripping over oxygen cord. 66% loss of vertebral body height. Consult orthopedic spine surgery. Acetaminophen 650 mg p.o. every 6 hours as needed mild pain or temperature. Oxycodone 5 mg p.o. every 6 hours PRN moderate pain. Alcohol abuse/tremor- Placed on AWSS plus oral Valium. Remainder of orders and notations as noted. Subjective cc abd distension HPI Per patient report 3 good bms today. KUB report this am at 0908 colon and sb distension the same. Pt denies abd pain. He feels abdomen less distended and is hungry. Physical Exam Constitutional: WD/WN, vitals as above well developed Neck: trachea midline, no thyromegaly Respiratory: normal respiratory effort, lungs clear to auscultation normal respiratory effort Cardiovascular: RRR, no murmur, no edema Gastrointestinal (Abdomen): Percussion/Palpation: abdomen soft some distend, no tenderness, BS + Skin: no rashes, warm and dry Neurologic: awake Psychiatric: A+Ox3, euthymic affect Results & Data Vital Signs (Past 12 Hours) Vital Signs Temp Pulse Resp BP Pulse Ox 11/14/19 11:15 78 19 94 11/14/19 07:07 36.9 C 79 18 135/79 96 11/14/19 02:25 89 16 97 11/13/19 23:43 95 Laboratory Results Abnormal lab results 11/14/19 11/14/19 Range/Units 05:51 05:51 RBC 3.57 L (4.7-6.1) M/uL Hgb 11.7 L (14.0-18.0) g/dL Hct 35.8 L (42-52) % MCV 100.3 H (80-100) fL RDW Std Deviation 52.2 H (36.4-46.3) fL [place] # (Auto) 0.86 H (0.11-0.59) K/uL Sodium 133 L (136-145) mmol/L Chloride 94 L (98-107) mmol/L Carbon Dioxide 36 H (21-32) mmol/L BUN 5 L (7-18) mg/dl BUN/Creatinine Ratio 8.5 L (10-20) Total Protein 6.0 L (6.4-8.2) gm/dl Albumin 2.5 L (3.4-5.0) gm/dl Albumin/Globulin Ratio 0.7 L (0.9-2) Diagnostic Findings KUB HISTORY: Follow up study in a patient with colonic ileus cecal distention COMPARISON: KUB 11/12/2019, CT abdomen and pelvis 11/09/2019 FINDINGS: Gaseous distention of the large bowel is redemonstrated, cecum measuring approximately 10.0 cm transversely, previously 9.57 m. Persistent mild small bowel distention of the central abdomen. There is no significant change from comparison study. No renal calculi. No ureteral calculi. No pneumoperitoneum or pneumatosis. No fracture. IMPRESSION: Persistent ileus pattern without pneumatosis or pneumoperitoneum. Continued follow-up recommended. ACT 112: Negative or not required by law. The above report was generated using voice recognition software. It may contain grammatical, syntax or spelling errors.
--- NOTE | 2019-11-14 15:21 | Gastroenterology Progress Note ---
Date of Service November 14, 2019 Assessment & Plan (1) Ileus: Ileus vs pseudoobstruction with contribution from narcotics. Off narcotics. Improvement on Relistor which should continue. Electrloytes, magnesium and phosphorous in normal range today. Advance to full liquid diet. Increase Miralax to 17 gm tid. Continue MOM and senokot daily. . Subjective CC abdominal distension HPI Pt states 2 good bms today and passed lot of gas. He feels like abd distension improved. He has mild abd pain. Tolerating clear liquids. Review of Systems Respiratory: no dyspnea Cardiovascular: no chest pain Physical Exam Constitutional: WD/WN, vitals as above Respiratory: normal respiratory effort, lungs clear to auscultation Gastrointestinal (Abdomen): pos bs, distended and tympaniticc but not tense, no guarding nor rebound Neurologic: PERRL, EOMI, accommodation nl, no face palsy, no dysarthria Psychiatric: A+Ox3, euthymic affect Results & Data Vital Signs (Past 12 Hours) Vital Signs Temp Pulse Resp BP Pulse Ox 11/14/19 15:15 94 H 19 97 11/14/19 11:15 78 19 94 11/14/19 07:07 36.9 C 79 18 135/79 96
[2019-11-14] MEDS: ACETAMINOPHEN 325 MG TAB PO PRN (15:42)
--- NOTE | 2019-11-14 20:06 | Hospitalist Progress Note ---
Date of Service November 14, 2019 Assessment & Plan (1) Ileus: Likely secondary to being mainly in bed and opiates from his back pain. Dilated cecum and colon on imaging. colonoscopy on 11/11/19 with poor prep, patient had colonic decompression. Appears to have improved with relistor, fleet enema, and mag citrate. will continue to monitor. On 11/14 abdomen continues to get softer, but not at baseline. continue above treatment. (2) Compression fracture of L3 vertebra: s/p mechanical fall CT L-spine noted Ortho plans for brace and f/u outpt in 3-4 weeks Continue with lidoderm stop Oxycodone due to ileus, constipation, only taking twice a day replace with Toradol for pain control until ileus improved/resolved Calcitonin started 11/04 to minimize need for oxy, doing well PT recs for rehab on d/c, CM aware OT recs for ongoing care bed not available as need repeat OT/PT notes (3) Radicular pain of right lower extremity: Related to above resolved for four days (4) Alcohol abuse: Not an every day alcohol user Valium for prophylaxis, continue no signs of withdrawal for several days (5) Resting tremor: Added propranolol on 11/04 for sx c/w essential tremor working well continue on discharge (6) Hypertension: continue home meds BP had been uncontrolled initially during admission, much better s/p addition of propranolol (7) Chronic obstructive pulmonary disease: At baseline O2 use (8) Hypoxia: Chronic hypoxic respiratory failure, on oxygen 24 hours a day (9) Nicotine dependence: Nicotine patch (10) GERD (gastroesophageal reflux disease): continue home meds (11) History of DVT (deep vein thrombosis): Xarelto held on admission in case of need for OR Resume 11/04 given pt hx of multiple DVTs and no plans for OR (12) Constipation: start on Miralax daily 11/07 abdomen continues to be very distended. colonoscopy with dilated colon to the cecum, poor prep continue Miralax, Remeron clear liquid diet stop Oxycodone, use Toradol Subjective Patient reports having 2 bowel movements this AM. he states he is feeling better. Review of Systems Review of Systems: All systems reviewed & are unremarkable except as noted in HPI & below Physical Exam Physical Exam: Constitutional: WD/WN, vitals as above Eyes: PERRL, conjunctivae normal, anicteric sclerae ENMT: external ear and nose normal, oropharynx normal Neck: trachea midline, no thyromegaly Respiratory: normal respiratory effort, lungs clear to auscultation Cardiovascular: RRR, no murmur, no edema Gastrointestinal (Abdomen): Inspection/Auscultation: + abdomen less distended and softer, no signs of peritonitis and + hypoactive bowel sounds; Percussion/Palpation: abdomen nontender, no guarding Musculoskeletal: no cyanosis or clubbing, extremities motor strength 5/5 Spine: + pain with thoraco-lumbar ROM and + lumbar spinal tenderness Skin: no rashes, warm and dry Neurologic: patellar DTR's 2+ bilat, sensation intact and PERRL, EOMI, accommodation nl, no face palsy, no dysarthria Psychiatric: A+Ox3, euthymic affect Lymphatic: no cervical or axillary lymphadenopathy Results & Data Vital Signs (Past 12 Hours) Vital Signs Temp Pulse Resp BP Pulse Ox 11/14/19 19:06 69 18 94 11/14/19 15:45 36.9 C 69 18 127/79 94 11/14/19 15:15 94 H 19 97 11/14/19 11:15 78 19 94 PG Care Time/CCT Total # of Minutes Spent Total Time Spent with Patient: Total time spent is greater than 50% in coordination of care (as documented) at patient's floor/unit and/or counseling patient: (1) Compression fracture of L3 vertebra Encounter type: initial encounter Qualified Code(s): S32.030A - Wedge compression fracture of third lumbar vertebra, initial encounter for closed fracture (2) GERD (gastroesophageal reflux disease) Esophagitis presence: esophagitis presence not specified Qualified Code(s): K21.9 - Gastro-esophageal reflux disease without esophagitis
[2019-11-14] MEDS: PANTOprazole 40 MG TAB PO SCH (20:33)
[2019-11-15] MEDS: ALBUT/IPRATROP 3MG/0.5MG NEB 3 ML VIAL NEB SCH ×6 (02:21→22:45)
[2019-11-15] MEDS: KETOROLAC TROMETHAMINE 15 MG/ML VIAL IV PRN ×3 (03:36→21:52)
--- NOTE | 2019-11-15 09:10 | Surgery Progress Note ---
Date of Service passed BM, no abdominal pain, no nausea, no vomiting, November 15, 2019 Assessment & Plan (1) Ileus: f/U Ileus doing better, passed some gas, dulcolax 10 mg NH continue treatment, keep clear diet will F/U 11/15/2019 9:09AM passed BM, no abdominal pain, continue treatment Supervising Physician Co-Signing Physician Notes Attending addendum: I have physically seen this patient, have supervised the medical residents activities, and agree with the H&P unless as otherwise noted. Assessment and Plan: Acute L3 compression fracture/right lower extremity radiculopathy- Status post mechanical fall By tripping over oxygen cord. 66% loss of vertebral body height. Consult orthopedic spine surgery. Acetaminophen 650 mg p.o. every 6 hours as needed mild pain or temperature. Oxycodone 5 mg p.o. every 6 hours PRN moderate pain. Alcohol abuse/tremor- Placed on AWSS plus oral Valium. Remainder of orders and notations as noted. Subjective CC abdominal distension HPI Pt states 2 good bms today and passed lot of gas. He feels like abd distension improved. He has mild abd pain. Tolerating clear liquids. Physical Exam Constitutional: WD/WN, vitals as above well developed Neck: trachea midline, no thyromegaly Respiratory: normal respiratory effort, lungs clear to auscultation normal respiratory effort Cardiovascular: RRR, no murmur, no edema Gastrointestinal (Abdomen): Percussion/Palpation: abdomen soft Skin: no rashes, warm and dry Neurologic: awake Psychiatric: A+Ox3, euthymic affect Results & Data Vital Signs (Past 12 Hours) Vital Signs Temp Pulse Resp BP BP Pulse Ox 11/15/19 07:16 36.8 C 85 16 106/67 94 11/15/19 07:02 93 H 18 96 11/14/19 22:55 36.6 C 74 18 103/68 93 11/14/19 22:26 82 16 92
[2019-11-15] MEDS: LIDOCAINE 5% 1 PATCH TD SCH (09:40)
[2019-11-15] MEDS: TIOTROPIUM BROMIDE 5 PUFF/90 MCG INH INH SCH (09:41)
[2019-11-15] MEDS: FLUTICASONE/SALMETEROL (ADVAIR) 500/50 INH 14 PUFF INH SCH ×2 (09:42→21:18)
[2019-11-15] MEDS: POLYETHYLENE (MIRALAX) 17 GM PACK PO SCH ×3 (09:43→21:18)
[2019-11-15] MEDS: CALCITONIN SALMON NA 200 IU/AC 3.7 ML BTL SCH (09:43)
[2019-11-15] MEDS: FOLIC ACID 1 MG TAB PO SCH (09:44)
[2019-11-15] MEDS: PROPRANOLOL HCL 20 MG TAB PO SCH ×2 (09:44→21:18)
[2019-11-15] MEDS: SENNA 8.6 MG TAB PO SCH (09:44)
[2019-11-15] MEDS: RIVAROXABAN 20 MG TAB PO SCH (09:44)
[2019-11-15] MEDS: THIAMINE HCL 100 MG TAB PO SCH (09:44)
[2019-11-15] MEDS: MAGNESIUM HYDROXIDE SUSP 30 ML UDC PO SCH (09:56)
--- NOTE | 2019-11-15 14:52 | Gastroenterology Progress Note ---
Date of Service November 15, 2019 Assessment & Plan (1) Ileus: Ileus vs pseudoobstruction with contribution from narcotics. Off narcotics. Improvement on Relistor which should continue. Electrloytes, magnesium and phosphorous in normal range 1/4. Advance to low fiber diet. Continue Miralax 17 gm tid. Continue MOM and senokot daily. I am going off service tomorrow at [address] Benjamin is assuming GI care then. Subjective cc abdomen improved HPI Pt with 2 bms today. Does not think his abdomen quite back to baseline but is improving. Mild abd pain. Tolerating full liquid diet. Review of Systems Respiratory: no dyspnea Cardiovascular: no chest pain Physical Exam Constitutional: WD/WN, vitals as above Respiratory: normal respiratory effort, lungs clear to auscultation Neurologic: PERRL, EOMI, accommodation nl, no face palsy, no dysarthria Psychiatric: A+Ox3, euthymic affect Results & Data Vital Signs (Past 12 Hours) Vital Signs Temp Pulse Resp BP Pulse Ox 11/15/19 10:57 18 97 11/15/19 07:16 36.8 C 85 16 106/67 94 11/15/19 07:02 93 H 18 96
[2019-11-15] MEDS: PANTOprazole 40 MG TAB PO SCH (21:18)
--- NOTE | 2019-11-15 23:38 | Hospitalist Progress Note ---
Date of Service November 15, 2019 Assessment & Plan (1) Ileus: Above problem is what has held discharge for patient. Likely secondary to being mainly in bed and opiates from his back pain. Dilated cecum and colon on imaging. colonoscopy on 11/11/19 with poor prep, patient had colonic decompression. Appears to have improved with relistor, fleet enema, and mag citrate. will continue to monitor on mag citrate and relistor On 11/15 abdomen continues to get softer, but not at baseline. continue above treatment. GI recommends to continue relistor. Need to coordinate with GI once patient is ok for discharge. (2) Compression fracture of L3 vertebra: s/p mechanical fall CT L-spine noted Ortho plans for brace and f/u outpt in 3-4 weeks Continue with lidoderm stop Oxycodone due to ileus, constipation, only taking twice a day replace with Toradol for pain control until ileus improved/resolved Calcitonin started 11/04 to minimize need for oxy, doing well PT recs for rehab on d/c, CM aware OT recs for ongoing care. Calcitonin should not be given custodial due to side effects. Recommend holding at discharge. bed not available as need repeat OT/PT notes (3) Radicular pain of right lower extremity: Related to above resolved for four days (4) Alcohol abuse: Not an every day alcohol user Valium for prophylaxis, continue no signs of withdrawal for several days (5) Resting tremor: Added propranolol on 11/04 for sx c/w essential tremor working well continue on discharge (6) Hypertension: continue home meds BP had been uncontrolled initially during admission, much better s/p addition of propranolol (7) Chronic obstructive pulmonary disease: At baseline O2 use (8) Hypoxia: Chronic hypoxic respiratory failure, on oxygen 24 hours a day (9) Nicotine dependence: Nicotine patch (10) GERD (gastroesophageal reflux disease): continue home meds (11) History of DVT (deep vein thrombosis): Xarelto held on admission in case of need for OR Resumed 11/04 given pt hx of multiple DVTs and no plans for OR (12) Constipation: start on Miralax daily 11/07 abdomen continues to be very distended. colonoscopy with dilated colon to the cecum, poor prep continue Miralax, Remeron clear liquid diet stop Oxycodone, use Toradol Subjective Patient reports having a BM today. Patient denies any pain today. Review of Systems Review of Systems: All systems reviewed & are unremarkable except as noted in HPI & below Physical Exam Physical Exam: Constitutional: WD/WN, vitals as above Eyes: PERRL, conjunctivae normal, anicteric sclerae ENMT: external ear and nose normal, oropharynx normal Neck: trachea midline, no thyromegaly Respiratory: normal respiratory effort, lungs clear to auscultation Cardiovascular: RRR, no murmur, no edema Gastrointestinal (Abdomen): Inspection/Auscultation: + abdomen less distended and softer, no signs of peritonitis and + hypoactive bowel sounds; Percussion/Palpation: abdomen nontender, no guarding Musculoskeletal: no cyanosis or clubbing, extremities motor strength 5/5 Sp ine: + pain with thoraco-lumbar ROM and + lumbar spinal tenderness Skin: no rashes, warm and dry Neurologic: patellar DTR's 2+ bilat, sensation intact and PERRL, EOMI, accommodation nl, no face palsy, no dysarthria Psychiatric: A+Ox3, euthymic affect Lymphatic: no cervical or axillary lymphadenopathy Results & Data Vital Signs (Past 12 Hours) Vital Signs Temp Pulse Resp BP Pulse Ox 11/15/19 23:09 36.7 C 73 19 130/81 93 11/15/19 21:16 86 117/76 11/15/19 18:50 83 16 93 11/15/19 15:43 36.6 C 86 16 123/77 93 11/15/19 14:54 88 20 92 PG Care Time/CCT Total # of Minutes Spent Total Time Spent with Patient: Total time spent is greater than 50% in coordination of care (as documented) at patient's floor/unit and/or counseling patient: (1) Compression fracture of L3 vertebra Encounter type: initial encounter Qualified Code(s): S32.030A - Wedge compression fracture of third lumbar vertebra, initial encounter for closed fracture (2) GERD (gastroesophageal reflux disease) Esophagitis presence: esophagitis presence not specified Qualified Code(s): K21.9 - Gastro-esophageal reflux disease without esophagitis
[2019-11-16] MEDS: ALBUT/IPRATROP 3MG/0.5MG NEB 3 ML VIAL NEB SCH ×6 (02:11→23:08)
[2019-11-16] MEDS: ALBUTEROL HFA 8 GM INHALER INH PRN ×2 (02:47→13:21)
[2019-11-16 06:11] LABS: Creatinine Clr Calc Pharmacy 168.9 ml/min; Est GFR (African American) 132.1
[2019-11-16] MEDS: KETOROLAC TROMETHAMINE 15 MG/ML VIAL IV PRN ×3 (06:38→23:02)
[2019-11-16] MEDS: FLUTICASONE/SALMETEROL (ADVAIR) 500/50 INH 14 PUFF INH SCH ×2 (09:09→21:18)
[2019-11-16] MEDS: THIAMINE HCL 100 MG TAB PO SCH (09:10)
[2019-11-16] MEDS: RIVAROXABAN 20 MG TAB PO SCH (09:10)
[2019-11-16] MEDS: TIOTROPIUM BROMIDE 5 PUFF/90 MCG INH INH SCH (09:10)
[2019-11-16] MEDS: PROPRANOLOL HCL 20 MG TAB PO SCH ×2 (09:10→21:18)
[2019-11-16] MEDS: FOLIC ACID 1 MG TAB PO SCH (09:11)
[2019-11-16] MEDS: SENNA 8.6 MG TAB PO SCH (09:11)
[2019-11-16] MEDS: METHYLNALTREXONE BROMIDE 12 MG/0.6 ML VIAL SQ SCH (09:11)
[2019-11-16] MEDS: CALCITONIN SALMON NA 200 IU/AC 3.7 ML BTL SCH (09:12)
[2019-11-16] MEDS: LIDOCAINE 5% 1 PATCH TD SCH (09:13)
[2019-11-16] MEDS: POLYETHYLENE (MIRALAX) 17 GM PACK PO SCH ×3 (09:13→21:18)
[2019-11-16] MEDS: MAGNESIUM HYDROXIDE SUSP 30 ML UDC PO SCH (09:19)
--- NOTE | 2019-11-16 10:10 | Surgery Progress Note ---
Date of Service November 16, 2019 Assessment & Plan (1) Ileus: resolved will sign off Subjective bowels moving, tolerating diet Physical Exam Gastrointestinal (Abdomen): Inspection/Auscultation: + abdomen distended (minimal) Percussion/Palpation: abdomen soft; abdomen nontender Results & Data Vital Signs (Past 12 Hours) Vital Signs Temp Pulse Resp BP Pulse Ox 11/16/19 07:38 36.5 C 80 18 109/65 99 11/16/19 07:27 83 16 93 11/15/19 23:09 36.7 C 73 19 130/81 93 PG Care Time/CCT Total # of Minutes Spent Total Time Spent with Patient: Total time spent is greater than 50% in coordination of care (as documented) at patient's floor/unit and/or counseling patient:
--- NOTE | 2019-11-16 15:11 | Progress Note ---
DATE: 11/16/2019 SUBJECTIVE: The patient is significantly improved from his ileus. He is now eating solid food and having bowel movements and passing gas. He had a bowel movement earlier today, and his abdomen is nontender and nondistended. PHYSICAL EXAMINATION: GENERAL: The patient is sitting at bedside in no acute distress. ABDOMEN: Decompressed. Soft and nontender. IMPRESSION: The patient had colonic distention, which is improved. PLAN: The plan is probably for him to go to rehab to recover from being deconditioned and to help heal his L3 compression fracture. At this point, we have no further GI suggestions and we will sign off unless needed in the future.
[2019-11-16] MEDS: ACETAMINOPHEN 325 MG TAB PO PRN (16:02)
--- NOTE | 2019-11-16 17:28 | Hospitalist Progress Note ---
Date of Service November 16, 2019 Assessment & Plan (1) Compression fracture of L3 vertebra: S/p mechanical fall. - Seen by ortho - plans for brace and f/u outpt in 3-4 weeks. - Continue with lidoderm - Stopped oxycodone due to ileus - Calcitonin started 11/04 to minimize need for oxy, doing well. = Plan for rehab (2) Ileus: Due to pain medications. - On Relistor, other bowel regimen. - Resolved by 11/16/2019 (3) Radicular pain of right lower extremity: Related to above - Resolved (4) Alcohol abuse: Not an every day alcohol user. - Valium for prophylaxis - No signs of withdrawal today. (5) Resting tremor: Added propranolol on 11/04 for sx c/w essential tremor. - Continue on discharge (6) Hypertension: BP had been uncontrolled initially during admission, much better s/p addition of propranolol. - Continue meds (7) Chronic obstructive pulmonary disease: At baseline O2 use. No shortness of breath today. - No changes today. (8) Hypoxia: Chronic hypoxic respiratory failure, on oxygen 24 hours a day (9) Nicotine dependence: Nicotine patch (10) GERD (gastroesophageal reflux disease): continue home meds (11) History of DVT (deep vein thrombosis): Xarelto held on admission in case of need for OR. - Resumed 11/04 given pt hx of multiple DVTs and no plans for OR Subjective Doing well today. No major pain. Having flatus and BMs. Reports no fevers/chills, chest pain, shortness of breath, abdominal pain, nausea, or vomiting. Physical Exam Constitutional: WD/WN, vitals as above Eyes: EOM intact bilaterally; no conjunctival abnormality ENMT: external ear and nose normal, oropharynx normal Neck: trachea midline, no thyromegaly normal visual inspection Respiratory: normal respiratory effort, lungs clear to auscultation no respiratory distress Cardiovascular: RRR, no murmur, no edema Gastrointestinal (Abdomen): Inspection/Auscultation: abdomen normal to inspection; abdomen not distended Musculoskeletal: no cyanosis or clubbing, extremities motor strength 5/5 Skin: no rashes, warm and dry Neurologic: moves all extremities and awake Psychiatric: Orientation: alert, oriented to person and cooperative Results & Data Vital Signs (Past 12 Hours) Vital Signs Temp Pulse Resp BP Pulse Ox 11/16/19 15:10 80 18 96 11/16/19 15:04 36.7 C 77 16 97/57 L 94 11/16/19 11:30 74 18 96 11/16/19 07:38 36.5 C 80 18 109/65 99 11/16/19 07:27 83 16 93 PG Care Time/CCT Total # of Minutes Spent Total Time Spent with Patient: Total time spent is greater than 50% in coordination of care (as documented) at patient's floor/unit and/or counseling patient: (1) Compression fracture of L3 vertebra Encounter type: initial encounter Qualified Code(s): S32.030A - Wedge compression fracture of third lumbar vertebra, initial encounter for closed fracture (2) GERD (gastroesophageal reflux disease) Esophagitis presence: esophagitis presence not specified Qualified Code(s): K21.9 - Gastro-esophageal reflux disease without esophagitis
[2019-11-16] MEDS: PANTOprazole 40 MG TAB PO SCH (21:18)
[2019-11-17] MEDS: ALBUT/IPRATROP 3MG/0.5MG NEB 3 ML VIAL NEB SCH ×3 (02:12→11:11)
[2019-11-17] MEDS: ALBUTEROL HFA 8 GM INHALER INH PRN (04:51)
[2019-11-17] MEDS: FLUTICASONE/SALMETEROL (ADVAIR) 500/50 INH 14 PUFF INH SCH (07:38)
[2019-11-17] MEDS: FOLIC ACID 1 MG TAB PO SCH (07:39)
[2019-11-17] MEDS: PROPRANOLOL HCL 20 MG TAB PO SCH (07:39)
[2019-11-17] MEDS: LIDOCAINE 5% 1 PATCH TD SCH (07:39)
[2019-11-17] MEDS: POLYETHYLENE (MIRALAX) 17 GM PACK PO SCH ×2 (07:40→13:53)
[2019-11-17] MEDS: SENNA 8.6 MG TAB PO SCH (07:40)
[2019-11-17] MEDS: TIOTROPIUM BROMIDE 5 PUFF/90 MCG INH INH SCH (07:41)
[2019-11-17] MEDS: THIAMINE HCL 100 MG TAB PO SCH (07:41)
[2019-11-17] MEDS: RIVAROXABAN 20 MG TAB PO SCH (07:41)
[2019-11-17] MEDS: CALCITONIN SALMON NA 200 IU/AC 3.7 ML BTL SCH (07:42)
[2019-11-17] MEDS: MAGNESIUM HYDROXIDE SUSP 30 ML UDC PO SCH (07:42)
[2019-11-17] MEDS: KETOROLAC TROMETHAMINE 15 MG/ML VIAL IV PRN (09:25)
--- NOTE | 2019-11-17 15:58 | Discharge Summary ---
Date of Service November 17, 2019 Admission HPI Per Admitting Provider For colonoscopy Principal Diagnosis Compression fracture Discharge Exam Constitutional WD/WN, vitals as above Eyes EOM intact bilaterally; no conjunctival abnormality ENMT external ear and nose normal, oropharynx normal Neck trachea midline, no thyromegaly normal visual inspection Respiratory normal respiratory effort, lungs clear to auscultation no respiratory distress Cardiovascular RRR, no murmur, no edema Gastrointestinal (Abdomen) Inspection/Auscultation: abdomen normal to inspection; abdomen not distended Musculoskeletal no cyanosis or clubbing, extremities motor strength 5/5 Skin no rashes, warm and dry Neurologic moves all extremities and awake Psychiatric Orientation: alert, oriented to person and cooperative Discharge Data Allergies Allergy/AdvReac Type Severity Reaction Status Date / Time No Known Allergies Allergy Mild Verified 11/04/19 01:52 Consultations 11/04/19 02:49 ED Decision to Admit Stat 11/04/19 05:16 Consult Orthopedic Surgery Routine 11/04/19 13:41 Consult Case Management - Discharge Planning Routine 11/09/19 22:43 Consult General Surgery Routine 11/10/19 08:04 Consult Gastroenterology Routine Procedures Performed Operation Date: 11/11/19 11:15 Actual Procedures p Colonic Decompression(Not Applicable) - Scott Benjamin Ordered Studies 11/04/19 01:18 CT lumbar spine wo con Urgent 11/09/19 21:03 CT abd pelvis IV con only Urgent Hospital Course (1) Compression fracture of L3 vertebra: S/p mechanical fall. - Seen by ortho - plans for brace and f/u outpt in 3 - 4 weeks. - Continue with lidoderm - Stopped oxycodone due to ileus - Calcitonin started 11/04 to minimize need for oxy, doing well. This was stopped on discharge as it is not a long-term medication. (2) Ileus: Due to pain medications. - On Relistor & other bowel regimen. - Resolved by 11/16/2019 - Multiple BMs per day. (3) Radicular pain of right lower extremity: Related to above - Resolved (4) Alcohol abuse: Not an every day alcohol user. - Valium for prophylaxis- No signs of withdrawal at all in the last few days prior to discharge. (5) Resting tremor: Added propranolol on 11/04 for sx c/w essential tremor. - Continue on discharge (6) Hypertension: BP had been uncontrolled initially during admission, much better s/p addition of propranolol. - Continue meds (7) Chronic obstructive pulmonary disease: At baseline O2 use. No shortness of breath today. - No changes today. (8) Hypoxia: Chronic hypoxic respiratory failure, on oxygen 24 hours a day (9) Nicotine dependence: Nicotine patch (10) GERD (gastroesophageal reflux disease): continue home meds (11) History of DVT (deep vein thrombosis): Xarelto held on admission in case of need for OR. - Resumed 11/04 given pt hx of multiple DVTs and no plans for OR Total Time Total Time Spent Total Time Spent (In Minutes): 35 Discharge Plan Discharge Items Patient Disposition: Transfer Custodial Fac Reason For Visit: L3 COMPRESSION FRACTURE, ALCOHOL ABUSE Discharge Diagnosis: L3 compression fracture, alcohol abuse Activity: Resume your previous activity Non-emergency contact: Primary Care Provider Call non-emergency contact if: you have any medication questions Follow-up/Referrals: Naima Tyson MD [Primary Care Provider] - Sherif Morgan DO [Physician] - (Please see Dr. Morgan in 2-3 weeks for follow up of the compression fracture.) Diet: Regular Addtl Attending Provider Instructions: You have been hospitalized for an L3 compression fracture which caused back pain. During your stay at [facility], we have made an effort to control the pain that brought you to the hospital while keeping you as comfortable as possible. Medications were used to bring your condition under control and your discharge instructions will include directions for any medications you should take after leaving the hospital. Please make sure you see your Primary Care Provider as part of your follow up plan. Will recommend to continue to use the brace as tolerated. If breathing is becoming worse than do not use the brace. Recommend followup with Dr. Morgan in about 3 weeks Pending Studies at Discharge: No Stand-Alone Forms: My [facility] Skilled Items Patient informed of condition?: Yes DNR: No Discharge Level of Care: Acute rehab Communicable Disease: No Discharge Prognosis: Stable Lines: None Urinary Catheter: No Medications and DC Order Prescriptions: New propranolol 20 mg Tablet 40 mg PO BID Qty: 120 RF: 0 sennosides [Senokot] 8.6 mg Tablet 8.6 mg PO QAM Qty: 30 RF: 0 magnesium hydroxide [Milk of Magnesia] 400 mg/5 mL Suspension 30 ml PO DAILY Qty: 30 RF: 0 lidocaine 5 % Adhesive Patch,Medicated 1 patch transdermal QAM Qty: 21 RF: 0 thiamine HCl (vitamin B1) [Vitamin B-1] 100 mg Tablet 100 mg PO QAM Qty: 30 RF: 0 folic acid 1 mg Tablet 1 mg PO QAM Qty: 30 RF: 0 acetaminophen [Mapap (acetaminophen)] 325 mg Tablet 650 mg PO Q4H PRN (Reason: pain) Qty: 30 RF: 0 Continued albuterol sulfate [ProAir HFA] 90 mcg/actuation HFA aerosol inhaler 1 puffs INH Q4H PRN (Reason: shortness of breath or wheezing) Qty: 18 RF: 5 tiotropium bromide 18 mcg capsule, w/inhalation device 1 cap inhalation DAILY Qty: 1 RF: 5 nystatin 100,000 unit/mL suspension 5 ml PO QID 7 Days Qty: 480 RF: 1 ipratropium-albuterol 0.5 mg-3 mg(2.5 mg base)/3 mL solution for nebulization 3 ml inhalation .COMPLEX PRN (Reason: shortness of breath or wheezing) Qty: 180 RF: 5 pantoprazole 40 mg Tablet,Delayed Release (Dr/Ec) 40 mg PO QPM RF: 0 Breo Ellipta 200-25 mcg/dose Blister With Device 1 inh INHALATION QPM RF: 0 Xarelto 20 mg tablet 20 mg PO DAILY RF: 0 Combivent Respimat 20-100 mcg/actuation mist 1 puff Inhalation QID RF: 0 Discharge Orders: Discharge Order (Routine); Ordered 11/17/19 Ordered By: Lenny Ronquillo Admission Data Admit Date/Time: 11/04/19 04:17 Attending Provider: Lenny Ronquillo Admit Provider: Darrick Andrade Primary Care Provider: Naima Tyson Other Providers: [facility] ; [facility] [place] ; Sherif Morgan ; Bowen Box ; Scott Benjamin ; Erna, ; Lenny Ronquillo Other Interventions: Discharge Summary Assessment (RN) Last Done: 11/17/19 13:57 DC Date/Time DO NOT enter until pt leaves facility: 11/17/19 14:13
== END 2019-11-17 14:13 | DRG 552 ==
LOC: ED 00:55 → 2N 04:17 → SUATTDRO 04:17 → 2N 04:44 → 4W 11-13 20:11 → 3W 11-14 07:03

== ENCOUNTER 2020-05-11 17:42 | Inpatient (IN) ==
[2020-05-11 18:08] LABS: Basophils # (auto) 0.03 K/uL (0-0.2); Basophils % (auto) 0.4 %; Eosinophils # (auto) 0.11 K/uL (0-0.5); Eosinophils % (auto) 1.4 %; Hematocrit (blood only) 39.6 % (42-52); Hemoglobin 12.8 g/dL (14.0-18.0); Immature Granulocytes # (auto) 0.02 K/uL (0.00-0.02); Immature Granulocytes % (auto) 0.2 %; Lymphocytes % (auto) 18.6 %; Mean Corpuscular Hemoglobin 29.8 pg (25-34); Mean Corpuscular Hgb Conc 32.3 g/dL (32-36); Mean Corpuscular Volume 92.1 fL (80-100); Mean Platelet Volume 8.8 fL (7.4-10.4); Monocytes # (auto) 0.32 K/uL (0.11-0.59); Neutrophils % (auto) 75.4 %; Platelet Count 300 K/uL (130-400); RDW Coefficient of Variation 15.3 % (11.5-14.5); RDW Standard Deviation 51.1 fL (36.4-46.3); White Blood Count 8.08 K/uL (4.8-10.8)
[2020-05-11] MEDS ORDERED: methylPREDNISolone 60 MG in SYRINGE 1 ML IV STA (18:13)
[2020-05-11] MEDS ORDERED: ALBUT/IPRATROP 3MG/0.5MG NEB 3 ML VIAL NEB STA ×2 (18:13→22:14)
[2020-05-11] MEDS ORDERED: SODIUM CHLORIDE 0.9% 1000ML 500 ML IV ONE (18:16)
--- NOTE | 2020-05-11 18:16 | Emergency Department Note ---
Impression & Plan Respiratory distress, Tachycardia, Diaphoresis, COPD exacerbation ED Provider Note NAME: JOSETTE FLOYD JR AGE: 54 SEX: M : 1965 ARRIVES VIA: Ambulance INFORMANT: [Patient][ems] ED PROVIDER(S): [Galo Pena MD] CHIEF COMPLAINT: Respiratory distress HISTORY OF PRESENT ILLNESS: The patient is a 54-year-old male with COPD. He presents to the ER with an episode of respiratory distress. The patient arrives on CPAP. The patient states that he was in baseline health today. He was driving his car about an hour ago when suddenly, he began having a hard time catching his breath. He began to sweat. No chest pain. He has not had recent cough, fever or congestion. The patient was seen by EMS and was given a DuoNeb and placed on CPAP. He does feel improved. Patient does have COPD. He does occasionally have episodes like this although, he is usually able to get over this without having to come to the hospital. Today's episode was quite severe. REVIEW OF SYSTEMS: See HPI for pertinent positives and negatives. A total of ten systems were reviewed and were otherwise negative. PMHx/PSHx: See Below SOCIAL HISTORY: See Below. PHYSICAL EXAM: GENERAL: Patient is in mild respiratory distress. HEENT: No acute trauma, normocephalic atraumatic, mucous membranes moist, no nasal congestion, no scleral icterus. NECK: No stridor, no adenopathy, no meningismus, trachea is midline. LUNGS: Diminished breath sounds, wheezing bilaterally, breath sounds are equal, mild respiratory distress noted. He is on BiPAP. HEART: Mildly tachycardic, regular rhythm, no murmurs. ABDOMEN: Soft, nontender, bowel sounds positive, no hernias, no peritonitis. EXTREMITIES: No cyanosis, mild bilateral pedal edema with some apparent chronic skin change, full range of motion of all the joints without pain or difficulty, no signs for acute trauma. NEUROLOGIC: Oriented x 3, no acute motor or sensory deficits, no focal weakness. SKIN: No rash, no jaundice, no diaphoresis. DIFFERENTIAL DIAGNOSIS: Reactive airway disease, pneumonia, pneumothorax, COPD, CHF, infections, cardiac ischemia, pulmonary embolism, musculoskeletal, gastrointestinal, as well as other pathologies. EMERGENCY DEPARTMENT COURSE/PROCEDURES: ECG: Indication was shortness of breath. The ECG shows a sinus tachycardia with a rate of 124. There is a QTC of 459. There is no ST elevation. No PVCs. Continuous Cardiac Monitoring: An order was placed for continuous cardiac monitoring. The monitor shows a rate of 103 with sinus tachycardia. Critical Care Note: I have personally spent greater than 42 minutes of critical care time in the direct management of this patient. This includes bedside care, interpretation of diagnostic studies, and testing, discussion with consultants, patient, and family members, and other required patient management activities. This 42 minutes is in excess of all separately billable procedures. MEDICAL DECISION MAKING: There is no leukocytosis. A mild anemia was noted. There was a normal platelet count. No coagulopathy. No significant electrolyte abnormality or kidney failure. EKG showed a sinus tachycardia, no acute ischemia. Cardiac enzyme testing x1 is not consistent with acute cardiac injury. Chest film did not show pneumonia or CHF. There was no pneumothorax. Chest CT did not show any evidence for pneumonia or PE, there was no pneumothorax. The patient presented in respiratory distress. He had received a DuoNeb and CPAP prior to arrival. When he arrived here, he was emergently placed on BiPAP. He was given a DuoNeb. He received IV Solu-Medrol, he was given IV saline. The patient does seem to be improved. He is still tachycardic but he is breathing easier. He looks more comfortable than when he arrived. He is no longer sweating. The patient appears to have an acute exacerbation of COPD as a cause for his presentation. He does not appear to have pneumonia or CHF. No evidence for cardiac injury at this point. I do think a hospital stay is warranted though given the severity of his presentation. I did speak to the patient and case management. The on-call hospitalist was consulted. Past Med/Surg History Medical History Alcohol use REPORTS 12 PACK BEER PER DAY Aortic thrombus "I THINK THEY REMOVED IT" "YEARS AGO" - ON XARELTO Chronic obstructive pulmonary disease USING PRN NEBS/INH DAILY Compression fracture of L3 vertebra 12/13 fall 11/2019 DVT (deep venous thrombosis) X2 BLLE - ON XARELTO - UNK ETIOLOGY PER PT GERD (gastroesophageal reflux disease) Hiatal hernia [place] (hard of hearing) On home oxygen therapy PRN On home oxygen therapy 2 LPM CONTINUOUS Poor historian SOB (shortness of breath) on exertion Tremor Surgical History H/O vascular surgery X 3-VASCULAR BLOCKAGES LOWER LEGS History of esophagogastroduodenoscopy (EGD) History of tonsillectomy Status post angioplasty with stent BLLE Family History Mother Family history of diabetes mellitus Other No family history of adverse response to anesthesia Social History Preferred Language: Swazi Communication Ability: Effective 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 Beliefs That Will Affect Care: None Current Living Situation: Alone Other Information That Helps Us Care for You: No Feels Safe at Home: Yes Safety Concerns: Feels Safe At This Time Smoking Status: Heavy tobacco smoker Tobacco Type: cigarettes ; Cigarettes Per Day: 30 ; Do You Dip or Chew Tobacco: No ; Second Hand Exposure: No ; Tobacco Cessation Education Requested by Patient: No Hx Alcohol Use: Yes Alcohol type: beer Hx Substance Use: No Allergies Allergies Allergy/AdvReac Type Severity Reaction Status Date / Time No Known Allergies Allergy Mild Verified 05/11/20 21:46 Home Meds Home Medications Medication Instructions Recorded Confirmed Breo Ellipta 1 inh INHALATION QPM 01/15/19 05/11/20 pantoprazole 40 mg PO QPM 01/15/19 05/11/20 Xarelto 20 mg PO QPM 01/20/19 05/11/20 [id number] 1 inh INHALATION DAILY 05/11/20 05/11/20 [Trelegy Ellipta] tiotropium bromide [Spiriva with 1 cap INHALATION DAILY 05/11/20 05/11/20 HandiHaler] Previous Rx's Medication Instructions Recorded albuterol sulfate 90 mcg/actuation 1 puffs INH Q4H PRN #18 gm 08/17/19 aerosol inhaler folic acid 1 mg PO QAM #30 tab 11/09/19 thiamine HCl (vitamin B1) [Vitamin 100 mg PO QAM #30 tab 11/09/19 B-1] ipratropium 0.5 mg-albuterol 3 mg 3 ml INHALATION Q4H PRN #540 ml 03/31/20 (2.5 mg base)/3 mL nebulization soln Results & Data (ED) Vital Signs Vital Signs - 24 hr 05/11/20 17:45 05/11/20 17:48 05/11/20 18:23 Temperature 37.2 C Temperature Source Oral Pulse Rate 126 H 124 H Pulse Rate [Right Finger] 121 H Pulse Rate from SpO2 Sensor Respiratory Rate 23 20 25 H Respiratory Effort / Characteristics Spontaneous Labored Spontaneous Respiratory Depth Respiratory Pattern Tachypnea Blood Pressure 158/93 H Blood Pressure Mean 114 Blood Pressure Position Sitting Pulse Oximetry 98 97 98 Oxygen Delivery Method BiPAP BiPAP Fraction of Inspired Oxygen 30 30 Sepsis Recent Fever Within 48 Hours No Sepsis New/Unexplained Change in Mental Status No Sepsis Action Taken by Nursing No Action Required 05/11/20 19:02 05/11/20 19:30 05/11/20 20:00 Temperature Temperature Source Pulse Rate 112 H 114 H Pulse Rate [Right Finger] Pulse Rate from SpO2 Sensor 111 H 114 H Respiratory Rate 20 20 Respiratory Effort / Characteristics Respiratory Depth Respiratory Pattern Blood Pressure Blood Pressure Mean Blood Pressure Position Pulse Oximetry 95 93 95 Oxygen Delivery Method BiPAP BiPAP BiPAP Fraction of Inspired Oxygen Sepsis Recent Fever Within 48 Hours Sepsis New/Unexplained Change in Mental Status Sepsis Action Taken by Nursing 05/11/20 20:09 05/11/20 20:10 Temperature Temperature Source Pulse Rate 110 H 111 H Pulse Rate [Right Finger] Pulse Rate from SpO2 Sensor 110 H Respiratory Rate 23 19 Respiratory Effort / Characteristics Non-Labored Spontaneous Respiratory Depth Normal Respiratory Pattern Regular Blood Pressure 146/89 H Blood Pressure Mean 103 Blood Pressure Position Pulse Oximetry 92 92 Oxygen Delivery Method BiPAP Fraction of Inspired Oxygen 30 Sepsis Recent Fever Within 48 Hours Sepsis New/Unexplained Change in Mental Status Sepsis Action Taken by Snf Medications Current Medication List: was personally reviewed by me Laboratory Data Attestation: I reviewed the patient's lab results. Result diagrams: 05/11/20 17:58 05/11/20 17:58 Lab Results 05/11/20 05/11/20 05/11/20 Range/Units 17:55 17:58 17:58 WBC 8.08 (4.8-10.8) K/uL RBC 4.30 L (4.7-6.1) M/uL Hgb 12.8 L (14.0-18.0) g/dL Hct 39.6 L (42-52) % MCV 92.1 (80-100) fL MCH 29.8 (25-34) pg MCHC 32.3 (32-36) g/dL RDW Std Deviation 51.1 H (36.4-46.3) fL RDW Coeff of Aggie 15.3 H (11.5-14.5) % Plt Count 300 (130-400) K/uL MPV 8.8 (7.4-10.4) fL Immature Gran % (Auto) 0.2 % Neut % (Auto) 75.4 % Lymph % (Auto) 18.6 % Tama % (Auto) 4.0 % Eos % (Auto) 1.4 % Baso % (Auto) 0.4 % Neut # (Auto) 6.10 (1.4-6.5) K/uL Lymph # (Auto) 1.50 (1.2-3.4) K/uL Tama # (Auto) 0.32 (0.11-0.59) K/uL Eos # (Auto) 0.11 (0-0.5) K/uL Baso # (Auto) 0.03 (0-0.2) K/uL Immature Gran # (Auto) 0.02 (0.00-0.02) K/uL PT 10.1 (9.0-12.0) Seconds INR 1.0 (0.9-1.1) APTT 23.8 (21.0-31.0) Seconds PTT Ratio 0.9 Sodium 136 (136-145) mmol/L Potassium 4.0 (3.5-5.1) mmol/L Chloride 102 (98-107) mmol/L Carbon Dioxide 28 (21-32) mmol/L Anion Gap 6.0 (3-11) BUN 7 (7-18) mg/dl Creatinine 0.87 (0.6-1.4) mg/dl Est Cr Clr Drug Dosing 121.4 ml/min Est GFR ( Amer) 112.6 Est GFR (Non-Af Amer) 97.2 BUN/Creatinine Ratio 8.5 L (10-20) Glucose 120 H (70-99) mg/dl Calcium 8.3 L (8.5-10.1) mg/dl Troponin I < 0.015 (0-0.045) ng/ml Administered Medications Vancomycin HCl 2,750 mg/ (Sodium Chloride) 555 mls @ 200 mls/hr IV NOW ONE; Protocol Stop: 05/12/20 00:16 Last Admin: 05/11/20 22:46 Dose: 200 mls/hr Documented by: [id number] Ioversol (Optiray 320 125ml) 115 ml IV ONCE PRN PRN Reason: Interaction Checking Stop: 05/15/20 19:47 Last Admin: 05/11/20 19:48 Dose: 115 ml Documented by: [id number] Pantoprazole Sodium (Protonix) 40 mg PO QPM SURJIT Stop: 06/10/20 21:52 Last Admin: 05/11/20 23:04 Dose: 40 mg Documented by: [id number] Discontinued Medications Albuterol (Duoneb) 3 ml NEB NOW STA Stop: 05/11/20 18:14 Last Admin: 05/11/20 18:23 Dose: 3 ml Documented by: [id number] Albuterol (Duoneb) 3 ml NEB NOW STA Stop: 05/11/20 22:15 Last Admin: 05/11/20 22:29 Dose: 3 ml Documented by: [id number] Methylprednisolone 60 mg/ (Syringe) 1.96 mls @ 1.5 mls/min IV NOW STA Stop: 05/11/20 18:14 Last Admin: 05/11/20 18:22 Dose: 1.5 mls/min Documented by: [id number] Sodium Chloride (Nss 1000ml) 500 mls @ 999 mls/hr IV .Q31M ONE Stop: 05/11/20 18:46 Last Infusion: 05/11/20 20:01 Dose: 0 mls/hr Documented by: [id number] Admin: 05/11/20 18:22 Dose: 999 mls/hr Documented by: [id number] Ceftriaxone Sodium 2,000 mg/ (Dextrose) 70 mls @ 140 mls/hr IV NOW ONE Stop: 05/11/20 21:59 Last Infusion: 05/11/20 23:23 Dose: 0 mls/hr Documented by: [id number] Admin: 05/11/20 22:03 Dose: 140 mls/hr Documented by: [id number] Azithromycin 500 mg/ Dextrose 255 mls @ 127.5 mls/hr IV NOW ONE Stop: 05/11/20 23:59 Last Admin: 05/11/20 22:46 Dose: 127.5 mls/hr Documented by: [id number] Methylprednisolone (Solumedrol) Confirm Administered Dose 125 mg .ROUTE .STK-MED ONE Stop: 05/11/20 18:20 Last Admin: 05/11/20 18:23 Dose: Not Given Documented by: [id number] Imaging Data Radiologist's Impression: XR chest 1V portable CLINICAL HISTORY: Resiratory Distress dyspnea COMPARISON STUDY: 11/04/2019 FINDINGS: Mild emphysematous change. Chronic granulomatous change. No focal infiltrate. IMPRESSION: Mild emphysematous and chronic granulomatous change. No acute process. CT angio chest PE protocol CT DOSE: 576.07 mGycm HISTORY: Chest pain PE TECHNIQUE: Multiaxial CT images of the chest were performed following the intravenous administration of contrast to evaluate the pulmonary arteries. Maximal intensity projection images were also obtained. A dose lowering technique was utilized adhering to the principles of ALARA. COMPARISON STUDY: None. FINDINGS: There is a normal caliber thoracic aorta with no evidence for dissection. There is no evidence for pulmonary embolus. No pleural effusions. No pneumothorax. The liver and spleen are unremarkable. No mediastinal or hilar lymphadenopathy. The central airways are patent. The lungs are clear. Slight chronic peribronchial prominence. Microvascular nodularity as well as subcutaneous nodules considered stable with no interval change from the prior study. IMPRESSION: 1. No evidence for pulmonary embolus. 2. Lungs are considered clear. 3. Stable chronic emphysematous change. Blood Pressure Blood Pressure Findings: Elevated blood pressure Blood Pressure Disposition: further management by hospitalist Discharge Plan Visit Data *Final* Discharge Date/Time: 05/11/20 21:28 Chief Complaint: Respiratory Distress Stated Complaint: ACUTE RESP DISTRESS ED Provider: Galo Pena Discharge Problem: Respiratory distress, Tachycardia, Diaphoresis, COPD exacerbation Patient Disposition: Admitted As Inpatient Condition: Fair Discharge Instructions Interventions: ED Discharge Assessment Last Done: 05/11/20 21:28
[2020-05-11] MEDS ORDERED: methylPREDNISolone 125 MG/2 ML VIAL ONE (18:19)
--- NOTE | 2020-05-11 18:22 | XRay Report ---
XR chest 1V portable CLINICAL HISTORY: Resiratory Distress dyspnea COMPARISON STUDY: 11/04/2019 FINDINGS: Mild emphysematous change. Chronic granulomatous change. No focal infiltrate. IMPRESSION: Mild emphysematous and chronic granulomatous change. No acute process. ACT 112: Negative or not required by law. The above report was generated using voice recognition software. It may contain grammatical, syntax or spelling errors. Electronically signed by: Abdullahi Altamirano M.D. 05/11/2020 6:20 PM
[2020-05-11 18:27] LABS: BUN Creatinine Ratio 8.5 (10-20); Blood Urea Nitrogen 7 mg/dl (7-18); Calcium 8.3 mg/dl (8.5-10.1); Carbon Dioxide 28 mmol/L (21-32); Chloride 102 mmol/L (98-107); Creatinine Clr Calc Pharmacy 121.4 ml/min; Est GFR (African American) 112.6; Est GFR (Non-African American) 97.2; Glucose 120 mg/dl (70-99); Sodium 136 mmol/L (136-145)
[2020-05-11 18:32] LABS: Troponin I < 0.015 ng/ml (0-0.045)
[2020-05-11 19:18] LABS: Partial Thromboplastin Ratio 0.9; Partial Thromboplastin Time 23.8 Seconds (21.0-31.0); Prothrombin Time 10.1 Seconds (9.0-12.0)
[2020-05-11] MEDS ORDERED: OPTIRAY 320 125ml IV PRN (19:48)
--- NOTE | 2020-05-11 19:57 | CT Scan Report ---
CT angio chest PE protocol CT DOSE: 576.07 mGycm HISTORY: Chest pain PE TECHNIQUE: Multiaxial CT images of the chest were performed following the intravenous administration of contrast to evaluate the pulmonary arteries. Maximal intensity projection images were also obtaine d. A dose lowering technique was utilized adhering to the principles of ALARA. COMPARISON STUDY: None. FINDINGS: There is a normal caliber thoracic aorta with no evidence for dissection. There is no evide nce for pulmonary embolus. No pleural effusions. No pneumothorax. The liver and spleen are unremarkab le. No mediastinal or hilar lymphadenopathy. The central airways are patent. The lungs are clear. Slight chronic peribronchial prominence. Microvascular nodularity as well as subcutaneous nodules con sidered stable with no interval change from the prior study. IMPRESSION: 1. No evidence for pulmonary embolus. 2. Lungs are considered clear. 3. Stable chronic emphysematous change. ACT 112: Negative or not required by law. The above report was generated using voice recognition software. It may contain grammatical, syntax or spelling errors. Electronically signed by: Abdullahi Altamirano M.D. 05/11/2020 7:56 PM
[2020-05-11] MEDS ORDERED: VANCOMYCIN CONSULT ACTIVE PRN (20:42)
--- NOTE | 2020-05-11 20:52 | History & Physical Report ---
Date of Service May 11, 2020 Assessment & Plan (1) Respiratory distress: Acute respiratory distress with hypoxia/COPD exacerbation- Patient did receive Solu-Medrol 60 mg IV from the ED, and a DuoNeb treatment. Place on Solu-Medrol 60 mg IV every 8 hours. Duonebs every 4 hours while awake and every 2 hours when necessary. BiPAP per protocol Nasal cannula 2 L oxygen, titrate to keep pulse ox 92 to 94%. Vancomycin IV, ceftriaxone IV and azithromycin IV, and combined treatment with lower extremity cellulitis. Present on Admission?: Yes (2) COPD exacerbation: See above Present on Admission?: Yes (3) History of DVT (deep vein thrombosis): Continue Xarelto 20 mg p.o. every evening Present on Admission?: Yes (4) Alcohol abuse: Continue thiamine 100 mg p.o. daily and folic acid 1 mg p.o. daily Present on Admission?: Yes (5) Cellulitis of left lower extremity without foot: Combination of COPD exacerbation and cellulitis to be covered by: Vancomycin IV, ceftriaxone IV and azithromycin IV Present on Admission?: Yes (6) GERD (gastroesophageal reflux disease): Continue pantoprazole 40 mg daily Present on Admission?: Yes History of Present Illness Chief Complaint: The patient presents to the emergency department with complaints of intermittent episodes of shortness of breath, increased heart rate, dizziness and lightheadedness, with the first episode occurring about 1 week ago. Primary Care Provider: Naima Tyson MD Patient is a 54-year-old male with a past medical history including COPD, acute metabolic encephalopathy, hyponatremia, GERD, history of DVT, acute respiratory failure with hypercapnia requiring ICU admission, alcohol abuse, nicotine dependence, L3 vertebral compression fracture, gait instability, resting tremor, hypertension and history of ileus. The patient reports that he had initial episode of difficulty breathing about 1 week ago, which lasted about 15 minutes. He has had a few further episodes during the week, and then today experiencing more significant episode of shortness of breath and dyspnea on exertion. He reports that he began to sweat, felt lightheaded and dizzy. He denies any recent travel or sick exposures, in particular COVID-19 exposures. Today, after being seen by emergency services at home, he was given a DuoNeb, placed on CPAP, and then brought to the emergency department. Allergies Allergy/AdvReac Type Severity Reaction Status Date / Time No Known Allergies Allergy Mild Verified 05/11/20 21:46 Home Medications Home Medications Medication Instructions Recorded Confirmed Type Breo Ellipta 1 inh INHALATION QPM 01/15/19 05/11/20 History pantoprazole 40 mg PO QPM 01/15/19 05/11/20 History Xarelto 20 mg PO QPM 01/20/19 05/11/20 History albuterol sulfate 90 mcg/actuation 1 puffs INH Q4H PRN #18 gm 08/17/19 05/11/20 Rx aerosol inhaler folic acid 1 mg PO QAM #30 tab 11/09/19 05/11/20 Rx thiamine HCl (vitamin B1) [Vitamin 100 mg PO QAM #30 tab 11/09/19 05/11/20 Rx B-1] ipratropium 0.5 mg-albuterol 3 mg 3 ml INHALATION Q4H PRN #540 ml 03/31/20 05/11/20 Rx (2.5 mg base)/3 mL nebulization soln iialrngiqop-hbitojnaw-pwsxhweb 1 inh INHALATION DAILY 05/11/20 05/11/20 History [Trelegy Ellipta] tiotropium bromide [Spiriva with 1 cap INHALATION DAILY 05/11/20 05/11/20 History HandiHaler] Past Med/Surg History Medical History Alcohol use REPORTS 12 PACK BEER PER DAY Aortic thrombus "I THINK THEY REMOVED IT" "YEARS AGO" - ON XARELTO Chronic obstructive pulmonary disease USING PRN NEBS/INH DAILY Compression fracture of L3 vertebra 12/13 fall 11/2019 DVT (deep venous thrombosis) X2 BLLE - ON XARELTO - UNK ETIOLOGY PER PT GERD (gastroesophageal reflux disease) Hiatal hernia [place] (hard of hearing) On home oxygen therapy PRN On home oxygen therapy 2 LPM CONTINUOUS Poor historian SOB (shortness of breath) on exertion Tremor Surgical History H/O vascular surgery X 3-VASCULAR BLOCKAGES LOWER LEGS History of esophagogastroduodenoscopy (EGD) History of tonsillectomy Status post angioplasty with stent BLLE Family History Mother Family history of diabetes mellitus Other No family history of adverse response to anesthesia Social History Preferred Language: French Communication Ability: Effective Scale Clerk Required: No Beliefs That Will Affect Care: None Current Living Situation: Alone Other Information That Helps Us Care for You: No Feels Safe at Home: Yes Safety Concerns: Feels Safe At This Time Smoking Status: Heavy tobacco smoker Tobacco Type: cigarettes ; Cigarettes Per Day: 30 ; Do You Dip or Chew Tobacco: No ; Second Hand Exposure: No ; Tobacco Cessation Education Requested by Patient: No Hx Alcohol Use: Yes Alcohol type: beer Hx Substance Use: No Review of Systems Review of Systems: The patient denies palpitations, lower extremity swelling, sore throat, fevers, chills, sweats, nausea, vomiting, diarrhea , constipation, abdominal pain, pelvic pain, blood in urine or stool, dysuria, urinary frequency or urgency, headache, memory loss, loss of consciousness, rash, abnormal bruising or bleeding, imbalance, focal weakness, numbness or tingling in arms or legs, generalized arthralgias or myalgias, back or neck pain, or night sweats. The review of systems is otherwise negative other than for that already noted above, and at least 10 systems have been reviewed. Physical Exam Physical Exam: The patient is awake, alert and oriented 3, placed on BiPAP in the ED, lying in bed and in no acute distress. HEENT--PERRL, EOMI, mucous membranes and oropharynx dry. Neck--supple. No JVD. No bruits. Thyroid normal, trachea midline, no adenopathy. Heart--normal S1 and S2. No murmurs, rubs or gallops. Lungs--decreased breath sounds throughout. Mild respiratory distress, no accessory muscle use. Abdomen--normal bowel sounds and soft. Nontender. Nondistended. Extremities--no cyanosis or clubbing. No edema. Dermatologic--normal skin turgor, normal color, no abnormal lymph nodes, no rash. Neurologic--cranial nerves II through XII grossly intact. Rheumatologic--normal range of motion. Psychiatric--normal affect. Results & Data Results & Data ([facility]) Vital Signs (Past 12 Hours) Vital Signs Temp Pulse Pulse Resp BP Pulse Ox 05/11/20 20:10 111 H 19 92 05/11/20 20:09 110 H 23 146/89 H 92 05/11/20 20:00 114 H 20 95 05/11/20 19:30 112 H 20 93 05/11/20 19:02 95 05/11/20 18:23 121 H 25 H 98 05/11/20 17:48 99.0 F 124 H 20 158/93 H 97 05/11/20 17:45 126 H 23 98 Laboratory Results Laboratory Results WBC 8.08 K/uL (4.8-10.8) 05/11/20 17:58 RBC 4.30 M/uL (4.7-6.1) L 05/11/20 17:58 Hgb 12.8 g/dL (14.0-18.0) L 05/11/20 17:58 Hct 39.6 % (42-52) L 05/11/20 17:58 MCV 92.1 fL (80-100) 05/11/20 17:58 MCH 29.8 pg (25-34) 05/11/20 17:58 MCHC 32.3 g/dL (32-36) 05/11/20 17:58 RDW Std Deviation 51.1 fL (36.4-46.3) H 05/11/20 17:58 RDW Coeff of Aggie 15.3 % (11.5-14.5) H 05/11/20 17:58 Plt Count 300 K/uL (130-400) 05/11/20 17:58 MPV 8.8 fL (7.4-10.4) 05/11/20 17:58 Immature Gran % (Auto) 0.2 % 05/11/20 17:58 Neut % (Auto) 75.4 % 05/11/20 17:58 Lymph % (Auto) 18.6 % 05/11/20 17:58 [place] % (Auto) 4.0 % 05/11/20 17:58 Eos % (Auto) 1.4 % 05/11/20 17:58 Baso % (Auto) 0.4 % 05/11/20 17:58 Neut # (Auto) 6.10 K/uL (1.4-6.5) 05/11/20 17:58 Lymph # (Auto) 1.50 K/uL (1.2-3.4) 05/11/20 17:58 [place] # (Auto) 0.32 K/uL (0.11-0.59) 05/11/20 17:58 Eos # (Auto) 0.11 K/uL (0-0.5) 05/11/20 17:58 Baso # (Auto) 0.03 K/uL (0-0.2) 05/11/20 17:58 Immature Gran # (Auto) 0.02 K/uL (0.00-0.02) 05/11/20 17:58 PT 10.1 Seconds (9.0-12.0) 05/11/20 17:55 INR 1.0 (0.9-1.1) 05/11/20 17:55 APTT 23.8 Seconds (21.0-31.0) 05/11/20 17:55 PTT Ratio 0.9 05/11/20 17:55 Sodium 136 mmol/L (136-145) 05/11/20 17:58 Potassium 4.0 mmol/L (3.5-5.1) 05/11/20 17:58 Chloride 102 mmol/L (98-107) 05/11/20 17:58 Carbon Dioxide 28 mmol/L (21-32) 05/11/20 17:58 Anion Gap 6.0 (3-11) 05/11/20 17:58 BUN 7 mg/dl (7-18) 05/11/20 17:58 Creatinine 0.87 mg/dl (0.6-1.4) 05/11/20 17:58 Est Cr Clr Drug Dosing 121.4 ml/min 05/11/20 17:58 Est GFR ( Amer) 112.6 05/11/20 17:58 Est GFR (Non-Af Amer) 97.2 05/11/20 17:58 BUN/Creatinine Ratio 8.5 (10-20) L 05/11/20 17:58 Glucose 120 mg/dl (70-99) H 05/11/20 17:58 Calcium 8.3 mg/dl (8.5-10.1) L 05/11/20 17:58 Troponin I < 0.015 ng/ml (0-0.045) 05/11/20 17:58 Diagnostic Findings [facility], [place] [phone] XRay Report Patient: JOSETTE FLOYD JRAdmit Date: 05/11/20 MR#: [id number]: [address] Acct ID:[id number]: BOX Date: 1965[facility] Zip: [place] [address] Age: 54Location: ED Sex: M Room/Bed: Att Phy:Diagnosis: ACUTE RESP DISTRESS [place] Phy: Naima Tyson M.D.Service Date: 05/11/20 Fam Phy:Interpreting Phy: Abdullahi Altamirano MD Admit Phy: Ordering Phy: Galo Pena M.D. cc: ~ XR chest 1V portable CLINICAL HISTORY: Resiratory Distress dyspnea COMPARISON STUDY: 11/04/2019 FINDINGS: Mild emphysematous change. Chronic granulomatous change. No focal infiltrate. IMPRESSION: Mild emphysematous and chronic granulomatous change. No acute process. ACT 112: Negative or not required by law. The above report was generated using voice recognition software. It may contain grammatical, syntax or spelling errors. Electronically signed by: Abdullahi Altamirano M.D. 05/11/2020 6:20 PM Dictated: 05/11/201819 Transcribed: 05/11/201819 [facility], [place] [phone] CT Scan Report Patient: JOSETTE FLOYD JRAdmit Date: 05/11/20 MR#: [id number]: [id number] Acct ID:[id number]: BOX Date: 1965[facility] Zip: [place] [address] Age: 54Location: ED Sex: M Room/Bed: Att Phy:Diagnosis: ACUTE RESP DISTRESS [place] Phy: Naima Tyson M.D.Service Date: 05/11/20 Fam Phy:Interpreting Phy: Abdullahi Altamirano MD Admit Phy: Ordering Phy: Galo Pena M.D. cc: ~ CT angio chest PE protocol CT DOSE: 576.07 mGycm HISTORY: Chest pain PE TECHNIQUE: Multiaxial CT images of the chest were performed following the intravenous administration of contrast to evaluate the pulmonary arteries. Maximal intensity projection images were also obtained. A dose lowering technique was utilized adhering to the principles of ALARA. COMPARISON STUDY: None. FINDINGS: There is a normal caliber thoracic aorta with no evidence for dissection. There is no evidence for pulmonary embolus. No pleural effusions. No pneumothorax. The liver and spleen are unremarkable. No mediastinal or hilar lymphadenopathy. The central airways are patent. The lungs are clear. Slight chronic peribronchial prominence. Microvascular nodularity as well as subcutaneous nodules considered stable with no interval change from the prior study. IMPRESSION: 1. No evidence for pulmonary embolus. 2. Lungs are considered clear. 3. Stable chronic emphysematous change. ACT 112: Negative or not required by law. The above report was generated using voice recognition software. It may contain grammatical, syntax or spelling errors. Electronically signed by: Abdullahi Altamirano M.D. 05/11/2020 7:56 PM Dictated: 05/11/201954 Transcribed: 05/11/201954 Code Status & VTE Plan Code Status Full code VTE Prophylaxis Plan VTE Prophylaxis will be ordered: Yes PG Care Time/CCT Total # of Minutes Spent Total Time Spent with Patient: Total time spent is greater than 50% in coordination of care (as documented) at patient's floor/unit and/or counseling patient: Coding Level of Care Code 77258 Initial Inpt Care Lvl 3 Diagnoses Respiratory distress R06.03 COPD exacerbation J44.1 History of DVT (deep vein thrombosis) Z86.718 Alcohol abuse F10.10 Cellulitis of left lower extremity without foot L03.116 GERD (gastroesophageal reflux disease) K21.9 Esophagitis presence: esophagitis presence not specified (1) GERD (gastroesophageal reflux disease) Esophagitis presence: esophagitis presence not specified Qualified Code(s): K21.9 - Gastro-esophageal reflux disease without esophagitis
[2020-05-11] MEDS ORDERED: VANCOMYCIN HCL 2,750 MG in SODIUM CHLORIDE 0.9% 500 ML IV ONE (21:30)
[2020-05-11] MEDS ORDERED: cefTRIAXone SODIUM 2,000 MG in DEXTROSE 5% 50 ML IV ONE (21:30)
[2020-05-11] MEDS ORDERED: ACETAMINOPHEN 325 MG TAB PO PRN (21:53)
[2020-05-11] MEDS ORDERED: ONDANSETRON INJ 2 MG/ML 2 ML VIAL IV PRN (21:53)
[2020-05-11] MEDS ORDERED: ALUMINUM/MAGNESIUM SUSP 30 ML UDC PO PRN (21:53)
[2020-05-11] MEDS ORDERED: MAGNESIUM HYDROXIDE SUSP 30 ML UDC PO PRN (21:53)
[2020-05-11] MEDS ORDERED: AZITHROMYCIN 500 MG in DEXTROSE 5% 250 ML IV ONE (22:00)
--- NOTE | 2020-05-11 22:59 | Pharmacy Report ---
Pharmacy Abx Dose Short Note - Date of Service May 11, 2020 - Assessment & Plan Assessment 54 year old M receiving vancomycin/Rocephin/Azithromycin for treatment of COPD exacerbation Day # 1 of antimicrobial therapy. Plan Vancomycin * vancomycin 2750 mg IV x1 (25 mg/kg) loading dose * population pharmacokinetics suggest half life of 6.93 hr and elimination constant of 0.1 hr-1 * Starting vancomycin 1500 mg IV q10 hours * vancomycin trough due at 1900 tomorrow ---> prior to third dose not at steady state * goal trough for pulmonary infection is 15-20 mcg/mL Pharmacy will continue to follow and will adjust dose/frequency as necessary. Thank you.
[2020-05-11] MEDS: PANTOprazole 40 MG TAB PO SCH (23:04)
[2020-05-12] MEDS: methylPREDNISolone 60 MG in SYRINGE 0 ML IV SCH ×2 (02:04→08:32)
[2020-05-12] MEDS: ALBUT/IPRATROP 3MG/0.5MG NEB 3 ML VIAL NEB SCH ×5 (03:03→19:20)
[2020-05-12 07:18] LABS: Creatinine Clr Calc Pharmacy 152.7 ml/min; Est GFR (African American) 125.4; Est GFR (Non-African American) 108.2
--- NOTE | 2020-05-12 08:20 | Electrocardiogram Report ---
Test Reason : Blood Pressure : / mmHG Vent. Rate : 124 BPM Atrial Rate : 124 BPM P-R Int : 144 ms QRS Dur : 072 ms QT Int : 320 ms P-R-T Axes : 074 032 059 degrees QTc Int : 459 ms Poor data quality, interpretation may be adversely affected Sinus tachycardia Peaked T waves(consider ischemia,hyperkalemia,etc.) Abnormal ECG When compared with ECG of 23-JAN-2019 06:24, HR has increased BY 40 BPM Confirmed by Rashid Chapa ([id number]) on 05/12/2020 8:20:08 AM Referred By: REFERRED SELF Confirmed By:Rashid Chapa
[2020-05-12] MEDS: THIAMINE HCL 100 MG TAB PO SCH (08:28)
[2020-05-12] MEDS: FOLIC ACID 1 MG TAB PO SCH (08:28)
[2020-05-12] MEDS: SENNA 8.6 MG TAB PO SCH (08:29)
[2020-05-12] MEDS ORDERED: Nursing to Pharmacy Communication SCH (08:45)
[2020-05-12] MEDS ORDERED: VANCOMYCIN HCL 1,500 MG in SODIUM CHLORIDE 0.9% 500 ML IV SCH ×2 (09:00→16:00)
[2020-05-12] MEDS ORDERED: RIVAROXABAN 20 MG TAB PO SCH ×2 (09:00→21:00)
--- NOTE | 2020-05-12 09:49 | Pharmacy Report ---
Pharmacy Abx Dose Short Note - Date of Service May 12, 2020 - Assessment & Plan Assessment 54 year old M receiving IV Vancomycin and Azithromycin (pharmacy not consulted) for treatment of COPD exacerbation/LE cellulitis * Day #1 of antimicrobial therapy * Given improvement in renal fxn, will empirically increase vancomycin dose * Consider discontinuation of vancomycin if MRSA nasal swab is negative Plan Vancomycin * Population kinetics suggest an elimination rate constant of 0.13 hr-1 and half life of 5.3 hrs * Change to 1500 mg IV every 8 hours * Goal trough level: 15 to 20 mcg/mL * Trough order for tomorrow morning prior to the 4th maintenance dose to reflect steady state levels Pharmacy will continue to follow and will adjust dose/frequency as necessary. Thank you.
[2020-05-12] MEDS: cephALEXin 500 MG CAP PO SCH ×3 (12:57→20:16)
--- NOTE | 2020-05-12 15:17 | Hospitalist Progress Note ---
Date of Service May 12, 2020 Assessment & Plan (1) Respiratory distress: Mr. Fritz is a 54 yo M with a PMHx of oxygen dependent COPD admitted for SOB. SOB - CXR on admission showing no active process. Chest CTA showing no evidence of PE, normal lung with chronic, mild emphysematous changes - trop undetectable on admission, EKG without signs of ischemia, no reported chest pain by patient. Cardiac etiology unlikely - thought to be due to COPD exacerbation - air movement improved after carlos-neb - continue Duo Nebs every 4 hours while awake and every 2 hours when necessary. - continue Solu-Medrol 40 mg IV every 12 hours - BiPAP per protocol - currently satting in 95s on baseline oxygen requirement - continue Azithromycin COPD exacerbation: - See above - home medication regimen consists of Breo Ellipta, Spiriva Handihaler, Combivent Respimat, and 3 liters of supplemental oxygen - current every day smoker - low dose lung CT in 03/2019 for cancer screening: identified several nodules; March 2020 screening postponed due to COVID - follows with [facility] Pulmonology Cellulitis of L LE - non-purulent - WBC normal - nasal MRSA swab neg - will discontinue vancomycin and Rocephin - keflex (5 day course) Dysphagia - patient reports a history of ongoing dysphagia - hx of Barretts esophagus - sensation of swallowing food that gets stuck on way down - last upper endoscopy in 12/2016 History of DVT (deep vein thrombosis): - Continue Xarelto 20 mg p.o. every evening Alcohol abuse: - Continue thiamine 100 mg p.o. daily and folic acid 1 mg p.o. daily GERD (gastroesophageal reflux disease): - Continue pantoprazole 40 mg daily DVT ppx: on Xarelto Diet: heart healthy Dispo: Med/surg Code: full Admission and Anticipated Discharge Date Admission Date: May 11, 2020 Supervising Physician Co-Signing Physician Notes Resident Physician Supervision Note: I independently interviewed and examined the patient and verified the aviles history and physical, reviewed labs and image studies, discussed the case with the resident Dr. De La Cruz and agree with the findings and care plan. Subjective Feeling unchanged since admission. Reports history of episodic SOB (not accompanied by chest pain) over the past week. Comes on at rest, resolves within 15 minutes. Denies underlying stress/anxiety. Not necessarily relieved by nebulizer use. Although he smokes 1.5 packs of cigarettes per day, denies smoking in the period of time just prior to these episodes Review of Systems Review of Systems: All systems reviewed & are unremarkable except as noted in HPI & below Ear, Nose, Mouth, Throat: + dysphagia Physical Exam Constitutional: WD/WN, vitals as above cooperative Eyes: + anicteric sclerae ENMT: external ear and nose normal, oropharynx normal Neck: normal visual inspection and trachea midline Respiratory: normal respiratory effort, able to speak in complete sentences, + prolonged expiratory phase and + audible wheezes; no cough Auscultation: + diminished lung sounds and + wheezes Cardiovascular: RRR, no murmur, no edema Heart Sounds: normal S1 and normal S2 Extremities: no pedal edema Gastrointestinal (Abdomen): Inspection/Auscultation: + abdomen distended and normal bowel sounds Percussion/Palpation: abdomen nontender and no guarding Skin: + erythema (L LE) Psychiatric: A+Ox3, euthymic affect Results & Data Results & Data ([facility]) Vital Signs (Past 12 Hours) Vital Signs Temp Pulse Pulse Resp BP BP Pulse Ox 05/12/20 15:03 101 H 20 92 05/12/20 11:21 36.7 C 91 H 20 149/90 H 93 05/12/20 11:19 95 H 18 94 05/12/20 07:54 95 H 05/12/20 07:27 36.6 C 91 H 20 154/91 H 97 05/12/20 07:07 97 H 97 H 26 H 93 05/12/20 04:00 157/98 H Resident Activity Tracking Resident Involvement: Resident Care Provided Care Provided: Adult Hospital Medicine
[2020-05-12] MEDS ORDERED: VANCOMYCIN TROUGH ONE (18:30)
[2020-05-12] MEDS: PANTOprazole 40 MG TAB PO SCH (20:17)
[2020-05-12] MEDS ORDERED: cefTRIAXone SODIUM 2,000 MG in DEXTROSE 5% 50 ML IV SCH (22:00)
[2020-05-12] MEDS ORDERED: AZITHROMYCIN 500 MG in DEXTROSE 5% 250 ML IV SCH (23:00)
[2020-05-12] MEDS ORDERED: ALBUT/IPRATROP 3MG/0.5MG NEB 3 ML VIAL NEB STA (23:53)
[2020-05-12] MEDS ORDERED: LORazepam 1 MG TAB PO PRN (23:53)
[2020-05-13] MEDS ORDERED: LORazepam 1 MG TAB PO STA (00:13)
[2020-05-13] MEDS: ALBUT/IPRATROP 3MG/0.5MG NEB 3 ML VIAL NEB SCH ×2 (07:07→11:34)
[2020-05-13] MEDS ORDERED: VANCOMYCIN TROUGH ONE (07:30)
[2020-05-13] MEDS: SENNA 8.6 MG TAB PO SCH (08:31)
[2020-05-13] MEDS: THIAMINE HCL 100 MG TAB PO SCH (08:31)
[2020-05-13] MEDS: cephALEXin 500 MG CAP PO SCH ×2 (08:31→12:08)
[2020-05-13] MEDS: FOLIC ACID 1 MG TAB PO SCH (08:32)
[2020-05-13] MEDS ORDERED: methylPREDNISolone 40 MG in SYRINGE 0 ML IV SCH ×2 (09:00→21:00)
[2020-05-13] MEDS ORDERED: BuPROPion SR 150 MG TABCR PO SCH (10:00)
--- NOTE | 2020-05-13 13:25 | Discharge Summary ---
Date of Service May 13, 2020 Admission HPI Per Admitting Provider Patient is a 54-year-old male with a past medical history including COPD, acute metabolic encephalopathy, hyponatremia, GERD, history of DVT, acute respiratory failure with hypercapnia requiring ICU admission, alcohol abuse, nicotine dependence, L3 vertebral compression fracture, gait instability, resting tremor, hypertension and history of ileus. The patient reports that he had initial episode of difficulty breathing about 1 week ago, which lasted about 15 minutes. He has had a few further episodes during the week, and then today experiencing more significant episode of shortness of breath and dyspnea on exertion. He reports that he began to sweat, felt lightheaded and dizzy. He denies any recent travel or sick exposures, in particular COVID-19 exposures. Today, after being seen by emergency services at home, he was given a DuoNeb, placed on CPAP, and then brought to the emergency department. Admission Exam Per Admitting Provider The patient is awake, alert and oriented 3, placed on BiPAP in the ED, lying in bed and in no acute distress. HEENT--PERRL, EOMI, mucous membranes and oropharynx dry. Neck--supple. No JVD. No bruits. Thyroid normal, trachea midline, no adenopathy. Heart--normal S1 and S2. No murmurs, rubs or gallops. Lungs--decreased breath sounds throughout. Mild respiratory distress, no accessory muscle use. Abdomen--normal bowel sounds and soft. Nontender. Nondistended. Extremities--no cyanosis or clubbing. No edema. Dermatologic--normal skin turgor, normal color, no abnormal lymph nodes, no rash. Neurologic--cranial nerves II through XII grossly intact. Rheumatologic--normal range of motion. Psychiatric--normal affect. Principal Diagnosis COPD exacerbation Discharge Exam Constitutional WD/WN, vitals as above cooperative Eyes + anicteric sclerae ENMT external ear and nose normal, oropharynx normal Neck normal visual inspection and trachea midline Respiratory normal respiratory effort, able to speak in complete sentences and + prolonged expiratory phase; no cough Auscultation: + diminished lung sounds; no pleural rub restricted air movement, b/l Cardiovascular RRR, no murmur, no edema Heart Sounds: normal S1 and normal S2 Extremities: no pedal edema Gastrointestinal (Abdomen) Inspection/Auscultation: + abdomen distended and normal bowel sounds Percussion/Palpation: abdomen nontender and no guarding Skin + erythema (L LE) Psychiatric A+Ox3, euthymic affect Discharge Data Allergies Allergy/AdvReac Type Severity Reaction Status Date / Time No Known Allergies Allergy Mild Verified 05/11/20 21:46 Consultations 05/11/20 20:14 ED Decision to Admit Stat 05/11/20 21:53 Consult Case Management - Discharge Planning Routine 05/12/20 16:02 Consult [facility] thread dresser Routine Ordered Studies 05/11/20 18:46 CT angio chest PE protocol Stat Hospital Course (1) Respiratory distress: Mr. Fritz is a 54 yo M with a PMHx of oxygen dependent COPD admitted for SOB. SOB - secondary to COPD exacerbation Patient reported episodic shortness of breath over the week preceding admission that would spontaneously resolve within 15 minutes. Each episode occurred while he was driving his car. Of note, his car's air conditioner is currently broken. CXR on admission showing no active process. Chest CTA showing no evidence of PE, normal lung with chronic, mild emphysematous changes. Cardiac etiology was ruled out as troponin was undetectable on admission, EKG was without signs of ischemia, and patient denied any associated chest pain. Symptoms were ultimately felt to represent a COPD exacerbation. He was treated with IV methylprednisolone, azithromycin and nebulizer treatments. Patient demonstrated saturations > 90% on his baseline oxygen requirement (which is 3-4 liters) throughout his hospital stay. He was discharged on a prednisone taper and the remainder of his azithromycin course. It seems as though humidity was a trigger for his episodic shortness of breath (driving around in his car with the windows down since air conditioner was broken). He was advised to avoid humid environments and stay in air conditioned areas as much as possible. Outpatient items to do: Clinical lung exam in outpatient follow up. Continue prednisone taper if necessary. COPD exacerbation: See above. Home medication regimen consists of Breo Ellipta, Spiriva Handihaler, Combivent Respimat, and 3-4 liters of supplemental oxygen. Patient is a current daily smoker (1-2 ppd). The COVID epidemic has caused him to smoker more, closer to 2 packs per day. He follows with [facility] and had his first low dose lung CT in 03/2019 for lung cancer screening. Two nodules were identified and annual follow up was recommended. His 03/2020 CT was canceled due to COVID precautions. An outpatient follow up with Dr. Benavides at [facility] was arranged for 05/20/20. As for his tobacco abuse, he was started on wellburtin while in the hospital. Outpatient items to do: Reschedule low dose chest CT for annual lung cancer screening. Refill Wellbutrin script if patient tolerates well. Continue smoking cessation counseling. Cellulitis of L LE Patient was found to have a non-purulent cellulitis on his left LE on admission. He was treated with IV antibiotics while in the hospital and sent home with a remaining course of Keflex. Dysphagia Patient reports a history of ongoing dysphagia, describing a sensation where food gets "stuck on the way down." He does have a hx of Barretts esophagus related to EtOh consumption. His last upper endoscopy was in 12/2016. An appointment was arranged for him to follow up with [facility] on 05/30/20. History of DVT (deep vein thrombosis): - Continue Xarelto 20 mg p.o. every evening Alcohol abuse: - Continue thiamine 100 mg p.o. daily and folic acid 1 mg p.o. daily GERD (gastroesophageal reflux disease): - Continue pantoprazole 40 mg daily Total Time Total Time Spent Total Time Spent (In Minutes): see atteding attestation Discharge Plan Discharge Items Patient Disposition: Home - Self-Care Reason For Visit: ACUTE RESP FAILURE WITH HYPOXIA,COPD EXACERBATION Discharge Diagnosis: COPD exacerbation Condition on Discharge: Fair Activity: Resume your previous activity Non-emergency contact: Primary Care Provider and Corrections Sergeant Call non-emergency contact if: your symptoms worsen Follow-up/Referrals: Peter Benavides MD [Physician] - 05/20/20 3:00 pm (Please, follow up at [facility] Office with Dr. Benavides on SaturdayMay 20 at 3:00 pm. *If you need to change this appointment, call the office at [phone].) Maurilio Yeung MD [Physician] - 05/30/20 12:45 pm (Please, follow up at [facility] Office with Dr. Yeung on SaturdayMay 30 at 12:45 pm. *The office is located at [address] in [place] ([place]). If you need to change this appointment, call the office at [phone].) Naima Tyson MD [Primary Care Provider] - 05/17/20 12:50 pm (Please, follow up with Dr. Naima Tyson' associate, Dr. De La Cruz, on SaturdayMay 17 at 12:50 pm. THIS APPOINTMENT WILL BE AT [facility]. THE OFFICE IS LOCATED IN [address] OF THE [facility], NEXT TO THIS HOSPITAL. DR. DE LA CRUZ IS THE PHYSICIAN YOU SAW WHILE IN THE HOSPITAL. *If you need to change this appointment, call the office at [phone].) Diet: Heart Healthy Addtl Attending Provider Instructions: You were hospitalized at [facility] for evaluation of shortness of breath. Your symptoms were thought to be caused by an exacerbation of your COPD. You were treated with IV steroids, nebulizer treatments and an antibiotic known as azithromycin. Please continue to take prednisone (or Cortef) 40mg, twice daily for 2 days, 40mg once daily for 2 days, and 20 mg once daily for 2 days. Then stop. Please continue to the antibiotic Azithromycin 250mg, once daily for 4 days. This medication is also to help your lungs. After discussing, it sounds like a known trigger to your shortness of breath episodes is humidity (ie riding in your car with the windows down). We recommend you avoid the humidity (ie try to stay in the air conditioning most of the time) and only go outside when its cool (like in the mornings and evenings). Your continued tobacco use (smoking) is without a doubt making your COPD worse. We recommend cessation of tobacco products. We started you on a medication known as Wellbutrin to help you stop smoking. Please take a 150mg tablet, once daily for 2 days, then increase to 150mg, 2 tablets, once daily moving forward. You should be taking 2 tablets by 05/15/20. A follow up visit has been arranged for you with Dr. Tyson at [facility] clinic on 05/17/20. Please attend this visit. You also have a follow up visit with Dr. Benavides at [facility] on 05/20/20, please attend this visit. Due to COVID precautions, your annual lung cancer screening was postponed in March. We recommend you reschedule your low-dose cat scan of your chest for surveillance your known lung nodules. You were also found to have a skin infection on your left leg, near the ankle while in the hospital. You were treated with an antibiotic while in the hospital. We recommend you continue to take Keflex 500mg, four times daily for 2 more days. You mentioned that you were overdue for a scope of your upper GI tract. We have arranged a follow up visit with [facility] on 05/30/20. Please attend this visit. Pending Studies at Discharge: No Stand-Alone Forms: [facility], Smoking Cessation Medications and DC Order Prescriptions: New cephalexin [Keflex] 500 mg capsule 500 mg PO QID 2 Days Qty: 8 RF: 0 bupropion HCl 150 mg Tablet Sustained-Release 12 Hr 150 mg PO DAILY 30 Days Qty: 30 RF: 0 azithromycin [Zithromax] 250 mg tablet 250 mg PO DAILY 4 Days Qty: 4 RF: 0 hydrocortisone [Cortef] 20 mg tablet 20 mg PO DAILY Qty: 16 RF: 0 Continued albuterol sulfate [ProAir HFA] 90 mcg/actuation HFA aerosol inhaler 1 puffs INH Q4H PRN (Reason: shortness of breath or wheezing) Qty: 18 RF: 5 ipratropium-albuterol 0.5 mg-3 mg(2.5 mg base)/3 mL solution for nebulization 3 ml inhalation Q4H PRN (Reason: shortness of breath or wheezing) Qty: 540 RF: 1 pantoprazole 40 mg Tablet,Delayed Release (Dr/Ec) 40 mg PO QPM RF: 0 Breo Ellipta 200-25 mcg/dose Blister With Device 1 inh INHALATION QPM RF: 0 Xarelto 20 mg tablet 20 mg PO QPM RF: 0 thiamine HCl (vitamin B1) [Vitamin B-1] 100 mg Tablet 100 mg PO QAM Qty: 30 RF: 0 folic acid 1 mg Tablet 1 mg PO QAM Qty: 30 RF: 0 Spiriva with HandiHaler 18 mcg Capsule, W/Inhalation Device 1 cap INHALATION DAILY RF: 0 Trelegy Ellipta 100-62.5-25 mcg blister with device 1 inh INHALATION DAILY RF: 0 Discharge Orders: Discharge Order (Routine); Ordered 05/13/20 Ordered By: Luz De La Cruz Admission Data Admit Date/Time: 05/11/20 20:41 Attending Provider: Yajaira Kimball Admit Provider: Kailash Sharma Primary Care Provider: Naima Tyson Other Providers: Kailash Sharma Other Interventions: Discharge Summary Assessment (RN) Last Done: 05/13/20 13:03 DC Date/Time DO NOT enter until pt leaves facility: 05/13/20 15:05 Supervising Physician Co-Signing Physician Notes Resident Physician Supervision Note: I independently interviewed and examined the patient and verified the aviles history and physical, reviewed labs and image studies, discussed the case with the resident Dr. De La Cruz and agree with the findings and care plan. Resident Activity Tracking Resident Involvement: Resident Care Provided Care Provided: Adult Hospital Medicine
== END 2020-05-13 15:05 | disposition home or self-care (01) | DRG 191 ==
LOC: ED 17:42 → 2W 20:41 → SUATTDRO 20:41 → 2W 21:28

== ENCOUNTER 2020-05-31 15:05 | Inpatient (IN) ==
[2020-05-31] MEDS ORDERED: SODIUM CHLORIDE 0.9% 1000ML 1,000 ML IV ONE (15:25)
--- NOTE | 2020-05-31 15:40 | Emergency Department Note ---
History of Present Illness General Chief complaint: Referred by Doctor Stated complaint: BACK PAIN Time Seen by Provider: 05/31/20 15:13 History of Present Illness Maximum Pain Intensity: 0 54-year-old male who presents to the emergency department with complaint of bilateral lower extremity pain and weakness. The patient reports that over the past 3 to 4 days, his symptoms have been worsening. The patient reports that he has fallen twice within the past 12 hours. He called his family doctor, who referred him to the emergency department for further work-up. The patient reports sustaining a fall and fractured his back in October. He was admitted to our hospital. Patient reports that he has had persistent chronic back pain since that time. The patient does not believe that his back pain has progressively worsened lately. He has not noticed any tingling or numbness of the legs. The patient reports that last night he was trying to get off of the toilet, and had difficulty doing so. When he was able to stand up, his knees gave out and he fell onto the knees and rolled forward onto his belly. He denies any facial, head or neck injury. The patient then fell again today after trying to stand up. Patient also has a history of severe COPD. He is currently on O2 via nasal cannula at 3 L/min at home. The patient does not feel that he is any shorter of breath than usual. He has not noticed any chest pain, diaphoresis, nausea, fever or chills. Patient denies any known cardiac history. He does report a history of lower extremity DVTs, and has noticed some swelling in his legs lately that is more than usual. The patient currently rates his overall discomfort a 3 out of 10. Home Medications Home Medications Medication Instructions Recorded Confirmed Type Breo Ellipta 1 inh INHALATION QPM 01/15/19 05/31/20 History pantoprazole 40 mg PO QPM 01/15/19 05/31/20 History Xarelto 20 mg PO QPM 01/20/19 05/31/20 History folic acid 1 mg PO QAM #30 tab 11/09/19 05/31/20 Rx thiamine HCl (vitamin B1) [Vitamin 100 mg PO QAM #30 tab 11/09/19 05/31/20 Rx B-1] Spiriva with HandiHaler 1 cap INHALATION QAM 05/11/20 05/31/20 History albuterol sulfate [ProAir HFA] 1 puffs INH Q4H PRN 05/31/20 05/31/20 History bupropion HCl 150 mg PO QAM 05/31/20 05/31/20 History ipratropium-albuterol 3 ml INHALATION Q4H PRN 05/31/20 05/31/20 History Allergies Allergy/AdvReac Type Severity Reaction Status Date / Time No Known Allergies Allergy Verified 05/31/20 15:43 Past Med/Surg History Medical History Alcohol use REPORTS 12 PACK BEER PER DAY Aortic thrombus "I THINK THEY REMOVED IT" "YEARS AGO" - ON XARELTO Chronic obstructive pulmonary disease USING PRN NEBS/INH DAILY Compression fracture of L3 vertebra 12/13 fall 11/2019 DVT (deep venous thrombosis) X2 BLLE - ON XARELTO - UNK ETIOLOGY PER PT GERD (gastroesophageal reflux disease) Hiatal hernia [place] (hard of hearing) On home oxygen therapy PRN On home oxygen therapy 2 LPM CONTINUOUS Poor historian SOB (shortness of breath) on exertion Tremor Surgical History H/O vascular surgery X 3-VASCULAR BLOCKAGES LOWER LEGS History of esophagogastroduodenoscopy (EGD) History of tonsillectomy Status post angioplasty with stent BLLE Family History Mother Family history of diabetes mellitus Other No family history of adverse response to anesthesia Social History Smoking Status: Heavy tobacco smoker Tobacco Type: Cigarettes Cigarettes Per Day: 30; Second Hand Exposure: No; Hx Alcohol Use: Yes Alcohol type: beer Hx Substance Use: No Preferred Language: Maori Communication Ability: Effective Resource Manager Required: No Beliefs That Will Affect Care: None marital status: Single Current Living Situation: Alone How many Children do You have: 0 Feels Safe at Home: Yes Review of Systems 10 system review was performed and was negative except for pertinent positives and negatives as indicated in history of present illness Physical Exam Vital Signs Vital Signs - 24 hr 05/31/20 15:09 05/31/20 16:01 05/31/20 17:26 Temperature 37.0 C Temperature Source Oral Pulse Rate 101 H Pulse Rate [Left Finger] 100 H Pulse Rhythm Regular Pulse Strength Normal Respiratory Rate 16 26 H 22 Respiratory Effort / Characteristics Non-Labored Respiratory Depth Normal Respiratory Pattern Regular Blood Pressure 136/83 Blood Pressure [Left Arm] 142/96 H Blood Pressure Mean 100 Blood Pressure Mean [Left Arm] 111 Blood Pressure Position Sitting Pulse Oximetry 95 96 95 Oxygen Delivery Method Nasal Cannula Nasal Cannula Nasal Cannula Oxygen Flow Rate 3 3 3 Sepsis Recent Fever Within 48 Hours No Sepsis New/Unexplained Change in Mental Status N/A Sepsis Action Taken by Nursing No Action Required CONSTITUTIONAL: Obese male, alert and oriented X 3. Patient does not appear in any acute distress. The patient is currently wearing O2 via nasal cannula at 3 L/min. HEENT: Normocephalic, atraumatic. Pupils equal, round and reactive. No scleral icterus or conjunctival injection/pallor. No obvious facial edema. Ears and nares are clear. No posterior pharyngeal erythema or tonsillar hypertrophy. NECK: Full active range of motion without discomfort. LYMPHATICS: No cervical chain adenopathy. RESPIRATORY: Lung sounds are distant bilaterally with no wheezing, crackles, rhonchi or stridor appreciated. Patient does not appear in any acute respiratory distress. CARDIOVASCULAR: Regular rate and rhythm with no murmurs, rubs or gallops. GASTROINTESTINAL: Bowel sounds present in all quadrants. Abdomen is protuberant but soft and nontender to palpation. MUSCULOSKELETAL: Examination was performed with the patient sitting on the side of the bed. He does have a positive sitting straight leg raise bilaterally. Negative logroll. Has generalized tenderness to palpation about the knees without any obvious joint effusions. Patient has 2+ pitting edema of bilateral lower extremities. Pedal pulses are intact. Examination of the back shows mild tenderness to palpation through the lower central lumbar spine and SI joints. INTEGUMENTARY: No rash or other significant dermatologic conditions noted. HEMATOLOGIC: No ecchymosis or petechiae. PSYCHIATRIC: Positive affect. NEUROLOGIC: No focal neurologic deficits noted. Course Course Patient history and physical exam were performed. Nurse's notes were reviewed. Vital signs were reviewed. O2 saturation was 95% on the patient's usual nasal cannula at 3 L/min. The patient was mildly tachycardic, however is afebrile and normotensive. I also reviewed prior hospital documentation from the patient's fall on 11/04/2019, showing an acute L3 compression fracture with 70% loss of vertebral height and minimal retropulsion. No additional back imaging studies have been performed since that time. It is also noted that the patient had a chest CT angiography performed on 05/11/2020 that showed stable chronic emphysematous changes without evidence for pneumonia or pulmonary emboli. IV access was established, and labs were drawn. The patient refused any analgesics. The patient does appear mildly dehydrated, and with his tachycardia, was administered a liter of normal saline. spar cap beveler was also ordered. ECG showed no acute findings other than mild tachycardia. A portable chest x-ray shows emphysematous changes without evidence for failure, consolidations, obvious cardiomegaly or pneumothorax. Review of labs shows a notable hyponatremia and hypomagnesemia. BUN and creatinine are normal, as is LFTs. The patient does have an elevated alkaline phosphatase, but this is chronically elevated for the patient. TSH is also low at 0.101, however has a n ormal free T4. Troponin and BNP are normal. The patient was administered a gram of mag sulfate. Noncontrast CT of the lumbar spine shows several compression fractures of varying severity. Bilateral knee x-rays shows mild degenerative changes without evidence for fractures, dislocations, bony lysis or joint effusions. Venous ultrasound of bilateral lower extremities are negative for DVT. Noncontrast CT of the head does not show any intracranial bleed, midline shift or mass-effect. The case was further discussed with the patient, and he agreed to admission. The case was also discussed with Dr. Pena, ED attending physician, who agrees with work-up and admission plan of care. The case was then discussed with the [facility] hospitalist service. Please see their dictation for further treatment and final disposition. Administered Medications Potassium Chloride/Sodium Chloride (Normal Saline W/20 Meq Kcl) 20 meq in 1,000 mls @ 100 mls/hr IV .Q10H SURJIT Stop: 06/30/20 20:29 Last Infusion: 05/31/20 22:02 Dose: 100 mls/hr Documented by: [id number] Admin: 05/31/20 20:56 Dose: 100 mls/hr Documented by: [id number] Ipratropium [place] (Atrovent 0.02% 0.5mg/2.5ml) 0.5 mg INH Q6R SURJIT Stop: 06/30/20 20:44 Last Admin: 05/31/20 20:45 Dose: Not Given Documented by: [id number] Levalbuterol HCl (Xopenex 1.25mg/0.5ml Neb) 1.25 mg INH Q6R SURJIT Stop: 06/30/20 20:44 Last Admin: 05/31/20 20:45 Dose: Not Given Documented by: [id number] Rivaroxaban (Xarelto) 20 mg PO QPM SURJIT Stop: 06/30/20 20:59 Last Admin: 05/31/20 20:58 Dose: 20 mg Documented by: [id number] Discontinued Medications Albuterol (Duoneb) 3 ml INH ONE ONE Stop: 05/31/20 20:14 Last Admin: 05/31/20 20:26 Dose: 3 ml Documented by: [id number] Fluticasone/Vilanterol (Breo Ellipta 200/25 Mcg Inh) 1 puffs INH QPM SURJIT Stop: 06/30/20 20:59 Last Admin: 05/31/20 20:57 Dose: Not Given Documented by: [id number] Sodium Chloride (Nss 1000ml) 1,000 mls @ 999 mls/hr IV .Q1H1M ONE Stop: 05/31/20 16:25 Last Infusion: 05/31/20 17:20 Dose: 0 mls/hr Documented by: [id number] Admin: 05/31/20 16:13 Dose: 999 mls/hr Documented by: [id number] Magnesium Sulfate/Dextrose (Magnesium Sulfate / D5w) 1 gm in 100 mls @ 100 mls/hr IV NOW STA Stop: 05/31/20 18:03 Last Infusion: 05/31/20 19:09 Dose: 0 mls/hr Documented by: [id number] Admin: 05/31/20 17:24 Dose: 100 mls/hr Documented by: [id number] Pantoprazole Sodium (Protonix) 40 mg PO QPM SURJIT Stop: 06/30/20 20:59 Last Admin: 05/31/20 20:58 Dose: Not Given Documented by: [id number] Medical Decision Making Medical Records Attestation: I reviewed the patient's medical records. Home Medications Current Medication List: was personally reviewed by me Laboratory Data Attestation: I reviewed the patient's lab results. Result diagrams: 05/31/20 15:58 05/31/20 20:38 Lab Results 05/31/20 05/31/20 05/31/20 Range/Units 15:58 15:58 15:58 WBC (4.8-10.8) K/uL RBC (4.7-6.1) M/uL Hgb (14.0-18.0) g/dL Hct (42-52) % MCV (80-100) fL MCH (25-34) pg MCHC (32-36) g/dL RDW Std Deviation (36.4-46.3) fL RDW Coeff of Aggie (11.5-14.5) % Plt Count (130-400) K/uL MPV (7.4-10.4) fL Immature Gran % (Auto) % Neut % (Auto) % Lymph % (Auto) % Wilkes % (Auto) % Eos % (Auto) % Baso % (Auto) % Neut # (Auto) (1.4-6.5) K/uL Lymph # (Auto) (1.2-3.4) K/uL Wilkes # (Auto) (0.11-0.59) K/uL Eos # (Auto) (0-0.5) K/uL Baso # (Auto) (0-0.2) K/uL Immature Gran # (Auto) (0.00-0.02) K/uL PT 11.3 (9.0-12.0) Seconds INR 1.1 (0.9-1.1) Sodium 120 L (136-145) mmol/L Potassium 4.2 (3.5-5.1) mmol/L Chloride 85 L (98-107) mmol/L Carbon Dioxide 27 (21-32) mmol/L Anion Gap 8.0 (3-11) BUN 4 L (7-18) mg/dl Creatinine 0.56 L (0.6-1.4) mg/dl Est Cr Clr Drug Dosing Not Reportable Est GFR ( Amer) 135.0 Est GFR (Non-Af Amer) 116.4 BUN/Creatinine Ratio 6.8 L (10-20) Glucose 87 (70-99) mg/dl Calcium 8.3 L (8.5-10.1) mg/dl Magnesium 1.7 L (1.8-2.4) mg/dl Total Bilirubin 0.7 (0.2-1) mg/dl AST 34 (15-37) U/L ALT 30 (12-78) U/L Alkaline Phosphatase 169 H (45-117) U/L Troponin I < 0.015 (0-0.045) ng/ml NT-Pro-B Natriuret Pep 71 (0-900) pg/ml Total Protein 6.6 (6.4-8.2) gm/dl Albumin 3.1 L (3.4-5.0) gm/dl Globulin 3.5 (2.5-4.0) gm/dl Albumin/Globulin Ratio 0.9 (0.9-2) TSH 0.101 L (0.300-4.500) uIu/ml Free T4 1.21 (0.8-1.6) ng/dl Lyme Disease IgG Ab Negative (Negative) Lyme Disease IgM Ab Negative (Negative) 05/31/20 Range/Units 15:58 WBC 8.64 (4.8-10.8) K/uL RBC 4.13 L (4.7-6.1) M/uL Hgb 12.5 L (14.0-18.0) g/dL Hct 35.9 L (42-52) % MCV 86.9 (80-100) fL MCH 30.3 (25-34) pg MCHC 34.8 (32-36) g/dL RDW Std Deviation 49.1 H (36.4-46.3) fL RDW Coeff of Aggie 15.5 H (11.5-14.5) % Plt Count 203 (130-400) K/uL MPV 8.2 (7.4-10.4) fL Immature Gran % (Auto) 0.3 % Neut % (Auto) 81.7 % Lymph % (Auto) 8.2 % Wilkes % (Auto) 9.4 % Eos % (Auto) 0.3 % Baso % (Auto) 0.1 % Neut # (Auto) 7.05 H (1.4-6.5) K/uL Lymph # (Auto) 0.71 L (1.2-3.4) K/uL Wilkes # (Auto) 0.81 H (0.11-0.59) K/uL Eos # (Auto) 0.03 (0-0.5) K/uL Baso # (Auto) 0.01 (0-0.2) K/uL Immature Gran # (Auto) 0.03 H (0.00-0.02) K/uL PT (9.0-12.0) Seconds INR (0.9-1.1) Sodium (136-145) mmol/L Potassium (3.5-5.1) mmol/L Chloride (98-107) mmol/L Carbon Dioxide (21-32) mmol/L Anion Gap (3-11) BUN (7-18) mg/dl Creatinine (0.6-1.4) mg/dl Est Cr Clr Drug Dosing Est GFR ( Amer) Est GFR (Non-Af Amer) BUN/Creatinine Ratio (10-20) Glucose (70-99) mg/dl Calcium (8.5-10.1) mg/dl Magnesium (1.8-2.4) mg/dl Total Bilirubin (0.2-1) mg/dl AST (15-37) U/L ALT (12-78) U/L Alkaline Phosphatase (45-117) U/L Troponin I (0-0.045) ng/ml NT-Pro-B Natriuret Pep (0-900) pg/ml Total Protein (6.4-8.2) gm/dl Albumin (3.4-5.0) gm/dl Globulin (2.5-4.0) gm/dl Albumin/Globulin Ratio (0.9-2) TSH (0.300-4.500) uIu/ml Free T4 (0.8-1.6) ng/dl Lyme Disease IgG Ab (Negative) Lyme Disease IgM Ab (Negative) Imaging Data Attestation: I personally reviewed and interpreted this imaging study as follows: My Impression: My interpretation of reportable chest x-ray does not show evidence for consolidations, failure, pneumothorax or obvious cardiac prominence. My interpretation of a noncontrast CT of the lumbar spine shows several compression fractures at L1, L3 and L4. He was fracture seen at L3 has progressed, causing moderate central canal narrowing. My interpretation of bilateral knee x-rays shows mild patellofemoral and medial joint narrowing in the left knee, and patellofemoral changes in the right knee. No fractures, dislocations or obvious joint effusion. Venous ultrasound of bilateral lower extremities does not show any evidence for deep vein thrombosis. My interpretation of a noncontrast CT of the head does not show any intracranial bleed, midline shift or mass-effect. Radiologist reports were also reviewed. Radiologist's Impression: XR chest 1V portable CLINICAL HISTORY: weakness COMPARISON STUDY: Chest radiograph and chest CT May 11, 2020. FINDINGS: Incidental note is made of calcified granulomas within the lungs. There is emphysema. No consolidation is identified. There is no evidence for pulmonary edema. Mild cardiomegaly is unchanged. Old right-sided rib fractures are incidentally noted. IMPRESSION: 1. No acute findings. No change in appearance of the chest. 2. Emphysema. LUMBAR SPINE CT CT DOSE: 974.00 mGy.cm HISTORY: Bilateral lower extremity weakness, recent lumbar fx TECHNIQUE: Multiaxial CT images of the lumbar spine were performed and reformatted in the sagittal and coronal plane without the use of contrast. A dose lowering technique was utilized adhering to the principles of ALARA. COMPARISON: Lumbar spine CT 11/04/2019. FINDINGS: Moderate compression fracture at L1 with minimal retropulsion of the p osterior superior corner. This demonstrates up to 50% loss of height centrally. This is new from the prior study and favors a subacute compression fracture given the sclerosis. There is also healing left L1 transverse process fracture. The L2 and L5 vertebral bodies are intact. No fractures identified within the proximal sacrum. Severe compression fracture at L3 has progressed. This demonstrates up to 2 mm of retropulsion. This favors an acute on chronic fracture. There is also been interval of a moderate to severe inferior endplate compression fracture at L4 which demonstrates up to 60% loss of height centrally. There is 3 mm of retropulsion of the posterior inferior corner. There is moderate central canal narrowing at L3 and L4 levels due to the retropulsion. Mild central canal narrowing at the L1 level. There is severe bilateral neural foraminal narrowing at the L4-5 level which has progressed. The severe bilateral neural foraminal narrowing at L3-L4 remains unchanged. IMPRESSION: 1. Interval development of a subacute compression fracture at L1 with minimal retropulsion resulting in mild central canal narrowing. 2. Acute moderate to severe inferior endplate compression fracture at L4 demonstrating 3 mm of retropulsion and moderate central canal narrowing. 3. Severe central compression fracture at L3 which has also progressed and results in moderate central canal narrowing. 4. Progression of the bilateral neural foraminal narrowing as described above. XR knee LT 3V, XR knee RT 3V HISTORY: 54 years-old Male B knee pain, weakness acute bilateral knee pain with weakness COMPARISON: None TECHNIQUE: 3 views of the bilateral knees FINDINGS: LEFT: Minimal medial and patellofemoral compartment joint space narrowing. No acute fracture, dislocation or opaque foreign body. Trace joint effusion. RIGHT: Minimal joint space narrowing of the patellofemoral joint. No acute fracture, dislocation, opaque foreign body or large joint effusion. IMPRESSION: 1. No acute fracture. 2. Minimal osteoarthritis of the bilateral knees. BILATERAL LOWER EXTREMITY VENOUS DOPPLER HISTORY: Bilateral lower extremity edema. COMPARISON STUDY: None. FINDINGS: There is normal compressibility, flow, and augmentation within the bilateral lower extremity deep venous systems. IMPRESSION: No DVT within the right or left lower extremity. HEAD CT NONCONTRAST CT DOSE: 1627.80 mGy.cm HISTORY: Frequent falls, severe hyponatremia TECHNIQUE: Multiaxial CT images of the head were performed without the use of intravenous contrast. Automated exposure control was utilized for this study. A dose lowering technique was utilized adhering to the principles of ALARA. Comparison: Head CT 01/21/2019. Findings: Retention cyst within the bilateral maxillary sinuses. The mastoid air cells are clear. Motion artifact. However, there is no definite mass, hematoma, midline shift, acute infarct. The ventricles and sulci are within normal limits. The calvarium and skull base are intact. Impression: Motion artifact. No definite acute intracranial abnormality. ECG Data Attestation: I personally reviewed and interpreted this ECG as follows: Indication: + SOB/dyspnea (Chronic COPD) and + weakness Rate (beats per minute): 103 Rhythm: + sinus tachycardia ECG Intervals/blocks: + Normal QRS and + Normal AL ECG [place]: + Normal ECG ST segments: + Normal ST segments Comparison ECG Date: from (05/11/2020) Change: no significant change Blood Pressure Blood Pressure Findings: Normal blood pressure MDM Narrative Cardiac monitoring: An order was placed for continuous cardiac monitoring. The monitor shows a rate of 103 bpm with a sinus tachycardic rhythm. spar cap beveler history was reviewed throughout the evaluation, and no dysrhythmias were noted. Patient presents to the emergency department with complaint of bilateral lower extremity weakness and having fallen twice over the past 12 hours. Work-up today does show a profound hyponatremia, likely causing the patient's weakness. The patient does have a history of back issues, and CT imaging today does show 2 new lumbar fractures when compared with his prior CT over a year ago. The patient does have a positive sitting straight leg raise, therefore radiculitis cannot be ruled out. The patient does not have any physical exam findings to suggest cauda equina syndrome. I do not suspect spinal abscess or hematoma. Patient does not appear to be confused or with altered mental status at this point. I do not suspect sepsis. ECG and cardiac monitoring is not suggestive of acute cardiac dysrhythmia. Patient was unable to provide a urine sample for urinalysis. Lyme screen is also negative. Patient does not appear to be in any type of respiratory distress, and is not hypoxic. Impression & Plan Hyponatremia, Bilateral leg weakness, Low TSH level, Hypomagnesemia, Fall at home, COPD, severe Discharge Plan Visit Data *Final* Discharge Date/Time: 05/31/20 19:41 Chief Complaint: Referred by Doctor Stated Complaint: BACK PAIN ED Provider: Galo Pena ED Midlevel Provider: Constantino Milan Discharge Problem: Hyponatremia, Bilateral leg weakness, Low TSH level, Hypomagnesemia, Fall at home, COPD, severe Patient Disposition: Admitted As Inpatient Discharge Instructions Interventions: ED Discharge Assessment Last Done: 05/31/20 19:41 Discharge Problem: Fall at home Qualifiers: Encounter type: initial encounter Qualified Code(s): W19.XXXA - Unspecified fall, initial encounter
--- NOTE | 2020-05-31 15:58 | XRay Report ---
XR chest 1V portable CLINICAL HISTORY: weakness COMPARISON STUDY: Chest radiograph and chest CT May 11, 2020. FINDINGS: Incidental note is made of calcified granulomas within the lungs. There is emphysema. No co nsolidation is identified. There is no evidence for pulmonary edema. Mild cardiomegaly is unchanged. Old right-sided rib fractures are incidentally noted. IMPRESSION: 1. No acute findings. No change in appearance of the chest. 2. Emphysema. ACT 112: Negative or not required by law. Electronically signed by: Jaren Orr M.D. 05/31/2020 3:57 PM
--- NOTE | 2020-05-31 15:59 | XRay Report ---
XR knee LT 3V, XR knee RT 3V HISTORY: 54 years-old Male B knee pain, weakness acute bilateral knee pain with weakness COMPARISON: None TECHNIQUE: 3 views of the bilateral knees FINDINGS: LEFT: Minimal medial and patellofemoral compartment joint space narrowing. No acute fracture, dislocation o r opaque foreign body. Trace joint effusion. RIGHT: Minimal joint space narrowing of the patellofemoral joint. No acute fracture, dislocation, opaque for eign body or large joint effusion. IMPRESSION: 1. No acute fracture. 2. Minimal osteoarthritis of the bilateral knees. ACT 112: Negative or not required by law. The above report was generated using voice recognition software. It may contain grammatical, syntax o r spelling errors. Electronically signed by: Darrick Benjamin M.D. 05/31/2020 3:57 PM
[2020-05-31 16:05] LABS: Basophils # (auto) 0.01 K/uL (0-0.2); Basophils % (auto) 0.1 %; Eosinophils # (auto) 0.03 K/uL (0-0.5); Eosinophils % (auto) 0.3 %; Hematocrit (blood only) 35.9 % (42-52); Hemoglobin 12.5 g/dL (14.0-18.0); Immature Granulocytes # (auto) 0.03 K/uL (0.00-0.02); Immature Granulocytes % (auto) 0.3 %; Lymphocytes # (auto) 0.71 K/uL (1.2-3.4); Lymphocytes % (auto) 8.2 %; Mean Corpuscular Hemoglobin 30.3 pg (25-34); Mean Corpuscular Hgb Conc 34.8 g/dL (32-36); Mean Corpuscular Volume 86.9 fL (80-100); Mean Platelet Volume 8.2 fL (7.4-10.4); Monocytes # (auto) 0.81 K/uL (0.11-0.59); Monocytes % (auto) 9.4 %; Neutrophils # (auto) 7.05 K/uL (1.4-6.5); Neutrophils % (auto) 81.7 %; Platelet Count 203 K/uL (130-400); RDW Coefficient of Variation 15.5 % (11.5-14.5); RDW Standard Deviation 49.1 fL (36.4-46.3); Red Blood Count 4.13 M/uL (4.7-6.1); White Blood Count 8.64 K/uL (4.8-10.8)
[2020-05-31 16:20] LABS: INR 1.1 (0.9-1.1); Prothrombin Time 11.3 Seconds (9.0-12.0)
[2020-05-31 16:26] LABS: Alanine Aminotransferase 30 U/L (12-78); Albumin Globulin Ratio 0.9 (0.9-2); Albumin Level 3.1 gm/dl (3.4-5.0); Aspartate Aminotransferase 34 U/L (15-37); BUN Creatinine Ratio 6.8 (10-20); Bilirubin,Total 0.7 mg/dl (0.2-1); Blood Urea Nitrogen 4 mg/dl (7-18); Calcium 8.3 mg/dl (8.5-10.1); Carbon Dioxide 27 mmol/L (21-32); Chloride 85 mmol/L (98-107); Est GFR (Non-African American) 116.4; Globulin 3.5 gm/dl (2.5-4.0); Glucose 87 mg/dl (70-99); Magnesium 1.7 mg/dl (1.8-2.4); Potassium 4.2 mmol/L (3.5-5.1); Sodium 120 mmol/L (136-145); Total Protein 6.6 gm/dl (6.4-8.2)
[2020-05-31 16:35] LABS: Alkaline Phosphatase 169 U/L (45-117); NT Pro B Type Natriuretic Pept 71 pg/ml (0-900); Thyroid Stimulating Hormone 0.101 uIu/ml (0.300-4.500); Troponin I < 0.015 ng/ml (0-0.045)
--- NOTE | 2020-05-31 16:36 | CT Scan Report ---
LUMBAR SPINE CT CT DOSE: 974.00 mGy.cm HISTORY: Bilateral lower extremity weakness, recent lumbar fx TECHNIQUE: Multiaxial CT images of the lumbar spine were performed and reformatted in the sagittal an d coronal plane without the use of contrast. A dose lowering technique was utilized adhering to the principles of ALARA. COMPARISON: Lumbar spine CT 11/04/2019. FINDINGS: Moderate compression fracture at L1 with minimal retropulsion of the posterior superior cor ner. This demonstrates up to 50% loss of height centrally. This is new from the prior study and favor s a subacute compression fracture given the sclerosis. There is also healing left L1 transverse proce ss fracture. The L2 and L5 vertebral bodies are intact. No fractures identified within the proximal s acrum. Severe compression fracture at L3 has progressed. This demonstrates up to 2 mm of retropulsion . This favors an acute on chronic fracture. There is also been interval of a moderate to severe infer ior endplate compression fracture at L4 which demonstrates up to 60% loss of height centrally. There is 3 mm of retropulsion of the posterior inferior corner. There is moderate central canal narrowing a t L3 and L4 levels due to the retropulsion. Mild central canal narrowing at the L1 level. There is se luis bilateral neural foraminal narrowing at the L4-5 level which has progressed. The severe bilatera l neural foraminal narrowing at L3-L4 remains unchanged. IMPRESSION: 1. Interval development of a subacute compression fracture at L1 with minimal retropulsion resulting in mild central canal narrowing. 2. Acute moderate to severe inferior endplate compression fracture at L4 demonstrating 3 mm of retrop ulsion and moderate central canal narrowing. 3. Severe central compression fracture at L3 which has also progressed and results in moderate centra l canal narrowing. 4. Progression of the bilateral neural foraminal narrowing as described above. ACT 112: Negative or not required by law. Electronically signed by: Jin Berumen M.D. 05/31/2020 4:35 PM
[2020-05-31 16:47] LABS: T4 Free Thyroxine 1.21 ng/dl (0.8-1.6)
[2020-05-31] MEDS ORDERED: MAGNESIUM SULFATE / D5W 1 GM/100 ML BAG IV STA (17:04)
[2020-05-31 17:13] LABS: Lyme Ab IgG w/WB Rflx Negative (Negative); Lyme Ab IgM w/WB Rflx Negative (Negative)
--- NOTE | 2020-05-31 17:56 | CT Scan Report ---
HEAD CT NONCONTRAST CT DOSE: 1627.80 mGy.cm HISTORY: Frequent falls, severe hyponatremia TECHNIQUE: Multiaxial CT images of the head were performed without the use of intravenous contrast. A utomated exposure control was utilized for this study. A dose lowering technique was utilized adheri ng to the principles of ALARA. Comparison: Head CT 01/21/2019. Findings: Retention cyst within the bilateral maxillary sinuses. The mastoid air cells are clear. Mot ion artifact. However, there is no definite mass, hematoma, midline shift, acute infarct. The ventric les and sulci are within normal limits. The calvarium and skull base are intact. Impression: Motion artifact. No definite acute intracranial abnormality. ACT 112: Negative or not required by law. Electronically signed by: Jin Berumen M.D. 05/31/2020 5:54 PM
--- NOTE | 2020-05-31 18:17 | Ultrasound Report ---
BILATERAL LOWER EXTREMITY VENOUS DOPPLER HISTORY: Bilateral lower extremity edema. COMPARISON STUDY: None. FINDINGS: There is normal compressibility, flow, and augmentation within the bilateral lower extremit y deep venous systems. IMPRESSION: No DVT within the right or left lower extremity. ACT 112: Negative or not required by law. Electronically signed by: Jin Berumen M.D. 05/31/2020 6:16 PM
--- NOTE | 2020-05-31 19:17 | History & Physical Report ---
Date of Service May 31, 2020 Assessment & Plan (1) Bilateral leg weakness: ddx being hyponatremia-driven vs radicular from compression fx - but with no significant back pain component, no real radicular pain, and b/l equal diffuse weakness - most c/w hyponatremia driven ---PT/OT eval and treat -serial exams, follow as Na corrects (2) Hyponatremia: acute - was normal earlier this month. suspect mixed picture of salt losses (sweat, some loose stools), poor intake of solute (not eating food for about 4 days) and dilution/potomania (12 beers a day). unlikely to be SiADH from buproprion (was new - but appears dry, has other good reasons for low Na) or lung disease (has had severe COPD for a long time and does not chronically run low Na) ---> correct to max of 12pts/day - NSS since picture adds up to hyponatremic dehydration - will run at 100/hr for now - follow Na, titrate to correct for about 2pts per hour (was already given 1L NSS in ER, anticipate probable correction of about 3pts Na per liter on avg) (3) Alcohol abuse: thiamine, folate. surprising paucity of findings c/w liver disease. appears more or less end stage w COPD - therefore did not really engage in cessation counselling. he does not recall any serious withdrawal - can manage prn if it occurs (4) COPD, severe: home meds, home O2 -chronic hypoxic respiratory failure, chronic hypercapnic respiratory failure -due to ongoing tobacco abuse (5) Low TSH level: likely not of significance given normal free T4, outpt f/u (6) Hypomagnesemia: for same reasons as low Na overall. given mag in ER. PO intake of food would help (7) Hypertension: listed on chart, not on home meds, follow BPs (8) Vertebral compression fracture: almost certainly osteoporotic related to smoking/etc. not much pain right now. follow. (9) History of DVT (deep vein thrombosis): anticoagulation (10) Discharge planning issues: admit - correct Na, PT/OT eval and treat, hopefully home once Na corrects as long as he's able to be functional. History of Present Illness Chief Complaint: weakness Primary Care Provider: Naima Tyson MD leg weakness today - couldn't really get up. no pain just no power. a few falls, no real trauma. does have some back pain but it's really an on-again off-again thing. started today. last few days - very hot. due to heat/breathing --> was not really eating anything. due to heat - was sweating a good deal. still drinking about 12 yuengling a day. Allergies Allergy/AdvReac Type Severity Reaction Status Date / Time No Known Allergies Allergy Verified 05/31/20 15:43 Home Medications Home Medications Medication Instructions Recorded Confirmed Type Breo Ellipta 1 inh INHALATION QPM 01/15/19 05/31/20 History pantoprazole 40 mg PO QPM 01/15/19 05/31/20 History Xarelto 20 mg PO QPM 01/20/19 05/31/20 History folic acid 1 mg PO QAM #30 tab 11/09/19 05/31/20 Rx thiamine HCl (vitamin B1) [Vitamin 100 mg PO QAM #30 tab 11/09/19 05/31/20 Rx B-1] Spiriva with HandiHaler 1 cap INHALATION QAM 05/11/20 05/31/20 History albuterol sulfate [ProAir HFA] 1 puffs INH Q4H PRN 05/31/20 05/31/20 History bupropion HCl 150 mg PO QAM 05/31/20 05/31/20 History ipratropium-albuterol 3 ml INHALATION Q4H PRN 05/31/20 05/31/20 History Past Med/Surg History Medical History Alcohol use REPORTS 12 PACK BEER PER DAY Aortic thrombus "I THINK THEY REMOVED IT" "YEARS AGO" - ON XARELTO Chronic obstructive pulmonary disease USING PRN NEBS/INH DAILY Compression fracture of L3 vertebra 12/13 fall 11/2019 DVT (deep venous thrombosis) X2 BLLE - ON XARELTO - UNK ETIOLOGY PER PT GERD (gastroesophageal reflux disease) Hiatal hernia [place]) On home oxygen therapy PRN On home oxygen therapy 2 LPM CONTINUOUS Poor historian SOB (shortness of breath) on exertion Tremor Surgical History H/O vascular surgery X 3-VASCULAR BLOCKAGES LOWER LEGS History of esophagogastroduodenoscopy (EGD) History of tonsillectomy Status post angioplasty with stent BLLE Family History Mother Family history of diabetes mellitus Other No family history of adverse response to anesthesia Social History Smoking Status: Current every day smoker Tobacco Type: Cigarettes Cigarettes Per Day: 30; Second Hand Exposure: No; Hx Alcohol Use: Yes Alcohol type: beer Hx Substance Use: No Preferred Language: Citizen Of [place] Communication Ability: Effective Shift Supervisor Rn Required: No Beliefs That Will Affect Care: None marital status: Single Current Living Situation: Alone How many Children do You have: 0 Feels Safe at Home: Yes Review of Systems Review of Systems: All systems reviewed & are unremarkable except as noted in HPI & below Physical Exam Physical Exam: gen aaox3 pleasant nad heent nc at mm sl dry (even after 1L NSS) cardio distant no r/m/g lungs cta b/l very diminished but no r/r/w good effort abd soft mild distended and protuberant no guarding no rebound no rigidity but is mildly tender ext no c/c b/l ~1+ equal LE edema. neuro cn 2-12 grossly intact gross motor/sensory intact no focal deficits. skin no rashes (except for some mild venous stasis changes b/l LE) no pallor or icterus Results & Data Results & Data ([facility]) Vital Signs (Past 12 Hours) Vital Signs Temp Pulse Pulse Resp BP BP Pulse Ox 05/31/20 17:26 100 H 22 142/96 H 95 05/31/20 16:01 26 H 96 05/31/20 15:09 98.6 F 101 H 16 136/83 95 Code Status & VTE Plan VTE Prophylaxis Plan VTE Prophylaxis will be ordered: Yes PG Care Time/CCT Total # of Minutes Spent Total Time Spent with Patient: Total time spent is greater than 50% in coordination of care (as documented) at patient's floor/unit and/or counseling patient: Coding Level of Care Code 99154 Initial Inpt Care Lvl 3 Diagnoses Bilateral leg weakness R29.898 Hyponatremia E87.1 Alcohol abuse F10.10 COPD, severe J44.9 Low TSH level R79.89 Hypomagnesemia E83.42 Hypertension I10 Vertebral compression fracture M48.50XA History of DVT (deep vein thrombosis) Z86.718 Discharge planning issues Z02.9
[2020-05-31] MEDS ORDERED: ALBUT/IPRATROP 3MG/0.5MG NEB 3 ML VIAL INH ONE (20:13)
[2020-05-31] MEDS ORDERED: ONDANSETRON INJ 2 MG/ML 2 ML VIAL IV PRN (20:13)
[2020-05-31] MEDS ORDERED: MAGNESIUM HYDROXIDE SUSP 30 ML UDC PO PRN (20:13)
[2020-05-31] MEDS ORDERED: ALUMINUM/MAGNESIUM SUSP 30 ML UDC PO PRN (20:13)
[2020-05-31] MEDS ORDERED: ALBUTEROL HFA 8 GM INHALER INH PRN (20:29)
--- NOTE | 2020-05-31 20:41 | Communication Note ---
Date of Service: May 31, 2020 Patient requesting Duonebs scheduled q4h and to be woken up with scheduled duonebs if sleeping. Will order Xopenex/atrovent q6h scheduled since deanardi c. Will hold albuterol inhaler.
[2020-05-31] MEDS: LEVALBUTEROL 1.25MG/0.5ML NEB INH SCH (20:45)
[2020-05-31] MEDS: IPRATROPIUM BROMIDE NEB SOLN 0.02% 2.5 ML VIAL INH SCH (20:45)
[2020-05-31] MEDS: NSS + 20MEQ KCL 20 MEQ/1,000 ML BAG IV SCH (20:56)
[2020-05-31] MEDS: RIVAROXABAN 20 MG TAB PO SCH (20:58)
[2020-05-31] MEDS ORDERED: FLUTICASONE/VILANTEROL 200/25MCG 14 PUFFS/INHALER INH SCH (21:00)
[2020-05-31] MEDS ORDERED: PANTOprazole 40 MG TAB PO SCH (21:00)
[2020-05-31 21:17] LABS: BUN Creatinine Ratio 7.1 (10-20); Blood Urea Nitrogen 4 mg/dl (7-18); Carbon Dioxide 26 mmol/L (21-32); Chloride 85 mmol/L (98-107); Est GFR (African American) 138.1; Est GFR (Non-African American) 119.1; Glucose 83 mg/dl (70-99); Potassium 4.1 mmol/L (3.5-5.1); Sodium 120 mmol/L (136-145)
[2020-05-31] MEDS ORDERED: Nursing to Pharmacy Communication SCH (21:45)
[2020-05-31] MEDS ORDERED: OXYCODONE HCL IR 5 MG TAB (IMMEDIATE RELEASE) PO PRN (23:53)
[2020-05-31] MEDS ORDERED: GABAPENTIN 300 MG CAP PO STA (23:53)
[2020-06-01] MEDS ORDERED: OXYCODONE HCL IR 5 MG TAB (IMMEDIATE RELEASE) PO PRN (00:15)
[2020-06-01] MEDS: IPRATROPIUM BROMIDE NEB SOLN 0.02% 2.5 ML VIAL INH SCH ×4 (00:55→19:39)
[2020-06-01] MEDS: LEVALBUTEROL 1.25MG/0.5ML NEB INH SCH ×4 (00:56→19:39)
[2020-06-01] MEDS ORDERED: XOPENEX/ATROVENT 1.25mg/0.5MG NEB COMBO NEB SCH (01:00)
[2020-06-01 01:18] LABS: BUN Creatinine Ratio 7.1 (10-20); Calcium 7.8 mg/dl (8.5-10.1); Creatinine Clr Calc Pharmacy 180.9 ml/min; Est GFR (Non-African American) 115.6; Potassium 4.1 mmol/L (3.5-5.1)
[2020-06-01 04:23] LABS: BUN Creatinine Ratio 5.4 (10-20); Calcium 7.7 mg/dl (8.5-10.1); Creatinine Clr Calc Pharmacy 194.6 ml/min; Est GFR (African American) 138.1; Est GFR (Non-African American) 119.1; Potassium 4.1 mmol/L (3.5-5.1)
[2020-06-01] MEDS: NSS + 20MEQ KCL 20 MEQ/1,000 ML BAG IV SCH ×3 (06:06→23:16)
[2020-06-01] MEDS ORDERED: BEER 1 CAN PO PRN (08:19)
[2020-06-01] MEDS ORDERED: LORazepam 1 MG TAB PO PRN (08:19)
[2020-06-01] MEDS: FOLIC ACID 1 MG TAB PO SCH (08:39)
[2020-06-01] MEDS: FLUTICASONE/VILANTEROL 200/25MCG 14 PUFFS/INHALER INH SCH (08:39)
[2020-06-01] MEDS: PANTOprazole 40 MG TAB PO SCH (08:40)
[2020-06-01] MEDS: THIAMINE HCL 100 MG TAB PO SCH (08:40)
[2020-06-01] MEDS: BuPROPion SR 150 MG TABCR PO SCH (08:40)
[2020-06-01] MEDS: UMECLIDINIUM BROMIDE 62.5MCG/BLISTER 7 PUFFS/INHALER INH SCH (08:41)
[2020-06-01] MEDS ORDERED: SODIUM CHLORIDE 1 GM TABLET PO SCH (09:00)
--- NOTE | 2020-06-01 12:04 | Electrocardiogram Report ---
Test Reason : Blood Pressure : / mmHG Vent. Rate : 103 BPM Atrial Rate : 103 BPM P-R Int : 156 ms QRS Dur : 076 ms QT Int : 344 ms P-R-T Axes : 085 056 077 degrees QTc Int : 450 ms Sinus tachycardia Otherwise normal ECG When compared with ECG of 11-MAY-2020 17:49, No significant change was found Confirmed by Deep Grissom ([id number]) on 06/01/2020 12:04:14 PM Referred By: ED Confirmed By:Deep Grissom
[2020-06-01 12:19] LABS: BUN Creatinine Ratio 5.3 (10-20); Creatinine Clr Calc Pharmacy 187.5 ml/min; Est GFR (Non-African American) 117.3; Potassium 4.1 mmol/L (3.5-5.1)
[2020-06-01] MEDS: SODIUM CHLORIDE 1 GM TABLET PO SCH ×2 (15:12→20:26)
[2020-06-01 17:00] LABS: BUN Creatinine Ratio 5.1 (10-20); Calcium 8.1 mg/dl (8.5-10.1); Est GFR (Non-African American) 118.2
--- NOTE | 2020-06-01 20:14 | Hospitalist Progress Note ---
Date of Service June 01, 2020 Assessment & Plan (1) Bilateral leg weakness: ddx being hyponatremia-driven vs radicular from compression fx - but with no significant back pain component, no real radicular pain, and b/l equal diffuse weakness - most c/w hyponatremia driven ---PT/OT eval and treat -serial exams, follow as Na corrects -- is improving. (2) Hyponatremia: acute - was normal earlier this month. suspect mixed picture of salt losses (sweat, some loose stools), poor intake of solute (not eating food for about 4 days) and dilution/potomania (12 beers a day). unlikely to be SiADH from buproprion (was new - but appears dry, has other good reasons for low Na) or lung disease (has had severe COPD for a long time and does not chronically run low Na) ---> slowly correcting - but not surprising as i suspect he runs quite low on solute at baseline // has little compensatory mechanism. (although if fails to improve more then would consider buproprion induced SiADH) (3) Alcohol abuse: thiamine, folate. surprising paucity of findings c/w liver disease. appears more or less end stage w COPD - therefore did not really engage in cessation counselling. he does not recall any serious withdrawal - no s/s this now - although has AWSS in place, or since he has no interest in quitting, can simply have beer q4hr prn. (4) COPD, severe: home meds, home O2 -chronic hypoxic respiratory failure, chronic hypercapnic respiratory failure -due to ongoing tobacco abuse -no dyspnea today (5) Low TSH level: likely not of significance given normal free T4, outpt f/u (6) Hypomagnesemia: for same reasons as low Na overall. given mag in ER. PO intake of food would help. no clear clinical benefit to him to tracking this daily (7) Hypertension: listed on chart, not on home meds, follow BPs - have been reasonable. (8) Vertebral compression fracture: almost certainly osteoporotic related to smoking/etc. not much pain right now. follow. no complaints of pain today - apparently did have some overnight. (9) History of DVT (deep vein thrombosis): anticoagulation (10) Discharge planning issues: if Na continues to correct, hopefully home tomorrow Admission and Anticipated Discharge Date Admission Date: May 31, 2020 Subjective leg weakness better - was able to walk about 100ft w walker no falls or buckling. appetite better tremors - but notes he gets them off and on all the time Review of Systems Review of Systems: All systems reviewed & are unremarkable except as noted in HPI & below Physical Exam Physical Exam: gen aaox3 pleasant nad heent nc at mmm breathing unlabored no accessory muscles good effort skin no rashes no pallor or icterus, fairly large amplitude tremor. Results & Data Results & Data ([facility]) Vital Signs (Past 12 Hours) Vital Signs Temp Pulse Resp BP Pulse Ox Pulse Ox Pulse Ox 06/01/20 19:40 120 H 18 97 06/01/20 15:39 98.8 F 94 H 17 143/87 H 97 06/01/20 13:48 91 87 L 06/01/20 13:36 102 H 22 94 06/01/20 08:45 93 PG Care Time/CCT Total # of Minutes Spent Total Time Spent with Patient: Total time spent is greater than 50% in coordination of care (as documented) at patient's floor/unit and/or counseling patient: Coding Level of Care Code 61100 Subseq Hosp Care Lvl 3 Diagnoses Bilateral leg weakness R29.898 Hyponatremia E87.1 Alcohol abuse F10.10 COPD, severe J44.9 Low TSH level R79.89 Hypomagnesemia E83.42 Hypertension I10 Vertebral compression fracture M48.50XA History of DVT (deep vein thrombosis) Z86.718 Discharge planning issues Z02.9
[2020-06-01] MEDS: RIVAROXABAN 20 MG TAB PO SCH (20:26)
--- NOTE | 2020-06-01 21:34 | Communication Note ---
Date of Service: June 01, 2020 Patient with two large watery BMs with abdominal cramping. Nursing was advocate for Cdiff testing. Current visit not on any abx and with GI visit two days ago for diarrhea that appears to have started 05/28. Suspect this is related to underlying alcohol abuse and poor overall health. His last antibiotic use was beginning of month from hospitalization for COPD and cellulitis, which he received abx. Suspect he has been receiving abx pretty regularly with his end stage COPD. There could be a case also that his PPI is a risk factor for Cdiff. I'll order a cdiff test since nursing obtained sample, but I was hesitate because I believe there is low likelihood. But, I also believe that diarrhea could be an ongoing issue at workup and information will help outpatient PCP if encountered with ongoing Diarrhea complaint on hospital follow up visit, as is not infrequently seen.
[2020-06-02] MEDS: IPRATROPIUM BROMIDE NEB SOLN 0.02% 2.5 ML VIAL INH SCH ×4 (01:07→19:14)
[2020-06-02] MEDS: LEVALBUTEROL 1.25MG/0.5ML NEB INH SCH ×4 (01:07→19:14)
[2020-06-02] MEDS: NSS + 20MEQ KCL 20 MEQ/1,000 ML BAG IV SCH ×3 (07:07→21:51)
[2020-06-02 07:33] LABS: Basophils # (auto) 0.01 K/uL (0-0.2); Basophils % (auto) 0.1 %; Eosinophils # (auto) 0.08 K/uL (0-0.5); Eosinophils % (auto) 1.1 %; Hematocrit (blood only) 35.1 % (42-52); Hemoglobin 11.6 g/dL (14.0-18.0); Immature Granulocytes # (auto) 0.02 K/uL (0.00-0.02); Immature Granulocytes % (auto) 0.3 %; Lymphocytes # (auto) 0.94 K/uL (1.2-3.4); Mean Corpuscular Hemoglobin 29.8 pg (25-34); Mean Corpuscular Volume 90.2 fL (80-100); Mean Platelet Volume 8.6 fL (7.4-10.4); Monocytes # (auto) 0.88 K/uL (0.11-0.59); Monocytes % (auto) 12.2 %; Neutrophils # (auto) 5.28 K/uL (1.4-6.5); Neutrophils % (auto) 73.3 %; Platelet Count 193 K/uL (130-400); RDW Coefficient of Variation 15.7 % (11.5-14.5); RDW Standard Deviation 51.5 fL (36.4-46.3); Red Blood Count 3.89 M/uL (4.7-6.1); White Blood Count 7.21 K/uL (4.8-10.8)
[2020-06-02] MEDS: FOLIC ACID 1 MG TAB PO SCH (07:45)
[2020-06-02] MEDS: THIAMINE HCL 100 MG TAB PO SCH (07:46)
[2020-06-02] MEDS: BuPROPion SR 150 MG TABCR PO SCH (07:46)
[2020-06-02] MEDS: PANTOprazole 40 MG TAB PO SCH (07:46)
[2020-06-02] MEDS: UMECLIDINIUM BROMIDE 62.5MCG/BLISTER 7 PUFFS/INHALER INH SCH (07:48)
[2020-06-02] MEDS: FLUTICASONE/VILANTEROL 200/25MCG 14 PUFFS/INHALER INH SCH (07:48)
[2020-06-02 08:06] LABS: BUN Creatinine Ratio 2.5 (10-20); Calcium 7.8 mg/dl (8.5-10.1); Creatinine Clr Calc Pharmacy 210.5 ml/min; Est GFR (African American) 142.6; Potassium 3.9 mmol/L (3.5-5.1)
[2020-06-02] MEDS: SODIUM CHLORIDE 1 GM TABLET PO SCH ×3 (09:12→20:27)
[2020-06-02] MEDS ORDERED: POLYETHYLENE (MIRALAX) 17 GM PACK PO SCH (11:45)
[2020-06-02] MEDS ORDERED: POLYETHYLENE (MIRALAX) 17 GM PACK PO STA (17:55)
--- NOTE | 2020-06-02 18:46 | Hospitalist Progress Note ---
Date of Service June 02, 2020 Assessment & Plan (1) Bilateral leg weakness: ddx being hyponatremia-driven vs radicular from compression fx - but with no significant back pain component, no real radicular pain, and b/l equal diffuse weakness - most c/w hyponatremia driven ---PT/OT eval and treat -serial exams, follow as Na corrects -- is improving. appears will be stable for home (2) Hyponatremia: acute - was normal earlier this month. suspect mixed picture of salt losses (sweat, some loose stools), poor intake of solute (not eating food for about 4 days) and dilution/potomania (12 beers a day). unlikely to be SiADH from buproprion (was new - but appears dry, has other good reasons for low Na) or lung disease (has had severe COPD for a long time and does not chronically run low Na) ---> slowly correcting - but not surprising as i suspect he runs quite low on solute at baseline // has little compensatory mechanism. at this point is close enough to normal range that once he otherwise feels up to going home, even if this is not totally normalized, would be safe for outpt f/u (3) Diarrhea: suspect overflow given his pattern of on/off, chunky stools, PE findings, no worrisome or infections or IBD s/s, feeling "like there's something in there that needs to come out" and chronic EtOH abuse making a chronic constipated state more likely -miralax, follow (4) Alcohol abuse: thiamine, folate. surprising paucity of findings c/w liver disease. appears more or less end stage w COPD - therefore did not really engage in cessation counselling. fortunately not showing withdrawal (5) COPD, severe: home meds, home O2 -chronic hypoxic respiratory failure, chronic hypercapnic respiratory failure -due to ongoing tobacco abuse -fortunatley has bene stable (6) Low TSH level: likely not of significance given normal free T4, outpt f/u (7) Hypomagnesemia: for same reasons as low Na overall. given mag in ER. PO intake of food would help. no clear clinical benefit to him to tracking this daily (8) Hypertension: listed on chart, not on home meds, follow BPs - have been reasonable. (9) Vertebral compression fracture: almost certainly osteoporotic related to smoking/etc. not much pain right now. follow but seems to be doing OK (10) History of DVT (deep vein thrombosis): anticoagulation (11) Discharge planning issues: plan for home - Na getting close to normal range, he feels safer if we get his belly feeling better first, which is reasonable given his overall level of weakness and frailty. Admission and Anticipated Discharge Date Admission Date: May 31, 2020 Subjective leg weakness basically better but doesn't really feel up to going home yet - mostly due to belly pain. has on and off diarrhea - but thinks it's chunky rather than purely watery. not persistent or consistent. some days nothing then other days a lot. feels like there's "stuff in there that needs to come out" Review of Systems Review of Systems: All systems reviewed & are unremarkable except as noted in HPI & below Physical Exam Physical Exam: gen aaox3 pleasant nad heent nc at mmm breathing unlabored no accessory muscles good effort skin no rashes no pallor or icterus abd soft mod distention mild diffuse tender no guarding no rebound no rigidity Results & Data Results [facility] ([facility]) Vital Signs (Past 12 Hours) Vital Signs Temp Pulse Resp BP Pulse Ox 06/02/20 15:29 98.2 F 95 H 16 132/76 98 06/02/20 13:56 98.2 F 100 H 18 120/70 96 06/02/20 13:45 104 H 20 96 06/02/20 07:31 97.5 F L 106 H 18 130/86 95 06/02/20 06:59 111 H 18 80 L PG Care Time/CCT Total # of Minutes Spent Total Time Spent with Patient: Total time spent is greater than 50% in coordination of care (as documented) at patient's floor/unit and/or counseling patient: Coding Level of Care Code 79728 Subseq Hosp Care Lvl 3 Diagnoses Bilateral leg weakness R29.898 Hyponatremia E87.1 Diarrhea R19.7 Alcohol abuse F10.10 COPD, severe J44.9 Low TSH level R79.89 Hypomagnesemia E83.42 Hypertension I10 Vertebral compression fracture M48.50XA History of DVT (deep vein thrombosis) Z86.718 Discharge planning issues Z02.9
[2020-06-02] MEDS: RIVAROXABAN 20 MG TAB PO SCH (20:28)
[2020-06-03] MEDS: LEVALBUTEROL 1.25MG/0.5ML NEB INH SCH (00:44)
[2020-06-03] MEDS: IPRATROPIUM BROMIDE NEB SOLN 0.02% 2.5 ML VIAL INH SCH (00:44)
[2020-06-03] MEDS ORDERED: ZOLPIDEM TARTRATE 5 MG TAB PO PRN (01:31)
--- NOTE | 2020-06-03 01:44 | Communication Note ---
Date of Service: June 03, 2020 Patient strong advocate for physician evaluation of right leg cramping. He notes worsened with dorsiflexion and right foot wants to cramp toward to dorsif lexion. He is on IV Fluids. He has the TV and lights in his room on. He notes that he has had minimal sleep since stay. He notes right 2nd toe bruise, notes one prior episode of gout but this doesn't feel like this. He is asking for medication for cramping. He had Oxycodone IR 5mg about one hours ago without effect. Distal erythema to both feet that are warm, no signs of infection. Right 2nd toe diffusely ecchymotic old in appearance without warmth or tenderness. Able to plantarflex without cramping. No deformities. No signs of cellulitis. Muscle cramping. Unfortunately, no treatment other than finding position of comfort. He has IV Fluids and plenty of PO intake. Anxiety: Believe that pain is compounded by lack of sleep. I told patient to turn off TV and turn off lights to try to get some sleep. "But what if I can't fall asleep?" I told him the benefits of getting sleep outweigh the risks of trying to go to sleep. I told him that pain medication won't likely help with his cramping but if we can get him to sleep it should help everything in general including the pain. We agreed to help him get some rest tonight to allow his body to fix itself and his mind to rest. Ambien 5mg PO x1 ordered. He turned off TV and lights when I was leaving the room. Resident Activity Tracking Resident Involvement: Resident Care Provided Care Provided: Adult Hospital Medicine
[2020-06-03] MEDS: NSS + 20MEQ KCL 20 MEQ/1,000 ML BAG IV SCH ×2 (03:28→11:25)
[2020-06-03 07:08] LABS: Creatinine Clr Calc Pharmacy 210.5 ml/min; Est GFR (African American) 142.6
[2020-06-03] MEDS: IPRATROPIUM BROMIDE NEB SOLN 0.02% 2.5 ML VIAL INH PRN ×2 (07:09→17:18)
[2020-06-03] MEDS: LEVALBUTEROL 1.25MG/0.5ML NEB INH PRN ×2 (07:09→17:18)
[2020-06-03] MEDS: UMECLIDINIUM BROMIDE 62.5MCG/BLISTER 7 PUFFS/INHALER INH SCH (08:34)
[2020-06-03] MEDS: PANTOprazole 40 MG TAB PO SCH (08:36)
[2020-06-03] MEDS: FOLIC ACID 1 MG TAB PO SCH (08:36)
[2020-06-03] MEDS: FLUTICASONE/VILANTEROL 200/25MCG 14 PUFFS/INHALER INH SCH (08:36)
[2020-06-03] MEDS: THIAMINE HCL 100 MG TAB PO SCH (08:36)
[2020-06-03] MEDS: SODIUM CHLORIDE 1 GM TABLET PO SCH ×2 (08:36→13:22)
[2020-06-03] MEDS: BuPROPion SR 150 MG TABCR PO SCH (08:36)
[2020-06-03 09:34] LABS: Blood Urea Nitrogen < 1 mg/dl (7-18); Calcium 7.9 mg/dl (8.5-10.1); Carbon Dioxide 29 mmol/L (21-32); Chloride 94 mmol/L (98-107); Creatinine Clr Calc Pharmacy 198.3 ml/min; Est GFR (African American) 139.1; Est GFR (Non-African American) 120.1; Glucose 89 mg/dl (70-99); Potassium 3.7 mmol/L (3.5-5.1); Sodium 128 mmol/L (136-145)
[2020-06-03] MEDS ORDERED: DOCUSATE SODIUM 100 MG CAP PO SCH ×2 (09:45→21:00)
[2020-06-03] MEDS ORDERED: POLYETHYLENE (MIRALAX) 17 GM PACK PO SCH (09:45)
--- NOTE | 2020-06-03 17:22 | Discharge Summary ---
Date of Service June 03, 2020 Admission HPI Per Admitting Provider leg weakness today - couldn't really get up. no pain just no power. a few falls, no real trauma. does have some back pain but it's really an on-again off-again thing. started today. last few days - very hot. due to heat/breathing --> was not really eating anything. due to heat - was sweating a good deal. still drinking about 12 yuengling a day. Discharge Data Consultations 05/31/20 17:04 ED Decision to Admit Stat Hospital Course (1) Hyponatremia: Bilateral leg weakness: ddx being hyponatremia-driven vs radicular from compression fx - but with no significant back pain component, no real radicular pain, and b/l equal diffuse weakness - most c/w hyponatremia driven ---PT/OT eval and treat -serial exams, follow as Na corrects -- is improving. appears will be stable for home (2) Hyponatremia: acute - was normal earlier this month. suspect mixed picture of salt losses (sweat, some loose stools), poor intake of solute (not eating food for about 4 days) and dilution/potomania (12 beers a day). unlikely to be SiADH from buproprion (was new - but appears dry, has other good reasons for low Na) or lung disease (has had severe COPD for a long time and does not chronically run low Na) ---> slowly correcting - but not surprising as i suspect he runs quite low on solute at baseline // has little compensatory mechanism. at this point is close enough to normal range that once he otherwise feels up to going home, even if this is not totally normalized, would be safe for outpt f/u (3) Diarrhea: suspect overflow given his pattern of on/off, chunky stools, PE findings, no worrisome or infections or IBD s/s, feeling "like there's something in there that needs to come out" and chronic EtOH abuse making a chronic constipated state more likely -miralax, follow (4) Alcohol abuse: thiamine, folate. surprising paucity of findings c/w liver disease. appears more or less end stage w COPD - therefore did not really engage in cessation counselling. fortunately not showing withdrawal (5) COPD, severe: home meds, home O2 -chronic hypoxic respiratory failure, chronic hypercapnic respiratory failure -due to ongoing tobacco abuse -fortunatley has bene stable (6) Low TSH level: likely not of significance given normal free T4, outpt f/u (7) Hypomagnesemia: for same reasons as low Na overall. given mag in ER. PO intake of food would help. no clear clinical benefit to him to tracking this daily (8) Hypertension: listed on chart, not on home meds, follow BPs - have been reasonable. (9) Vertebral compression fracture: almost certainly osteoporotic related to smoking/etc. not much pain right now. follow but seems to be doing OK (10) History of DVT (deep vein thrombosis): anticoagulation (11) Discharge planning issues: plan for home - Na getting close to normal range, he feels safer if we get his belly feeling better first, which is reasonable given his overall level of weakness and frailty. (2) Diarrhea: (3) Bilateral leg weakness: (4) COPD, severe:
--- NOTE | 2020-06-03 17:24 | Discharge Summary ---
Date of Service June 03, 2020 Admission HPI Per Admitting Provider leg weakness today - couldn't really get up. no pain just no power. a few falls, no real trauma. does have some back pain but it's really an on-again off-again thing. started today. last few days - very hot. due to heat/breathing --> was not really eating anything. due to heat - was sweating a good deal. still drinking about 12 yuengling a day. Admission Exam Per Admitting Provider gen aaox3 pleasant nad heent nc at mm sl dry (even after 1L NSS) cardio distant no r/m/g lungs cta b/l very diminished but no r/r/w good effort abd soft mild distended and protuberant no guarding no rebound no rigidity but is mildly tender ext no c/c b/l ~1+ equal LE edema. neuro cn 2-12 grossly intact gross motor/sensory intact no focal deficits. skin no rashes (except for some mild venous stasis changes b/l LE) no pallor or icterus Principal Diagnosis Hyponatremia Leg weakness, bilateral alcohol abuse tobacco abuse constipation w/ overflow diarrhea Discharge Exam Constitutional well developed and well nourished; no acute distress Eyes PERRL, conjunctivae normal, anicteric sclerae ENMT external ear and nose normal, oropharynx normal Neck normal visual inspection Respiratory - good air movement - slight wheeze - no focal findings on exam - no accessory muscle use - able to speak in full sentences Cardiovascular RRR, no murmur, no edema Gastrointestinal (Abdomen) Inspection/Auscultation: + abdomen distended (slightly) Percussion/Palpation: + abdomen tender (slightly, diffusely); no guarding Discharge Data Allergies Allergy/AdvReac Type Severity Reaction Status Date / Time No Known Allergies Allergy Verified 05/31/20 15:43 Consultations 05/31/20 17:04 ED Decision to Admit Stat Ordered Studies 05/31/20 15:25 CT lumbar spine wo con Stat US venous doppler LE BI Stat 05/31/20 17:03 CT head/brain wo con Stat Hospital Course (1) Hyponatremia: Bilateral leg weakness - Ddx being hyponatremia-driven vs radicular from compression fx - but with no significant back pain component, no real radicular pain, and b/l equal diffuse weakness - most c/w hyponatremia driven and appeared to be improving with correction. - serial exams revealed overall improvement over hospital course Hyponatremia, acute - was normal earlier this month. - suspect mixed picture of salt losses (sweat, some loose stools), poor intake of solute (not eating food for about 4 days) and dilution/potomania (12 beers a day). unlikely to be SiADH from buproprion (was new - but appears dry, has other good reasons for low Na) or lung disease (has had severe COPD for a long time and does not chronically run low Na) - He was slow to correct - but not surprising as i suspect he runs quite low on solute at baseline // has little compensatory mechanism. at this point is close enough to normal range that once he otherwise feels up to going home, even if this is not totally normalized, would be safe for outpt f/u - prior to discharge sodium was 128 corrected from 120 - patient will continue taking salt tabs 2g TID - BMP on Saturday to evaluate sodium levels Diarrhea - suspect overflow given his pattern of on/off, chunky stools, PE findings, no worrisome or infections or IBD s/s, feeling "like there's something in there that needs to come out" and chronic EtOH abuse making a chronic constipated state more likely - miralax prescriptions and instructions to target 1-2 soft stools a day. Alcohol abuse - thiamine and folate given. surprising paucity of findings c/w liver disease. appears more or less end stage w COPD - therefore did not really engage in cessation counselling. - no signs of withdrawal during hospitalization COPD, severe - chronic hypoxic respiratory failure, chronic hypercapnic respiratory failure - due to ongoing tobacco abuse - fortunately has been stable - continue home meds upon discharge Low TSH level - likely not of significance given normal free T4, outpt f/u Hypomagnesemia - for same reasons as low Na overall. given mag in ER. Hypertension - listed on chart, not on home med's, follow BP's - bp within reasonable limits considering hospital setting Vertebral compression fracture - almost certainly osteoporotic related to smoking/etc. not much pain right now. follow but seems to be doing OK History of DVT (deep vein thrombosis): - on anticoagulation, discharged on same (2) Diarrhea: (3) Bilateral leg weakness: (4) COPD, severe: Total Time Total Time Spent Total Time Spent (In Minutes): Discharge Plan Discharge Items Patient Disposition: Home - Self-Care Reason For Visit: HYPONATREMIA,WEAKNESS Discharge Diagnosis: Hyponatremia improving, constipation Activity: Per Instructions section Non-emergency contact: Primary Care Provider Call non-emergency contact if: your symptoms worsen Follow-up/Referrals: Naima Tyson MD [Primary Care Provider] - Diet: Regular Addtl Attending Provider Instructions: Low Salt - Hyponatremia You were found to have a low level of salt on labs and weakness in your legs. Th e low salt could have been cause by several things in your case and likely they all played some role in your low salt prior to admission to the hospital. You were sweating outside, not taking in good salt intake, and you drink about 12 beers a day which can all lead to low salt levels. We gave you fluids and salt tabs while you were in the hospital. We will want you to continue to take salt tablets three times a day. We will want you to have labs to evaluate your low salt level on Saturday. Constipation While you were here in the hospital you had some abdominal pain and what we call "overflow diarrhea". This is where you have wet/chunky stools that occur after constipation. The stool will go around the constipation and lead to your current state of wet/chunky stool. We gave you Miralax while you were in the hospital and would like for you to continue to use this out of the hospital. To start you can use it 1 dose twice a day for the weekend. From there you can use the Miralax based on your prior days bowel movements if you had one bowel movement that is hard, or you are still feeling constipated you can take one more dose than the day prior. If you are having several wet stools a day you can take one less. The goal is 1-2 soft bowel movements a day. Follow up If you can follow up with your primary doctor in the next 7 days to ensure that your salt level is appropriate and things are going well for you after leaving the hospital. Return precautions If you are having continued weakness of your legs we will want you to call or come in to get evaluated. Pending Studies at Discharge: No Stand-Alone Forms: My [employer], Smoking Cessation Medications and DC Order Prescriptions: New polyethylene glycol 3350 [Miralax] 17 gram/dose powder See Rx Instructions .ROUTE .COMPLEX PRN (Reason: constipation) 30 Days Qty: 1020 RF: 2 sodium chloride 1 gram tablet 2,000 mg PO TID 7 Days Qty: 42 RF: 0 Continued pantoprazole 40 mg Tablet,Delayed Release (Dr/Ec) 40 mg PO QPM RF: 0 Breo Ellipta 200-25 mcg/dose Blister With Device 1 inh INHALATION QPM RF: 0 Xarelto 20 mg tablet 20 mg PO QPM RF: 0 thiamine HCl (vitamin B1) [Vitamin B-1] 100 mg Tablet 100 mg PO QAM Qty: 30 RF: 0 folic acid 1 mg Tablet 1 mg PO QAM Qty: 30 RF: 0 Spiriva with HandiHaler 18 mcg Capsule, W/Inhalation Device 1 cap INHALATION QAM RF: 0 bupropion HCl 150 mg tablet sustained-release 12 hr 150 mg PO QAM RF: 0 ipratropium-albuterol 0.5 mg-3 mg(2.5 mg base)/3 mL solution for nebulization 3 ml inhalation Q4H PRN (Reason: Shortness Of Breath Or Wheezing) RF: 0 albuterol sulfate [ProAir HFA] 90 mcg/actuation HFA aerosol inhaler 1 puffs INH Q4H PRN (Reason: Shortness Of Breath Or Wheezing) RF: 0 Discharge Orders: Discharge Order (Routine); Ordered 06/03/20 Ordered By: Yousuf Garcia/Other Patient Handouts: ED Hyponatremia Admission Data Admit Date/Time: 05/31/20 19:01 Attending Provider: Hai Fregoso Admit Provider: Hai Fregoso Primary Care Provider: Naima Tyson Other Providers: Akbar Mensah Other Interventions: Discharge Summary Assessment (RN) Last Done: 06/03/20 17:44 DC Date/Time DO NOT enter until pt leaves facility: 06/03/20 19:14 Supervising Physician Co-Signing Physician Notes I personally examined the patient and verified all aviles points of history and exam, discussed case, and agree with decision making with Dr Rosenberg feeling better belly doing better now that he's had BMs, feels up to going home enma noted nad heent nc at mmm breathing unlabored no accessory muscles good effort (1) Bilateral leg weakness: ddx being hyponatremia-driven vs radicular from compression fx - but with no significant back pain component, no real radicular pain, and b/l equal diffuse weakness - most c/w hyponatremia driven ---PT/OT eval and treat -serial exams, follow as Na corrects -- is improving. appears will be stable for home (2) Hyponatremia: acute - was normal earlier this month. suspect mixed picture of salt losses (sweat, some loose stools), poor intake of solute (not eating food for about 4 days) and dilution/potomania (12 beers a day). unlikely to be SiADH from buproprion (was new - but appears dry, has other good reasons for low Na) or lung disease (has had severe COPD for a long time and does not chronically run low Na) ---> slowly correcting - but not surprising as i suspect he runs quite low on solute at baseline // has little compensatory mechanism. at this point is close enough to normal range that he is safe for outpt f/u - salt tabs x several more days, repeat BMP 2-3 days, then stop once he's reached normal. encouraged eating food once he's home. (3) Diarrhea: was overflow - miralax helped. can continue at home. (4) Alcohol abuse: thiamine, folate. surprising paucity of findings c/w liver disease. appears more or less end stage w COPD - therefore did not really engage in cessation counselling. fortunately not showing withdrawal (5) COPD, severe: home meds, home O2 -chronic hypoxic respiratory failure, chronic hypercapnic respiratory failure -due to ongoing tobacco abuse -fortunatley has been stable CBC Results Results Complete Blood Count Results: RBC 3.89 M/uL (4.7-6.1) L 06/02/20 WBC 7.21 K/uL (4.8-10.8) 06/02/20 Hgb 11.6 g/dL (14.0-18.0) L 06/02/20 Hct 35.1 % (42-52) L 06/02/20 Plt Count 193 K/uL (130-400) 06/02/20 Results BMP Results: Sodium 128 mmol/L (136-145) L 06/03/20 Potassium 3.7 mmol/L (3.5-5.1) 06/03/20 Chloride 94 mmol/L (98-107) L 06/03/20 BUN < 1 mg/dl (7-18) L 06/03/20 Creatinine 0.52 mg/dl (0.6-1.4) L 06/03/20 Glucose 89 mg/dl (70-99) 06/03/20 Resident Activity Tracking Resident Involvement: Resident Care Provided Care Provided: Adult [facility]
--- NOTE | 2020-06-03 20:05 | Billing Data ---
Date of Service June 03, 2020 Coding Level of Care Code D/C Day Management <30 mins
[2020-06-03] MEDS ORDERED: MAGNESIUM OXIDE 400 MG TAB PO SCH (21:00)
== END 2020-06-03 19:14 | disposition home or self-care (01) | DRG 641 ==
LOC: ED 15:05 → 3W 19:01

== ENCOUNTER 2020-06-13 16:20 | Inpatient (IN) ==
[2020-06-13] MEDS ORDERED: methylPREDNISolone 125 MG/2 ML VIAL IV STA (16:27)
[2020-06-13] MEDS ORDERED: ALBUT/IPRATROP 3MG/0.5MG NEB 3 ML VIAL NEB ONE (16:27)
--- NOTE | 2020-06-13 16:57 | XRay Report ---
XR chest 1V portable CLINICAL HISTORY: SEPSIS COMPARISON STUDY: 05/31/2020 FINDINGS: The heart is normal in size. There are multiple bilateral calcified granulomas. There is un derlying emphysema. There is no failure. There is no focal pulmonary consolidation. There are no pleu ral effusions.[ IMPRESSION: Emphysema. Evidence for prior granulomatous disease. No active disease in the chest. ACT 112: Negative or not required by law. Electronically signed by: Sammy Kiser M.D. 06/13/2020 4:56 PM
[2020-06-13 17:04] LABS: Base Excess VBG -0.1 mEq/L; Oxygen Saturation VBG 74.8 %; pH VBG 7.34 (7.36-7.41)
[2020-06-13 17:09] LABS: Basophils # (auto) 0.01 K/uL (0-0.2); Basophils % (auto) 0.1 %; Eosinophils # (auto) 0.04 K/uL (0-0.5); Eosinophils % (auto) 0.4 %; Hematocrit (blood only) 36.7 % (42-52); Hemoglobin 12.2 g/dL (14.0-18.0); Immature Granulocytes # (auto) 0.04 K/uL (0.00-0.02); Immature Granulocytes % (auto) 0.4 %; Lymphocytes # (auto) 0.73 K/uL (1.2-3.4); Lymphocytes % (auto) 7.2 %; Mean Corpuscular Hemoglobin 30.1 pg (25-34); Mean Corpuscular Hgb Conc 33.2 g/dL (32-36); Mean Corpuscular Volume 90.6 fL (80-100); Mean Platelet Volume 8.5 fL (7.4-10.4); Monocytes # (auto) 0.85 K/uL (0.11-0.59); Monocytes % (auto) 8.4 %; Neutrophils # (auto) 8.44 K/uL (1.4-6.5); Neutrophils % (auto) 83.5 %; Platelet Count 406 K/uL (130-400); RDW Coefficient of Variation 16.2 % (11.5-14.5); RDW Standard Deviation 53.4 fL (36.4-46.3); Red Blood Count 4.05 M/uL (4.7-6.1); White Blood Count 10.11 K/uL (4.8-10.8)
[2020-06-13 17:20] LABS: INR 1.1 (0.9-1.1); Partial Thromboplastin Ratio 1.1; Partial Thromboplastin Time 31.6 Seconds (21.0-31.0); Prothrombin Time 11.6 Seconds (9.0-12.0)
[2020-06-13 17:26] LABS: Alanine Aminotransferase 30 U/L (12-78); Albumin Level 2.9 gm/dl (3.4-5.0); Aspartate Aminotransferase 37 U/L (15-37); BUN Creatinine Ratio 11.6 (10-20); Bilirubin Direct 0.2 mg/dl (0-0.2); Blood Urea Nitrogen 7 mg/dl (7-18); Calcium 8.2 mg/dl (8.5-10.1); Carbon Dioxide 25 mmol/L (21-32); Chloride 97 mmol/L (98-107); Est GFR (Non-African American) 115.6; Glucose 81 mg/dl (70-99); Magnesium 1.9 mg/dl (1.8-2.4); Potassium 3.8 mmol/L (3.5-5.1); Sodium 132 mmol/L (136-145)
[2020-06-13 17:32] LABS: Albumin Globulin Ratio 0.8 (0.9-2); Alkaline Phosphatase 166 U/L (45-117); Bilirubin,Total 0.8 mg/dl (0.2-1); Globulin 3.6 gm/dl (2.5-4.0); NT Pro B Type Natriuretic Pept 96 pg/ml (0-900); Total Protein 6.5 gm/dl (6.4-8.2); Troponin I < 0.015 ng/ml (0-0.045)
[2020-06-13] MEDS ORDERED: AZITHROMYCIN 250 MG TAB PO ONE (18:05)
--- NOTE | 2020-06-13 18:45 | Emergency Department Note ---
Impression & Plan Acute and chronic respiratory failure, COPD exacerbation, History of DVT (deep vein thrombosis), Bilateral leg edema, On rivaroxaban therapy ED Provider Note NAME: JOSETTE FLOYD JR AGE: 54 SEX: M ARRIVES VIA: Ambulance INFORMANT: Patient, ED PROVIDER(S): Brennan Perez MD CHIEF COMPLAINT: Shortness of breath PLAN: Disposition: Admit MEDICAL DECISION MAKING: The patient is a pleasant 54-year-old gentleman with a past medical history of COPD on chronic home oxygen, history of PE on Xarelto who presents emergency department with acute onset of severe shortness of breath and work of breathing which was provoked by running out of his oxygen when he was out today but occurs in the setting of reporting increasing shortness of breath, cough and congestion over the past several days. Patient denies any fevers, chills, nausea, v omiting, diarrhea, urinary symptoms. He denies any known contacts with individuals diagnosed with COVID-19. On arrival the patient is in moderate respiratory distress with increased work of breathing with tripod positioning. He has diminished breath sounds throughout with underlying wheeze with prolonged expiratory phase. I did recommend to the patient a trial of BiPAP given his respiratory failure however he was adamant that he cannot tolerate the mask. Therefore we did proceed with continuous DuoNeb, steroids which ultimately unfortunately did improve his work of breathing and so BiPAP was able to be deferred. EKG without overt acute ischemia. Chest x-ray negative for acute process. WBC within normal limits. H/H 12.2/36.7 similar to prior range of values. Platelets 400K, nonspecific. VBG without any significant hypercapnia. Chemistry without acidosis. Lactate within normal limits. Electrolytes and LFTs unremarkable. Troponin negative/undetectable. BNP within normal limits. Given the patient's severe respiratory distress in the setting of progressively worsening symptoms reasonable to admit the patient for further management of likely COPD flare. Will treat with azithromycin. Patient is agreeable with admission. Case was discussed with Dr. Mensah, [facility] hospitalist, who will evaluate the patient for admission. Triage Nursing notes reviewed and agree them. Additional history obtained from EMS. Prior medical records reviewed Vital Signs: reviewed and remarkable for no significant abnormalities Differential diagnosis: Reactive airway disease, pneumonia, pneumothorax, COPD, CHF, infections, cardiac ischemia, pulmonary embolism, musculoskeletal, gastrointestinal, as well as other pathologies. ER treatment provided: See below. Diagnostics interpreted by me: ECG: Sinus tachycardia, 105 bpm, normal axis, no ectopy, no overt ST elevation or depression, QTC 470, QRS 76. Cardiac Monitoring: An order for continuous cardiac monitoring was placed and demonstrated An order for continuous cardiac monitoring was placed and demonstrated sinus tachycardia, 105 bpm, no ectopy. Laboratory studies: See below Imaging studies: XR chest 1V portable CLINICAL HISTORY: SEPSIS COMPARISON STUDY: 05/31/2020 FINDINGS: The heart is normal in size. There are multiple bilateral calcified granulomas. There is underlying emphysema. There is no failure. There is no focal pulmonary consolidation. There are no pleural effusions.[ IMPRESSION: Emphysema. Evidence for prior granulomatous disease. No active disease in the chest. Consultation(s): Case was discussed with Dr. Mensah, [facility] hospitalist, who will evaluate the patient for admission. HPI: The patient is a pleasant 54-year-old gentleman with a past medical history of COPD on chronic home oxygen, history of PE on Xarelto who presents emergency department with acute onset of severe shortness of breath and work of breathing which was provoked by running out of his oxygen when he was out today but occurs in the setting of reporting increasing shortness of breath, cough and congestion over the past several days. Patient denies any fevers, chills, nausea, vomiting, diarrhea, urinary symptoms. He denies any known contacts with individuals diagnosed with COVID-19. ROS: See above HPI for pertinent positives & negatives. A total of 10 systems reviewed and were otherwise negative. PAST MEDICAL HISTORY:See Below PAST SURGICAL HISTORY:See Below FAMILY HISTORY:See Below SOCIAL HISTORY:See Below HOME MEDICATIONS:See Below ALLERGIES:See Below VITALS:See Below PHYSICAL EXAMINATION: GENERAL: Awake, alert, ill appearing in moderate respiratory distress. HENT: Normocephalic, atraumatic. Oropharynx with dry mucous membranes and otherwise unremarkable. . EYES: Normal conjunctiva. Sclera non-icteric. NECK: Supple. No nuchal rigidity. FROM. No JVD. RESPIRATORY: Diminished breath sounds throughout with underlying wheeze with prolonged expiratory phase. Increased work of breathing with tripod positioning. CARDIAC: Tachycardic rate, normal rhythm. Extremities warm and well perfused. Pulses equal. ABDOMEN: Soft, non-distended. No tenderness to palpation. No rebound or guarding. No masses. RECTAL: Deferred. MUSCULOSKELETAL: Chest examination reveals no tenderness. The back is symme trical on inspection without obvious abnormality. There is no CVA tenderness to palpation. No joint edema. LOWER EXTREMITIES: Calves are equal size bilaterally and non-tender. 2+ bilateral lower extremity edema. No discoloration. NEURO: Normal sensorium. No sensory or motor deficits noted. SKIN: No rash or jaundice noted. ED COURSE: Critical Care: I have personally spent greater than 35 minutes of critical care time in the direct management of this patient. This includes bedside care, interpretation of diagnostic studies, and testing, discussion with consultants, patient, and family members, and other required patient management activities. This 35 minutes is in excess of all separately billable procedures. Brennan Perez MD Past Med/Surg History Medical History (Updated 06/14/20 @ 00:45 by Brennan Perez MD) Alcohol use REPORTS 12 PACK BEER PER DAY Aortic thrombus "I THINK THEY REMOVED IT" "YEARS AGO" - ON XARELTO Chronic obstructive pulmonary disease USING PRN NEBS/INH DAILY Compression fracture of L3 vertebra 12/13 fall 11/2019 DVT (deep venous thrombosis) X2 BLLE - ON XARELTO - UNK ETIOLOGY PER PT GERD (gastroesophageal reflux disease) Hiatal hernia [place] (hard of hearing) On home oxygen therapy 2 LPM CONTINUOUS Poor historian SOB (shortness of breath) on exertion Tremor Surgical History H/O vascular surgery X 3-VASCULAR BLOCKAGES LOWER LEGS History of esophagogastroduodenoscopy (EGD) History of tonsillectomy Status post angioplasty with stent BLLE Family History Mother Family history of diabetes mellitus Other No family history of adverse response to anesthesia Social History Smoking Status: Heavy tobacco smoker Tobacco Type: Cigarettes Cigarettes Per Day: 30; Second Hand Exposure: No; Do You Dip or Chew Tobacco: No; Hx Alcohol Use: Yes Alcohol type: beer Hx Substance Use: No Preferred Language: [place] Communication Ability: Effective Business Development Coordinator Required: No Beliefs That Will Affect Care: None marital status: Single Current Living Situation: Alone How many Children do You have: 0 Other Information That Helps Us Care for You: No Feels Safe at Home: Yes Safety Concerns: Feels Safe At This Time Allergies Allergies Allergy/AdvReac Type Severity Reaction Status Date / Time No Known Allergies Allergy Verified 06/13/20 17:42 Home Meds Home Medications Medication Instructions Recorded Confirmed Breo Ellipta 1 inh INHALATION QAM 01/15/19 06/13/20 pantoprazole 40 mg PO QPM 01/15/19 06/13/20 Xarelto 20 mg PO QPM 01/20/19 06/13/20 Spiriva with HandiHaler 1 cap INHALATION QAM 05/11/20 06/13/20 albuterol sulfate [ProAir HFA] 1 puffs INH Q4H PRN 05/31/20 06/13/20 bupropion HCl 150 mg PO QAM 05/31/20 06/13/20 ipratropium-albuterol 3 ml INHALATION Q4H PRN 05/31/20 06/13/20 Previous Rx's Medication Instructions Recorded folic acid 1 mg PO QAM #30 tab 11/09/19 thiamine HCl (vitamin B1) [Vitamin 100 mg PO QAM #30 tab 11/09/19 B-1] polyethylene glycol 3350 [Miralax] See Rx Instructions .ROUTE 06/03/20 .COMPLEX PRN 30 Days #1020 gm Results & Data (ED) Vital Signs Vital Signs - 24 hr 06/13/20 16:25 06/13/20 16:30 06/13/20 16:44 Temperature 37.1 C Temperature Source Oral Pulse Rate 115 H 104 H 103 H Pulse Rate [Apical] Pulse Rate from SpO2 Sensor 104 H 103 H Respiratory Rate 32 H 19 20 Respiratory Effort / Characteristics Labored Pursed Lip SOB on Exertion Respiratory Depth Shallow Respiratory Pattern Rapid/Shallow Tachypnea Blood Pressure 127/102 H 127/102 H Blood Pressure Mean 110 107 Blood Pressure Position Lying Pulse Oximetry 95 97 97 Oxygen Delivery Method Nasal Cannula Oxygen Flow Rate 2 Sepsis Recent Fever Within 48 Hours No Sepsis New/Unexplained Change in Mental Status No Sepsis Action Taken by Nursing Physician Notified 06/13/20 16:45 06/13/20 17:00 06/13/20 17:01 Temperature Temperature Source Pulse Rate 102 H 112 H Pulse Rate [Apical] 106 H Pulse Rate from SpO2 Sensor 102 H 106 H Respiratory Rate 20 28 H 26 H Respiratory Effort / Characteristics Spontaneous Respiratory Depth Respiratory Pattern Blood Pressure Blood Pressure Mean Blood Pressure Position Pulse Oximetry 97 96 98 Oxygen Delivery Method Nasal Cannula Oxygen Flow Rate 3 Sepsis Recent Fever Within 48 Hours Sepsis New/Unexplained Change in Mental Status Sepsis Action Taken by Nursing 06/13/20 17:15 06/13/20 17:30 Temperature Temperature Source Pulse Rate 107 H 108 H Pulse Rate [Apical] Pulse Rate from SpO2 Sensor 106 H 107 H Respiratory Rate 21 21 Respiratory Effort / Characteristics Respiratory Depth Respiratory Pattern Blood Pressure Blood Pressure Mean Blood Pressure Position Pulse Oximetry 99 99 Oxygen Delivery Method Oxygen Flow Rate Sepsis Recent Fever Within 48 Hours Sepsis New/Unexplained Change in Mental Status Sepsis Action Taken by Nursing Laboratory Data Attestation: I reviewed the patient's lab results. Result diagrams: 06/13/20 16:39 06/13/20 16:39 Lab Results 06/13/20 06/13/20 06/13/20 Range/Units 16:39 16:39 16:39 WBC 10.11 (4.8-10.8) K/uL RBC 4.05 L (4.7-6.1) M/uL Hgb 12.2 L (14.0-18.0) g/dL Hct 36.7 L (42-52) % MCV 90.6 (80-100) fL MCH 30.1 (25-34) pg MCHC 33.2 (32-36) g/dL RDW Std Deviation 53.4 H (36.4-46.3) fL RDW Coeff of Aggie 16.2 H (11.5-14.5) % Plt Count 406 H (130-400) K/uL MPV 8.5 (7.4-10.4) fL Immature Gran % (Auto) 0.4 % Neut % (Auto) 83.5 % Lymph % (Auto) 7.2 % [place] % (Auto) 8.4 % Eos % (Auto) 0.4 % Baso % (Auto) 0.1 % Neut # (Auto) 8.44 H (1.4-6.5) K/uL Lymph # (Auto) 0.73 L (1.2-3.4) K/uL [place] # (Auto) 0.85 H (0.11-0.59) K/uL Eos # (Auto) 0.04 (0-0.5) K/uL Baso # (Auto) 0.01 (0-0.2) K/uL Immature Gran # (Auto) 0.04 H (0.00-0.02) K/uL PT 11.6 (9.0-12.0) Seconds INR 1.1 (0.9-1.1) APTT 31.6 H (21.0-31.0) Seconds PTT Ratio 1.1 VBG pH (7.36-7.41) VBG pCO2 (38-50) mmHg VBG pO2 mmHg VBG HCO3 mmol/L VBG O2 Saturation % VBG Base Excess mEq/L Barometric Pressure mm/Hg Sodium 132 L (136-145) mmol/L Potassium 3.8 (3.5-5.1) mmol/L Chloride 97 L (98-107) mmol/L Carbon Dioxide 25 (21-32) mmol/L Anion Gap 10.0 (3-11) BUN 7 (7-18) mg/dl Creatinine 0.57 L (0.6-1.4) mg/dl Est Cr Clr Drug Dosing 156.0 ml/min Est GFR ( Amer) 134.0 Est GFR (Non-Af Amer) 115.6 BUN/Creatinine Ratio 11.6 (10-20) Glucose 81 (70-99) mg/dl Lactate (0.4-2.0) mmol/L Calcium 8.2 L (8.5-10.1) mg/dl Phosphorus 3.0 (2.5-4.9) mg/dl Magnesium 1.9 (1.8-2.4) mg/dl Total Bilirubin 0.8 (0.2-1) mg/dl Direct Bilirubin 0.2 (0-0.2) mg/dl AST 37 (15-37) U/L ALT 30 (12-78) U/L Alkaline Phosphatase 166 H (45-117) U/L Troponin I < 0.015 (0-0.045) ng/ml NT-Pro-B Natriuret Pep 96 (0-900) pg/ml Total Protein 6.5 (6.4-8.2) gm/dl Albumin 2.9 L (3.4-5.0) gm/dl Globulin 3.6 (2.5-4.0) gm/dl Albumin/Globulin Ratio 0.8 L (0.9-2) 06/13/20 06/13/20 Range/Units 16:39 16:39 WBC (4.8-10.8) K/uL RBC (4.7-6.1) M/uL Hgb (14.0-18.0) g/dL Hct (42-52) % MCV (80-100) fL MCH (25-34) pg MCHC (32-36) g/dL RDW Std Deviation (36.4-46.3) fL RDW Coeff of Aggie (11.5-14.5) % Plt Count (130-400) K/uL MPV (7.4-10.4) fL Immature Gran % (Auto) % Neut % (Auto) % Lymph % (Auto) % [place] % (Auto) % Eos % (Auto) % Baso % (Auto) % Neut # (Auto) (1.4-6.5) K/uL Lymph # (Auto) (1.2-3.4) K/uL [place] # (Auto) (0.11-0.59) K/uL Eos # (Auto) (0-0.5) K/uL Baso # (Auto) (0-0.2) K/uL Immature Gran # (Auto) (0.00-0.02) K/uL PT (9.0-12.0) Seconds INR (0.9-1.1) APTT (21.0-31.0) Seconds PTT Ratio VBG pH 7.34 L (7.36-7.41) VBG pCO2 51 H (38-50) mmHg VBG pO2 45 mmHg VBG HCO3 26 mmol/L VBG O2 Saturation 74.8 % VBG Base Excess -0.1 mEq/L Barometric Pressure 732.0 mm/Hg Sodium (136-145) mmol/L Potassium (3.5-5.1) mmol/L Chloride (98-107) mmol/L Carbon Dioxide (21-32) mmol/L Anion Gap (3-11) BUN (7-18) mg/dl Creatinine (0.6-1.4) mg/dl Est Cr Clr Drug Dosing ml/min Est GFR ( Amer) Est GFR (Non-Af Amer) BUN/Creatinine Ratio (10-20) Glucose (70-99) mg/dl Lactate 0.8 (0.4-2.0) mmol/L Calcium (8.5-10.1) mg/dl Phosphorus (2.5-4.9) mg/dl Magnesium (1.8-2.4) mg/dl Total Bilirubin (0.2-1) mg/dl Direct Bilirubin (0-0.2) mg/dl AST (15-37) U/L ALT (12-78) U/L Alkaline Phosphatase (45-117) U/L Troponin I (0-0.045) ng/ml NT-Pro-B Natriuret Pep (0-900) pg/ml Total Protein (6.4-8.2) gm/dl Albumin (3.4-5.0) gm/dl Globulin (2.5-4.0) gm/dl Albumin/Globulin Ratio (0.9-2) Administered Medications Acetaminophen (Tylenol) 650 mg PO Q4H PRN PRN Reason: Pain or Fever Stop: 07/13/20 22:04 Last Admin: 06/13/20 22:31 Dose: 650 mg Documented by: [id number] Pantoprazole Sodium (Protonix) 40 mg PO QPM SURJIT Stop: 07/13/20 21:00 Last Admin: 06/13/20 22:31 Dose: 40 mg Documented by: [id number] Rivaroxaban (Xarelto) 20 mg PO QPM SURJIT Stop: 07/13/20 21:00 Last Admin: 06/13/20 22:31 Dose: 20 mg Documented by: [id number] Discontinued Medications Albuterol (Duoneb) 12 ml NEB ONE ONE Stop: 06/13/20 16:28 Last Admin: 06/13/20 17:00 Dose: 12 ml Documented by: [id number] Azithromycin (Zithromax) 500 mg PO NOW ONE Stop: 06/13/20 18:06 Last Admin: 06/13/20 19:07 Dose: 500 mg Documented by: [id number] Methylprednisolone 40 mg/ (Syringe) 0.64 mls @ 1.5 mls/min IV ONE ONE Stop: 06/13/20 21:31 Last Admin: 06/13/20 21:55 Dose: 1.5 mls/min Documented by: [id number] Lorazepam (Ativan) 1 mg in 2 mls @ 2 mls/min IV NOW STA Stop: 06/13/20 22:09 Last Admin: 06/13/20 22:32 Dose: 2 mls/min Documented by: [id number] Methylprednisolone (Solumedrol) 125 mg IV NOW STA Stop: 06/13/20 16:28 Last Admin: 06/13/20 17:14 Dose: Not Given Documented by: [id number] Blood Pressure Blood Pressure Findings: Elevated blood pressure Blood Pressure Disposition: further management by hospitalist Discharge Plan Visit Data *Final* Discharge Date/Time: 06/13/20 20:22 Chief Complaint: Shortness of Breath/Dyspnea Stated Complaint: SOB ED Provider: Brennan Perez Discharge Problem: Acute and chronic respiratory failure, COPD exacerbation, History of DVT (deep vein thrombosis), Bilateral leg edema, On rivaroxaban therapy Patient Disposition: Admitted As Inpatient Discharge Instructions Interventions: ED Discharge Assessment Last Done: 06/13/20 20:22 Discharge Problem: Acute and chronic respiratory failure Qualifiers: Respiratory failure complication: hypoxia Qualified Code(s): J96.21 - Acute and chronic respiratory failure with hypoxia
--- NOTE | 2020-06-13 19:23 | History & Physical Report ---
Date of Service June 13, 2020 Assessment & Plan (1) Acute and chronic respiratory failure: Hypoxic and hypercapnic. Secondary to COPD exacerbation. Aim O2 sats > 88%, declined BiPAP trial (2) COPD exacerbation: Solu-medrol 125mg IV given en route to hospital. Continue 40mg IV TID Duonebs QID + PRN for shortness of breath and wheezing. (3) COPD, severe: Continue his usual Spiriva and Breo Ellipta or hospital formulary equivalent Can't stress not stopping smoking enough (4) Essential tremor: Likely made worse with required albuterol use. Consider starting primidone as outpatient if debilitating. Not suspected to be alcohol withdrawal given longstanding history of this (5) Hyponatremia: Suspected previously due to beer potomania which patient reports improved. (6) Alcohol use disorder: No prior withdrawals or seizures as per patient. Reduced from 12 beers/day to 8 beers/day since last admission. No withdrawal on last admission for 4 days noted. However certainly at risk of this and his essential tremor is worse than usual. No anxiety, headache, palpitations, diaphoresis, anorexia or GI symptoms to support this diagnosis. (7) Nicotine dependence: Encourage stopping smoking - continue buproprion (although concerning combination with alcohol for seizures, no history of this but would not increase dose). Declines nicotine replacement patch (8) Bilateral leg edema: with b/l venous stasis changes. Appears relatively acute given bright erythema. Possible acute exacerbation due to recent salt tabs given for hyponatremia, will d/c salt tabs (9) DVT prophylaxis: Continue Xarelto History of Present Illness Chief Complaint: Shortness of breath on exertion Primary Care Provider: Naima Tyson MD Tam Fritz is a 54 year old male with known severe COPD who continues to smoke with recent admission hyponatremia and leg weakness who presents to the ER with gradually worsening shortness of breath on exertion over the last 2 days. He reports running out of oxygen today therefore getting sudden much worse. Still smoking 1 pack cigarettes/day. Increased wheezing. No fever or chills. No known COVID-19 exposure. After his last admission he does report drinking less alcohol (now down to 8 beers/day, previously 12/day). After prior diagnosis of constipation with overflow diarrhea he reports his stools have been loose but regular since discharge. No nausea, vomiting or abd ominal pain. Allergies Allergy/AdvReac Type Severity Reaction Status Date / Time No Known Allergies Allergy Verified 06/13/20 17:42 Home Medications Home Medications Medication Instructions Recorded Confirmed Type Breo Ellipta 1 inh INHALATION QAM 01/15/19 06/13/20 History pantoprazole 40 mg PO QPM 01/15/19 06/13/20 History Xarelto 20 mg PO QPM 01/20/19 06/13/20 History folic acid 1 mg PO QAM #30 tab 11/09/19 06/13/20 Rx thiamine HCl (vitamin B1) [Vitamin 100 mg PO QAM #30 tab 11/09/19 06/13/20 Rx B-1] albuterol sulfate [ProAir HFA] 1 puffs INH Q4H PRN 05/31/20 06/13/20 History bupropion HCl 150 mg PO QAM 05/31/20 06/13/20 History ipratropium-albuterol 3 ml INHALATION Q4H PRN 05/31/20 06/13/20 History polyethylene glycol 3350 [Miralax] See Rx Instructions .ROUTE 06/03/20 06/13/20 Rx .COMPLEX PRN 30 Days #1020 gm tiotropium bromide 18 mcg capsule 1 cap INHALATION QAM #90 puffs 06/14/20 Rx with inhalation device prednisone 10 mg PO UD #42 tab 06/15/20 Rx Past Med/Surg History Medical History (Updated 06/14/20 @ 00:45 by Brennan Perez MD) Alcohol use REPORTS 12 PACK BEER PER DAY Aortic thrombus "I THINK THEY REMOVED IT" "YEARS AGO" - ON XARELTO Chronic obstructive pulmonary disease USING PRN NEBS/INH DAILY Compression fracture of L3 vertebra 12/13 fall 11/2019 DVT (deep venous thrombosis) X2 BLLE - ON XARELTO - UNK ETIOLOGY PER PT GERD (gastroesophageal reflux disease) Hiatal hernia [place] (hard of hearing) On home oxygen therapy 2 LPM CONTINUOUS Poor historian SOB (shortness of breath) on exertion Tremor Surgical History H/O vascular surgery X 3-VASCULAR BLOCKAGES LOWER LEGS History of esophagogastroduodenoscopy (EGD) History of tonsillectomy Status post angioplasty with stent BLLE Family History Mother Family history of diabetes mellitus Other No family history of adverse response to anesthesia Social History Smoking Status: Heavy tobacco smoker Tobacco Type: Cigarettes Cigarettes Per Day: 30; Second Hand Exposure: No; Hx Alcohol Use: Yes Alcohol type: beer Hx Substance Use: No Preferred Language: Sammarinese Communication Ability: Effective Admissions Rn Required: No Beliefs That Will Affect Care: None marital status: Single Current Living Situation: Alone How many Children do You have: 0 Feels Safe at Home: Yes Review of Systems Review of Systems: All systems reviewed & are unremarkable except as noted in HPI & below Physical Exam Constitutional: + not well nourished and no acute distress Eyes: + anicteric sclerae; normal pupil size Neck: + short neck and + thick neck Respiratory: + respiratory distress, + uses accessory muscles, + abnormal respiratory pattern, + prolonged expiratory phase and + audible wheezes; + not able to speak in complete sentence and no stridor Auscultation: + diminished lung sounds (bibasal) and + wheezes (throughout) Cardiovascular: Rate/Rhythm: regular rhythm and + tachycardic Heart Sounds: no murmur Vessels: radial pulses present Extremities: normal capillary refill and + edema (2+ to knees equal b/l) Musculoskeletal: no cyanosis or clubbing, extremities motor strength 5/5 Skin: no rashes, warm and dry Neurologic: moves all extremities and awake; not confused Psychiatric: A+Ox3, euthymic affect Results & Data Results & Data ([facility]) Vital Signs (Past 12 Hours) Vital Signs Temp Pulse Pulse Resp BP Pulse Ox 06/13/20 17:30 108 H 21 99 06/13/20 17:15 107 H 21 99 06/13/20 17:01 106 H 26 H 98 06/13/20 17:00 112 H 28 H 96 06/13/20 16:45 102 H 20 97 06/13/20 16:44 103 H 20 97 06/13/20 16:30 104 H 19 127/102 H 97 06/13/20 16:25 37.1 C 115 H 32 H 127/102 H 95 Diagnostic Findings XR chest 1V portable IMPRESSION: Emphysema. Evidence for prior granulomatous disease. No active disease in the chest. Code Status & VTE Plan Code Status Discussed in some detail given prior wishes DNR/DNI on both his last admission and on discussion with his nursing home administrator. However currently he wishes to be intubated in the event of a respiratory arrest. VTE Prophylaxis Plan VTE Prophylaxis will be ordered: Yes PG Care Time/CCT Total # of Minutes Spent Total Time Spent with Patient: Total time spent is greater than 50% in coordination of care (as documented) at patient's floor/unit and/or counseling patient: Coding Level of Care Code 77022 Initial Inpt Care Lvl 3 Diagnoses Acute and chronic respiratory failure J96.21 Respiratory failure complication: hypoxia COPD exacerbation J44.1 COPD, severe J44.9 Essential tremor G25.0 Hyponatremia E87.1 Alcohol use disorder Nicotine dependence F17.200 Bilateral leg edema R60.0 DVT prophylaxis Z29.9 (1) Acute and chronic respiratory failure Respiratory failure complication: hypoxia Qualified Code(s): J96.21 - Acute and chronic respiratory failure with hypoxia
[2020-06-13] MEDS ORDERED: methylPREDNISolone 40 MG in SYRINGE 0 ML IV ONE (21:30)
[2020-06-13] MEDS ORDERED: ACETAMINOPHEN 325 MG TAB PO PRN (22:05)
[2020-06-13] MEDS ORDERED: LORazepam 1 MG/2 ML VIAL IV STA (22:08)
[2020-06-13] MEDS: PANTOprazole 40 MG TAB PO SCH (22:31)
[2020-06-13] MEDS: RIVAROXABAN 20 MG TAB PO SCH (22:31)
[2020-06-14 04:44] LABS: Appearance Urine Clear (Clear); Bilirubin Urine Negative (Negative); Blood Urine Negative (Negative); Color Urine Yellow; Glucose Urine UA Negative (Negative); Ketones Urine 3+ (Negative); Leukocyte Esterase Urine Negative (Negative); Nitrite Urine Negative (Negative); Protein Urine Negative (Negative); Specific Gravity Urine 1.021 (1.000-1.030); Urobilinogen Urine Negative (Negative)
[2020-06-14] MEDS: methylPREDNISolone 40 MG in SYRINGE 0 ML IV SCH ×2 (05:05→14:27)
[2020-06-14 05:56] LABS: Hematocrit (blood only) 38.2 % (42-52); Hemoglobin 12.6 g/dL (14.0-18.0); Immature Granulocytes # (auto) 0.02 K/uL (0.00-0.02); Immature Granulocytes % (auto) 0.2 %; Lymphocytes # (auto) 0.51 K/uL (1.2-3.4); Lymphocytes % (auto) 5.8 %; Mean Corpuscular Hemoglobin 30.1 pg (25-34); Mean Corpuscular Volume 91.2 fL (80-100); Mean Platelet Volume 8.6 fL (7.4-10.4); Monocytes # (auto) 0.29 K/uL (0.11-0.59); Monocytes % (auto) 3.3 %; Neutrophils # (auto) 7.91 K/uL (1.4-6.5); Neutrophils % (auto) 90.7 %; Platelet Count 381 K/uL (130-400); RDW Coefficient of Variation 16.1 % (11.5-14.5); RDW Standard Deviation 53.5 fL (36.4-46.3); Red Blood Count 4.19 M/uL (4.7-6.1); White Blood Count 8.73 K/uL (4.8-10.8)
[2020-06-14 06:33] LABS: BUN Creatinine Ratio 10.8 (10-20); Calcium 8.6 mg/dl (8.5-10.1); Creatinine Clr Calc Pharmacy 158.7 ml/min; Est GFR (Non-African American) 116.4; Potassium 4.4 mmol/L (3.5-5.1)
[2020-06-14] MEDS: ALBUT/IPRATROP 3MG/0.5MG NEB 3 ML VIAL NEB SCH ×4 (07:09→19:45)
[2020-06-14] MEDS: FLUTICASONE/VILANTEROL 200/25MCG 14 PUFFS/INHALER INH SCH (09:01)
[2020-06-14] MEDS: NICOTINE POLACRILEX 2 MG GUM MT PRN (09:02)
[2020-06-14] MEDS: BuPROPion SR 150 MG TABCR PO SCH (09:02)
[2020-06-14] MEDS: THIAMINE HCL 100 MG TAB PO SCH (09:02)
[2020-06-14] MEDS: AZITHROMYCIN 250 MG TAB PO SCH (09:02)
[2020-06-14] MEDS: UMECLIDINIUM BROMIDE 62.5MCG/BLISTER 7 PUFFS/INHALER INH SCH (09:03)
[2020-06-14] MEDS: FOLIC ACID 1 MG TAB PO SCH (09:03)
--- NOTE | 2020-06-14 11:05 | Electrocardiogram Report ---
Test Reason : Blood Pressure : / mmHG Vent. Rate : 105 BPM Atrial Rate : 105 BPM P-R Int : 152 ms QRS Dur : 076 ms QT Int : 362 ms P-R-T Axes : 064 020 053 degrees QTc Int : 478 ms Sinus tachycardia Otherwise normal ECG When compared with ECG of 31-MAY-2020 15:37, No significant change was found Confirmed by Jovi Haynes [id number]) on 06/14/2020 11:04:46 AM Referred By: REFERRED SELF Confirmed By:Daniel Haynes
--- NOTE | 2020-06-14 18:04 | Hospitalist Progress Note ---
Date of Service June 14, 2020 Assessment & Plan (1) Acute and chronic respiratory failure: Hypoxic and hypercapnic. ipmroved. likely exacerbated by inadequate O2 supplies at home - at least at rest appearing back to baseline -- will try ambulation (2) COPD exacerbation: start to wean steroids Duonebs QID + PRN for shortness of breath and wheezing. (3) COPD, severe: (4) Essential tremor: Likely made worse with required albuterol use. supportive care, follow - can treat as outpt if needed (5) Hyponatremia: Suspected previously due to beer potomania which patient reports improved. follow periodic Na (6) Alcohol use disorder: No prior withdrawals or seizures as per patient. Reduced from 12 beers/day to 8 beers/day since last admission. No withdrawal on last admission for 4 days noted. follow. (7) Nicotine dependence: has not wanted to quit smoking and now essentially is facing end stage COPD (8) Bilateral leg edema: with b/l venous stasis changes. does not appear c/w CHF (9) DVT prophylaxis: Continue Xarelto Admission and Anticipated Discharge Date Admission Date: June 13, 2020 Subjective feeling better - at rest notes that his breathing is back to baseline - but hasnt been up and walking much yet - worries about how he'll do wtih that. notes that he really thinks he needs all new equipment at home -has been living off his portable concentrator since main one broken, but even that wasn't working as well as it should. Review of Systems Review of Systems: All systems reviewed & are unremarkable except as noted in HPI & below Physical Exam Physical Exam: gen aao pleasant nad heent nc at mmm breathing unlabored no accessory muscles good effort skin no rashes no pallor or icterus neuro ongoing chronic tremor no focal neuro deficits Results & Data Results & [facility]) Vital Signs (Past 12 Hours) Vital Signs Temp Pulse Pulse Resp BP Pulse Ox 06/14/20 15:27 122 H 06/14/20 15:25 20 94 06/14/20 15:17 98.6 F 107 H 18 127/78 94 06/14/20 11:52 98.8 F 119 H 20 129/66 92 06/14/20 11:09 117 H 21 79 L 06/14/20 07:19 123 H 06/14/20 07:14 98.2 F 117 H 22 170/89 H 90 06/14/20 07:09 120 H 21 90 PG Care Time/CCT Total # of Minutes Spent Total Time Spent with Patient: Total time spent is greater than 50% in coordination of care (as documented) at patient's floor/unit and/or counseling patient: Coding Level of Care Code 22154 Subseq Hosp Care Lvl 3 Diagnoses Acute and chronic respiratory failure J96.21 Respiratory failure complication: hypoxia COPD exacerbation J44.1 COPD, severe J44.9 Essential tremor G25.0 Hyponatremia E87.1 Alcohol use disorder Nicotine dependence F17.200 Bilateral leg edema R60.0 DVT prophylaxis Z29.9 (1) Acute and chronic respiratory failure Respiratory failure complication: hypoxia Qualified Code(s): J96.21 - Acute and chronic respiratory failure with hypoxia
[2020-06-14] MEDS: RIVAROXABAN 20 MG TAB PO SCH (20:20)
[2020-06-14] MEDS: PANTOprazole 40 MG TAB PO SCH (20:20)
[2020-06-15] MEDS: ALBUT/IPRATROP 3MG/0.5MG NEB 3 ML VIAL NEB SCH ×6 (03:23→23:49)
[2020-06-15] MEDS ORDERED: POLYETHYLENE (MIRALAX) 17 GM PACK PO PRN (03:56)
[2020-06-15] MEDS ORDERED: FUROSEMIDE 20 MG in SYRINGE 0 ML IV ONE (03:56)
[2020-06-15] MEDS: FLUTICASONE/VILANTEROL 200/25MCG 14 PUFFS/INHALER INH SCH (08:51)
[2020-06-15] MEDS: UMECLIDINIUM BROMIDE 62.5MCG/BLISTER 7 PUFFS/INHALER INH SCH (08:51)
[2020-06-15] MEDS: FOLIC ACID 1 MG TAB PO SCH (08:52)
[2020-06-15] MEDS: THIAMINE HCL 100 MG TAB PO SCH (08:52)
[2020-06-15] MEDS: predniSONE 20 MG TAB PO SCH (08:52)
[2020-06-15] MEDS: NICOTINE POLACRILEX 2 MG GUM MT PRN (08:52)
[2020-06-15] MEDS: BuPROPion SR 150 MG TABCR PO SCH (08:52)
[2020-06-15] MEDS: AZITHROMYCIN 250 MG TAB PO SCH (08:52)
--- NOTE | 2020-06-15 17:47 | Hospitalist Progress Note ---
Date of Service June 15, 2020 Assessment & Plan (1) Acute and chronic respiratory failure: Hypoxic and hypercapnic. Secondary to COPD exacerbation. Aim O2 sats > 88%, declined BiPAP trial appearing stable (2) COPD exacerbation: weaning steroids - PO prednisone Duonebs QID + PRN for shortness of breath and wheezing. 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 Not suspected to be alcohol withdrawal given longstanding history of this (5) Hyponatremia: Suspected previously due to beer potomania which patient reports improved. (6) Alcohol use disorder: No prior withdrawals or seizures as per patient. Reduced from 12 beers/day to 8 beers/day since last admission. No withdrawal on last admission for 4 days noted. follow. (7) Nicotine dependence: has not wanted to quit smoking and now essentially is facing end stage COPD (8) Bilateral leg edema: with b/l venous stasis changes. Appears relatively acute given bright erythema. Possible acute exacerbation due to recent salt tabs given for hyponatremia, will d/c salt tabs (9) DVT prophylaxis: Continue Xarelto (10) Discharge planning issues: appears appropriate for rehab - awaiting authorization /approval Admission and Anticipated Discharge Date Admission Date: June 13, 2020 Subjective breathing feeling more baseline for recently. wonders why he gets more CARSON than at rest. wonders why when he's at the store he feels better after he takes his backpack off and puts it in the cart - explained the physiology of all of this to the best of my ability and to his satisfaction otherwise no new complaints Review of Systems Review of Systems: All systems reviewed & are unremarkable except as noted in HPI & below Physical Exam Physical Exam: gen aao pleasant nad heent nc at mmm breathing unlabored no accessory muscles good effort skin no rashes no pallor or icterus neuro ongoing coarse tremor but no other deficits. Results & Data Results & Data ([facility]) Vital Signs (Past 12 Hours) Vital Signs Temp Pulse Pulse Pulse Resp BP Pulse Ox 06/15/20 17:07 99.7 F H 112 H 17 154/80 H 92 06/15/20 14:54 116 H 06/15/20 14:53 99 H 18 94 06/15/20 11:13 93 H 20 94 06/15/20 11:10 98.2 F 118 H 20 129/75 92 06/15/20 07:32 98 H 20 92 06/15/20 07:15 119 H 06/15/20 07:09 98.6 F 70 20 117/77 98 PG Care Time/CCT Total # of Minutes Spent Total Time Spent with Patient: Total time spent is greater than 50% in coordination of care (as documented) at patient's floor/unit and/or counseling patient: Coding Level of Care Code 98527 Subseq Hosp Care Lvl 2 Diagnoses Acute and chronic respiratory failure J96.21 Respiratory failure complication: hypoxia COPD exacerbation J44.1 COPD, severe J44.9 Essential tremor G25.0 Hyponatremia E87.1 Alcohol use disorder Nicotine dependence F17.200 Bilateral leg edema R60.0 DVT prophylaxis Z29.9 Discharge planning issues Z02.9 (1) Acute and chronic respiratory failure Respiratory failure complication: hypoxia Qualified Code(s): J96.21 - Acute and chronic respiratory failure with hypoxia
[2020-06-15] MEDS: RIVAROXABAN 20 MG TAB PO SCH (20:23)
[2020-06-15] MEDS: PANTOprazole 40 MG TAB PO SCH (20:23)
[2020-06-16] MEDS: ALBUT/IPRATROP 3MG/0.5MG NEB 3 ML VIAL NEB SCH ×3 (03:01→11:24)
[2020-06-16] MEDS: FLUTICASONE/VILANTEROL 200/25MCG 14 PUFFS/INHALER INH SCH (08:48)
[2020-06-16] MEDS: UMECLIDINIUM BROMIDE 62.5MCG/BLISTER 7 PUFFS/INHALER INH SCH (08:48)
[2020-06-16] MEDS: BuPROPion SR 150 MG TABCR PO SCH (08:49)
[2020-06-16] MEDS: FOLIC ACID 1 MG TAB PO SCH (08:49)
[2020-06-16] MEDS: predniSONE 20 MG TAB PO SCH (08:49)
[2020-06-16] MEDS: AZITHROMYCIN 250 MG TAB PO SCH (08:49)
[2020-06-16] MEDS: NICOTINE POLACRILEX 2 MG GUM MT PRN (08:50)
[2020-06-16] MEDS: THIAMINE HCL 100 MG TAB PO SCH (08:50)
--- NOTE | 2020-06-16 17:53 | Discharge Summary ---
Date of Service June 16, 2020 Admission HPI Per Admitting Provider Tam Fritz is a 54 year old male with known severe COPD who continues to smoke with recent admission hyponatremia and leg weakness who presents to the ER with gradually worsening shortness of breath on exertion over the last 2 days. He reports running out of oxygen today therefore getting sudden much worse. Still smoking 1 pack cigarettes/day. Increased wheezing. No fever or chills. No known COVID-19 exposure. After his last admission he does report drinking less alcohol (now down to 8 beers/day, previously 12/day). After prior diagnosis of constipation with overflow diarrhea he reports his stools have been loose but regular since discharge. No nausea, vomiting or abdominal pain. Principal Diagnosis severe/end-stage COPD - exacerbation heavily brought on by malfunctioning equipment at home weakness/deconditioning - for rehab Discharge Exam gen aao pleasant nad heent nc at mmm breathing unlabored no accessory muscles good effort skin no rashes no pallor or icterus neuro no focal deficits but does have ongoing coarse tremor Discharge Data Allergies Allergy/AdvReac Type Severity Reaction Status Date / Time No Known Allergies Allergy Verified 06/13/20 17:42 Consultations 06/13/20 18:08 ED Decision to Admit Stat Hospital Course (1) Acute and chronic respiratory failure: Hypoxic and hypercapnic. Secondary to COPD exacerbation. Aim O2 sats > 88%, declined BiPAP trial appearing stable (2) COPD exacerbation: weaning steroids - PO prednisone Duonebs QID here - combivent at discharge + PRN for shortness of breath and wheezing. (3) COPD, severe: Continue his usual Spiriva and Breo Ellipta doesn't want to stop smoking or use bipap/etc (although in facilities he has been off nicotine, which is at least transiently helpful) (4) Essential tremor: chronic Consider starting primidone as outpatient if debilitating. Not suspected to be alcohol withdrawal given longstanding history of this (5) Hyponatremia: Suspected previously due to beer potomania which patient reports improved. periodic BMP (6) Alcohol use disorder: No prior withdrawals or seizures as per patient. Reduced from 12 beers/day to 8 beers/day since last admission. No withdrawal on last admission for 4 days noted. None this admission either stable (7) Nicotine dependence: has not wanted to quit smoking and now essentially is facing end stage COPD (8) Bilateral leg edema: with b/l venous stasis changes. Appears relatively acute given bright erythema. Possible acute exacerbation due to recent salt tabs given for hyponatremia, will d/c salt tabs (9) DVT prophylaxis: Continue Xarelto (10) Discharge planning issues: stable for rehab Total Time Total Time Spent Total Time Spent (In Minutes): <30 Discharge Plan Discharge Items Patient Disposition: Transfer Inpatient Rehab Fac Reason For Visit: SOB Discharge Diagnosis: COPD exacerbation Activity: Resume your previous activity Activity Comment: as guided by therapy Non-emergency contact: Primary Care Provider Call non-emergency contact if: you have any medication questions Follow-up/Referrals: Naima Tyson MD [Primary Care Provider] - Diet: Regular Addtl Attending Provider Instructions: PT/OT ongoing eval and treat at time of discharge - please have case management work with his oxygen supply company as he related much of his equipment is not working - which was heavily what led to his flare up and current hospital admission. thanks Pending Studies at Discharge: No Stand-Alone Forms: My [facility] Skilled Items Patient informed of condition?: Yes Discharge Level of Care: Acute rehab Communicable Disease: No Discharge Prognosis: Stable Lines: None Urinary Catheter: No Medications and DC Order Prescriptions: New prednisone 10 mg tablet 10 mg PO UD Qty: 42 RF: 0 Combivent Respimat 20-100 mcg/actuation mist 1 puffs INH 6XD Qty: 4 RF: 0 Continued Spiriva with HandiHaler 18 mcg capsule, w/inhalation device 1 cap INHALATION QAM Qty: 90 RF: 3 pantoprazole 40 mg Tablet,Delayed Release (Dr/Ec) 40 mg PO QPM RF: 0 Breo Ellipta 200-25 mcg/dose Blister With Device 1 inh INHALATION QAM RF: 0 Xarelto 20 mg tablet 20 mg PO QPM RF: 0 thiamine HCl (vitamin B1) [Vitamin B-1] 100 mg Tablet 100 mg PO QAM Qty: 30 RF: 0 folic acid 1 mg Tablet 1 mg PO QAM Qty: 30 RF: 0 bupropion HCl 150 mg tablet sustained-release 12 hr 150 mg PO QAM RF: 0 albuterol sulfate [ProAir HFA] 90 mcg/actuation HFA aerosol inhaler 1 puffs INH Q4H PRN (Reason: Shortness Of Breath Or Wheezing) RF: 0 polyethylene glycol 3350 [Miralax] 17 gram/dose powder See Rx Instructions .ROUTE .COMPLEX PRN (Reason: constipation) 30 Days Qty: 1020 RF: 2 Discontinued ipratropium-albuterol 0.5 mg-3 mg(2.5 mg base)/3 mL solution for nebulization 3 ml inhalation Q4H PRN (Reason: Shortness Of Breath Or Wheezing) RF: 0 Discharge Orders: Discharge Order (Routine); Ordered 06/15/20 Ordered By: Hai Fregoso Admission Data Admit Date/Time: 06/13/20 19:46 Attending Provider: Hai Fregoso Admit Provider: Akbar Mensah Primary Care Provider: Naima Tyson Other Providers: Akbar Mensah ; [facility] ; [facility] ; [facility] Other Interventions: Discharge Summary Assessment (RN) Last Done: 06/16/20 14:33 DC Date/Time DO NOT enter until pt leaves facility: 06/16/20 15:21 Coding Level of Care Code D/C Day Management <30 mins Diagnoses Acute and chronic respiratory failure J96.21 Respiratory failure complication: hypoxia COPD exacerbation J44.1 COPD, severe J44.9 Essential tremor G25.0 Hyponatremia E87.1 Alcohol use disorder Nicotine dependence F17.200 Bilateral leg edema R60.0 DVT prophylaxis Z29.9 Discharge planning issues Z02.9
== END 2020-06-16 15:21 | DRG 189 ==
LOC: ED 16:20 → 2N 19:46 → SUATTDRO 19:46 → 2N 20:22